=== PATIENT | female | born 1955 | race Caucasian/White ===

== ENCOUNTER 2020-03-13 11:38 | Outpatient (REF) | payer MEDICARE, SELFPAY | END 2020-03-13 11:39 | disposition home or self-care (01) | LOC: HO.LAB 11:38 | PROVIDERS: Visit Provider Nurse Practitioner Family | DX: Z20.828 Contact with and (suspected) exposure to other viral communicable diseases (principal) | CPT/HCPCS: U0003 ==

== ENCOUNTER 2020-03-25 10:55 | Outpatient (REF) | payer MEDICARE, SELFPAY ==
--- NOTE | 2020-03-25 11:07 | MR_ITS ---
EXAMINATION: MR CERVICAL SPINE WITHOUT CONTRAST CLINICAL INFORMATION: Cervical disc disorder. Neck pain. COMPARISON: None available. TECHNIQUE: MRI of the cervical spine was performed using routine sequences without contrast. FINDINGS: The cervical vertebral bodies maintain normal heights. There is mild retrolisthesis of C3 on C4 with alignment otherwise preserved. There is moderate disc height loss at C3-C4 and C4-C5. Bone marrow edema is seen across the right-sided C4-C5 facets reflecting advanced arthropathy. The cervical cord signal appears normal. The imaged portions of the intracranial contents appear normal. The extraspinal soft tissues appear normal. SPINAL LEVELS: C2-C3: No posterior disc abnormality. No spinal canal or neural foraminal stenosis. C3-C4: Disc osteophyte complex with ligamentum flavum infolding causing mild to moderate spinal canal stenosis with some flattening of the ventral cord. Right foraminal protrusion results in severe right neural foraminal stenosis. C4-C5: Disc osteophyte complex with bilateral uncovertebral hypertrophy and severe right and mild to moderate left facet arthropathy results in mild spinal canal stenosis and moderate to severe right and moderate left neural foraminal stenosis. C5-C6: No posterior disc abnormality. Moderate right facet arthropathy. No spinal canal or neural foraminal stenosis. C6-C7: Mild disc bulging. Moderate right more than left facet arthropathy with uncovertebral hypertrophy. No spinal canal or neural foraminal stenosis. C7-T1: No posterior disc abnormality. No spinal canal or neural foraminal stenosis. MR/MR cervical spine wo con IMPRESSION: Multilevel degenerative spondylotic changes. At C3-C4 there is mild to moderate spinal canal stenosis with some cord flattening. Right foraminal protrusion results in severe right neural foraminal stenosis. At C4-C5 there is edema about the right-sided facet compatible with advanced arthropathy. Mild spinal canal stenosis and moderate to severe right and moderate left neural foraminal stenosis. Additional milder spondylosis is detailed above.
== END 2020-03-25 10:56 | disposition home or self-care (01) ==
LOC: HO.MRI 10:55
PROVIDERS: Visit Provider Nurse Practitioner Family
DX: M50.90 Cervical disc disorder, unspecified, unspecified cervical region (principal)
CPT/HCPCS: 72141

== ENCOUNTER 2020-09-15 06:21 | Outpatient (REF) | payer MEDICARE, SELFPAY ==
[2020-09-15 12:07] LABS: Alanine Aminotransferase 16 U/L (0-31); Albumin Level 4.6 g/dL (3.5-5.0); Alkaline Phosphatase 83 U/L (39-117); Anion Gap 14 (12-20); Aspartate Amino Transferase 18 U/L (5-31); Bilirubin Total 0.5 mg/dL (0.0-1.0); Blood Urea Nitrogen 12 mg/dL (9-16); Calcium 9.3 mg/dL (8.4-10.2); Carbon Dioxide 26 mmol/L (22-29); Chloride 107 mmol/L (96-108); Cholesterol 185 mg/dL; Estimated Glomerular Filt Rate > 60; Glucose Fasting 91 mg/dL (60-99); HDL Cholesterol 63 mg/dL; LDL Cholesterol Calculated 103 mg/dl; Potassium 3.9 mmol/L (3.3-5.1); Sodium 143 mmol/L (135-145); Total Protein 6.9 g/dL (6.5-8.0); Triglycerides 97 mg/dL
[2020-09-15 12:11] LABS: TSH reflex Free T4 1.69 uIU/mL (0.32-4.0); Vitamin D 25-OH Total 52.8 ng/mL (>30)
== END 2020-09-15 06:22 | disposition home or self-care (01) ==
LOC: HO.HMGCLDS 06:21
PROVIDERS: PCP Nurse Practitioner Family; Visit Provider Nurse Practitioner Family
DX: E78.5 Hyperlipidemia, unspecified (principal); Z78.0 Asymptomatic menopausal state
CPT/HCPCS: 36415; 80053; 80061; 82306; 84443

== ENCOUNTER 2020-09-23 08:00 | Outpatient (RCR) | payer MEDICARE, SELFPAY | END 2020-09-26 09:44 | disposition home or self-care (01) | LOC: HO.PTCHIC 08:00 | PROVIDERS: PCP Nurse Practitioner Family | DX: M22.41 Chondromalacia patellae, right knee (principal); M22.42 Chondromalacia patellae, left knee; M25.561 Pain in right knee; M25.562 Pain in left knee | CPT/HCPCS: 97110; 97163 ==

== ENCOUNTER → 2021-06-08 14:10 | Outpatient (REF) | payer MEDICARE, SELFPAY ==
--- NOTE | 2021-06-08 14:13 | HM_ITS ---
Conclusion: 1. Patient was monitored for total period of 3 days and 9 hours 2. Baseline rhythm is normal sinus rhythm with average heart of 85 beats per minute 3. No significant pauses or bradycardia noted 4. Total of 114 PVCs accounting for 0.03% of total burden accounting for very rare PVCs 5. Patient reported 6 events correlated with sinus rhythm MTDD
== END ==
LOC: HO.CARD 14:10
PROVIDERS: PCP Nurse Practitioner Family; Visit Provider Nurse Practitioner Family
DX: R00.2 Palpitations (principal)
CPT/HCPCS: 93242

== ENCOUNTER 2021-08-13 06:37 | Outpatient (REF) | payer MEDICARE, SELFPAY ==
[2021-08-13 11:41] LABS: Appearance Urine CLEAR; Color Urine YELLOW; Glucose Urine UA NEG (NEG); Leukocyte Esterase Urine NEG (NEG); Nitrite Urine NEG (NEG); Specific Gravity - Urine 1.015 (1.005-1.025); UACC Culture Trigger NO; Urine Blood 1+ (NEG); Urine Ketones NEG (NEG); Urine Protein NEG (NEG-TRACE)
[2021-08-13 11:43] LABS: MANUAL DIFF FLAG NO
[2021-08-13 11:49] LABS: Basophils Absolute Auto 0.1 X10*3/uL (0.0-0.2); Basophils Percent Auto 0.7 % (0-2); Eosinophils Absolute Auto 0.1 X10*3/uL (0.0-0.4); Eosinophils Percent Auto 1.7 % (0-4); Hematocrit 39.1 % (37.0-47.0); Imm Gran Abs Auto 0.04 X10*3/uL (0.00-0.03); Imm Gran Pct Auto 0.5 % (0.0-0.4); Lymphocytes Percent Auto 25.7 % (20-40); Mean Corpuscular HGB Conc 33.2 g/dl (31.0-35.0); Mean Corpuscular Hemoglobin 32.7 pg (27.0-33.0); Mean Corpuscular Volume 98.5 fL (80.0-98.0); Mean Platelet Volume 9.5 fL (9.4-12.3); Monocytes Absolute Auto 0.6 X10*3/uL (0.1-1.2); Monocytes Percent Auto 8.1 % (2-11); Neutrophils Absolute Auto 4.8 x10*3/uL (2.0-8.3); Neutrophils Percent Auto 63.3 % (45-73); Platelet Count 319 X10*3/uL (160-400); Red Blood Count 3.97 X10*6/uL (4.20-5.50); Red Cell Distribution Width 12.8 % (11.0-16.0); White Blood Count 7.6 X10*3/uL (4.8-10.8)
[2021-08-13 12:14] LABS: Alanine Aminotransferase 22 U/L (0-31); Albumin Level 4.5 g/dL (3.5-5.0); Alkaline Phosphatase 79 U/L (39-117); Anion Gap 12 (12-20); Aspartate Amino Transferase 22 U/L (5-31); Bilirubin Total 0.5 mg/dL (0.0-1.0); Blood Urea Nitrogen 11 mg/dL (9-16); Carbon Dioxide 26 mmol/L (22-29); Chloride 107 mmol/L (96-108); Cholesterol 177 mg/dL; Estimated Glomerular Filt Rate > 60; Glucose Fasting 94 mg/dL (60-99); HDL Cholesterol 57 mg/dL; Iron 58 mcg/dL (30-160); LDL Cholesterol Calculated 98 mg/dl; Percent Iron Saturation 15 % (15-50); Potassium 4.1 mmol/L (3.3-5.1); Sodium 141 mmol/L (135-145); Squamous Epithelial Cell Urine 1+ /LPF; Total Iron Binding Capacity 385 mcg/dL (228-428); Total Protein 6.9 g/dL (6.5-8.0); Triglycerides 113 mg/dL; Unsaturated Iron Binding 327 ug/dL; WBC Urine 0 /HPF (0-4)
[2021-08-13 12:24] LABS: Ferritin 120 ng/mL (10-250); TSH reflex Free T4 2.13 uIU/mL (0.32-4.0)
[2021-08-13 12:35] LABS: Folate > 20.0 ng/mL (> or = 4.0); Vitamin B12 400 pg/mL (200-900)
[2021-08-16 15:41] LABS: Anti Nuclear Antibody Screen NEGATIVE (NEGATIVE)
[2021-08-16 16:32] LABS: Lyme Abs Screen <0.90 index
== END 2021-08-13 06:38 | disposition home or self-care (01) ==
LOC: HO.HMGCLDS 06:37
PROVIDERS: PCP Nurse Practitioner Family; Visit Provider Nurse Practitioner Family
DX: R53.83 Other fatigue (principal)
CPT/HCPCS: 36415; 80053; 80061; 81001; 82607; 82728; 82746; 83540; 84443; 85025; 86038; 86039; 86617; 86618

== ENCOUNTER 2021-11-19 11:45 | Outpatient (REF) | payer MEDICARE, SELFPAY ==
[2021-11-19 13:58] LABS: MANUAL DIFF FLAG NO
[2021-11-19 14:00] LABS: Urine Cytology See Pathology rpt
[2021-11-19 14:14] LABS: Appearance Urine CLEAR; Color Urine STRAW; Glucose Urine UA NEG (NEG); Leukocyte Esterase Urine NEG (NEG); Nitrite Urine NEG (NEG); Specific Gravity - Urine <= 1.005 (1.005-1.025); Urine Blood 1+ (NEG); Urine Ketones NEG (NEG); Urine Protein NEG (NEG-TRACE)
[2021-11-19 14:23] LABS: Basophils Percent Auto 0.3 % (0-2); Eosinophils Absolute Auto 0.1 X10*3/uL (0.0-0.4); Eosinophils Percent Auto 1.8 % (0-4); Hematocrit 37.8 % (37.0-47.0); Hemoglobin 12.9 g/dl (12.0-16.0); Imm Gran Abs Auto 0.04 X10*3/uL (0.00-0.03); Imm Gran Pct Auto 0.5 % (0.0-0.4); Lymphocytes Percent Auto 25.8 % (20-40); Mean Corpuscular HGB Conc 34.1 g/dl (31.0-35.0); Mean Corpuscular Hemoglobin 32.7 pg (27.0-33.0); Mean Corpuscular Volume 95.7 fL (80.0-98.0); Mean Platelet Volume 9.5 fL (9.4-12.3); Monocytes Absolute Auto 0.6 X10*3/uL (0.1-1.2); Monocytes Percent Auto 7.9 % (2-11); Neutrophils Percent Auto 63.7 % (45-73); Platelet Count 283 X10*3/uL (160-400); Red Blood Count 3.95 X10*6/uL (4.20-5.50); Red Cell Distribution Width 12.3 % (11.0-16.0); White Blood Count 7.8 X10*3/uL (4.8-10.8)
[2021-11-19 14:31] LABS: RBC Urine 0-2 /HPF (0); Squamous Epithelial Cell Urine TRACE /LPF; WBC Urine 0 /HPF (0-4)
[2021-11-19 14:32] LABS: Alanine Aminotransferase 19 U/L (0-31); Albumin Level 4.6 g/dL (3.5-5.0); Alkaline Phosphatase 94 U/L (39-117); Anion Gap 11 (12-20); Aspartate Amino Transferase 20 U/L (5-31); Bilirubin Total 0.4 mg/dL (0.0-1.0); Blood Urea Nitrogen 15 mg/dL (9-16); C Reactive Protein 0.09 mg/dL (< or = 0.50); Calcium 9.5 mg/dL (8.4-10.2); Carbon Dioxide 26 mmol/L (22-29); Chloride 103 mmol/L (96-108); Estimated Glomerular Filt Rate > 60; Glucose Random 105 mg/dL (60-115); Potassium 4.2 mmol/L (3.3-5.1); Sodium 136 mmol/L (135-145); Total Protein 7.2 g/dL (6.5-8.0)
[2021-11-19 15:06] LABS: Erythrocyte Sedimentation Rate 9 MM/HR (0-20)
== END 2021-11-19 11:46 | disposition home or self-care (01) ==
LOC: HO.HMGCLDS 11:45
PROVIDERS: Absent Provider Internal Medicine Rheumatology; PCP Nurse Practitioner Family; Visit Provider Nurse Practitioner Family
DX: R31.29 Other microscopic hematuria (principal); M15.9 Polyosteoarthritis, unspecified; Z79.1 Long term (current) use of non-steroidal anti-inflammatories (NSAID)
CPT/HCPCS: 36415; 80053; 81001; 85025; 85652; 86140; 87086; 88112

== ENCOUNTER 2022-03-22 14:25 | Outpatient (REF) | payer MEDICARE, SELFPAY ==
--- NOTE | ~2022-03-22 | XR_ITS ---
EXAMINATION: XR CHEST CLINICAL INFORMATION: Palpitations COMPARISON: Chest x-ray 07/17/2018 TECHNIQUE: 2 views of the chest were obtained. FINDINGS: No airspace consolidation. No pleural effusion or pneumothorax. Unchanged small sub-5 mm probable calcified granuloma in the posterior left lower lobe. Normal cardiomediastinal silhouette and pulmonary vascularity. No acute osseous injury. Mild multilevel degenerative disc disease in the thoracic spine. XR/XR chest 2V IMPRESSION: No acute pulmonary process.
== END 2022-03-22 14:26 | disposition home or self-care (01) ==
LOC: HO.HMGCX 14:25
PROVIDERS: PCP Nurse Practitioner Family; Visit Provider Nurse Practitioner Family
DX: R00.2 Palpitations (principal); R09.89 Other specified symptoms and signs involving the circulatory and respiratory systems
CPT/HCPCS: 71046

== ENCOUNTER → 2022-04-13 10:51 | Outpatient (REF) | payer MEDICARE, SELFPAY ==
--- NOTE | 2022-04-13 10:57 | ECG_ITS ---
Test Reason : palpitations Blood Pressure : / mmHG Vent. Rate : 073 BPM Atrial Rate : 073 BPM P-R Int : 174 ms QRS Dur : 090 ms QT Int : 392 ms P-R-T Axes : 046 014 053 degrees QTc Int : 431 ms Normal sinus rhythm Normal ECG No previous ECGs available Referred By: Vinh Tesfaye Electronically Signed By:POONAM TAVERA MD
--- NOTE | 2022-04-13 10:57 | HM_ITS ---
Conclusion: 1. Patient was monitored for total period of 2 days and 23 hours 2. Baseline was normal sinus rhythm with average heart rate of 84 beats per minute 3. No significant pauses or bradycardia noted 4. Rare PACs and PVCs noted 5. Patient reported 11 times of symptoms waiting from fluttering or chest tightness, 1 of those symptoms correlated with isolated PVCs otherwise correlated with sinus rhythm and/or sinus tachycardia. MTDD
== END ==
LOC: HO.CARD 10:51
PROVIDERS: PCP Nurse Practitioner Family; Visit Provider Nurse Practitioner Family
DX: R00.2 Palpitations (principal)
CPT/HCPCS: 93005; 93242

== ENCOUNTER 2022-07-12 06:17 | Outpatient (REF) | payer MEDICARE, SELFPAY ==
[2022-07-12 11:31] LABS: MANUAL DIFF FLAG NO
[2022-07-12 11:37] LABS: Basophils Absolute Auto 0.1 X10*3/uL (0.0-0.2); Basophils Percent Auto 0.6 % (0-2); Eosinophils Absolute Auto 0.2 X10*3/uL (0.0-0.4); Eosinophils Percent Auto 2.9 % (0-4); Hematocrit 37.3 % (37.0-47.0); Hemoglobin 12.4 g/dl (12.0-16.0); Imm Gran Abs Auto 0.03 X10*3/uL (0.00-0.03); Imm Gran Pct Auto 0.4 % (0.0-0.4); Lymphocytes Percent Auto 24.4 % (20-40); Mean Corpuscular HGB Conc 33.2 g/dl (31.0-35.0); Mean Corpuscular Hemoglobin 32.1 pg (27.0-33.0); Mean Corpuscular Volume 96.6 fL (80.0-98.0); Mean Platelet Volume 9.6 fL (9.4-12.3); Monocytes Absolute Auto 0.6 X10*3/uL (0.1-1.2); Monocytes Percent Auto 7.4 % (2-11); Neutrophils Absolute Auto 5.1 x10*3/uL (2.0-8.3); Neutrophils Percent Auto 64.3 % (45-73); Platelet Count 275 X10*3/uL (160-400); Red Blood Count 3.86 X10*6/uL (4.20-5.50); Red Cell Distribution Width 12.3 % (11.0-16.0)
[2022-07-12 12:27] LABS: Alanine Aminotransferase 16 U/L (0-31); Albumin Level 4.1 g/dL (3.5-5.0); Alkaline Phosphatase 80 U/L (39-117); Anion Gap 11 (12-20); Aspartate Amino Transferase 19 U/L (5-31); Bilirubin Total 0.4 mg/dL (0.0-1.0); Blood Urea Nitrogen 13 mg/dL (9-16); Calcium 8.8 mg/dL (8.4-10.2); Carbon Dioxide 28 mmol/L (22-29); Chloride 107 mmol/L (96-108); Cholesterol 166 mg/dL; Estimated Glomerular Filt Rate > 60; Glucose Fasting 90 mg/dL (60-99); Glucose Random 90 mg/dL (60-115); HDL Cholesterol 54 mg/dL; LDL Cholesterol Calculated 94 mg/dl; Potassium 4.2 mmol/L (3.3-5.1); Sodium 142 mmol/L (135-145); Total Protein 6.2 g/dL (6.5-8.0); Triglycerides 93 mg/dL
[2022-07-12 12:41] LABS: Appearance Urine Hazy; Color Urine Yellow; Glucose Urine UA Negative (Negative); Leukocyte Esterase Urine Negative (Negative); Nitrite Urine Negative (Negative); UMIC TRIGGER UACC YES; Urine Blood Moderate (2+) (Negative); Urine Ketones Negative (Negative); Urine Protein Negative (Neg-Trace)
[2022-07-12 12:43] LABS: TSH reflex Free T4 2.07 uIU/mL (0.32-4.0)
[2022-07-12 12:57] LABS: WBC Urine 0-5 /HPF (0-5)
[2022-07-12 12:58] LABS: Bacteria Urine None Seen (None Seen); Hyaline Casts Urine 0-2 /LPF (0-2); Other Crystals Urine Present; Squamous Epithelial Cell Urine 0-2 /HPF (0-2)
== END 2022-07-12 06:18 | disposition home or self-care (01) ==
LOC: HO.HMGCLDS 06:17
PROVIDERS: PCP Nurse Practitioner Family; Visit Provider Nurse Practitioner Family
DX: F41.1 Generalized anxiety disorder (principal); F43.0 Acute stress reaction; F43.10 Post-traumatic stress disorder, unspecified; J98.4 Other disorders of lung; R31.29 Other microscopic hematuria; Z56.6 Other physical and mental strain related to work; F17.200 Nicotine dependence, unspecified, uncomplicated
CPT/HCPCS: 36415; 80053; 80061; 81001; 81003; 84443; 85025

== ENCOUNTER 2022-07-14 12:01 | Outpatient (REF) | payer MEDICARE, SELFPAY ==
[2022-07-14 14:03] LABS: Urine Cytology See Pathology rpt
[2022-07-14 14:11] LABS: Appearance Urine Clear; Color Urine Yellow; Glucose Urine UA Negative (Negative); Leukocyte Esterase Urine Negative (Negative); Nitrite Urine Negative (Negative); PH 5.5 (5.0-9.0); Urine Blood Negative (Negative); Urine Ketones Negative (Negative); Urine Protein Negative (Neg-Trace)
== END 2022-07-14 12:02 | disposition home or self-care (01) ==
LOC: HO.HMGCLDS 12:01
PROVIDERS: PCP Nurse Practitioner Family; Visit Provider Nurse Practitioner Family
DX: F41.1 Generalized anxiety disorder (principal); F43.0 Acute stress reaction; F43.10 Post-traumatic stress disorder, unspecified; R31.29 Other microscopic hematuria; Z56.6 Other physical and mental strain related to work
CPT/HCPCS: 81003; 87086; 88112

== ENCOUNTER 2022-07-15 08:46 | Outpatient (REF) | payer MEDICARE, SELFPAY ==
--- NOTE | ~2022-07-15 | CT_ITS ---
Indication: Hematuria EXAMINATION: Noncontrast CT of the abdomen pelvis, postcontrast CT of the chest. 85 mL Omnipaque 350. This CT examination was performed using dose optimization techniques as appropriate, variously including the following: *Automated exposure control *Adjustment of mA and/or kV according to patient size (this includes techniques or standardized protocols for targeted exams where dose is matched to indication/reason for exam; i.e. extremities or head) *Use of iterative reconstruction technique. Radiation dose 514 Comparison previous abdomen pelvis dated 09/11/2017. CT chest; The thoracic inlet is felt to be within normal limits. The axillary regions are unremarkable. Centrally there is no evidence for bulky adenopathy. Imaging of the lung buck. Right lung; There is no infiltrate or effusion. Some well calcified granulomas are noted. Apical scarring is noted. Left lung; No infiltrate or effusion. Calcified granulomas noted 2 mm nodule on image 105 of series 5 posterior pleural-based Another 2 mm nodule on image 93 posterior. Small 2 mm nodule on image 61 left upper lung. Centrally coronary calcifications are noted. Mild aneurysmal change of the ascending aorta 3.7 x 3.8 cm. Upper abdomen; Liver is grossly unremarkable. Spleen within normal limits. Region of the adrenal glands is unremarkable. Region the pancreas within normal limits. Calcification centrally nonobstructing right kidney. Measures 7 mm. Small low-density lesion emanating off the lower pole right kidney laterally could represent an evolving cyst. Small low-density lesion lower pole left kidney could represent an evolving cyst. There is no hydronephrosis. Gallbladder fossa are unremarkable. The bladder is unremarkable. The bowel pattern is nonobstructing. There is diverticular disease in the sigmoid but no evidence for diverticulitis. Appendix within normal limits. There is no free fluid. The abdominal wall is felt to be unremarkable. There is no bulky adenopathy here. Vascular calcifications are noted. No aneurysmal change. Review of the bone windows does not demonstrate a suspicious finding. Hardware in the lower lumbar sacral spine. Cystic area seen previously in the right adnexa is not well evaluated. There is unopacified bowel in the region. CT/CT abdomen pelvis wo/w IV con IMPRESSION: In the chest there is no acute finding. No infiltrate or effusion. Other findings as noted. Coronary calcifications. There are calcified granulomas in a few small noncalcified nodules. If there are risk factors for lung malignancy recommend low-dose scan in one year. Noncontrast abdomen pelvis demonstrates nonobstructing calculus associated with the right kidney. There are a few low-density lesions associated with the kidneys which may well represent evolving cystic change. Consider ultrasound to confirm. Other findings are as noted above
[2022-07-15] MEDS: iohexoL 350 MG/ML 100 ML INFUS..BTL IV (11:10)
== END 2022-07-15 08:47 | disposition home or self-care (01) ==
LOC: HO.CT 08:46
PROVIDERS: Visit Provider Nurse Practitioner Family
DX: R31.9 Hematuria, unspecified (principal); R93.89 Abnormal findings on diagnostic imaging of other specified body structures; Z78.0 Asymptomatic menopausal state
CPT/HCPCS: 71260; 74178; Q9967

== ENCOUNTER 2022-07-18 13:38 | Outpatient (REF) | payer MEDICARE, SELFPAY ==
--- NOTE | ~2022-07-18 | US_ITS ---
EXAMINATION: US RETROPERITONEAL COMPLETE (RENAL) CLINICAL INFORMATION: Cyst of kidney, acquired. COMPARISON: CT abdomen and pelvis 07/15/2022. Ultrasound abdomen complete 02/23/2018. TECHNIQUE: Real-time imaging of the kidneys and bladder. FINDINGS: RIGHT KIDNEY: 10.5 x 5.4 x 5.6 cm (SAG x AP x TRV). The kidney is normal in size, contour, and echogenicity. Renal cortical thickness is normal. No renal calculi or hydronephrosis. Simple cyst measuring 1.4 cm for which no imaging follow-up is recommended. LEFT KIDNEY: 10.8 x 6.2 x 5.1 cm (SAG x AP x TRV). The kidney is normal in size, contour, and echogenicity. Renal cortical thickness is normal. No renal calculi or hydronephrosis. Simple cyst measuring 1.5 cm for which no imaging follow-up is recommended. BLADDER: Well distended and normal. Bilateral ureteral jets are demonstrated. Prevoid bladder volume is 193 mL. Postvoid bladder volume is 7.8 mL. US/US retroperitoneal comp IMPRESSION: No nephrolithiasis or hydronephrosis.
== END 2022-07-18 13:39 | disposition home or self-care (01) ==
LOC: HO.HMGCX 13:38
PROVIDERS: PCP Nurse Practitioner Family; Visit Provider Nurse Practitioner Family
DX: N28.1 Cyst of kidney, acquired (principal); R31.29 Other microscopic hematuria
CPT/HCPCS: 76770

== ENCOUNTER 2022-08-03 10:45 | Outpatient (REF) | payer MEDICARE, SELFPAY ==
--- NOTE | ~2022-08-03 | MM_ITS ---
EXAMINATION: BONE DENSITOMETRY CLINICAL INDICATION: Asymptomatic menopausal state. COMPARISON: This is the patient's baseline examination. TECHNIQUE: Using a Re[employer]og DXA System (software version: 13.1) manufactured by [employer], dual-energy x-ray absorptiometry was performed of the lumbar spine and left hip. The images are of good technical quality. Summary results are attached. FINDINGS: AP SPINE L1-L3 (excluding L4): The data of L1-L4 has been changed to exclude the L4 vertebral body, because metallic hardware at this level may cause overestimation of lumbar spine density. BMD 1.099 g/cm2, Z-score 1.3, T-score -0.6, normal. LEFT FEMUR, NECK: BMD 0.854 g/cm2, Z-score 0.4, T-score -1.3, osteopenia. LEFT FEMUR, TOTAL: BMD 0.874 g/cm2, Z-score 0.4, T-score -1.1, osteopenia. IDENTIFIED RISK FACTORS: Current smoker. Recurrent falls. Low body weight for height. Secondary osteoporosis (early menopause). Bilateral oophorectomy. HISTORY OF FRACTURE: None listed. MEDICATIONS: Calcium supplement or multivitamin. Vitamin D. MM/XR DEXA axial skeleton IMPRESSION: 1. DIAGNOSIS: Osteopenia based on the lowest T-score value of -1.3 in the femoral neck applying World Health Organization criteria. 2. 10-YEAR FRACTURE RISK PREDICTION, FRAX: Major osteoporotic fracture (clinical spine, forearm, hip or shoulder) 8.1%. Hip fracture 1.5%. 3. Treatment Recommendations: NOF guidelines recommend consideration for treatment in postmenopausal women and men age 50 and older presenting with the following: -A hip or vertebral (clinical or morphometric) fracture. -T-score less than or equal to -2.5 at the femoral neck or spine after appropriate evaluation to exclude secondary causes. -Low bone mass at the hip or spine and a 10-year fracture probability by FRAX of greater than or equal to 3% for hip fracture or greater than or equal to 20% for major osteoporotic fracture based on the [place] adapted WHO algorithm. 4. Other Recommendations: All treatment decisions require clinical judgment and consideration of individual patient factors, including patient preferences, comorbidities, previous drug use, risk factors not captured in the FRAX model (e.g. frailty, falls, vitamin D deficiency, increased bone turnover, interval significant decline in bone density) and possible under or overestimation of fracture risk by FRAX. Additional medical evaluation for secondary cause of low bone mineral density may be appropriate. FUTURE SCAN RECOMMENDATION: People with diagnosed cases of osteoporosis or at high risk for fracture should have regular bone mineral density tests. For patients eligible for Medicare, routine testing is allowed once every 2 years. The testing frequency can be increased to one year for patients who have rapidly progressing disease, those who are receiving or discontinuing medical therapy to restore bone mass, or have additional risk factors.
== END 2022-08-03 10:46 | disposition home or self-care (01) ==
LOC: HO.MAMMO 10:45
PROVIDERS: Visit Provider Nurse Practitioner Family
DX: Z13.820 Encounter for screening for osteoporosis (principal); Z78.0 Asymptomatic menopausal state
CPT/HCPCS: 77080

== ENCOUNTER 2022-12-12 06:20 | Outpatient (REF) | payer MEDICARE, SELFPAY ==
[2022-12-12 11:24] LABS: MANUAL DIFF FLAG NO
[2022-12-12 11:25] LABS: Appearance Urine Clear; Color Urine Yellow; Glucose Urine UA Negative (Negative); Leukocyte Esterase Urine Trace (Negative); Nitrite Urine Negative (Negative); PH 6.5 (5.0-9.0); UMIC TRIGGER UACC YES; Urine Blood Trace (Negative); Urine Ketones Negative (Negative); Urine Protein Negative (Neg-Trace)
[2022-12-12 11:29] LABS: Bacteria Urine None Seen (None Seen); Hyaline Casts Urine 0-2 /LPF (0-2); Squamous Epithelial Cell Urine 0-2 /HPF (0-2); WBC Urine 0-5 /HPF (0-5)
[2022-12-12 11:42] LABS: Basophils Percent Auto 0.7 % (0-2); Eosinophils Percent Auto 1.8 % (0-4); Hemoglobin 12.7 g/dl (12.0-16.0); Imm Gran Pct Auto 0.7 % (0.0-0.4); Lymphocytes Percent Auto 28.6 % (20-40); Mean Corpuscular HGB Conc 32.6 g/dl (31.0-35.0); Mean Corpuscular Hemoglobin 32.2 pg (27.0-33.0); Mean Platelet Volume 9.4 fL (9.4-12.3); Monocytes Percent Auto 7.9 % (2-11); Neutrophils Percent Auto 60.3 % (45-73); Platelet Count 315 X10*3/uL (160-400); Red Blood Count 3.94 X10*6/uL (4.20-5.50); White Blood Count 7.6 X10*3/uL (4.8-10.8)
[2022-12-12 11:43] LABS: Basophils Absolute Auto 0.1 X10*3/uL (0.0-0.2); Eosinophils Absolute Auto 0.1 X10*3/uL (0.0-0.4); Imm Gran Abs Auto 0.05 X10*3/uL (0.00-0.03); Lymphocytes Absolute Auto 2.2 X10*3/uL (1.2-4.9); Monocytes Absolute Auto 0.6 X10*3/uL (0.1-1.2); Neutrophils Absolute Auto 4.6 x10*3/uL (2.0-8.3)
[2022-12-12 12:42] LABS: Alanine Aminotransferase 17 U/L (0-31); Albumin Level 4.1 g/dL (3.5-5.0); Alkaline Phosphatase 78 U/L (39-117); Anion Gap 14 (12-20); Aspartate Amino Transferase 20 U/L (5-31); Bilirubin Total 0.3 mg/dL (0.0-1.0); Blood Urea Nitrogen 12 mg/dL (9-16); Calcium 9.4 mg/dL (8.4-10.2); Carbon Dioxide 23 mmol/L (22-29); Chloride 108 mmol/L (96-108); Cholesterol 168 mg/dL; Estimated Glomerular Filt Rate > 60; Glucose Fasting 90 mg/dL (60-99); HDL Cholesterol 65 mg/dL; LDL Cholesterol Calculated 90 mg/dl; Potassium 4.5 mmol/L (3.3-5.1); Sodium 140 mmol/L (135-145); Total Protein 6.7 g/dL (6.5-8.0); Triglycerides 68 mg/dL
[2022-12-12 12:43] LABS: TSH reflex Free T4 1.41 uIU/mL (0.32-4.0); Vitamin D 25-OH Total 69.3 ng/mL (>30)
== END 2022-12-12 06:21 | disposition home or self-care (01) ==
LOC: HO.HMGCLDS 06:20
PROVIDERS: PCP Nurse Practitioner Family; Visit Provider Nurse Practitioner Family
DX: E78.5 Hyperlipidemia, unspecified (principal); F17.200 Nicotine dependence, unspecified, uncomplicated; R53.83 Other fatigue; E55.9 Vitamin D deficiency, unspecified; R31.29 Other microscopic hematuria; Z78.0 Asymptomatic menopausal state
CPT/HCPCS: 36415; 80053; 80061; 81001; 82306; 84443; 85025

== ENCOUNTER 2022-12-15 08:46 | Outpatient (AMB) | payer MEDICARE, SELFPAY ==
[2022-12-15 08:50] VITALS: BP 124/70; PULSE 74; O2SAT 100; BMI 19.9
--- NOTE | 2022-12-15 08:50 | MHC.PC.OV ---
Vital Signs 12/15/22 08:50 Height 5 ft 6 in Weight 123 lb BMI 19.9 BP 124/70 Blood Pressure Location Lt brachial Position Sitting Pulse 74 Pulse Source Pulse Oximeter Pulse Oximetry (%) 100 Oxygen Delivery Method Room Air Intake Visit Reasons: 3m follow up Allergies naproxen [Aleve] Adverse Reaction (Unknown, Verified 12/15/22 08:52) swelling Medication List - Last Reconciled 12/15/22 by ISMA Nieto ascorbate calcium (vitamin C) 500 mg PO DAILY atorvastatin 20 mg PO DAILY calcium carbonate 600 mg PO BID 90 days celecoxib mg PO BID cholecalciferol (vitamin D3) 50 mcg PO DAILY coenzyme Q10 75 mg PO DAILY oxycodone-acetaminophen 5-325 mg 1 tab PO Q12H PRN plant stanol lukas (Cholest Off Plus) mg PO Tobacco use date assessed: 12/15/22 Fall risk assessment: 2 + Falls in past year Last assessed Fall Risk: 12/15/22 Dental Screening Dental Screen Date: 12/15/22 Did you have a dental visit in the last 12 months?: Yes Did you have a dental problem in the last 6 months where you did not have access to dental care?: No Was dental information given to patient?: Patient has dentist HPI 3m follow up HPI Details PTSD/anxiety/depression: Pt reports doing better. She does occasionally have anxiety when being approached from behind (right side mainly). Pt did report some type of settlement from her previous place of employment. Pt sees a psychiatrist but she does not want to take meds so she is going to stop this. Denies any SI and HI. Hx of micro hem. Imaging was performed and was benign. She would rather not see a urologist right now for possible cysto. Denies fever, chills, and visual hematuria, flank pains. PFSH Medical History Adnexal cyst Atherosclerosis of abdominal aorta Chronic SI joint pain Failed back syndrome Osteoarthritis Osteoarthritis of both knees Right shoulder pain Spongiotic dermatitis Urinary incontinence, mixed Surgical History H/O bilateral breast implants History of elbow surgery History of lumbar fusion History of thumb surgery Family History Father No problems noted. Mother CVD (cardiovascular disease) CHF (congestive heart failure) Son No problems noted. Daughter No problems noted. Social History Housing: House Patient Tobacco Use Status: Current everyday Tobacco user Cigarette Packs Per Day: 1 Cigarettes Per Day: 20 e-Cigarette/Vaping Use: Never Used Second Hand Smoke Exposure: Yes Current occupational status: employed Current occupation: [employer] Current occupational exposures/hazards: No Cognitive needs: No Hearing needs: No Vision needs: No Questionnaire Thrive Questionnaire Date Thrive assessed: 05/19/21 EBER-7 AMB Questionnaire EBER-7 Date EBER - 7 assessed: 05/19/21 Source: Developed by Drs. [place] Unger, Kylah oK, Ricardo Vergara and colleagues, with an educational ila from [employer]. Review of Systems Const Reports as per HPI Physical exam (Primary Care) Vital Signs: Last Vital Signs Pulse 74 12/15/22 08:50 BP 124/70 12/15/22 08:50 Pulse Ox 100 12/15/22 08:50 Oxygen Delivery Method Room Air 12/15/22 08:50 BMI result Body Mass Index 19.9 Tobacco/Smoking Status: Tobacco use Status Tobacco use date assessed 12/15/22 12/15/22 08:56 Patient Tobacco Use Status Current everyday Tobacco 12/15/22 08:56 e-Cigarette/Vaping Use Never Used 12/15/22 08:56 Thrive Assessment: Date of Thrive Assessment Date Thrive assessed 05/19/21 12/15/22 08:56 Const General: cooperative Orientation/consciousness: patient oriented x3 Resp Effort & Inspection: normal respiratory effort Auscultation: clear to auscultation bilaterally Cardio Rate: regular rate Rhythm: regular rhythm Heart sounds: S1 normal heart sound present and S2 normal heart sound present Neuro General: patient oriented x3 Psych Appearance: grossly normal Mental Status: mental status grossly normal Speech and movement: Normal speech and movement present Affect: normal affect Attitude: cooperative Thought process: Normal thought process present Thought content: Normal thought content present Insight: Good insight present (Psych) Judgement: Good judgement present (Psych) Assessment and Plan Assessment & Plan (1) Microscopic hematuria: Code(s): R31.29 - Other microscopic hematuria (2) Anxiety as acute reaction to exceptional stress: Code(s): F41.1 - Generalized anxiety disorder; F43.0 - Acute stress reaction (3) PTSD (post-traumatic stress disorder): Code(s): F43.10 - Post-traumatic stress disorder, unspecified Plan The patient agreed to the use of a center medical specialist for this encounter. Scribed for ISMA Lujan by Neetu Schneider center medical specialist, on 12/15/2022 at 09:15 EST. Coding Level of Care Code Est Pt Level 3 (25240) Diagnoses Microscopic hematuria R31.29 Anxiety as acute reaction to exceptional stress F41.1; F43.0 PTSD (post-traumatic stress disorder) F43.10
== END 2022-12-15 10:00 | disposition home or self-care (01) ==
PROVIDERS: PCP Nurse Practitioner Family; Visit Provider Nurse Practitioner Family
DX: R31.29 Other microscopic hematuria (principal); F41.1 Generalized anxiety disorder; F43.0 Acute stress reaction; F43.10 Post-traumatic stress disorder, unspecified
CPT/HCPCS: 99213

== ENCOUNTER 2023-01-31 08:16 | Outpatient (AMB) | payer MEDICARE, SELFPAY ==
[2023-01-31 08:17] VITALS: BP 126/72; PULSE 64; O2SAT 100; BMI 20.2
--- NOTE | 2023-01-31 08:17 | AM.OFFWIN_ITS ---
Intake Vital Signs 01/31/23 08:17 Height 5 ft 6 in Weight 56.756 kg BMI 20.2 BP 126/72 Blood Pressure Location Rt brachial Position Sitting Pulse 64 Pulse Source Pulse Oximeter Pulse Oximetry (%) 100 Oxygen Delivery Method Room Air Intake Visit Reasons: EP LT side stomach pain/Nausea Intake Note: Patient is here today for LT side stomach pain and also nausea. Patient states started 4 days ago Patient Tobacco Use Status: Current everyday Tobacco user Allergies naproxen [Aleve] Adverse Reaction (Unknown, Verified 01/31/23 08:19) swelling Do you need a note to return to daycare/school/sports/work: No HPI HPI Comments History of Present Illness Details 0826 this is a 67-year-old female history of diverticulosis, PTSD, anxiety, current daily smoker, palpitations, arthritis, presenting to the clinic for evaluation of left lower quadrant abdominal pain, Left sided flank pain with associated fatigue, malaise, nausea x4 days worsening. Patient does not have a history of diverticulitis. Patient reports poor p.o. intake / anorexia. Denies fevers, chills, chest pain, shortness of breath, diarrhea, changes in urination, vomiting, melena, hematochezia, headache, vision changes. Last colonoscopy was < 5 years ago patient states wnl Physical exam lower quadrant tenderness to palpation. Vital signs stable patient nontoxic appearing concerns for diverticulitis versus viral illness vs kidney stone vs pylo. Unlikely obstruction, appendicitis, cholecystitis, cholangitis, choledocholithiasis, pancreatitis, acute abdomen. No signs of dissection. Plan at this time will send patient to the emergency department for further evaluation likely needs [facility] Medical History Spongiotic dermatitis Urinary incontinence, mixed Osteoarthritis of both knees Failed back syndrome Adnexal cyst Atherosclerosis of abdominal aorta Chronic SI joint pain Right shoulder pain Osteoarthritis Surgical History History of elbow surgery History of thumb surgery History of lumbar fusion H/O bilateral breast implants Family History Father No problems noted. Mother CVD (cardiovascular disease) CHF (congestive heart failure) Son No problems noted. Daughter No problems noted. Social History Housing: House Patient Tobacco Use Status: Current everyday Tobacco user Cigarette Packs Per Day: 1 Cigarettes Per Day: 20 e-Cigarette/Vaping Use: Never Used Second Hand Smoke Exposure: Yes Current occupational status: employed Current occupation: [employer] Current occupational exposures/hazards: No Cognitive needs: No Hearing needs: No Vision needs: No Review of Systems Const Details: Constitutional : No Weight loss, No Fever, No Chills, No Fatigue, No Malaise ENT/Mouth : No sore throat, No Rhinorrhea Eyes: No Eye Pain, No Swelling, No Redness Cardiovascular : No Chest Pain, No SOB, No Dyspnea on Exertion, No Orthopnea, No Edema, No Palpitations Respiratory : No Cough, No Sputum, No Wheezing Gastrointestinal : No Nausea, No Vomiting, No Diarrhea, No Constipation, + abdominal Pain, No Hematochezia, No Melena Genitourinary : No Dysuria, No Urinary Frequency, No Hematuria, Musculoskeletal : No joint pain, No Myalgias, No Joint Swelling Skin : No Skin Lesions, No rash Neuro : No Weakness, No Numbness, No Dizziness, No Headache Psych : No Anxiety/Panic, No Depression All other systems reviewed and are negative All systems reviewed & are unremarkable except as noted in HPI and below Physical Exam Vital Signs: Last Vital Signs Pulse 64 01/31/23 08:17 BP 126/72 01/31/23 08:17 Pulse Ox 100 01/31/23 08:17 Oxygen Delivery Method Room Air 01/31/23 08:17 BMI result Body Mass Index 20.2 vss Appearance: Alert.? Oriented X3.? No acute distress.? Head: Normocephalic, atraumatic, no step-offs or deformities Eyes: Pupils equal, round and reactive to light.? CVS: Normal heart rate and rhythm.? Pulses normal.? Respiratory: No respiratory distress.? Breath sounds normal.? Abdomen: Soft and + LLQ tenderness .? Skin: Skin warm and dry.? Normal skin color.? Normal skin turgor.? Extremities: No lower extremity edema.? No calf ttp. 5/5 strength to bilateral upper and lower extremities Back: No midline tenderness, no C-spine tenderness, full range of motion, no CVA tenderness bilaterally Neuro: Oriented X 3.? No motor deficit.? No sensory deficit. CN 2-12 intact Assessment & Plan Assessment & Plan (1) LLQ abdominal pain: Code(s): R10.32 - Left lower quadrant pain Plan patient to go to the emergency department at [place] Coding Level of Care Code Est Pt Level 3 (87220) Diagnoses LLQ abdominal pain R10.32
== END 2023-01-31 09:28 | disposition home or self-care (01) ==
PROVIDERS: PCP Nurse Practitioner Family; Visit Provider Physician Assistant
DX: R10.32 Left lower quadrant pain (principal)
CPT/HCPCS: 99213

== ENCOUNTER 2023-01-31 08:52 | Emergency (ER) | payer MEDICARE, SELFPAY ==
--- NOTE | ~2023-01-31 | CT_ITS ---
EXAMINATION: CT ABDOMEN AND PELVIS WITH CONTRAST CLINICAL INFORMATION: Lower abdominal pain, left flank pain, nausea and diarrhea COMPARISON: Abdominal and pelvic CT of 07/15/2022 TECHNIQUE: Multidetector volumetric images were obtained from the superior aspect of the liver through the pubic symphysis following administration 85 mL of Omnipaque 350 intravenous contrast. Sagittal and coronal reformatted images were obtained on the technologist's workstation. Oral contrast: No This CT examination was performed using dose optimization techniques as appropriate, variously including the following: *Automated exposure control *Adjustment of mA and/or kV according to patient size (this includes techniques or standardized protocols for targeted exams where dose is matched to indication/reason for exam; i.e. extremities or head) *Use of iterative reconstruction technique DLP: 359 mGy-cm FINDINGS: LUNG BASES: The visualized lung bases are unremarkable. Coronary artery calcifications are noted though incompletely imaged. LIVER, GALLBLADDER, AND BILIARY TREE: The liver is normal in size, shape, and attenuation. No focal hepatic lesion or biliary ductal dilatation is present. The gallbladder is unremarkable with no evidence of radiopaque gallstones, gallbladder wall thickening, or obvious pericholecystic inflammatory changes. PANCREAS: Unremarkable. SPLEEN: Unremarkable. ADRENAL GLANDS: Unremarkable. KIDNEYS AND URETERS: An ovoid 6 x 3 mm calculus in the midpole collecting system of the right kidney is unchanged. An exophytic 11 mm cyst extends from the lower pole of the right kidney, for which no imaging follow-up is needed. The left kidney is unremarkable. The kidneys are normal in size, shape, and attenuation. No hydronephrosis or hydroureter. No perinephric stranding. BLADDER: Unremarkable. GASTROINTESTINAL TRACT: The stomach and small bowel are unremarkable. Considerable sigmoid diverticulosis is present without diverticulitis. The appendix is unremarkable. ABDOMINAL WALL: No significant hernia is appreciated. LYMPH NODES: Normal. VASCULAR: Aortoiliac atherosclerosis is present with dense calcifications in the lower aorta and both proximal common iliac arteries. No aneurysm is detected. PELVIC VISCERA: The uterus is lobulated and enlarged, with prominent round masses in the fundus measuring 4.3 cm on the left and 4 cm on the right, presumably fibroids. There are no adnexal masses. OSSEOUS STRUCTURES: Surgical fusion is evident at L5-S1. There is mild loss of height at T12. CT/CT abdomen pelvis w IV con IMPRESSION: 1. No change in nonobstructing right renal by 3 mm calculus. 2. No acute findings otherwise in the abdomen or pelvis. 3. Prior L5-S1 spinal fusion with mild loss of height at T12, unchanged. 4. Incidental findings include coronary artery calcifications; fibroid uterus; sigmoid diverticulosis without diverticulitis. Fleischner guidelines were followed.
[2023-01-31 08:59] VITALS: BP 159/80; PULSE 74; RESP 18; TEMP 36.7; O2SAT 99; BMI 20.8
--- NOTE | 2023-01-31 09:47 | ED_ITS ---
HPI - Abdominal Pain General Chief Complaint: Abdominal Pain Stated Complaint: Diverticulitis sent by PCP Time Seen by Provider: 01/31/23 09:47 Source: patient, RN notes reviewed and old records reviewed Mode of arrival: ambulatory History of Present Illness HPI narrative: 67-year-old female with a past medical history PTSD, anxiety, insomnia, arthritis, HLD, presenting to the ED complaining of lower abdominal pain, nausea, diarrhea, chills and subjective fever x 4 days. Also reports left flank pain. Patient was seen at [facility] and sent to the ED for further evaluation. Denies vomiting, hematuria/dysuria, suspicious food intake, recent travel MD elicited complaint: abdominal pain Related Data Home Medications Medication Instructions Recorded Confirmed ascorbate calcium (vitamin C) 500 500 mg PO DAILY 12/22/20 12/15/22 mg tablet cholecalciferol (vitamin D3) 50 50 mcg PO DAILY 12/22/20 12/15/22 mcg (2,000 unit) capsule coenzyme Q10 75 mg capsule 75 mg PO DAILY 12/22/20 12/15/22 oxycodone-acetaminophen 5 mg-325 1 tab PO Q12H PRN pain 12/22/20 12/15/22 mg tablet plant stanol lukas 450 mg capsule mg PO 12/22/20 12/15/22 (Cholest Off Plus) celecoxib 200 mg capsule mg PO BID 11/03/21 12/15/22 Previous Rx's Medication Instructions Recorded calcium carbonate 600 mg calcium 600 mg PO BID 90 days #180 tabs 06/29/20 (1,500 mg) tablet atorvastatin 20 mg tablet 20 mg PO DAILY #90 tabs 07/08/22 Allergies Allergy/AdvReac Type Severity Reaction Status Date / Time naproxen [Aleve] AdvReac Unknown swelling Verified 01/31/23 08:19 Review of Systems Review of Systems Constitutional: No Fever, No Chills, No Fatigue, No Malaise ENT/Mouth: No Ear Pain, No Nasal Congestion, No sore throat, No Rhinorrhea, No Swallowing Difficulty Eyes: No Eye Pain, No Swelling, No Redness, No Vision Changes Cardiovascular: No Chest Pain, No SOB Respiratory: No Cough, No Sputum, No Dyspnea Gastrointestinal: + Nausea, No Vomiting, No Diarrhea, No Constipation, +Abdominal pain, No Hematochezia, No Melena Genitourinary: No irregular bleeding, No Dysuria, No Urinary Frequency, No Hematuria, + Flank Pain Musculoskeletal: No joint pain, No Myalgias, No Joint Swelling Skin: No Skin Lesions, No rash Neuro: No Weakness, No Numbness, No Dizziness, No Headache Yes all other systems are reviewed and are negative Constitutional: Reports as per [facility] Past Medical History Attestation statement: The following information was validated with the patient. Source: old records reviewed Medical History Spongiotic dermatitis Urinary incontinence, mixed Osteoarthritis of both knees Failed back syndrome Adnexal cyst Atherosclerosis of abdominal aorta Chronic SI joint pain Right shoulder pain Osteoarthritis Surgical History History of elbow surgery History of thumb surgery History of lumbar fusion H/O bilateral breast implants Family History Family History Father No problems noted. Mother CVD (cardiovascular disease) CHF (congestive heart failure) Son No problems noted. Daughter No problems noted. Social History Social History Housing: House Alcohol intake: never Patient Tobacco Use Status: Current everyday Tobacco user Cigarette Packs Per Day: 1 Cigarettes Per Day: 20 Smoked in Last 30 Days: Yes e-Cigarette/Vaping Use: Never Used Second Hand Smoke Exposure: Yes Use of substances other than those prescribed or required for medical reasons: No Advance Directives: No Advance Directives Information Provided: Yes Current occupational status: employed Current occupation: [employer] Current occupational exposures/hazards: No Cognitive needs: No Hearing needs: No Vision needs: No Physical Exam ED Vital Signs: Vital Signs - 24 hr 01/31/23 08:59 01/31/23 10:08 01/31/23 11:07 Temperature 98.1 F 97.8 F 98.0 F Pulse Rate 74 63 57 Respiratory Rate 18 16 14 Blood Pressure 159/80 H 137/80 122/65 Pulse Oximetry 99 98 99 Oxygen Delivery Method Room Air Room Air Room Air BMI result Body Mass Index 20.8 Const General: cooperative, healthy appearing and no acute distress Orientation/consciousness: patient oriented x3 Limitations: no limitations HENMT Head: Yes normal to inspection and Yes atraumatic Ears: hearing grossly normal bilaterally General nose exam: Normal external nose present Face and sinus: Yes normal facial exam Eyes General: appearance normal, both eyes and all related structures EOM: EOMs intact bilaterally Neck Neck: Yes normal visual inspection and Yes no meningeal signs Resp Effort & Inspection: normal respiratory effort and no respiratory distress Auscultation: clear to auscultation bilaterally Cardio Rate: regular rate Heart sounds: S1 normal heart sound present and S2 normal heart sound present GI Inspection: Yes normal to inspection Palpation (GI): Soft to palpation, Tenderness to palpation present (GI) in the LLQ, in the RLQ and suprapubicly; with no rebound tenderness, no guarding and not rigid General: Yes CVA tenderness on the left Back/Spine/Pelvis Back: CVA tenderness Skin Rashes: no rashes Wounds: no wounds Neuro General: patient oriented x3, tone normal and no meningeal signs Cranial nerves: Yes CN's II-XII intact bilaterally Gait exam (Neuro): Normal gait present Extrem General: Yes normal to inspection Course Course Course Narrative: -mild leukocytosis of 12.0. Labs otherwise reassuring. Urine negative. CT abdomen pelvis w IV con IMPRESSION: 1. No change in nonobstructing right renal by 3 mm calculus. 2. No acute findings otherwise in the abdomen or pelvis. 3. Prior L5-S1 spinal fusion with mild loss of height at T12, unchanged. 4. Incidental findings include coronary artery calcifications; fibroid uterus; sigmoid diverticulosis without diverticulitis. Fleischner guidelines were followed. > on re-evaluation patient reports symptomatic improvement, tolerating p.o. in the ED without abdominal pain nausea or vomiting. Discussed needed close follow-up with PCP Results discussed with patient including worrisome signs and symptoms and strict return precautions, and when to return to the emergency department. They verbalized understanding and feel safe for discharge at this time. Medical Decision Making Medical Decision Making MDM Narrative: 67-year-old female with a past medical history PTSD, anxiety, insomnia, arthritis, HLD, presenting to the ED complaining of lower abdominal pain, nausea, diarrhea, chills and subjective fever x 4 days. Also reports left flank pain. On exam vital signs stable, NAD, nontoxic appearing, abdomen soft with lower tenderness, no rebound or guarding, left CVAT also noted. Concern for diverticulitis/colitis vs appendicitis vs viral syndrome vs UTI/pyelo. Unlikely SBO, cholecystitis/lithiasis, pancreatitis, ischemic bowel Plan: Labs, UA, CT AP, IVF, pain control, re-evaluate Please refer to course for remaining clinical decision making, interpretation of labs/imaging results, and discussions with consultants and/or family members. Differential Diagnosis Differential Diagnoses: The differential diagnosis associated with the presentation includes As above Admission/Observation Consideration of admission/observation: Escalation of care including admission/observation considered Consult Healthcare Provider Urgent care provider Lab Data MDM Lab Attestation statement: I reviewed the patient's lab results. 01/31/23 09:41 01/31/23 09:41 Labs: Lab Results 01/31/23 01/31/23 Range/Units 09:41 09:45 WBC 12.0 H (4.8-10.8) X10*3/uL RBC 4.09 L (4.20-5.50) X10*6/uL Hgb 13.1 (12.0-16.0) g/dl Hct 38.4 (37.0-47.0) % MCV 93.9 (80.0-98.0) fL MCH 32.0 (27.0-33.0) pg MCHC 34.1 (31.0-35.0) g/dl RDW 12.5 (11.0-16.0) % Plt Count 321 (160-400) X10*3/uL MPV 8.8 L (9.4-12.3) fL Immature Gran % (Auto) 1.5 H (0.0-0.4) % Neut % (Auto) 62.1 (45-73) % Lymph % (Auto) 23.3 (20-40) % Giles % (Auto) 7.9 (2-11) % Eos % (Auto) 5.0 H (0-4) % Baso % (Auto) 0.2 (0-2) % Lymph # (Auto) 2.8 (1.2-4.9) X10*3/uL Giles # (Auto) 1.0 (0.1-1.2) X10*3/uL Eos # (Auto) 0.6 H (0.0-0.4) X10*3/uL Baso # (Auto) 0.0 (0.0-0.2) X10*3/uL Abs Immat Gran (auto) 0.18 H (0.00-0.03) X10*3/uL Absolute Neuts (auto) 7.5 (2.0-8.3) x10*3/uL Absolute Nucleated RBC 0.000 (0.0-0.012) X10*3/uL Nucleated RBC % (auto) 0.0 (0.0-0.2) /100WBC Sodium 137 (135-145) mmol/L Potassium 4.6 (3.3-5.1) mmol/L Chloride 107 (96-108) mmol/L Carbon Dioxide 24 (22-29) mmol/L Anion Gap 11 L (12-20) BUN 13 (9-16) mg/dL Creatinine 0.63 (0.5-1.4) mg/dL Estim Creat Clear Calc 77.5 Estimated GFR > 60 Random Glucose 103 (60-115) mg/dL Calcium 9.6 (8.4-10.2) mg/dL Magnesium 2.3 (1.6-2.6) mg/dL Total Bilirubin 0.4 (0.0-1.0) mg/dL AST 20 (5-31) U/L ALT 29 (0-31) U/L Alkaline Phosphatase 83 (39-117) U/L Total Protein 6.9 (6.5-8.0) g/dL Albumin 4.4 (3.5-5.0) g/dL Lipase 63 (8-78) U/L Urine Color Yellow Urine Appearance Clear Urine pH 5.5 (5.0-9.0) Ur Specific [place] 1.010 (1.005-1.025) Urine Protein Negative (Neg-Trace) mg/dL Urine Glucose (UA) Negative (Negative) mg/dL Urine Ketones Negative (Negative) mg/dL Urine Blood Trace H (Negative) Urine Nitrite Negative (Negative) Ur Leukocyte Esterase Negative (Negative) Urine RBC 0-2 (0-2) /HPF Urine WBC 0-5 (0-5) /HPF Ur Squamous Epith Cells 0-2 (0-2) /HPF Urine Bacteria None Seen (None Seen) Hyaline Casts 0-2 (0-2) /LPF Radiology Impression Discussion of test interpretation with radiology: I have reviewed the radiologist's reading. External Record Review External record reviewed: Inpatient record, Office record, Outpatient record, Prior outpatient labs, Prior outpatient radiology, Primary care record and Outside ED record Tests considered The following testing was considered but not selected: As above Prescription Management I considered prescription management with: Pain Medication and Antibiotic Medications Administered Discontinued Medications Generic Name Dose Route Start Last Admin Trade Name Freq PRN Reason Stop Dose Admin Sodium Chloride 1,000 mls @ 999 mls/hr 01/31/23 10:00 01/31/23 12:10 Ns IV 01/31/23 11:00 Infused .Q1H1M YOSVANY Infusion Iohexol 100 ml 01/31/23 10:54 01/31/23 10:55 Iohexol 350 Mg/Ml 100 Ml Infus..Btl IV 01/31/23 10:55 85 ml ONCE ONE Administration Ketorolac Tromethamine 15 mg 01/31/23 09:59 01/31/23 10:20 Ketorolac Tromethamine 15 Mg/Ml Vial IVPUSH 01/31/23 10:00 15 mg ONCE ONE Administration Ondansetron HCl 4 mg 01/31/23 09:59 01/31/23 10:20 Ondansetron Hcl 4 Mg/2 Ml Vial IVPUSH 01/31/23 10:00 4 mg ONCE ONE Administration Discharge Plan Discharge Clinical Impression: Abdominal pain Patient Disposition: Home, Self-Care Instructions: Abdominal Pain (ED) Additional Instructions: Your blood work and CT scan are reassuring Please of close follow-up with her doctor If symptoms persist or worsen, pain becomes constant or unbearable, he develops fever, persistent nausea/vomiting or diarrhea please return to the emergency department Prescriptions: No Action calcium carbonate 600 mg calcium (1,500 mg) tablet 600 mg PO BID 90 Days Qty: 180 3RF atorvastatin 20 mg tablet 20 mg PO DAILY Qty: 90 2RF oxycodone-acetaminophen 5-325 mg tablet 1 tab PO Q12H PRN (Reason: pain) Cholest Off Plus 450 mg capsule PO cholecalciferol (vitamin D3) 50 mcg (2,000 unit) capsule 50 mcg PO DAILY ascorbate calcium (vitamin C) 500 mg tablet 500 mg PO DAILY coenzyme Q10 75 mg capsule 75 mg PO DAILY celecoxib 200 mg capsule PO BID Referrals: [facility] [place] [facility] [Provider Group] - 1 week Vinh Tesfaye FNP-BC [Primary Care Provider] - 5 days Interventions: ED Discharge Assessment Last Done: 01/31/23 12:08 Discharge Date/Time: 01/31/23 12:13
[2023-01-31 09:48] LABS: MANUAL DIFF FLAG NO
[2023-01-31 09:55] LABS: Basophils Percent Auto 0.2 % (0-2); Eosinophils Absolute Auto 0.6 X10*3/uL (0.0-0.4); Hematocrit 38.4 % (37.0-47.0); Hemoglobin 13.1 g/dl (12.0-16.0); Imm Gran Abs Auto 0.18 X10*3/uL (0.00-0.03); Imm Gran Pct Auto 1.5 % (0.0-0.4); Lymphocytes Absolute Auto 2.8 X10*3/uL (1.2-4.9); Lymphocytes Percent Auto 23.3 % (20-40); Mean Corpuscular HGB Conc 34.1 g/dl (31.0-35.0); Mean Corpuscular Volume 93.9 fL (80.0-98.0); Mean Platelet Volume 8.8 fL (9.4-12.3); Monocytes Percent Auto 7.9 % (2-11); Neutrophils Absolute Auto 7.5 x10*3/uL (2.0-8.3); Neutrophils Percent Auto 62.1 % (45-73); Platelet Count 321 X10*3/uL (160-400); Red Blood Count 4.09 X10*6/uL (4.20-5.50); Red Cell Distribution Width 12.5 % (11.0-16.0)
[2023-01-31 10:04] LABS: Appearance Urine Clear; Color Urine Yellow; Glucose Urine UA Negative (Negative); Leukocyte Esterase Urine Negative (Negative); Nitrite Urine Negative (Negative); PH 5.5 (5.0-9.0); UMIC TRIGGER UACC YES; Urine Blood Trace (Negative); Urine Ketones Negative (Negative); Urine Protein Negative (Neg-Trace)
[2023-01-31 10:05] LABS: Alanine Aminotransferase 29 U/L (0-31); Albumin Level 4.4 g/dL (3.5-5.0); Alkaline Phosphatase 83 U/L (39-117); Anion Gap 11 (12-20); Aspartate Amino Transferase 20 U/L (5-31); Bilirubin Total 0.4 mg/dL (0.0-1.0); Blood Urea Nitrogen 13 mg/dL (9-16); Calcium 9.6 mg/dL (8.4-10.2); Carbon Dioxide 24 mmol/L (22-29); Chloride 107 mmol/L (96-108); Creatinine Clr Calc Pharmacy 77.5; Estimated Glomerular Filt Rate > 60; Glucose Random 103 mg/dL (60-115); Potassium 4.6 mmol/L (3.3-5.1); Sodium 137 mmol/L (135-145); Total Protein 6.9 g/dL (6.5-8.0)
[2023-01-31 10:08] VITALS: BP 137/80; PULSE 63; RESP 16; TEMP 36.6; O2SAT 98
[2023-01-31] MEDS: 0.9 % Sodium Chloride 1,000 ML 999 ML IV (10:18)
[2023-01-31] MEDS: Ketorolac Tromethamine 15 MG/ML VIAL IVPUSH (10:20)
[2023-01-31] MEDS: ondansetron HCL 4 MG/2 ML VIAL IVPUSH (10:20)
[2023-01-31 10:22] LABS: Bacteria Urine None Seen (None Seen); Hyaline Casts Urine 0-2 /LPF (0-2); RBC Urine 0-2 /HPF (0-2); Squamous Epithelial Cell Urine 0-2 /HPF (0-2); WBC Urine 0-5 /HPF (0-5)
--- NOTE | 2023-01-31 10:24 | PC.NURSE ---
a&ox3, vss and up to date, nsr on the registered nurse cardiac. pt comes in today d/t l flank pain that radiates to lower abdomen bilaterally. pain started 4 days ago. pt describes pain at stabbing sensation. pt denies hx of kidney stones. pt denies urinary symptoms aside from hematuria which she states is normal for her. pt has hx of diverticulosis but has never had a flare up. pt denies n/v/d/chills at this time. pt currently afebrile. 20g IV placed in the right AC w/o complications. IVF hung and medications administered per provider order. pt resting comfortably in no apparent distress. respirations even and unlabored. lung sounds clear throughout. call nichols placed within reach.
[2023-01-31] MEDS: iohexoL 350 MG/ML 100 ML INFUS..BTL IV (10:55)
[2023-01-31 11:02] LABS: Lipase 63 U/L (8-78); Magnesium 2.3 mg/dL (1.6-2.6)
[2023-01-31 11:07] VITALS: BP 122/65; PULSE 57; RESP 14; TEMP 36.7; O2SAT 99
--- NOTE | 2023-01-31 11:20 | PC.NURSE ---
pt remains a&ox3, vss, nsr on the groundwater monitoring technician. pt verbalizes pain decreased to 5/1-0 post medication administration. pt resting comfortably w/ the lights dimmed in no apparent distress. respirations even and unlabored. call nichols placed within reach.
== END 2023-01-31 12:13 | disposition home or self-care (01) ==
PROVIDERS: Physician Assistant; Emergency Provider Emergency Medicine; PCP Nurse Practitioner Family
DX: R10.9 Unspecified abdominal pain (principal); R11.2 Nausea with vomiting, unspecified; R50.9 Fever, unspecified; Z79.899 Other long term (current) drug therapy
CPT/HCPCS: 36415; 74177; 80053; 81001; 81003; 83690; 83735; 85025; 96361; 96374; 96375; 99284; 99285; J1885; J2405; Q9967

== ENCOUNTER 2023-04-19 09:15 | Outpatient (AMB) | payer MEDICARE, SELFPAY ==
--- NOTE | 2023-04-19 09:17 | A.OFFPC_ITS ---
Vital Signs 04/19/23 09:20 Height 5 ft 5 in Weight 125 lb 6 oz BMI 20.9 BP 102/60 Blood Pressure Location Rt brachial Position Sitting Pulse 64 Pulse Source Pulse Oximeter Pulse Oximetry (%) 97 Oxygen Delivery Method Room Air Intake Visit Reasons: 4 month fu Intake Note: Patient here for anxiety f/u. Allergies naproxen [Aleve] Adverse Reaction (Unknown, Verified 04/19/23 09:21) swelling Tobacco use date assessed: 12/15/22 HPI 4 month fu HPI Details Dyslipidemia: On atorvastatin 20mg. Will increase to 40mg. Denies chest pain, shortness of breath, and dizziness. Micro hem noted previously. Pt has seen urology in the past but not recently, and she had refused Cystos in the past as well. Will refer to urology for cysto. Denies fever, chills, and visible hematuria. Cytology in the past was neg for carcinoma. Pt c/o fatigue. Will order labs. (pt part of low dose CT scan program). Pt has smoked for years, now smoking 1/2 pack a day. PENDING SALE TO [facility] Medical History Spongiotic dermatitis Urinary incontinence, mixed Osteoarthritis of both knees Failed back syndrome Adnexal cyst Atherosclerosis of abdominal aorta Chronic SI joint pain Right shoulder pain Osteoarthritis Surgical History History of elbow surgery History of thumb surgery History of lumbar fusion H/O bilateral breast implants Family History Father No problems noted. Mother CVD (cardiovascular disease) CHF (congestive heart failure) Son No problems noted. Daughter No problems noted. Social History Housing: House Alcohol intake: never Patient Tobacco Use Status: Current everyday Tobacco user Cigarette Packs Per Day: 1 Cigarettes Per Day: 20 e-Cigarette/Vaping Use: Never Used Second Hand Smoke Exposure: Yes Current occupational status: employed Current occupation: [employer] Current occupational exposures/hazards: No Cognitive needs: No Hearing needs: No Vision needs: No Questionnaire Thrive Questionnaire Date Thrive assessed: 05/19/21 EBER-7 AMB Questionnaire EBER-7 Date EBER - 7 assessed: 05/19/21 Source: Developed by Drs. [place] Unger, Kylah Ko, Ricardo Vergara and colleagues, with an educational ila from [employer]. Review of Systems Const Reports as per HPI Physical exam (Primary Care) Vital Signs: Last Vital Signs Pulse 64 04/19/23 09:20 BP 102/60 04/19/23 09:20 Pulse Ox 97 04/19/23 09:20 Oxygen Delivery Method Room Air 04/19/23 09:20 BMI result Body Mass Index 20.9 Tobacco/Smoking Status: Tobacco use Status Tobacco use date assessed 12/15/22 04/19/23 09:19 Patient Tobacco Use Status Current everyday Tobacco 04/19/23 09:19 e-Cigarette/Vaping Use Never Used 04/19/23 09:19 Thrive Assessment: Date of Thrive Assessment Date Thrive assessed 05/19/21 04/19/23 09:19 Const General: cooperative Orientation/consciousness: patient oriented x3 Resp Effort & Inspection: normal respiratory effort Auscultation: clear to auscultation bilaterally Cardio Rate: regular rate Rhythm: regular rhythm Heart sounds: S1 normal heart sound present and S2 normal heart sound present Neuro General: patient oriented x3 Psych Appearance: grossly normal Mental Status: mental status grossly normal Speech and movement: Normal speech and movement present Affect: normal affect Attitude: cooperative Thought process: Normal thought process present Thought content: Normal thought content present Insight: Good insight present (Psych) Judgement: Good judgement present (Psych) Assessment and Plan Assessment & Plan (1) Microscopic hematuria: Code(s): R31.29 - Other microscopic hematuria Plan: Referred to urology (2) Fatigue: Code(s): R53.83 - Other fatigue Plan: Labs ordered (3) Smoker: Code(s): F17.200 - Nicotine dependence, unspecified, uncomplicated Plan: Labs ordered, referred to urology, gets LDCTs yearly Plan The patient agreed to the use of a medical case manager for this encounter. Scribed for MIGUEL A Lujan-BC by Neetu Schneider medical case manager, on 04/19/2023 at 09:35 EST. Orders: Orders Comprehensive Met. Panel Today R31.29 - Other microscopic hematuria, R53.83 - Other fatigue UA CC w/rflx Micro + Cult Today R31.29 - Other microscopic hematuria, R53.83 - Other fatigue Complete Blood Count Auto Diff Today R31.29 - Other microscopic hematuria, R53.83 - Other fatigue TSH reflex Free T4 Today R31.29 - Other microscopic hematuria, R53.83 - Other fatigue XR chest 2V Today F17.200 - Nicotine dependence, unspecified, uncomplicated Referrals Urology Referral F17.200 - Nicotine dependence, unspecified, uncomplicated, R31.29 - Other microscopic hematuria Medications: Changed From atorvastatin 20 mg PO DAILY 90 tabs 2RF To atorvastatin 40 mg PO DAILY 90 tabs 2RF 90 days Coding Level of Care Code Est Pt Level 3 (63497) Diagnoses Microscopic hematuria R31.29 Fatigue R53.83 Smoker F17.200
[2023-04-19 09:20] VITALS: BP 102/60; PULSE 64; O2SAT 97; BMI 20.9
== END 2023-04-19 10:08 | disposition home or self-care (01) ==
PROVIDERS: PCP Nurse Practitioner Family; Visit Provider Nurse Practitioner Family
DX: R31.29 Other microscopic hematuria (principal); R53.83 Other fatigue; F17.200 Nicotine dependence, unspecified, uncomplicated
CPT/HCPCS: 99213

== ENCOUNTER 2023-04-19 10:08 | Outpatient (REF) | payer OTHER, MEDICARE, SELFPAY ==
--- NOTE | ~2023-04-19 | XR_ITS ---
EXAMINATION: XR CHEST CLINICAL INFORMATION: Nicotine dependence. COMPARISON: CT chest 07/15/2022, radiograph chest 03/22/2022. TECHNIQUE: 2 views of the chest were obtained. FINDINGS: The lungs remain well-inflated. There is no gross pneumothorax. Heart size is normal. Redemonstration of small 5 mm or less nodules in the right mid to lower lung and left mid to lower lung. CT scan of 07/15/2022, demonstrated both calcified nodules characteristic of granulomata as well as noncalcified nodules. No gross pleural effusion. No new focal consolidation to suggest pneumonia. Degenerative changes in the thoracic spine. XR/XR chest 2V IMPRESSION: 1. No evidence of pneumonia. 2. Redemonstration of small 5 mm or less nodules in the right mid to lower lung and left mid to lower lung.
[2023-04-19 13:20] LABS: MANUAL DIFF FLAG NO
[2023-04-19 13:23] LABS: Appearance Urine Clear; Color Urine Yellow; Glucose Urine UA Negative (Negative); Leukocyte Esterase Urine Negative (Negative); Nitrite Urine Negative (Negative); PH 6.5 (5.0-9.0); UMIC TRIGGER UACC YES; Urine Blood Trace (Negative); Urine Ketones Negative (Negative); Urine Protein Negative (Neg-Trace)
[2023-04-19 13:26] LABS: Bacteria Urine None Seen (None Seen); Hyaline Casts Urine 0-2 /LPF (0-2); Squamous Epithelial Cell Urine 0-2 /HPF (0-2); WBC Urine 0-5 /HPF (0-5)
[2023-04-19 13:30] LABS: Basophils Absolute Auto 0.1 X10*3/uL (0.0-0.2); Basophils Percent Auto 0.4 % (0-2); Eosinophils Absolute Auto 0.2 X10*3/uL (0.0-0.4); Eosinophils Percent Auto 1.7 % (0-4); Hematocrit 37.1 % (37.0-47.0); Hemoglobin 12.5 g/dl (12.0-16.0); Imm Gran Abs Auto 0.12 X10*3/uL (0.00-0.03); Lymphocytes Absolute Auto 2.6 X10*3/uL (1.2-4.9); Lymphocytes Percent Auto 21.8 % (20-40); Mean Corpuscular HGB Conc 33.7 g/dl (31.0-35.0); Mean Corpuscular Hemoglobin 32.3 pg (27.0-33.0); Mean Corpuscular Volume 95.9 fL (80.0-98.0); Mean Platelet Volume 9.2 fL (9.4-12.3); Monocytes Absolute Auto 0.8 X10*3/uL (0.1-1.2); Neutrophils Absolute Auto 8.1 x10*3/uL (2.0-8.3); Neutrophils Percent Auto 68.1 % (45-73); Platelet Count 367 X10*3/uL (160-400); Red Blood Count 3.87 X10*6/uL (4.20-5.50); Red Cell Distribution Width 12.6 % (11.0-16.0); White Blood Count 11.9 X10*3/uL (4.8-10.8)
[2023-04-19 13:54] LABS: Alanine Aminotransferase 22 U/L (0-31); Albumin Level 4.2 g/dL (3.5-5.0); Alkaline Phosphatase 73 U/L (39-117); Anion Gap 12 (12-20); Aspartate Amino Transferase 19 U/L (5-31); Bilirubin Total 0.3 mg/dL (0.0-1.0); Blood Urea Nitrogen 17 mg/dL (9-16); Carbon Dioxide 28 mmol/L (22-29); Chloride 104 mmol/L (96-108); Estimated Glomerular Filt Rate > 60; Glucose Random 95 mg/dL (60-115); Potassium 4.5 mmol/L (3.3-5.1); Sodium 139 mmol/L (135-145); Total Protein 6.8 g/dL (6.5-8.0)
[2023-04-19 13:58] LABS: TSH reflex Free T4 1.13 uIU/mL (0.32-4.0)
== END 2023-04-19 10:09 | disposition home or self-care (01) ==
LOC: HO.HMGCX 10:08
PROVIDERS: PCP Nurse Practitioner Family; Visit Provider Nurse Practitioner Family
DX: R31.29 Other microscopic hematuria (principal); R53.83 Other fatigue; F17.200 Nicotine dependence, unspecified, uncomplicated
CPT/HCPCS: 36415; 71046; 80053; 81001; 84443; 85025

== ENCOUNTER 2023-05-10 11:16 | Outpatient (REF) | payer OTHER, MEDICARE, SELFPAY ==
[2023-05-10 13:20] LABS: MANUAL DIFF FLAG NO
[2023-05-10 13:36] LABS: Basophils Percent Auto 0.5 % (0-2); Eosinophils Absolute Auto 0.1 X10*3/uL (0.0-0.4); Eosinophils Percent Auto 1.8 % (0-4); Hematocrit 35.2 % (37.0-47.0); Hemoglobin 11.7 g/dl (12.0-16.0); Imm Gran Abs Auto 0.02 X10*3/uL (0.00-0.03); Imm Gran Pct Auto 0.3 % (0.0-0.4); Lymphocytes Absolute Auto 1.9 X10*3/uL (1.2-4.9); Lymphocytes Percent Auto 29.1 % (20-40); Mean Corpuscular HGB Conc 33.2 g/dl (31.0-35.0); Mean Corpuscular Hemoglobin 31.6 pg (27.0-33.0); Mean Corpuscular Volume 95.1 fL (80.0-98.0); Mean Platelet Volume 9.3 fL (9.4-12.3); Monocytes Absolute Auto 0.5 X10*3/uL (0.1-1.2); Monocytes Percent Auto 7.7 % (2-11); Neutrophils Percent Auto 60.6 % (45-73); Platelet Count 283 X10*3/uL (160-400); Red Cell Distribution Width 12.9 % (11.0-16.0); White Blood Count 6.6 X10*3/uL (4.8-10.8)
[2023-05-12 21:04] LABS: Prot Elec - Albumin 4.3 g/dL (3.8-4.8); Prot Elec - Alpha1 0.3 g/dL (0.2-0.3); Prot Elec - Alpha2 0.6 g/dL (0.5-0.9); Prot Elec - Beta 1 0.5 g/dL (0.4-0.6); Prot Elec - Beta 2 0.3 g/dL (0.2-0.5); Prot Elec - Gamma 0.6 g/dL (0.8-1.7); Prot Elec - Total Protein 6.7 g/dL (6.1-8.1)
[2023-05-16 00:59] LABS: IgA 145 mg/dL (70-320); IgG 679 mg/dL (600-1540); IgM 130 mg/dL (50-300)
== END 2023-05-10 11:17 | disposition home or self-care (01) ==
LOC: HO.HMGCLDS 11:16
PROVIDERS: PCP Nurse Practitioner Family; Visit Provider Nurse Practitioner Family
DX: D72.829 Elevated white blood cell count, unspecified (principal)
CPT/HCPCS: 36415; 81001; 82728; 82784; 83615; 84165; 85025; 85379; 85652; 86140; 86334

== ENCOUNTER → 2023-06-08 08:51 | Outpatient (BNVA) | payer MEDICARE, SELFPAY | PROVIDERS: PCP Nurse Practitioner Family; Visit Provider Urology | DX: R31.29 Other microscopic hematuria (principal); R35.0 Frequency of micturition; N20.0 Calculus of kidney; F17.210 Nicotine dependence, cigarettes, uncomplicated | CPT/HCPCS: 81003; 99202 ==

== ENCOUNTER 2023-06-08 09:02 | Outpatient (AMB) | payer MEDICARE, SELFPAY ==
--- NOTE | 2023-06-08 08:57 | A.OFFVIS_ITS ---
Intake Intake Visit Reasons: microscopic hematuria Intake Note: NEW Patient presents today to established treatment for Microscopic Hematuria: Meds- None Allergies to Antibiotic- No Known Allergies Blood Thinner- Aspirin Deck Mate Required: No Accompanied by: Self / Same As Patient Allergies naproxen [Aleve] Adverse Reaction (Unknown, Verified 06/08/23 09:06) swelling HPI HPI Comments History of Present Illness Details 67-year-old female with a past medical h istory PTSD, anxiety, insomnia, arthritis, HLD, is here for evaluation for microscopic hematuria. The patient states she has been told that there was microscopic blood in the urine in the past. The patient complains of daytime urinary frequency and ocassional urge urinary incontinence, She denies gross hematuria, or dysuria. CoMorbidity- nicotine use. I have reviewed chart, imaging CTAP - 01/31/23-- small 3 mm right renal stone. I have discussed avoiding dietary bladder irritants, including to cut back on caffeine usage I have discussed reasons for blood in the urine may include but are not limited to kidney stones, cancer in the urinary tract, kidney stone disease or inflammatory conditions of the urinary tract . I have discussed workup to include evaluation of the upper tracts and follow up for cystoscopy evaluation. 06/08/23--Plan:renal US. office cystos copy. Vesicare 5mg discussed SE - dry mouth, blurred vision. [facility] Medical History Spongiotic dermatitis Urinary incontinence, mixed Osteoarthritis of both knees Failed back syndrome Adnexal cyst Atherosclerosis of abdominal aorta Chronic SI joint pain Right shoulder pain Osteoarthritis Surgical History History of elbow surgery History of thumb surgery History of lumbar fusion H/O bilateral breast implants Family History Father No problems noted. Mother CVD (cardiovascular disease) CHF (congestive heart failure) Son No problems noted. Daughter No problems noted. Social History Housing: House Alcohol intake: never Patient Tobacco Use Status: Current everyday Tobacco user Cigarette Packs Per Day: 1 Cigarettes Per Day: 20 e-Cigarette/Vaping Use: Never Used Second Hand Smoke Exposure: Yes Current occupational status: employed Current occupation: [employer] Current occupational exposures/hazards: No Cognitive needs: No Hearing needs: No Vision needs: No Review of Systems Const All systems reviewed & are unremarkable except as noted in HPI and below Reports no additional complaints Eyes Reports no additional complaints ENT Reports no additional complaints Card Denies dyspnea Resp Denies cough and Denies dyspnea GI Reports no additional complaints Reports no additional complaints Musc Reports no additional complaints Skin/Breast Denies rash and Denies unusual bruising Neuro Reports no additional complaints Psych Reports no additional complaints Endo Reports no additional complaints Nomi/Lymph Reports no additional complaints Aller/Immun Reports no additional complaints Physical Exam Const General: cooperative, healthy appearing and no acute distress Orientation/consciousness: patient oriented x3 HEENT Head: Yes normal to inspection, Yes normocephalic and Yes atraumatic Eyes Conjunctivae: conjunctivae normal Neck Neck: Yes normal visual inspection and Yes trachea midline Chest Chest palpation & inspection: normal inspection of the chest Resp Effort & Inspection: normal respiratory effort Cardio Rate: regular rate GI Inspection: Yes normal to inspection Skin General skin exam: no rashes or lesions noted Neuro General: patient oriented x3 Extrem General: No edema Psych Appearance: grossly normal Results AMB Urinalysis, Automated UA Leukoctes 0 Huber/uL Last Edit by ARLINE Pedraza on 06/08/23 09:30 UA Nitrite Negative Last Edit by ARLINE Pedraza on 06/08/23 09:30 UA Urobilinogen 0.2 mg/dL Last Edit by ARLINE Pedraza on 06/08/23 09:3 0 UA Protein 0 mg/dL Last Edit by ARLINE Pedraza on 06/08/23 09:30 UA pH 6.0 Last Edit by ARLINE Pedraza on 06/08/23 09:30 UA Blood 80 Yrn/uL Last Edit by ARLINE Pedraza on 06/08/23 09:30 2+ Maia Pan 06/08/23 09:30 UA Specific [place] 1.015 Last Edit by ARLINE Pedraza on 06/08/23 09: 30 UA Ketone Negative Last Edit by ARLINE Pedraza on 06/08/23 09:30 UA Bilirubin 0 mg/dL Last Edit by ARLINE Pedraza on 06/08/23 09:30 UA Glucose 0 mg/dL Last Edit by ARLINE Pedraza on 06/08/23 09:30 Results Reviewed Results Reviewed: Laboratory Last Values Urine pH (Auto) 6.0 06/08/23 09:29 Specific [place] (Auto) 1.015 06/08/23 09:29 Urine Protein (Auto) 0 mg/dL 06/08/23 09:29 Glucose (UA)(Auto) 0 mg/dL 06/08/23 09:29 Urine Ketones (Auto) Negative 06/08/23 09:29 Urine Blood (Auto) 80 Yrn/uL 06/08/23 09:29 Urine Nitrite (Auto) Negative 06/08/23 09:29 Urine Bilirubin (Auto) 0 mg/dL 06/08/23 09:29 Urine Urobilinogen (Auto) 0.2 mg/dL 06/08/23 09:29 Leukocyte Esterase (Auto) 0 Huber/uL 06/08/23 09:29 Date of Service: 01/31/23 EXAMINATION: CT ABDOMEN AND PELVIS WITH CONTRAST CLINICAL INFORMATION: Lower abdominal pain, left flank pain, nausea and diarrhea COMPARISON: Abdominal and pelvic CT of 07/15/2022 FINDINGS: LUNG BASES: The visualized lung bases are unremarkable. Coronary artery calcifications are noted though incompletely imaged. LIVER, GALLBLADDER, AND BILIARY TREE: The liver is normal in size, shape, and attenuation. No focal hepatic lesion or biliary ductal dilatation is present. The gallbladder is unremarkable with no evidence of radiopaque gallstones, gallbladder wall thickening, or obvious pericholecystic inflammatory changes. PANCREAS: Unremarkable. SPLEEN: Unremarkable. ADRENAL GLANDS: Unremarkable. KIDNEYS AND URETERS: An ovoid 6 x 3 mm calculus in the midpole collecting system of the right kidney is unchanged. An exophytic 11 mm cyst extends from the lower pole of the right kidney, for which no imaging follow-up is needed. The left kidney is unremarkable. The kidneys are normal in size, shape, and attenuation. No hydronephrosis or hydroureter. No perinephric stranding. BLADDER: Unremarkable. GASTROINTESTINAL TRACT: The stomach and small bowel are unremarkable. Considerable sigmoid diverticulosis is present without diverticulitis. The appendix is unremarkable. ABDOMINAL WALL: No significant hernia is appreciated. LYMPH NODES: Normal. VASCULAR: Aortoiliac atherosclerosis is present with dense calcifications in the lower aorta and both proximal common iliac arteries. No aneurysm is detected. PELVIC VISCERA: The uterus is lobulated and enlarged, with prominent round masses in the fundus measuring 4.3 cm on the left and 4 cm on the right, presumably fibroids. There are no adnexal masses. OSSEOUS STRUCTURES: Surgical fusion is evident at L5-S1. There is mild loss of height at T12. IMPRESSION: 1. No change in nonobstructing right renal by 3 mm calculus. 2. No acute findings otherwise in the abdomen or pelvis. 3. Prior L5-S1 spinal fusion with mild loss of height at T12, unchanged. 4. Incidental findings include coronary artery calcifications; fibroid uterus; sigmoid diverticulosis without diverticulitis. Assessment & Plan Assessment & Plan (1) Microscopic hematuria: Code(s): R31.29 - Other microscopic hematuria (2) Nicotine dependence: Code(s): F17.200 - Nicotine dependence, unspecified, uncomplicated (3) Urinary frequency: Code(s): R35.0 - Frequency of micturition (4) Kidney stone: Code(s): N20.0 - Calculus of kidney Plan renal US. FU office cystoscopy. Vesicare 5mg discussed SE - dry mouth, blurred vision. Orders: Orders AMB Urinalysis Automated 06/08/23 Z13.9 - Encounter for screening, unspecified US retroperitoneal comp 06/08/23 R31.29 - Other microscopic hematuria Medications: New solifenacin (Vesicare) 5 mg PO DAILY 30 tabs 1RF Patient Instructions: The patient had an opportunity to ask questions regarding treatment plan. All questions were answered. Imaging, Laboratory studies and physical exam results were discussed and reviewed in detail. No major barriers to understanding were identified. The patient expressed understanding and agreement with the above treatment plan. The patient is aware they should contact our office by phone for worsening of their current condition or the appearance of new symptoms. Compliance is encouraged with any medications and followup testing that is ordered. It is a privilege to be allowed the opportunity to participate in the urologic care of your patient. If you have any questions or concerns regarding treatment for the above conditions please do not hesitate to contact me. The office telephone contact is [phone]. This note is constructed in part using voice recognition software. While every effort has been made to ensure accuracy moisture meter reader errors may have been included. Yours sincerely, Rossy Franco MD Coding Level of Care Code New Pt Level 4 (27461) Diagnoses Microscopic hematuria R31.29 Nicotine dependence F17.200 Urinary frequency R35.0 Kidney stone N20.0
== END 2023-06-08 10:01 | disposition home or self-care (01) ==
PROVIDERS: PCP Nurse Practitioner Family; Visit Provider Urology
DX: R31.29 Other microscopic hematuria (principal); F17.200 Nicotine dependence, unspecified, uncomplicated; R35.0 Frequency of micturition; N20.0 Calculus of kidney
CPT/HCPCS: 99204

== ENCOUNTER 2023-06-14 09:54 | Outpatient (REF) | payer MEDICARE, SELFPAY ==
--- NOTE | ~2023-06-14 | US_ITS ---
EXAMINATION: US RETROPERITONEAL COMPLETE (RENAL) CLINICAL INFORMATION: Other microscopic hematuria. COMPARISON: CT abdomen and pelvis 01/31/2023. Ultrasound kidneys and bladder 07/18/2022. Ultrasound abdomen 02/23/2018. TECHNIQUE: Real-time imaging of the kidneys and bladder. FINDINGS: RIGHT KIDNEY: 10.4 x 5.5 x 5.7 cm (SAG x AP x TRV). The kidney is normal in size, contour, and echogenicity. Renal cortical thickness is normal. No renal calculi or hydronephrosis. 1.8 cm lower pole cyst with some peripheral calcification (previously 1.4 cm). LEFT KIDNEY: 11.8 x 5.1 x 5.2 cm (SAG x AP x TRV). The kidney is normal in size, contour, and echogenicity. Renal cortical thickness is normal. 1.9 cm simple appearing lower pole cyst in addition to a 1 cm upper pole cyst which contains some subtle internal echogenicities, nonspecific. There is mild hydronephrosis of the left kidney. No renal calculi appreciated. BLADDER: Well distended and normal. Bilateral ureteral jets are demonstrated. Prevoid bladder volume is 317 mL. Postvoid bladder volume is 22 mL. US/US retroperitoneal comp IMPRESSION: 1. Mild hydronephrosis of the left kidney. No renal calculi identified. Bilateral ureteral jets were visualized. Further evaluation can be obtained with CT urogram as clinically indicated. 2. Small bilateral renal cysts.
== END 2023-06-14 09:55 | disposition home or self-care (01) ==
LOC: HO.HMGCX 09:54
PROVIDERS: PCP Nurse Practitioner Family; Visit Provider Urology
DX: R31.29 Other microscopic hematuria (principal)
CPT/HCPCS: 76770

== ENCOUNTER 2023-08-15 14:46 | Outpatient (AMB) | payer MEDICARE, SELFPAY ==
--- OUTSIDE RECORDS SUMMARY | 2023-08-15 14:48 | XMS_ITS | Continuity of Care Document ---
Author Organization [facility] [address] [place] [address]- Care Team Providers Care Pure Culture Operator Name Role Phone Brien CERVANTES, Vinh Rivas Primary Care Physician [phone] Encounter 10/07/22 - 10/14/22 [facility] [address], [facility] [address] [place] [address]- Attending Physician: Rosemarie Aguilera MD Admitting Physician: Rosemarie Aguilera MD Referring Physician: Rosemarie Aguilera MD Allergies, Adverse Reactions, Alerts No Known Allergies Immunizations Given and Recorded Vaccine Date Status Refusal Reason Influenza Virus Vaccine (oldterm) 02/10/15 Given influenza virus vaccine, inactivated 02/11/14 Give n influenza virus vaccine, inactivated 1 02/28/13 Gi garrett pneumococcal 23-valent vaccine 02/11/14 Given Pneumococcal Vacc (oldterm) 2 08/16/12 Given tetanus/diphtheria/pertussis, acel(Tdap) 3 06/08/12 Given 1Admin Note: [facility] 2Admin Note: VIS GIVEN 3Admin Note: [facility] Medications aspirin 325 mg oral delayed release tablet 325 mg, 1, tablet, By Mouth, Daily, # 30 tablet, Refills 0, Maintenance, 09/27/22 13:24:00 EDT, Partial fill upon patient request if the prescription is for a schedule II opioid drug. Start Date: 09/27/22 Status: Ordered atorvastatin 20 mg oral tablet 1 tablet = 20 mg, By Mouth, Daily in AM, 0 Refills, Maintenance Start Date: 09/08/15 Status: Ordered CoQ10 = 300 mg, By Mouth, Daily, 0 Refills, Maintenance, 02/04/20 11:05:00 EDT Start Date: 02/04/20 Status: Ordered oxyCODONE 5 mg oral tablet 5 mg, 1, tablet, By Mouth, Every 6 hours, PRN, Refills 0, Tot. Refills 0, Maintenance, as needed for pain, 09/27/22 13:24:00 EDT, Partial fill upon patient request if the prescription is for a schedule II opioid drug. Start Date: 09/27/22 Status: Ordered Percocet-5/325 325 mg-5 mg oral tablet See Instructions, Pt. states she takes 1/4 to 1/2 tablet as needed, up to 2 tablets a day., 0 Refills, Maintenance, 08/16/12 11:28:40 EDT Start Date: 08/16/12 Status: Ordered Vitamin C By Mouth, Daily, 0 Refills, Maintenance, 11/30/18 10:35:24 EDT Start Date: 11/30/18 Status: Ordered Problem List Condition Confirmation Course Effective Dates Status Health Status Informant History of cervical MARSHA 3, s/p LEEP 2000 Confirmed Active Alveolar hypoventilation Confirmed Active Chronic low back pain Confirmed Active Chronic pain disorder - low back pain, DJD, several surgeries work related injury 2002 Confirmed Active Depression Confirmed 06/04/13 Active Dyspepsia and disorder of function of stomach Confirmed Active Failed back syndrome Confirmed Active Family history of thyroid cancer 1 Confirmed Active Prediabetes Confirmed Active Glaucoma - open angle Confirmed Active Hand weakness Confirmed Active Hypercholesterolemia Confirmed Active Urinary incontinence, mixed Confirmed Active Numbness and tingling of left leg with weakness Confirmed Active KELLEY (obstructive sleep apnea) Confirmed Active Sigmoid diverticulosis Confirmed Active Spinal stenosis in cervical region Confirmed Active Tobacco user Confirmed Active 1mother Social History Social History Type Response Smoking Status 10 or more cigarette s (1/2 pack or more)/day in last 30 days; Other: 1/2 ppd x 40y; entered on: 11/30/18 Sex Patient Care team information Care Team Personnel Name: Vinh Tesfaye NP Position: Reference Physician Member Role: PCP Address: Address: [address] [place] [address]- Care Team Related Persons Name: GUSTABO MADISON Address: home [address] [place] [address]
--- OUTSIDE RECORDS SUMMARY | 2023-08-15 14:48 | XMS_ITS | Continuity of Care Document ---
Author Organization [facility] Address [address] [place], [place] [address]shaila hughes, [address] [place] [address]- Care Team Providers Care Cytology Supervisor Name Role Phone Brien CERVANTES, Vinh Rivas Primary Care Physician Encounter [facility] Date(s): 06/12/23 - 07/12/23 [facility] [address] [place] [address] Drive, [address] [place], [place] [address] Allergies, Adverse Reactions, Alerts No Known Allergies Immunizations Given and Recorded Vaccine Date Status Refusal Reason Influenza Virus Vaccine (oldterm) 02/10/15 Given influenza virus vaccine, inactivated 02/11/14 Give n influenza virus vaccine, inactivated 1 02/28/13 Gi garrett pneumococcal 23-valent vaccine 02/11/14 Given Pneumococcal Vacc (oldterm) 2 08/16/12 Given tetanus/diphtheria/pertussis, acel(Tdap) 3 06/08/12 Given 1Admin Note: [facility] 2Admin Note: VIS GIVEN 3Admin Note: [facility] Medications aspirin 325 mg oral delayed [...] Reference Physician Member Role: PCP Address: Address: [address] [place] [address]- Care Team Related Persons Name: GUSTABO MADISON Address: [address] [place] [address]
--- OUTSIDE RECORDS SUMMARY | 2023-08-15 14:49 | XMS_ITS | Continuity of Care Document ---
Author Organization [facility] Address [address] [place] [address]- Care Team Providers Care Test Bore Helper Name Role Phone Brien CERVANTES, Vinh Rivas Primary Care Physician [phone] Encounter [facility] Date(s): 10/14/22 - 11/13/22 [facility] [address] [place] [id number] Attending Physician: Kathy Christopher Admitting Physician: AdmKathy argueta Referring Physician: AdmtrKathy Allergies, Adverse Reactions, Alerts No Known Allergies [...] Reference Physician Member Role: PCP Address: Address: [address] [place] [address]- Care Team Related Persons Name: GUSTABO MADISON Address: home [address] [place] [address]
--- OUTSIDE RECORDS SUMMARY | 2023-08-15 14:49 | XMS_ITS | Continuity of Care Document ---
Author Organization [facility] Address [address] [place] [address]- Care Team Providers Care Regulatory Consultant Name Role Phone Brien CERVANTES, Vinh Rivas Primary Care Physician Encounter [facility] Date(s): 07/05/22 - 10/05/[address] [address]- Attending Physician: Rosemarie Aguilera MD Admitting Physician: [...] Reference Physician Member Role: PCP Address: Address: [address] [place] [address]- Care Team Related Persons Name: GUSTABO MADISON Address: home [address] [place] [address]
--- OUTSIDE RECORDS SUMMARY | 2023-08-15 14:49 | XMS_ITS | Continuity of Care Document ---
Author Organization [facility] Address [address] [place] [address]- Care Team Providers Care Touch Up Painter Hand Name Role Phone Brien CERVANTES, Vinh Rivas Primary Care Physician [phone] Encounter [facility] Date(s): 12/15/22 - 01/14/23 [facility] [address] [place] [id number] Allergies, Adverse Reactions, Alerts No [...] Reference Physician Member Role: PCP Address: Address: [address] [place] [address]- Care Team Related Persons Name: GUSTABO MADISON Address: home [address] [place] [address]
--- OUTSIDE RECORDS SUMMARY | 2023-08-15 14:49 | XMS_ITS | Continuity of Care Document ---
Author Organization [facility] Address [address] [place] [address]- Care Team Providers Care Poly Area Supervisor Name Role Phone Brien CERVANTES, Vinh Rivas Primary Care Physician Encounter [facility] [place] Date(s): 10/05/22 - 11/05/[address] [facility] [address] [place] [id number] Attending Physician: Luis Enrique Hall Admitting Physician: Luis Enrique Hall Referring Physician: Luis Enrique Hall Allergies, Adverse Reactions, Alerts No Known Allergies [...] Reference Physician Member Role: PCP Address: Address: [address] [place] [address]- Care Team Related Persons Name: GUSTABO MADISON Address: home [address] [place] [address]
--- OUTSIDE RECORDS SUMMARY | 2023-08-15 14:49 | XMS_ITS | Continuity of Care Document ---
Author Organization [facility] Address [address] [place] [address]- Care Team Providers Care Packaging Inspector Name Role Phone Brien CERVANTES, Vinh Rivas Primary Care Physician Encounter [facility] [place] Date(s): 10/06/22 - 11/05/22 [facility] [address] [place], [place] [address] Attending Physician: Kathy Christopher Admitting Physician: AdmtrKathy Referring Physician: AdmtrKathy Allergies, Adverse Reactions, Alerts [...] Reference Physician Member Role: PCP Address: Address: [address] [place] [address]- Care Team Related Persons Name: GUSTABO MADISON Address: home [address] [place] [address]
--- OUTSIDE RECORDS SUMMARY | 2023-08-15 14:49 | XMS_ITS | Continuity of Care Document ---
Author Organization [facility] Address [address] [place] [address]- Care Team Providers Care Project Systems Engineer Name Role Phone Brien CERVANTES, Vinh Rivas Primary Care Physician [phone] Encounter 09/20/22 - 09/27/22 [facility] [address], [facility] [address] [place] [address]- Attending Physician: Rosemarie Aguilera MD Admitting Physician: [...] Confirmed Active Tobacco user Confirmed Active 1mother Results Radiology Reports * Exam Date Time Procedure Performing Provider Status 09/20/22 2:41 PM US Breast Right Limited Chantel Matos ie; Auth (Verified) Notes: (US Breast Right Limited) Reason For Exam: N63.0 BREAST MASS RESULT: US Breast Right Limited PROCEDURE: MM Digital Mammo Unilat Right, US Breast Right Limited INDICATION: The patient has fullness and tenderness in the axilla and lateral right breast. The patient's physician notes a palpable abnormality lower outer quadrant of right breast. TECHNIQUE: Routine and implant excluded views of the right breast with 3-D tomography. Routine and implant excluded views. Targeted right breast ultrasound. FINDINGS: The breast tissue is heterogeneously dense, which may obscure masses. Implant contours are smooth and normal. There is no mass. There is no architectural distortion. There is no suspicious microcalcifications. Ultrasound examination performed over the 2 different areas in the right breast described in the INDICATION part of the report. No cyst or discrete solid abnormality is seen. IMPRESSION: 1. No mammographic evidence of malignancy. 2. No mammographic or ultrasound abnormality noted explaining the palpable abnormalities. 3. Further evaluation of the findings on physical examination should be on a clinical basis. RECOMMENDATION: Clinical follow-up and management BI-RADS: 1 (Negative) Lay letter mailed to patient WSN: [id number] Ordering Physician: Rosemarie Aguilera Dictated By: Yash Bernard MD Dictated Date/Time: 09/20/22 4:12 pm Reviewed By: Yash Bernard MD Signed By: Yash Bernard MD Signed Date/Time: 09/20/22 4:12 pm Transcribed By: CHING Transcribed Date/Time: 09/20/22 2:34 pm * Exam Date Time Procedure Performing Provider Status 09/20/22 2:30 PM MM Digital Mammo Unilat Right Cecilia Braga; Auth (Verified) Notes: (MM Digital Mammo Unilat Right) Reason For Exam: N63.0 BREAST MASS RESULT: MM Digital Mammo Unilat Right PROCEDURE: MM Digital Mammo Unilat Right, US Breast Right Limited INDICATION: The patient has fullness and tenderness in the axilla and lateral right breast. The patient's physician notes a palpable abnormality lower outer quadrant of right breast. TECHNIQUE: Routine and implant excluded views of the right breast with 3-D tomography. Routine and implant excluded views. Targeted right breast ultrasound. FINDINGS: The breast tissue is heterogeneously dense, which may obscure masses. Implant contours are smooth and normal. There is no mass. There is no architectural distortion. There is no suspicious microcalcifications. Ultrasound examination performed over the 2 different areas in the right breast described in the INDICATION part of the report. No cyst or discrete solid abnormality is seen. IMPRESSION: 1. No mammographic evidence of malignancy. 2. No mammographic or ultrasound abnormality noted explaining the palpable abnormalities. 3. Further evaluation of the findings on physical examination should be on a clinical basis. RECOMMENDATION: Clinical follow-up and management BI-RADS: 1 (Negative) Lay letter mailed to patient WSN: [id number] Ordering Physician: Rosemarie Aguilera Dictated By: Yash Bernard MD Dictated Date/Time: 09/20/22 4:12 pm Reviewed By: Yash Bernard MD Signed By: Yash Bernard MD Signed Date/Time: 09/20/22 4:12 pm Transcribed By: CHING [employer] L[employer] Date/Time: 09/20/22 2:34 pm Birads: Social History Social History Type Response Smoking Status 10 or more cigarette s (1/2 pack or more)/day in last 30 days; Other: 1/2 ppd x 40y; entered on: 11/30/18 Sex US Breast - right limited * [facility] , CIS S: TRANSCRIBE Yash Bernard MD: VERIFY Event Display: Result: Authored Date: [id number] PROCEDURE: MM Digital Mammo Unilat Right, US Breast Right Limited INDICATION: The patient has fullness and tenderness in the axilla and lateral right breast. The patient's physician notes a palpable abnormality lower outer quadrant of right breast. TECHNIQUE: Routine and implant excluded views of the right breast with 3-D tomography. Routine and implant excluded views. Targeted right breast ultrasound. FINDINGS: The breast tissue is heterogeneously dense, which may obscure masses. Implant contours are smooth and normal. There is no mass. There is no architectural distortion. There is no suspicious microcalcifications. Ultrasound examination performed over the 2 different areas in the right breast described in the INDICATION part of the report. No cyst or discrete solid abnormality is seen. IMPRESSION: 1. No mammographic evidence of malignancy. 2. No mammographic or ultrasound abnormality noted explaining the palpable abnormalities. 3. Further evaluation of the findings on physical examination should be on a clinical basis. RECOMMENDATION: Clinical follow-up and management BI-RADS: 1 (Negative) Lay letter mailed to patient WSN: [id number] Ordering Physician: Rosemarie Aguilera Dictated By: Yash Bernard MD Dictated Date/Time: 09/20/22 4:12 pm Reviewed By: Yash Bernard MD Signed By: Yash Bernard MD Signed Date/Time: 09/20/22 4:12 pm Transcribed By: CHING Transcribed Date/Time: 09/20/22 2:34 pm MG Breast - right Views * [facility] , CIS S: TRANSCRIBE Yash Bernard MD: VERIFY Event Display: Result: Authored Date: [id number] PROCEDURE: MM Digital Mammo Unilat Right, US Breast Right Limited INDICATION: The patient has fullness and tenderness in the axilla and lateral right breast. The patient's physician notes a palpable abnormality lower outer quadrant of right breast. TECHNIQUE: Routine and implant excluded views of the right breast with 3-D tomography. Routine and implant excluded views. Targeted right breast ultrasound. FINDINGS: The breast tissue is heterogeneously dense, which may obscure masses. Implant contours are smooth and normal. There is no mass. There is no architectural distortion. There is no suspicious microcalcifications. Ultrasound examination performed over the 2 different areas in the right breast described in the INDICATION part of the report. No cyst or discrete solid abnormality is seen. IMPRESSION: 1. No mammographic evidence of malignancy. 2. No mammographic or ultrasound abnormality noted explaining the palpable abnormalities. 3. Further evaluation of the findings on physical examination should be on a clinical basis. RECOMMENDATION: Clinical follow-up and management BI-RADS: 1 (Negative) Lay letter mailed to patient WSN: [id number] Ordering Physician: Rosemarie Aguilera Dictated By: Yash Bernard MD Dictated Date/Time: 09/20/22 4:12 pm Reviewed By: Yash Bernard MD Signed By: Yash Bernard MD Signed Date/Time: 09/20/22 4:12 pm Transcribed By: CHING [employer] Date/Time: 09/20/22 2:34 pm Birads: Patient Care team information Care Team Personnel Name: Vinh Tesfaye NP Position: Reference Physician Member Role: PCP Address: Address: [address] [place] [id number]- Care Team Related Persons Name: GUSTABO MADISON Address: home [address] [place] [id number]
[2023-08-15 15:23] VITALS: BP 100/60; PULSE 78; TEMP 37; O2SAT 97
--- NOTE | 2023-08-15 15:23 | AM.OFFWIN_ITS ---
Intake Vital Signs 08/15/23 15:23 Height 5 ft 5 in BP 100/60 Blood Pressure Location Lt brachial Position Sitting Pulse 78 Pulse Source Pulse Oximeter Temp 98.6 F Temp Source Oral Pulse Oximetry (%) 97 Intake Visit Reasons: EP Lft kidney nausea (lobby) Intake Note: pt is here for c/o left kidney pain Patient Tobacco Use Status: Current everyday Tobacco user Allergies naproxen [Aleve] Adverse Reaction (Unknown, Verified 08/15/23 16:04) swelling Medication List - Last Reconciled 08/15/23 by Shyam Maguire MD ascorbate calcium (vitamin C) 500 mg PO DAILY aspirin 81 mg PO DAILY atorvastatin 40 mg PO DAILY 90 days calcium carbonate 600 mg PO BID 90 days celecoxib mg PO BID cholecalciferol (vitamin D3) 50 mcg PO DAILY coenzyme Q10 75 mg PO DAILY oxycodone-acetaminophen 5-325 mg 1 tab PO Q12H PRN plant stanol lukas (Cholest Off Plus) mg PO solifenacin (Vesicare) 5 mg PO DAILY Do you need a note to return to daycare/school/sports/work: No HPI EP Lft kidney nausea (lobby) HPI Details 67 year old female presents to the offic e for a sick visit. Patient is reporting sx of abd pain, back pain. Sx started this morning. For the past week she had sx of abdominal fullness. No change in BM. Scheduled to see a urologist later this month for evaluation of hematuria. She has a cystoscopy scheduled. No nausea or vomiting. [facility] Medical History Spongiotic dermatitis Urinary incontinence, mixed Osteoarthritis of both knees Failed back syndrome Adnexal cyst Atherosclerosis of abdominal aorta Chronic SI joint pain Right shoulder pain Osteoarthritis Surgical History History of elbow surgery History of thumb surgery History of lumbar fusion H/O bilateral breast implants Family History Father No problems noted. Mother CVD (cardiovascular disease) CHF (congestive heart failure) Son No problems noted. Daughter No problems noted. Social History Housing: House Alcohol intake: never Patient Tobacco Use Status: Current everyday Tobacco user Cigarette Packs Per Day: 1 Cigarettes Per Day: 20 e-Cigarette/Vaping Use: Never Used Second Hand Smoke Exposure: Yes Current occupational status: employed Current occupation: [employer] Current occupational exposures/hazards: No Cognitive needs: No Hearing needs: No Vision needs: No Physical Exam Vital Signs: Last Vital Signs Temp 98.6 F 08/15/23 15:23 Pulse 78 08/15/23 15:23 BP 100/60 08/15/23 15:23 Pulse Ox 97 08/15/23 15:23 Const General: cooperative and healthy appearing Nutritional Appearance: well nourished Orientation/consciousness: patient oriented x3 Limitations: no limitations HEENT Head: Yes normal to inspection Eyes General: appearance normal, both eyes and all related structures Neck Neck: Yes normal visual inspection Chest Chest palpation & inspection: normal palpation of entire chest wall Resp Effort & Inspection: normal respiratory effort GI Other: Abd: BS well heard. X11 rib costal margin tenderness. Neuro General: patient oriented x3 Results AMB Urinalysis, Automated UA Leukoctes 0 Huber/uL Last Edit by Scooby Duong CMA on 08/15/23 15:41 UA Nitrite Negative Last Edit by Scooby Duong CMA on 08/15/23 15:41 UA Urobilinogen 0.2 mg/dL Last Edit by Scooby Duong CMA on 08/15/23 15 :41 UA Protein 0.2 mg/dL Last Edit by Scooby Duong CMA on 08/15/23 15:41 UA pH 5.0 Last Edit by Scooby Duong CMA on 08/15/23 15:41 UA Blood 25 Yrn/uL Last Edit by Scooby Duong CMA on 08/15/23 15:41 UA Specific Bonnyman 1.015 Last Edit by Scooby Duong CMA on 08/15/23 15:41 UA Ketone Negative Last Edit by Scooby Duong CMA on 08/15/23 15:41 UA Bilirubin 0 mg/dL Last Edit by Scooby Duong CMA on 08/15/23 15:41 UA Glucose 0 mg/dL Last Edit by Scooby Duong CMA on 08/15/23 15:41 Results Reviewed Results Reviewed: Laboratory Last Values Urine pH (Auto) 5.0 08/15/23 15:40 Specific Bonnyman (Auto) 1.015 08/15/23 15:40 Urine Protein (Auto) 0.2 mg/dL 08/15/23 15:40 Glucose (UA)(Auto) 0 mg/dL 08/15/23 15:40 Urine Ketones (Auto) Negative 08/15/23 15:40 Urine Blood (Auto) 25 Yrn/uL 08/15/23 15:40 Urine Nitrite (Auto) Negative 08/15/23 15:40 Urine Bilirubin (Auto) 0 mg/dL 08/15/23 15:40 Urine Urobilinogen (Auto) 0.2 mg/dL 08/15/23 15:40 Leukocyte Esterase (Auto) 0 Huber/uL 08/15/23 15:40 Assessment & Plan Assessment & Plan (1) Pain in abdomen on palpation: Code(s): R10.9 - Unspecified abdominal pain Plan: Costal margin is tender. Pt was advised to follow up with PCP and urologist. Urinalysis revd with patient. Reassured unlikely a kidney stone. Pt takes oxycodone on a prn basis. Advised her to take it for a few days and see if sx resolve. Cyclobenzaprine called in. Orders: Orders AMB Urinalysis Automated Today Z13.9 - Encounter for screening, unspecified Coding Level of Care Code Est Pt Level 4 (94600) Diagnoses Pain in abdomen on palpation R10.9
== END 2023-08-15 16:29 | disposition home or self-care (01) ==
PROVIDERS: PCP Nurse Practitioner Family; Visit Provider Internal Medicine
DX: Z13.9 Encounter for screening, unspecified (principal); R10.9 Unspecified abdominal pain
CPT/HCPCS: 81003; 99214

== ENCOUNTER 2023-08-23 08:32 | Outpatient (AMB) | payer MEDICARE, SELFPAY ==
--- NOTE | 2023-08-23 08:35 | MHC.PC.OV ---
Vital Signs 08/23/23 08:40 Weight 130 lb BP 104/60 Blood Pressure Location Rt brachial Position Sitting Intake Visit Reasons: 4 Month F/U Intake Note: patient here for med f/u Medication List - Last Reconciled 08/23/23 by ISMA Nieto ascorbate calcium (vitamin C) 500 mg PO DAILY aspirin 81 mg PO DAILY atorvastatin 40 mg PO DAILY 90 days calcium carbonate 600 mg PO BID 90 days cholecalciferol (vitamin D3) 50 mcg PO DAILY coenzyme Q10 75 mg PO DAILY oxycodone-acetaminophen 5-325 mg 1 tab PO Q12H PRN plant stanol lukas (Cholest Off Plus) mg PO Tobacco use date assessed: 08/23/23 Fall risk assessment: 2 + Falls in past year Last assessed Fall Risk: 08/23/23 Dental Screening Dental Screen Date: 08/23/23 Did you have a dental visit in the last 12 months?: Yes Did you have a dental problem in the last 6 months where you did not have access to dental care?: No Was dental information given to patient?: Patient has dentist HPI 4 Month F/U HPI Details Pt c/o left-sided sharp abdominal pain. She reports waking up with the pain approximately 2 weeks ago. Pt also reports left flank pain. Will order US of both areas (pain can radiate from anterior-lateral to posterior region). Denies fever, chills, and constipation. Pt reports some nausea. Was seen in the walk for this, reports given a muscle relaxor, which did not help. [facility] Medical History Spongiotic dermatitis Urinary incontinence, mixed Osteoarthritis of both knees Failed back syndrome Adnexal cyst Atherosclerosis of abdominal aorta Chronic SI joint pain Right shoulder pain Osteoarthritis Surgical History History of elbow surgery History of thumb surgery History of lumbar fusion H/O bilateral breast implants Family History Father No problems noted. Mother CVD (cardiovascular disease) CHF (congestive heart failure) Son No problems noted. Daughter No problems noted. Social History Housing: House Alcohol intake: never Patient Tobacco Use Status: Current everyday Tobacco user Cigarette Packs Per Day: 1 Cigarettes Per Day: 20 e-Cigarette/Vaping Use: Never Used Second Hand Smoke Exposure: Yes Current occupational status: employed Current occupation: [employer] Current occupational exposures/hazards: No Cognitive needs: No Hearing needs: No Vision needs: No Questionnaire Thrive Questionnaire Date Thrive assessed: 05/19/21 AUDIT C Alcohol Use Questionnaire (AUDIT-C) 1. How often do you have a drink containing alcohol?: 2-4 times a month 2. How many drinks containing alcohol do you have on a typical day when you are drinking?: 1 or 2 3. How often do you have six or more drinks on one occasion?: Never Total Score: 2 EBER-7 AMB Questionnaire EBER-7 Date EBER - 7 assessed: 05/19/21 Feeling nervous, anxious, or on edge: 1 = Several days Not being able to stop or control worryin = More than half the days Worrying too much about different things: 2 = More than half the days Trouble relaxin = Nearly every day Being so restless that it is hard to sit still: 0 = Not at all Becoming easily annoyed or irritable: 0 = Not at all Feeling afraid as if something awful might happen: 1 = Several days Total EBER-7 score (0-4 normal; 5-9 mild; 10-14 moderate; 15-21 severe): 9 Source: Developed by Drs. North Unger, Kylah Ko, Ricardo Vergara and colleagues, with an educational ila from [employer]. Review of Systems Const Reports as per HPI Physical exam (Primary Care) Vital Signs: Last Vital Signs BP 104/60 08/23/23 08:40 Tobacco/Smoking Status: Tobacco use Status Tobacco use date assessed 08/23/23 08/23/23 08:45 Patient Tobacco Use Status Current everyday Tobacco 08/23/23 08:35 e-Cigarette/Vaping Use Never Used 08/23/23 08:35 Thrive Assessment: Date of Thrive Assessment Date Thrive assessed 05/19/21 08/23/23 08:35 Const General: cooperative Orientation/consciousness: patient oriented x3 Resp Effort & Inspection: normal respiratory effort Auscultation: clear to auscultation bilaterally Cardio Rate: regular rate Rhythm: regular rhythm Heart sounds: S1 normal heart sound present and S2 normal heart sound present GI Other: tenderness noted with palpation of left abdomen just below ribs General: Yes CVA tenderness on the left Back/Spine/Pelvis Back: CVA tenderness Neuro General: patient oriented x3 Psych Appearance: grossly normal Mental Status: mental status grossly normal Speech and movement: Normal speech and movement present Affect: normal affect Attitude: cooperative Thought process: Normal thought process present Thought content: Normal thought content present Insight: Good insight present (Psych) Judgement: Good judgement present (Psych) Assessment and Plan Assessment & Plan (1) Left sided abdominal pain: Code(s): R10.9 - Unspecified abdominal pain Plan: US ordered, labs ordered (2) Left flank pain: Code(s): R10.9 - Unspecified abdominal pain (3) Left flank pain: Code(s): R10.9 - Unspecified abdominal pain (4) Left flank pain: Code(s): R10.9 - Unspecified abdominal pain Plan: US ordered, labs ordered Plan The patient agreed to the use of a medical driver for this encounter. Scribed for ISMA Lujan by Neetu Schneider medical driver, on 08/23/2023 at 09:00 EST. Orders: Orders Comprehensive Met. Panel Today R10.9 - Unspecified abdominal pain US renal LT Today R10.9 - Unspecified abdominal pain Complete Blood Count Auto Diff Today R10.9 - Unspecified abdominal pain TSH reflex Free T4 Today R10.9 - Unspecified abdominal pain UA CC w/rflx Micro + Cult Today R10.9 - Unspecified abdominal pain US abdomen complete Today R10.9 - Unspecified abdominal pain Coding Level of Care Code Est Pt Level 3 (95705) Diagnoses Left sided abdominal pain R10.9 Left flank pain R10.9
[2023-08-23 08:40] VITALS: BP 104/60
== END 2023-08-23 09:26 | disposition home or self-care (01) ==
PROVIDERS: PCP Nurse Practitioner Family; Visit Provider Nurse Practitioner Family
DX: R10.9 Unspecified abdominal pain (principal)
CPT/HCPCS: 99213

== ENCOUNTER 2023-08-23 09:47 | Outpatient (REF) | payer MEDICARE, SELFPAY ==
[2023-08-23 13:04] LABS: MANUAL DIFF FLAG NO
[2023-08-23 13:33] LABS: Basophils Percent Auto 0.4 % (0-2); Eosinophils Absolute Auto 0.2 X10*3/uL (0.0-0.4); Hematocrit 37.7 % (37.0-47.0); Hemoglobin 12.8 g/dl (12.0-16.0); Imm Gran Abs Auto 0.03 X10*3/uL (0.00-0.03); Imm Gran Pct Auto 0.3 % (0.0-0.4); Lymphocytes Absolute Auto 2.1 X10*3/uL (1.2-4.9); Mean Corpuscular Hemoglobin 31.9 pg (27.0-33.0); Mean Platelet Volume 9.5 fL (9.4-12.3); Monocytes Absolute Auto 0.7 X10*3/uL (0.1-1.2); Neutrophils Absolute Auto 6.5 x10*3/uL (2.0-8.3); Neutrophils Percent Auto 68.3 % (45-73); Platelet Count 302 X10*3/uL (160-400); Red Blood Count 4.01 X10*6/uL (4.20-5.50); White Blood Count 9.5 X10*3/uL (4.8-10.8)
[2023-08-23 13:41] LABS: Appearance Urine Clear; Color Urine Yellow; Glucose Urine UA Negative (Negative); Leukocyte Esterase Urine Negative (Negative); Nitrite Urine Negative (Negative); UMIC TRIGGER UACC YES; Urine Blood Small (1+) (Negative); Urine Ketones Negative (Negative); Urine Protein Negative (Neg-Trace)
[2023-08-23 14:01] LABS: Bacteria Urine None Seen (None Seen); Hyaline Casts Urine 0-2 /LPF (0-2); RBC Urine 0-2 /HPF (0-2); Squamous Epithelial Cell Urine 0-2 /HPF (0-2); WBC Urine 0-5 /HPF (0-5)
[2023-08-23 14:10] LABS: TSH reflex Free T4 1.31 uIU/mL (0.32-4.0)
[2023-08-23 14:12] LABS: Anion Gap 12 (12-20)
[2023-08-23 14:16] LABS: Alanine Aminotransferase 21 U/L (0-31); Albumin Level 4.4 g/dL (3.5-5.0); Alkaline Phosphatase 91 U/L (39-117); Aspartate Amino Transferase 25 U/L (5-31); Bilirubin Total 0.4 mg/dL (0.0-1.0); Blood Urea Nitrogen 15 mg/dL (9-16); Calcium 9.9 mg/dL (8.4-10.2); Carbon Dioxide 25 mmol/L (22-29); Chloride 106 mmol/L (96-108); Estimated Glomerular Filt Rate > 60; Glucose Random 96 mg/dL (60-115); Potassium 4.1 mmol/L (3.3-5.1); Sodium 139 mmol/L (135-145); Total Protein 7.2 g/dL (6.5-8.0)
== END 2023-08-23 09:48 | disposition home or self-care (01) ==
LOC: HO.HMGCLDS 09:47
PROVIDERS: PCP Nurse Practitioner Family; Visit Provider Nurse Practitioner Family
DX: R10.9 Unspecified abdominal pain (principal)
CPT/HCPCS: 36415; 80053; 81001; 84443; 85025

== ENCOUNTER 2023-08-24 09:05 | Outpatient (REF) | payer MEDICARE, SELFPAY ==
--- NOTE | ~2023-08-24 | US_ITS ---
EXAMINATION: US ABDOMEN COMPLETE CLINICAL INFORMATION: Left upper abdominal pain. COMPARISON: Renal ultrasound 06/14/2023, CT abdomen pelvis 01/31/2023 TECHNIQUE: Real-time imaging of the abdominal viscera. FINDINGS: PANCREAS: Normal. ABDOMINAL AORTA: The proximal, mid, and distal segments are normal in caliber. INFERIOR VENA CAVA: Visualized portions are normal. LIVER: The liver is normal in size. The liver contour is normal. There is minimally increased liver parenchymal echogenicity suggesting hepatic steatosis. No focal hepatic lesion. There is no intrahepatic biliary duct dilatation seen. GALLBLADDER: Normal. The gallbladder is physiologically distended without evidence of stones, sludge, polyps, wall thickening or pericholecystic fluid. COMMON BILE DUCT: Normal in caliber measuring 0.4 cm in diameter. RIGHT KIDNEY: A benign exophytic cortical 1.5 cm Bosniak class I renal cyst is noted which requires no additional imaging or follow up. No solid renal masses are seen. No hydronephrosis. No renal calculi. The kidney measures 9.4 cm in maximum dimension. LEFT KIDNEY: Two benign Bosniak class I renal cysts are noted, the largest measuring 1.5 cm which require no additional imaging or follow-up. No solid renal masses are seen. There is a mid renal slightly echogenic focus present measuring 3 mm consistent with a nonobstructing calculus. No hydronephrosis with resolution of the hydronephrosis seen at the time of the prior ultrasound. The kidney measures 11.8 cm in maximum dimension. SPLEEN: Normal. The spleen measures 10.0 cm in maximum dimension. FREE FLUID: None. US/US abdomen complete IMPRESSION: 1. A cause for the patient's left upper quadrant pain has not been found. 2. Incidental note made of a 3 mm nonobstructing left renal calculus and probable mild hepatic steatosis.
== END 2023-08-24 09:06 | disposition home or self-care (01) ==
LOC: HO.HMGCX 09:05
PROVIDERS: PCP Nurse Practitioner Family; Visit Provider Nurse Practitioner Family
DX: R10.9 Unspecified abdominal pain (principal); N20.0 Calculus of kidney; R31.29 Other microscopic hematuria; R35.0 Frequency of micturition
CPT/HCPCS: 52000; 76700; 81003; 99212

== ENCOUNTER 2023-08-24 13:06 | Outpatient (AMB) | payer MEDICARE, SELFPAY ==
--- NOTE | 2023-08-24 13:13 | A.OFFVIS_ITS ---
Intake Visit Reasons: cysto/US Intake Note: Patient presents today for a CYSTOSCOPY Procedure: Meds: None Allergies to Antibiotic: No Known Allergies Blood Thinner: None Urinalysis test clear for Cysto? YES Disposable Uro-G HD Cystoscope Cannula: Lot: [id number] Exp: 03/30/2026 Welcome Desk Agent Required: No Accompanied by: Self / Same As Patient Allergies No Known Allergies Allergy (Verified 08/24/23 13:13) Medication List - Last Reconciled 08/24/23 by Rossy Franco MD ascorbate calcium (vitamin C) 500 mg PO DAILY aspirin 81 mg PO DAILY atorvastatin 40 mg PO DAILY 90 days calcium carbonate 600 mg PO BID 90 days cholecalciferol (vitamin D3) 50 mcg PO DAILY coenzyme Q10 75 mg PO DAILY oxybutynin chloride ER 5 mg PO DAILY oxycodone-acetaminophen 5-325 mg 1 tab PO Q12H PRN plant stanol lukas (Cholest Off Plus) mg PO tamsulosin (Flomax) 0.4 mg PO BEDTIME HPI Comments Details: 08/24/2023--Maria Fernanda is here for office cystoscopy. Workup for persistent microscopic hematuria. Comorbidity nicotine dependence. She states she had an abdominal ultrasound this morning. She states she has been having left upper quadrant pain and her PCP ordered the ultrasound. I reviewed the results there is a 3 mm nonobstructing kidney stones noted which is likely unrelated to where she is complaining of having the pain. She states that she is still having voiding symptoms she did not take the VESIcare that was ordered she states sometimes she feels that she has a harder time emptying in sometimes she has urgency. She states she has been on Flomax in the past. Urinalysis 3+ blood. Cystoscopy findings: Mild erythematous changes left posterior wall no suspicious bladder lesions visualized, Plan urine for cytology. I will trial oxybutynin 5 mg q.a.m. with Flomax 0.6 mg at bedtime. Monitor kidneys due to kidney stone. Review of chart: 06/08/23--67-year-old female with a past medical history PTSD, anxiety, insomnia, arthritis, HLD, is here for evaluation for microscopic hematuria. The patient states she has been told that there was microscopic blood in the urine in the past. The patient complains of daytime urinary frequency and ocassional urge urinary incontinence, She denies gross hematuria, or dysuria. CoMorbidity- nicotine use. I have reviewed chart, imaging CTAP - 01/31/23-- small 3 x 6 mm right renal stone. I have discussed avoiding dietary bladder irritants, including to cut back on caffeine usage I have discussed reasons for blood in the urine may include but are not limited to kidney stones, cancer in the urinary tract, kidney stone disease or inflammatory conditions of the urinary tract . I have discussed workup to include evaluation of the upper tracts and follow up for cystoscopy evaluation. Plan:renal US. FU office cystoscopy. Vesicare 5mg discussed SE - dry mouth, blurred vision. 08/24/2023--Plan urine for cytology. I will trial oxybutynin 5 mg q.a.m. with Flomax 0.6 mg at bedtime. Monitor kidneys due to kidney stone. [facility] Medical History Spongiotic dermatitis Urinary incontinence, mixed Osteoarthritis of both knees Failed back syndrome Adnexal cyst Atherosclerosis of abdominal aorta Chronic SI joint pain Right shoulder pain Osteoarthritis Surgical History History of elbow surgery History of thumb surgery History of lumbar fusion H/O bilateral breast implants Family History Father No problems noted. Mother CVD (cardiovascular disease) CHF (congestive heart failure) Son No problems noted. Daughter No problems noted. Social History Housing: House Alcohol intake: never Patient Tobacco Use Status: Current everyday Tobacco user Cigarette Packs Per Day: 1 Cigarettes Per Day: 20 e-Cigarette/Vaping Use: Never Used Second Hand Smoke Exposure: Yes Current occupational status: employed Current occupation: [employer] / [employer] Current occupational exposures/hazards: No Cognitive needs: No Hearing needs: No Vision needs: No Review of Systems Const All systems reviewed & are unremarkable except as noted in HPI and below Reports no additional complaints Eyes Reports no additional complaints ENT Reports no additional complaints Card Reports no additional complaints Resp Reports no additional complaints GI Reports no additional complaints Reports as per HPI Musc Reports no additional complaints Skin/Breast Reports system reviewed and no additional complaints, except as documented Neuro Reports no additional complaints Psych Reports no additional complaints Endo Reports no additional complaints Nomi/Lymph Reports no additional complaints Aller/Immun Reports no additional complaints Office Procedures Cystoscopy Consent Discussed risk and benefit or proposed procedure with the patient. Information consent for procedure given to the patient. Discussed technical aspects, risks, benefits and alternatives in full. Addressed all of the patient's questions and concerns regarding the procedure. The patient demonstrated knowledge and understanding. They wish to proceed with this procedure. Preparation The patient was prepped in the usual manner. A manager business was present and in the room. Genitalia was prepped with betadine solution in a sterile manner. Lidocaine Jelly 2% was placed into the urethra and 16Fr flexible Olympus cystoscope was inserted into the meatus after adequate lubrication. Procedure Time out per protocol performed. Bladder Inspection Bladder Inspection: The bladder was inspected in its entirety with utilization retroflexion displaying: Tumor(s): No intrinsic bladder lesions visualized Trabeculation: Not applicable Mucosal Erthema: Present-mild Orifices: normal shape and position Urethra: normal Cystoscopy findings: Mild erythematous changes left posterior wall no suspicious bladder lesions visualized [id number] DISPOSABLE SCOPE URO-G FLEXIBLE SCOPE Procedure code (CPT) selection complete Office Meds lidocaine HCl 2 % mucosal jelly in applicator Performing Provider: Rossy Franco MD [place] [facility] [place] [facility] Administered by: Anderson Barrera LPN on 08/24/23 13:33 Dose Route Admin Location Dispensed Lot Number Expiration Date [facility] Junior Underwriter 10 mL intra-urethral 20 mL naproxen 500 mg tablet Performing Provider: Rossy Franco MD [place] [facility] [place] [facility] Administered by: Anderson Barrera LPN on 08/24/23 13:33 Dose Route Admin Location Dispensed Lot Number Expiration Date [facility] Junior Underwriter 500 mg PO 1 tab ciprofloxacin HCl 500 mg tablet Performing Provider: Rossy Franco MD [place] [facility] [place] [facility] Administered by: Anderson Barrera LPN on 08/24/23 13:33 Dose Route Admin Location Dispensed Lot Number Expiration Date [facility] Junior Underwriter 500 mg PO 1 tab Results AMB Urinalysis, Automated UA Leukoctes 0 Huber/uL Last Edit by ARLINE Pedraza on 08/24/23 13:24 UA Nitrite Negative Last Edit by ARLINE Pedraza on 08/24/23 13:24 UA Urobilinogen 0.2 mg/dL Last Edit by ARLINE Pedraza on 08/24/23 13:2 4 UA Protein 0 mg/dL Last Edit by ARLINE Pedraza on 08/24/23 13:24 UA pH 6.0 Last Edit by ARLINE Pedraza on 08/24/23 13:24 UA Blood 200 Yrn/uL Last Edit by ARLINE Pedraza on 08/24/23 13:24 3+ Maia Pan 08/24/23 13:24 UA Specific [place] 1.015 Last Edit by ARLINE Pedraza on 08/24/23 13: 24 UA Ketone Negative Last Edit by ARLINE Pedraza on 08/24/23 13:24 UA Bilirubin 0 mg/dL Last Edit by ARLINE Pedraza on 08/24/23 13:24 UA Glucose 0 mg/dL Last Edit by Maia Pan Jeffy on 08/24/23 13:24 Results Reviewed Results Reviewed: Laboratory Last Values Urine pH (Auto) 6.0 08/24/23 13:17 Specific [place] (Auto) 1.015 08/24/23 13:17 Urine Protein (Auto) 0 mg/dL 08/24/23 13:17 Glucose (UA)(Auto) 0 mg/dL 08/24/23 13:17 Urine Ketones (Auto) Negative 08/24/23 13:17 Urine Blood (Auto) 200 Yrn/uL 08/24/23 13:17 Urine Nitrite (Auto) Negative 08/24/23 13:17 Urine Bilirubin (Auto) 0 mg/dL 08/24/23 13:17 Urine Urobilinogen (Auto) 0.2 mg/dL 08/24/23 13:17 Leukocyte Esterase (Auto) 0 Huber/uL 08/24/23 13:17 Date of Service: 08/24/23 EXAMINATION: US ABDOMEN COMPLETE CLINICAL INFORMATION: Left upper abdominal pain. COMPARISON: Renal ultrasound 06/14/2023, CT abdomen pelvis 01/31/2023 TECHNIQUE: Real-time imaging of the abdominal viscera. FINDINGS: PANCREAS: Normal. ABDOMINAL AORTA: The proximal, mid, and distal segments are normal in caliber. INFERIOR VENA CAVA: Visualized portions are normal. LIVER: The liver is normal in size. The liver contour is normal. There is minimally increased liver parenchymal echogenicity suggesting hepatic steatosis. No focal hepatic lesion. There is no intrahepatic biliary duct dilatation seen. GALLBLADDER: Normal. The gallbladder is physiologically distended without evidence of stones, sludge, polyps, wall thickening or pericholecystic fluid. COMMON BILE DUCT: Normal in caliber measuring 0.4 cm in diameter. RIGHT KIDNEY: A benign exophytic cortical 1.5 cm Bosniak class I renal cyst is noted which requires no additional imaging or follow up. No solid renal masses are seen. No hydronephrosis. No renal calculi. The kidney measures 9.4 cm in maximum dimension. LEFT KIDNEY: Two benign Bosniak class I renal cysts are noted, the largest measuring 1.5 cm which require no additional imaging or follow-up. No solid renal masses are seen. There is a mid renal slightly echogenic focus present measuring 3 mm consistent with a nonobstructing calculus. No hydronephrosis with resolution of the hydronephrosis seen at the time of the prior ultrasound. The kidney measures 11.8 cm in maximum dimension. SPLEEN: Normal. The spleen measures 10.0 cm in maximum dimension. FREE FLUID: None. IMPRESSION: 1. A cause for the patient's left upper quadrant pain has not been found. 2. Incidental note made of a 3 mm nonobstructing left renal calculus and probable mild hepatic steatosis. Date of Service: 06/14/23 US RETROPERITONEAL COMPLETE (RENAL) CLINICAL INFORMATION: Other microscopic hematuria. COMPARISON: CT abdomen and pelvis 01/31/2023. Ultrasound kidneys and bladder 07/18/2022. Ultrasound abdomen 02/23/2018. TECHNIQUE: Real-time imaging of the kidneys and bladder. FINDINGS: RIGHT KIDNEY: 10.4 x 5.5 x 5.7 cm (SAG x AP x TRV). The kidney is normal in size, contour, and echogenicity. Renal cortical thickness is normal. No renal calculi or hydronephrosis. 1.8 cm lower pole cyst with some peripheral calcification (previously 1.4 cm). LEFT KIDNEY: 11.8 x 5.1 x 5.2 cm (SAG x AP x TRV). The kidney is normal in size, contour, and echogenicity. Renal cortical thickness is normal. 1.9 cm simple appearing lower pole cyst in addition to a 1 cm upper pole cyst which contains some subtle internal echogenicities, nonspecific. There is mild hydronephrosis of the left kidney. No renal calculi appreciated. BLADDER: Well distended and normal. Bilateral ureteral jets are demonstrated. Prevoid bladder volume is 317 mL. Postvoid bladder volume is 22 mL. IMPRESSION: 1. Mild hydronephrosis of the left kidney. No renal calculi identified. Bilateral ureteral jets were visualized. Further evaluation can be obtained with CT urogram as clinically indicated. 2. Small bilateral renal cysts. Date of Service: 01/31/23 EXAMINATION: CT ABDOMEN AND PELVIS WITH CONTRAST CLINICAL INFORMATION: Lower abdominal pain, left flank pain, nausea and diarrhea COMPARISON: Abdominal and pelvic CT of 07/15/2022 FINDINGS: LUNG BASES: The visualized lung bases are unremarkable. Coronary artery calcifications are noted though incompletely imaged. LIVER, GALLBLADDER, AND BILIARY TREE: The liver is normal in size, shape, and attenuation. No focal hepatic lesion or biliary ductal dilatation is present. The gallbladder is unremarkable with no evidence of radiopaque gallstones, gallbladder wall thickening, or obvious pericholecystic inflammatory changes. PANCREAS: Unremarkable. SPLEEN: Unremarkable. ADRENAL GLANDS: Unremarkable. KIDNEYS AND URETERS: An ovoid 6 x 3 mm calculus in the midpole collecting system of the right kidney is unchanged. An exophytic 11 mm cyst extends from the lower pole of the right kidney, for which no imaging follow-up is needed. The left kidney is unremarkable. The kidneys are normal in size, shape, and attenuation. No hydronephrosis or hydroureter. No perinephric stranding. BLADDER: Unremarkable. GASTROINTESTINAL TRACT: The stomach and small bowel are unremarkable. Considerable sigmoid diverticulosis is present without diverticulitis. The appendix is unremarkable. ABDOMINAL WALL: No significant hernia is appreciated. LYMPH NODES: Normal. VASCULAR: Aortoiliac atherosclerosis is present with dense calcifications in the lower aorta and both proximal common iliac arteries. No aneurysm is detected. PELVIC VISCERA: The uterus is lobulated and enlarged, with prominent round masses in the fundus measuring 4.3 cm on the left and 4 cm on the right, presumably fibroids. There are no adnexal masses. OSSEOUS STRUCTURES: Surgical fusion is evident at L5-S1. There is mild loss of height at T12. IMPRESSION: 1. No change in nonobstructing right renal by 3 mm calculus. 2. No acute findings otherwise in the abdomen or pelvis. 3. Prior L5-S1 spinal fusion with mild loss of height at T12, unchanged. 4. Incidental findings include coronary artery calcifications; fibroid uterus; sigmoid diverticulosis without diverticulitis. Assessment & Plan Assessment & Plan (1) Microscopic hematuria: Code(s): R31.29 - Other microscopic hematuria Category: Medical (2) Nicotine dependence: Code(s): F17.200 - Nicotine dependence, unspecified, uncomplicated Category: Medical (3) Urinary frequency: Code(s): R35.0 - Frequency of micturition Category: Medical (4) Kidney stone: Code(s): N20.0 - Calculus of kidney Category: Medical (5) Left sided abdominal pain: Code(s): R10.9 - Unspecified abdominal pain Category: Medical (6) Slowing of urinary stream: Code(s): R39.198 - Other difficulties with micturition Category: Medical Plan Plan urine for cytology. I will trial oxybutynin 5 mg q.a.m. with Flomax 0.6 mg at bedtime. Monitor kidneys due to kidney stone. Orders: Orders AMB Cystoscopy Today N20.0 - Calculus of kidney, R31.29 - Other microscopic hematuria, R35.0 - Frequency of micturition Urine Cytology Today R31.29 - Other microscopic hematuria AMB Urinalysis Automated Today Z13.9 - Encounter for screening, unspecified Medications: New oxybutynin chloride ER 5 mg PO DAILY 30 tabs 5RF tamsulosin (Flomax) 0.4 mg PO BEDTIME 30 caps 5RF Patient Instructions: The patient had an opportunity to ask questions regarding treatment plan. All questions were answered. Imaging, Laboratory studies and physical exam results were discussed and reviewed in detail. No major barriers to understanding were identified. The patient expressed understanding and agreement with the above treatment plan. The patient is aware they should contact our office by phone for worsening of their current condition or the appearance of new symptoms. Compliance is encouraged with any medications and followup testing that is ordered. It is a privilege to be allowed the opportunity to participate in the urologic care of your patient. If you have any questions or concerns regarding treatment for the above conditions please do not hesitate to contact me. The office telephone contact is [phone]. This note is constructed in part using voice recognition software. While every effort has been made to ensure accuracy reinforcing steel placer errors may have been included. Yours sincerely, Rossy Franco MD
== END 2023-08-24 14:12 | disposition home or self-care (01) ==
PROVIDERS: PCP Nurse Practitioner Family; Visit Provider Urology
DX: R31.29 Other microscopic hematuria (principal); F17.200 Nicotine dependence, unspecified, uncomplicated; R35.0 Frequency of micturition; N20.0 Calculus of kidney; R10.9 Unspecified abdominal pain; R39.198 Other difficulties with micturition; Z13.9 Encounter for screening, unspecified
CPT/HCPCS: 52000; 99214

== ENCOUNTER 2023-08-24 14:04 | Outpatient (REF) | payer MEDICARE, SELFPAY | END 2023-08-24 14:05 | disposition home or self-care (01) | LOC: HO.LAB 14:04 | PROVIDERS: Visit Provider Urology | DX: Z13.89 Encounter for screening for other disorder (principal) ==

== ENCOUNTER 2023-08-25 10:04 | Outpatient (REF) | payer MEDICARE, SELFPAY ==
[2023-08-25 17:47] LABS: Urine Cytology See Pathology rpt
== END 2023-08-25 10:05 | disposition home or self-care (01) ==
LOC: HO.LAB 10:04
PROVIDERS: Visit Provider Urology
DX: R31.29 Other microscopic hematuria (principal)
CPT/HCPCS: 88112

== ENCOUNTER 2023-09-06 13:23 | Outpatient (AMB) | payer MEDICARE, SELFPAY ==
--- NOTE | 2023-09-06 13:36 | HO.SPINEOV ---
Intake Visit Reasons: worsening lower back pain Intake Note: Ms. Hunt is here today c/o back pain. Cloud Subject Matter Expert Required: No Allergies No Known Allergies Allergy (Verified 09/06/23 13:36) Assessment & Plan Assessment & Plan (1) Failed back syndrome: Code(s): M96.1 - Postlaminectomy syndrome, not elsewhere classified Category: Medical Plan: Dear colleague Thank you for referring Maria Fernanda Hunt to the office today with a chief complaint of chronic neck and back pain. HPI: This 67-year-old female underwent a L4-S1 lumbar fusion in the early 1999 and never responded favorable. In fact, her back pain was worse and has further increased over time. She also mentioned that her lower back is very painful to the touch in the area where the instrumentation is located. Besides the back pain she has intermittent, unpredictable radiating pain down her left leg to the outside of her knee and pedicles down her right leg to the outside of the knee and ankle. She also feels a pressure in the tailbone. Another complaint is neck pain. Her neck locks when she rotates to the left side. She also feels radiation down her right arm into her hand. The neck pain is associated with frequent headaches on the right side into her right eye. The following conservative treatment options were tried without success antiinflammatories, tylenol, physician guided home exercise plan, cortisone shots PMH: Hypercholesterolemia, bilateral carpal tunnel syndrome release, bilateral knee meniscus surgery, right elbow debridement right thumb joint replacement Medications: Atorvastatin, Motrin, aspirin, Tylenol Allergies: NKDA Social history: Smokes half a pack a day Physical Exam: Pleasant female. There is pain on palpation over the paramedian incisions and significant amount of scar tissues felt in that area. Otherwise there are no objective neurological deficits. Radiological Studies: MRI of the cervical spine done at [facility] on 01/11/2023 shows severe facet arthritis at C4-5 and C5-C6 on the right side. An MRI of the lumbar spine at [facility] show status post L4-S1 lumbar fusion. [id number] adjacent degenerative disc disease L3-4. No nerve compression. Impression/Plan: This 67-year-old female is suffering from neck pain related to severe arthritis of the right C4-5 and C5-C6 facet joints. These abnormalities can explain the radiation into her right arm and may also be responsible for the headaches. She was offered facet blocks and possible denervations, which I think is a appropriate approach. There is no role for surgery. The same is true for the lower spine. She never responded well to the initial fusion surgery and the adjacent degenerative disc disease is not of such a degree that I think that extension of the fusion is going to alleviate some of her back pain. I did however offer her removal of her posterior instrumentation in an attempt to relieve the local pain over the paramedian incisions. She is scheduled for November 22. She will get preoperative clearance. She will stop her aspirin 1 week prior to surgery and anti-inflammatory is 3 days prior to surgery. Thank you for allowing me to participate in your patients care. total time spent was 50 minutes in counseling ,coordination of plan, personal review of imaging, surgical decision making and subsequent plan Ty Oliver MD, PhD Spine Fellowship Trained Neurosurgeon Director, [facility] (2) Cervical facet joint syndrome: Code(s): M47.812 - Spondylosis without myelopathy or radiculopathy, cervical region Category: Medical Plan: s (3) Painful orthopaedic hardware: Code(s): T84.84XA - Pain due to internal orthopedic prosthetic devices, implants and grafts, initial encounter Category: Medical Plan s Orders: Orders XR lumbar spine 2-3V Today M96.1 - Postlaminectomy syndrome, not elsewhere classified Coding Level of Care Code New Pt Level 4 (03028) Diagnoses Failed back syndrome M96.1 Cervical facet joint syndrome M47.812 Painful orthopaedic hardware T84.84XA
== END 2023-09-06 14:27 | disposition home or self-care (01) ==
PROVIDERS: PCP Nurse Practitioner Family; Referring Provider Physical Medicine & Rehabilitation; Visit Provider Neurological Surgery
DX: M96.1 Postlaminectomy syndrome, not elsewhere classified (principal); M47.812 Spondylosis without myelopathy or radiculopathy, cervical region; T84.84XA Pain due to internal orthopedic prosthetic devices, implants and grafts, initial encounter
CPT/HCPCS: 99204

== ENCOUNTER 2023-09-06 13:23 | Outpatient (REF) | payer MEDICARE, SELFPAY ==
--- NOTE | ~2023-09-06 | XR_ITS ---
EXAMINATION: XR LUMBOSACRAL SPINE CLINICAL INFORMATION: Postlaminectomy syndrome, not elsewhere classified. COMPARISON: The scan of the abdomen and pelvis dated 01/31/2023. TECHNIQUE: Two upright views of the lumbosacral spine. FINDINGS: The patient is status post posterior spinal decompression and instrumented fusion at L5-S1 with transpedicular screws and interlocking rods seen in place and appearing intact. Disc spaces are seen at L4-5 and L5-S1 with fusion across the disc space seen. A anteriorly placed L5 vertebral body screw is also seen. No evidence of hardware failure or malalignment. Mild disc space narrowing seen at L3-4 with associated facet arthropathy. Disc space height otherwise relatively well-maintained. Sacroiliac joints intact rounded density is seen projected over the midline of the lower pelvis on the AP view, incompletely included and additional metallic snap is seen projected over the upper pelvis on the lateral view, presumably caused extrinsic to the patient. Clinical correlation needed. Atherosclerotic dense calcifications of the mid and distal abdominal aorta is seen. Osteopenia noted. XR/XR lumbar spine 2-3V IMPRESSION: * Status post posterior spinal decompression and instrumented fusion at L5-S1 with no evidence of hardware failure or malalignment. * Mild degenerative disc disease at L3-4 with associated facet arthropathy. * Osteopenia. * Atherosclerotic calcifications in the mid and distal abdominal aorta.
== END 2023-09-06 13:24 | disposition home or self-care (01) ==
LOC: HO.HOSX 13:23
PROVIDERS: PCP Nurse Practitioner Family; Visit Provider Neurological Surgery
DX: M96.1 Postlaminectomy syndrome, not elsewhere classified (principal); M47.812 Spondylosis without myelopathy or radiculopathy, cervical region; T84.84XA Pain due to internal orthopedic prosthetic devices, implants and grafts, initial encounter
CPT/HCPCS: 72100; 99202

== ENCOUNTER 2023-11-13 06:40 | Outpatient (REF) | payer MEDICARE, SELFPAY ==
[2023-11-13 10:16] LABS: MANUAL DIFF FLAG NO
[2023-11-13 10:23] LABS: Basophils Percent Auto 0.4 % (0-2); Eosinophils Absolute Auto 0.1 X10*3/uL (0.0-0.4); Eosinophils Percent Auto 2.1 % (0-4); Hematocrit 35.9 % (37.0-47.0); Hemoglobin 12.1 g/dl (12.0-16.0); Imm Gran Abs Auto 0.04 X10*3/uL (0.00-0.03); Imm Gran Pct Auto 0.6 % (0.0-0.4); Lymphocytes Absolute Auto 1.7 X10*3/uL (1.2-4.9); Lymphocytes Percent Auto 25.6 % (20-40); Mean Corpuscular HGB Conc 33.7 g/dl (31.0-35.0); Mean Corpuscular Hemoglobin 33.1 pg (27.0-33.0); Mean Corpuscular Volume 98.1 fL (80.0-98.0); Mean Platelet Volume 9.3 fL (9.4-12.3); Monocytes Absolute Auto 0.6 X10*3/uL (0.1-1.2); Monocytes Percent Auto 9.2 % (2-11); Neutrophils Absolute Auto 4.2 x10*3/uL (2.0-8.3); Neutrophils Percent Auto 62.1 % (45-73); Platelet Count 258 X10*3/uL (160-400); Red Blood Count 3.66 X10*6/uL (4.20-5.50); Red Cell Distribution Width 13.5 % (11.0-16.0); White Blood Count 6.8 X10*3/uL (4.8-10.8)
[2023-11-13 10:57] LABS: Alanine Aminotransferase 20 U/L (0-31); Alkaline Phosphatase 85 U/L (39-117); Anion Gap 11 (12-20); Aspartate Amino Transferase 22 U/L (5-31); Bilirubin Total 0.3 mg/dL (0.0-1.0); Blood Urea Nitrogen 12 mg/dL (9-16); Calcium 8.8 mg/dL (8.4-10.2); Carbon Dioxide 23 mmol/L (22-29); Chloride 106 mmol/L (96-108); Cholesterol 147 mg/dL (<200); Estimated Glomerular Filt Rate > 60; Glucose Fasting 96 mg/dL (60-99); HDL Cholesterol 62 mg/dL (>40); LDL Cholesterol Calculated 68 mg/dL (<100); Potassium 4.1 mmol/L (3.3-5.1); Sodium 136 mmol/L (135-145); TSH reflex Free T4 1.19 uIU/mL (0.32-4.0); Total Protein 6.5 g/dL (6.5-8.0); Triglycerides 85 mg/dL (<150)
[2023-11-13 14:01] LABS: Appearance Urine Clear; Color Urine Yellow; Glucose Urine UA Negative (Negative); Leukocyte Esterase Urine Negative (Negative); Nitrite Urine Negative (Negative); PH 6.5 (5.0-9.0); UMIC TRIGGER UACC YES; Urine Blood Trace (Negative); Urine Ketones Negative (Negative); Urine Protein Negative (Neg-Trace)
[2023-11-13 14:06] LABS: Bacteria Urine None Seen (None Seen); Hyaline Casts Urine 0-2 /LPF (0-2); RBC Urine 0-2 /HPF (0-2); Squamous Epithelial Cell Urine 0-2 /HPF (0-2); WBC Urine 0-5 /HPF (0-5)
== END 2023-11-13 06:41 | disposition home or self-care (01) ==
LOC: HO.HMGCLDS 06:40
PROVIDERS: PCP Nurse Practitioner Family; Visit Provider Nurse Practitioner Family
DX: R53.83 Other fatigue (principal)
CPT/HCPCS: 36415; 80053; 80061; 81001; 81003; 84443; 85025

== ENCOUNTER 2023-11-22 08:01 | Outpatient (AMB) | payer MEDICARE, SELFPAY ==
--- NOTE | 2023-11-22 08:03 | MHC.PC.OV ---
Vital Signs 11/22/23 08:08 Height 5 ft 5 in Weight 129 lb BMI 21.5 BP 108/62 Blood Pressure Location Rt brachial Position Sitting Pulse 74 Pulse Source Pulse Oximeter Pulse Oximetry (%) 98 Oxygen Delivery Method Room Air Intake Visit Reasons: 3 Month F/U Intake Note: Patient here to follow up on left flank pain. Allergies No Known Allergies Allergy (Verified 11/22/23 08:10) Medication List - Last Reconciled 11/22/23 by ISMA Nieto aspirin 81 mg PO DAILY atorvastatin 40 mg PO DAILY 90 days calcium carbonate 600 mg PO BID 90 days cholecalciferol (vitamin D3) 50 mcg PO DAILY coenzyme Q10 75 mg PO DAILY oxybutynin chloride ER 5 mg PO DAILY oxycodone-acetaminophen 5-325 mg 1 tab PO Q12H PRN pantoprazole 20 mg PO DAILY plant stanol lukas (Cholest Off Plus) mg PO Tobacco use date assessed: 08/23/23 Dental Screening Dental Screen Date: 08/23/23 HPI 3 Month F/U HPI Details Pt c/o ongoing left flank pain. US showed a 3 mm nonobstructing left renal calculus/micro hem. Pt saw urology for this and had a cystoscopy. Cytology was also ordered. Pt was started on oxybutynin and flomax. Will order repeat UA and culture. Pt also c/o increased GERD symptoms. Will send pantoprazole. Pt is having a lot of diarrhea. She has tried citrucel with no relief. Will send cholestyramine-aspartame. Denies fever, chills, and N/V. NOTE: pt will be moving to [facility] tomorrow. She plans to find all new providers. [facility] Medical History Spongiotic dermatitis Urinary incontinence, mixed Osteoarthritis of both knees Failed back syndrome Adnexal cyst Atherosclerosis of abdominal aorta Chronic SI joint pain Right shoulder pain Osteoarthritis Surgical History History of elbow surgery History of thumb surgery History of lumbar fusion H/O bilateral breast implants Family History Father No problems noted. Mother CVD (cardiovascular disease) CHF (congestive heart failure) Son No problems noted. Daughter No problems noted. Social History Housing: House Alcohol intake: never Patient Tobacco Use Status: Current everyday Tobacco user Cigarette Packs Per Day: 1 Cigarettes Per Day: 20 e-Cigarette/Vaping Use: Never Used Second Hand Smoke Exposure: Yes Current occupational status: employed Current occupation: [employer] Current occupational exposures/hazards: No Cognitive needs: No Hearing needs: No Vision needs: No Questionnaire Thrive Questionnaire Date Thrive assessed: 11/19/23 I am a: Patient What is your living situation today?: I have a steady place to live Within the past 12 months, did the food you bought not last and you didn't have the money to get more?: Never true Within the past 12 months, did you worry whether your food would run out before you got money to buy more?: Never true Do you have trouble paying for medicines?: No Do you have trouble getting transportation to medical appointments?: No Do you have trouble paying your heating and electricity bill?: No Do you have trouble taking care of your child, family member or friend?: No Do you have trouble with day-to-day activities such as bathing, preparing meals, shopping, managing finances, etc.?: I choose not to answer this question Are you currently unemployed and looking for a job?: I choose not to answer this question Are you interested in more education?: No Please select the resources that you would like help with: Housing/Group Home Currently or been in a relationship where the following occur: I choose not to answer THRIVE Score: 0 AUDIT C Alcohol Use Questionnaire (AUDIT-C) 1. How often do you have a drink containing alcohol?: Monthly or less 2. How many drinks containing alcohol do you have on a typical day when you are drinking?: 1 or 2 3. How often do you have six or more drinks on one occasion?: Never Total Score: 1 EBER-7 AMB Questionnaire EBER-7 Date EBER - 7 assessed: 11/22/23 Feeling nervous, anxious, or on edge: 1 = Several days Not being able to stop or control worryin = Not at all Worrying too much about different things: 0 = Not at all Trouble relaxin = Several days Being so restless that it is hard to sit still: 0 = Not at all Becoming easily annoyed or irritable: 0 = Not at all Feeling afraid as if something awful might happen: 0 = Not at all Total EBER-7 score (0-4 normal; 5-9 mild; 10-14 moderate; 15-21 severe): 2 Source: Developed by Drs. North Unger, Kylah Ko, Ricardo Vergara and colleagues, with an educational ila from [employer]. EBER-7 Assessment Billing EBER-7 Assessment Tool: EBER-7 Assessment 43134 Review of Systems Const Reports as per HPI Physical exam (Primary Care) Vital Signs: Last Vital Signs Pulse 74 11/22/23 08:08 BP 108/62 11/22/23 08:08 Pulse Ox 98 11/22/23 08:08 Oxygen Delivery Method Room Air 11/22/23 08:08 BMI result Body Mass Index 21.5 Tobacco/Smoking Status: Tobacco use Status Tobacco use date assessed 08/23/23 11/22/23 08:08 Patient Tobacco Use Status Current everyday Tobacco 11/22/23 08:08 e-Cigarette/Vaping Use Never Used 11/22/23 08:08 Thrive Assessment: Date of Thrive Assessment Date Thrive assessed 11/19/23 11/22/23 08:08 Currently or been in a relationship where the following occur: I choose not to answer Const General: cooperative Orientation/consciousness: patient oriented x3 Resp Effort & Inspection: normal respiratory effort Cardio Rate: regular rate Rhythm: regular rhythm Heart sounds: S1 normal heart sound present, S2 normal heart sound present and no murmurs Other: no cva tenderness noted bilat Neuro General: patient oriented x3 Psych Appearance: grossly normal Mental Status: mental status grossly normal Speech and movement: Normal speech and movement present Affect: normal affect Attitude: cooperative Thought process: Normal thought process present Thought content: Normal thought content present Insight: Good insight present (Psych) Judgement: Good judgement present (Psych) Assessment and Plan Assessment & Plan (1) Left flank pain: Code(s): R10.9 - Unspecified abdominal pain Plan: UA and culture ordered (2) GERD (gastroesophageal reflux disease): Code(s): K21.9 - Gastro-esophageal reflux disease without esophagitis Plan: pantoprazole started Plan The patient agreed to the use of a medical front desk coordinator for this encounter. Scribed for ISMA Lujan by Neetu Schneider medical front desk coordinator, on 11/22/2023 at 08:15 EST. Orders: Orders UA CC w/rflx Micro + Cult Today R10.9 - Unspecified abdominal pain Urine Culture Today R10.9 - Unspecified abdominal pain Medications: New pantoprazole 20 mg PO DAILY 90 tabs 0RF cholestyramine-aspartame 4 gram (Cholestyramine Light) administer w/meal; avoid other meds within 1hr before or 4-6hr after dose 4 grams PO BID 60 ea 0RF Coding Level of Care Code Est Pt Level 3 (22603) Diagnoses Left flank pain R10.9 GERD (gastroesophageal reflux disease) K21.9 Additional Codes EBER-7 Assessment Billing - EBER-7 Assessment Tool: EBER-7 Assessment 30100 ([id number])
[2023-11-22 08:08] VITALS: BP 108/62; PULSE 74; O2SAT 98; BMI 21.5
== END 2023-11-22 08:35 | disposition home or self-care (01) ==
PROVIDERS: PCP Nurse Practitioner Family; Visit Provider Nurse Practitioner Family
DX: R10.9 Unspecified abdominal pain (principal); K21.9 Gastro-esophageal reflux disease without esophagitis
CPT/HCPCS: 99213

== ENCOUNTER 2023-11-22 08:37 | Outpatient (REF) | payer MEDICARE, SELFPAY ==
[2023-11-22 10:58] LABS: Appearance Urine Clear; Color Urine Yellow; Glucose Urine UA Negative (Negative); Leukocyte Esterase Urine Negative (Negative); Nitrite Urine Negative (Negative); Specific Gravity - Urine 1.015 (1.005-1.025); UMIC TRIGGER UACC YES; Urine Blood Small (1+) (Negative); Urine Ketones Negative (Negative); Urine Protein Negative (Neg-Trace)
[2023-11-22 11:46] LABS: Bacteria Urine None Seen (None Seen); Hyaline Casts Urine 0-2 /LPF (0-2); Squamous Epithelial Cell Urine 0-2 /HPF (0-2); WBC Urine 0-5 /HPF (0-5)
== END 2023-11-22 08:38 | disposition home or self-care (01) ==
LOC: HO.HMGCLDS 08:37
PROVIDERS: PCP Nurse Practitioner Family; Visit Provider Nurse Practitioner Family
DX: R10.9 Unspecified abdominal pain (principal)
CPT/HCPCS: 81001; 81003; 87086

== ENCOUNTER 2024-02-01 06:39 | Day surgery (SDC) | payer MEDICARE, SELFPAY ==
--- NOTE | 2024-01-18 | ECG_ITS ---
Test Reason : pre op Blood Pressure : / mmHG Vent. Rate : 063 BPM Atrial Rate : 063 BPM P-R Int : 168 ms QRS Dur : 088 ms QT Int : 408 ms P-R-T Axes : 010 011 041 degrees QTc Int : 417 ms Normal sinus rhythm Normal ECG When compared with ECG of 13-APR-2022 11:04, No significant change was found Referred By: Carolina Winn Electronically Signed By:ROBINSON MCCLENDON
[2024-01-18 10:03] VITALS: BP 132/68; PULSE 71; RESP 18; O2SAT 98; BMI 20.3
--- NOTE | 2024-01-18 10:14 | HO.ANESPROP2 ---
Documented by User: Carolina Winn NP 01/30/24 14:00 HPI - Anesthesia Eval Consult details Narrative: 68yo F for L5-S1 Spinal hardware Removal (Posterior Instrumentation), 02/01/24 GERD: ppi controlls Chronic low dose opioids PMFSH Active Problems Active Problems: All Active Problems Pre-op evaluation (Acute) Abnormal CBC (Acute) GERD (gastroesophageal reflux disease) (Acute) Painful orthopaedic hardware (Acute) Cervical facet joint syndrome (Acute) Slowing of urinary stream (Acute) Left flank pain (Acute) Left sided abdominal pain (Acute) Kidney stone (Acute) Urinary frequency (Acute) Nicotine dependence (Acute) Leukocytosis (Acute) Hearing loss (Acute) Vitamin D deficiency (Acute) Kidney cysts (Acute) Lung abnormality (Acute) Encounter for annual wellness visit (AWV) in Medicare patient (Acute) Postmenopausal (Acute) PTSD (post-traumatic stress disorder) (Acute) Chest congestion (Acute) Anxiety as acute reaction to exceptional stress (Acute) Stressful workplace (Acute) Smoker (Acute) Microscopic hematuria (Acute) Fatigue (Acute) Palpitations (Acute) Insomnia (Acute) Arthritis (Acute) Incontinence (Acute) Burning chest pain (Acute) Cellulitis of foot (Acute) Postmenopausal (Acute) Dyslipidemia (Acute) Cervical neck pain with evidence of disc disease (Acute) Encounter for laboratory testing for COVID-19 virus (Acute) Failed back syndrome (Acute) Past Medical History Medical History Anesthesia complication PONV (postoperative nausea and vomiting) PTSD (post-traumatic stress disorder) Palpitations Elevated cholesterol GERD (gastroesophageal reflux disease) Spongiotic dermatitis Urinary incontinence, mixed Osteoarthritis of both knees Failed back syndrome Atherosclerosis of abdominal aorta Chronic SI joint pain Right shoulder pain Family History Family History Father No problems noted. Mother CVD (cardiovascular disease) CHF (congestive heart failure) Son No problems noted. Daughter No problems noted. Family history of problems with anesthesia: No Surgical History Surgical History History of esophagogastroduodenoscopy (EGD) H/O colonoscopy History of elbow surgery History of thumb surgery History of lumbar fusion H/O bilateral breast implants History of Problems with Anesthesia: Yes (PONV, long to wake) Social History Social History Housing: House Are you a primary vp care management to a significant other at home: No Do you presently have visiting nurse or other home services: No Alcohol intake: never Comment: uses cane occasionally Patient Tobacco Use Status: Current someday Tobacco user Tobacco use type: Cigarette Cigarette Packs Per Day: 1 Cigarettes Per Day: 6 Years Smoked: 40 Smoked in Last 30 Days: Yes e-Cigarette/Vaping Use: Never Used Patient Interested in Nicotine Replacement: Yes Second Hand Smoke Exposure: Yes Use of substances other than those prescribed or required for medical reasons: No Have you been hit, kicked, punched, or otherwise hurt by someone within the past year? If so, by whom?: No Are you DNR?: No Advance Directives Information Provided: Yes (as above noted) Advance Directives on File: No Recently lost weight without trying: No Eating poorly because of decreased appetite: No Nutrition Risks: No Nutritional Risk Poor oral hygiene: No Current occupational status: employed Current occupation: [employer] / [employer] Current occupational exposures/hazards: No Cognitive needs: No Hearing needs: No Vision needs: No Meds Allergies Allergy/AdvReac Type Severity Reaction Status Date / Time No Known Allergies Allergy Verified 11/22/23 08:10 Home Medications ?Medication ?Instructions ?Recorded ?Confirmed ?Last Taken ?Type cholecalciferol (vitamin D3) 50 50 mcg PO QAM 12/22/20 01/18/24 01/31/24 History mcg (2,000 unit) capsule oxycodone-acetaminophen 5 mg-325 1 tab PO Q12H PRN pain 12/22/20 02/01/24 Unknown History mg tablet aspirin 81 mg tablet,delayed 81 mg PO QAM 06/08/23 01/18/24 01/22/24 History release atorvastatin 40 mg tablet 40 mg PO QAM 01/18/24 01/18/24 01/31/24 History calcium carbonate 600 mg PO QAM 01/18/24 01/18/24 01/31/24 History Exam Height,Weight and Vital Signs: Height 5 ft 5 in Weight 55.338 kg Last Vital Signs Pulse 71 01/18/24 10:03 Resp 18 01/18/24 10:03 BP 132/68 01/18/24 10:03 Pulse Ox 98 01/18/24 10:03 O2 Del Method Room Air 01/18/24 10:03 Pertinent Lab Results Pertinent Lab Results: Laboratory Tests 11/13/23 07:03 WBC 6.8 Hgb 12.1 Hct 35.9 L Plt Count 258 Sodium 136 Potassium 4.1 Chloride 106 Carbon Dioxide 23 BUN 12 Creatinine 0.62 Narrative Narrative: EKG 01/2024 Vent. Rate : 063 BPM Atrial Rate : 063 BPM P-R Int : 168 ms QRS Dur : 088 ms QT Int : 408 ms P-R-T Axes : 010 011 041 degrees QTc Int : 417 ms Normal sinus rhythm Normal ECG When compared with ECG of 13-APR-2022 11:04, No significant change was found Airway Mallampati Class: II Neck ROM: Limited (severe OA) Loose/Missing/Broken Teeth: Yes (molars extracted) Heart: RRR Lungs: CTAB Assessment and Plan Assessment Anesthesia Assessment: Anesthesia Plan Discussed, Smoking Cess. Discussed and PAT Visit Final Anesthetic Review Family History of Problems with Anesthesia: No History of Problems with Anesthesia: Yes (PONV, long to wake) Documented by User: Marlyn Edward MD 02/01/24 08:26 [facility] Past Medical History Medical History Anesthesia complication PONV (postoperative nausea and vomiting) PTSD (post-traumatic stress disorder) Palpitations Elevated cholesterol GERD (gastroesophageal reflux disease) Spongiotic dermatitis Urinary incontinence, mixed Osteoarthritis of both knees Failed back syndrome Atherosclerosis of abdominal aorta Chronic SI joint pain Right shoulder pain Family History Family History Father No problems noted. Mother CVD (cardiovascular disease) CHF (congestive heart failure) Son No problems noted. Daughter No problems noted. Surgical History Surgical History History of esophagogastroduodenoscopy (EGD) H/O colonoscopy History of elbow surgery History of thumb surgery History of lumbar fusion H/O bilateral breast implants Social History Social History Housing: House Are you a primary vp care management to a significant other at home: No Do you presently have visiting nurse or other home services: No Alcohol intake: never Comment: uses cane occasionally Patient Tobacco Use Status: Current someday Tobacco user Tobacco use type: Cigarette Cigarette Packs Per Day: 1 Cigarettes Per Day: 6 Years Smoked: 40 Smoked in Last 30 Days: Yes e-Cigarette/Vaping Use: Never Used Patient Interested in Nicotine Replacement: Yes Second Hand Smoke Exposure: Yes Use of substances other than those prescribed or required for medical reasons: No Have you been hit, kicked, punched, or otherwise hurt by someone within the past year? If so, by whom?: No Are you DNR?: No Advance Directives Information Provided: Yes (as above noted) Advance Directives on File: No Recently lost weight without trying: No Eating poorly because of decreased appetite: No Nutrition Risks: No Nutritional Risk Poor oral hygiene: No Current occupational status: employed Current occupation: [employer] / [employer] Current occupational exposures/hazards: No Cognitive needs: No Hearing needs: No Vision needs: No Meds Allergies Allergy/AdvReac Type Severity Reaction Status Date / Time No Known Allergies Allergy Verified 11/22/23 08:10 Home Medications ?Medication ?Instructions ?Recorded ?Confirmed ?Last Taken ?Type cholecalciferol (vitamin D3) 50 50 mcg PO QAM 12/22/20 01/18/24 01/31/24 History mcg (2,000 unit) capsule oxycodone-acetaminophen 5 mg-325 1 tab PO Q12H PRN pain 12/22/20 02/01/24 Unknown History mg tablet aspirin 81 mg tablet,delayed 81 mg PO QAM 06/08/23 01/18/24 01/22/24 History release atorvastatin 40 mg tablet 40 mg PO QAM 01/18/24 01/18/24 01/31/24 History calcium carbonate 600 mg PO QAM 01/18/24 01/18/24 01/31/24 History Assessment and Plan Final Anesthetic Review NPO: Yes ASA Class: II Final Preanesthetic Review: Meds/Allgs Chart Reviewed, Consent Obtained/Reviewed and Anes Risks/Benef Reviewed Patient Risk: Low Procedure Risk: Intermediate Anesthetic Plan Anesthetic Plan: GA Disposition: Standard PACU
[2024-02-01] VITALS (18 sets, daily range): BP systolic 130–165; BP diastolic 57–99; PULSE 56–77; RESP 16–18; TEMP 36.2–36.7; O2SAT 96–100; BMI 20.3
--- OUTSIDE RECORDS SUMMARY | 2024-02-01 06:42 | XMS_ITS | Continuity of Care Document ---
Author Organization [facility] Address [address] [place] [id number]- Care Team Providers Care Television Operator Name Role Phone Brien CERVANTES, Vinh Rivas Primary Care Physician Encounter [facility] Date(s): 08/25/23 - 09/24/[address] [address] Attending Physician: Kathy Christopher Admitting Physician: AdmtrKathy [...] Care team information Care Team Personnel Name: Brien CERVANTES , Vinh Rivas Position: Reference Physician Member Role: PCP Address: Address: [address] [place] [id number]- Care Team Related Persons Name: GUSTABO MADISON Address: [address] [place] [address]
--- OUTSIDE RECORDS SUMMARY | 2024-02-01 06:42 | XMS_ITS | Continuity of Care Document ---
Author Organization [facility] Address [address] [place] [id number]- Care Team Providers Care Maintenance And Custodian Supervisor Name Role Phone Brien CERVANTES, Vinh Rivas Primary Care Physician [phone] Encounter [facility] [place] Date(s): 08/03/23 - 09/08/[address] [address]- Attending Physician: Vinh Tesfaye NP Admitting Physician: Vinh Tesfaye NP Referring Physician: Vinh Tesfaye NP Allergies, Adverse Reactions, Alerts No Known Allergies [...] Reference Physician Member Role: PCP Address: Address: [address] [place] [id number]- Care Team Related Persons Name: GUSTABO MADISON Address: home [address] [place] [address]
--- OUTSIDE RECORDS SUMMARY | 2024-02-01 06:42 | XMS_ITS | Continuity of Care Document ---
Author Organization [facility] Address [address] [place] [address]- Care Team Providers Care Stitcher Around Name Role Phone Brien CERVANTES, Vinh Rivas Primary Care Physician [place] [facility] [place]/21/23 - 08/24/[address] [address] Attending Physician: Vinh Tesfaye NP Admitting Physician: [...] Reference Physician Member Role: PCP Address: Address: [address] [place] [id number]- Care Team Related Persons Name: GUSTABO MADISON Address: home [address] [place] [address]
--- NOTE | 2024-02-01 07:18 | P.HPSUR_ITS ---
Pre-Procedural Eval Section A - 24 Hr Update-Section A only Date of Service: 02/01/24 The patient is an INPATIENT: No Changes since office visit: No Cold of Flu in the past 2 weeks, No New Medical Problems, No Changes in Medication and No Patient answered all questions The patient has been examined within 24 hours of the surgical procedure. The History & Physical has been completed within 30 days and I have reviewed it.: No Section B - Complete if H&P > 30 days Chief Complaint: Postlaminectomy syndrome,internal prosthetic devic Allergies: Allergies Allergy/AdvReac Type Severity Reaction Status Date / Time No Known Allergies Allergy Verified 11/22/23 08:10 Review of Systems Sugical H&P ROS: Negative: Constitution, Cardiovascular, Respiratory, Neurological, Psychiatric, Hem-Onc, Allergic/Immunologic, Gastrointestinal, Genitourinary, Musculoskeletal, Integumentary, Endocrine and Eyes/Ears/Nose/Thr oat Exam Surgical H&P Exam: Normal: HEENT, Normal: Heart, Normal: Lungs, Normal: Extremities, Normal: Abdomen, Normal: Skin and Normal: Neurological (Awake alert oriented x3) Plan Diagnosis/Plan: Unchanged L5-S1 pedicle screw and instrumentation removal Time Spent With Patient Time: Total time managing care of this patient today _7___ minutes.
[2024-02-01] MEDS: methocarbamoL 750 MG TABLET PO (07:37)
[2024-02-01] MEDS: Gabapentin 300 MG CAPSULE PO (07:37)
[2024-02-01] MEDS: Scopolamine 1.5 MG PATCH.TD.3 TRANSDERMA (07:37)
[2024-02-01] MEDS: Lactated Ringers 1,000 ML 100 ML IVCONT (07:37)
--- NOTE | 2024-02-01 07:41 | PM.DS ---
DS: Providers Provider Date of Service: 02/01/24 Date of discharge: 02/01/24 Primary care physician: ISMA Cronin Admitting clinician: Ty Oliver DS: Diagnosis Discharge Diagnosis (1) Painful orthopaedic hardware: Status: Acute DS: Summary Time Attestation Discharge Coordination Time (in mins): 6 Quality: Safe Use of Opioids Does Pt have an Active Cancer Diagnosis on the Problem List?: No Quality: Stroke Does the patient have a stroke diagnosis?: No Physical Exam Vital Signs: Vital Signs: Last Vital Signs Temp 98.0 F 02/01/24 07:05 Pulse 65 02/01/24 07:05 Resp 16 02/01/24 07:05 BP 149/69 H 02/01/24 07:05 Pulse Ox 100 02/01/24 07:05 O2 Del Method Room Air 02/01/24 07:05 BMI result Body Mass Index 20.3 Discharge Plan Discharge Patient Disposition: Home, Self-Care Referrals: Vinh Tesfaye FNP-BC [Primary Care Provider] - 1 Week Discharge Medications: New tramadol 50 mg tablet 50 mg PO Q6H PRN (Reason: pain) Qty: 30 0RF Continued pantoprazole 20 mg tablet,delayed release (DR/EC) 20 mg PO QAM Qty: 90 0RF atorvastatin 40 mg tablet 40 mg PO QAM calcium carbonate 600 mg calcium (1,500 mg) tablet 600 mg PO QAM oxycodone-acetaminophen 5-325 mg tablet 1 tab PO Q12H PRN (Reason: pain) cholecalciferol (vitamin D3) 50 mcg (2,000 unit) capsule 50 mcg PO QAM Held aspirin 81 mg tablet,delayed release (DR/EC) 81 mg PO QAM Hold Instructions: Resume on 02/08/24. You may resume aspirin 1 week after surgery Discharge Orders: Discharge Order (Routine); Ordered 02/01/24 Ordered By: Gabe Graff Diet: Advance to usual diet Activity on Discharge: As tolerated Activity Restrictions/Additional Instructions: After your spinal surgery we ask you to observe the following restrictions/guidelines: Activity: It is normal to feel some discomfort as you increase your activity, but that will improve with time. We ask you avoid heavy lifting or acitivities that cause pain. As a general rule, 8lbs is a safe limit for lifting right after surgery. Walk as much as you feel comfortable but not to exhaustion. You will feel extra tired the first few days after surgery. Stay well hydrated. It is OK to walk up and down stairs You may return to driving when you are off narcotics (such as vicodin, oxycodone, dilaudid, etc), and you are back to normal functional capacity. If you have any concerns please check with office before driving. Return to work is specific to each patient and each surgery, so please speak with your doctor/PA at first follow up. Please bring paperwork such as FMLA at that time if you need it filled out. Medications: You may resume aspirin 1 week after surgery For optimum pain control, it is best to start with a combination of 500 mg of Tylenol every 4 hours with 600 mg of Motrin every 8 hours, and use narcotics as needed in between for breakthrough pain. We will give you a short supply of narcotics after surgery (usually one weeks worth). If you need more please call the office but do not use more than prescribed. You will need to give our office 48 hours notice if you need narcotics refilled and we do not fill narcotics on weekends or evenings. If you are on a narcotic, it is a good idea to take a stool softener such as colace or senna to avoid constipation If you take blood thinner such as aspirin, Plavix, Coumadin, Effient, Eliquis etc for conditions such as Afib, DVT, Pulmonary embolus, coronary disease, stents etc please speak with your surgeon about specific details as to when you can resume these medications. You can resume NSAIDs on post op day 1 (eg: Motrin, Naproxen, etc). Follow up: Please call the office, , after surgery to arrange a 3 week follow up for wound check. Wound Care: You may remove your dressing on the first day after surgery. ?You may ?leave open to air. Please do not remove the steri strips underneath. they will fall off on their own in one week. IT IS NORMAL FOR THE WOUND TO OOZE OR BE BLOODY FOR A FEW DAYS AFTER SURGERY. ?IF THIS HAPPENS JUST PLACE NEW DRESSING OVER IT TO AVOID STAINING CLOTHES. You may shower on post op day # 1 We ask that you do not let the water soak the wound. If it does get wet, just towel dry lightly. Please do not scrub your incision or place any type of chemical/ointment on the wound. No tub baths, pools or jacuzzis for one month. If you have any leaking or redness from your wound, or fevers, please call office Print Language: Upper Sorbian
--- NOTE | 2024-02-01 10:10 | W.PM.OPN ---
Operative Note Operative Note Date of Service: 02/01/24 Narrative: Preoperative diagnosis: Painful posterior hardware Postoperative diagnosis: Same Procedure: Inspection L5-S1 lumbar fusion followed by removal of L5-S1 pedicle screws Surgeon: Ty Oliver MD, PhD Coat Operator Insulator: abraham Gilman This patient had a fusion done at another institution. She presented with right more than left back pain. She states that she can feel her instrumentation. She was offered an inspection of the fusion and possible removal of the instrumentation. The procedure complications were explained. The patient was consented. The patient was brought to the operating room and endotracheally intubated. The patient was turned in a prone position on the Alfonso frame. Prepping and draping was done followed by time-out. An AP x-rays taken to annabelle the position of the instrumentation. Two paramedian incisions were made for the opening of the muscle fascia and immediately below there we were able to find the L5-S1 pedicle screws. They were placed very superficially and a good cause for her pain. The remainder of the fusion was inspected and no other abnormalities were seen. The locking caps were removed followed by removal of the rods. The screws were removed from L5 and S1. A total 4 screws were removed. Marcaine was injected intramuscularly.The incisions were closed in two layers. Steri-Strips used to approximate the incision. An op-site were taken there was used to cover the incision. All sponge and needle counts were correct. Patient was extubated and transported in stable condition to recovery room. Anesthesia: General Blood loss: 10 mL Complications: None Specimen: None Surgical time: 30 minutes Disposition: Discharge home
[2024-02-01] MEDS: fentaNYL citrate/PF 100 MCG/2 ML VIAL 25 MCG IVPUSH ×4 (10:38→11:16)
[2024-02-01] MEDS: oxyCODONE HCl Immed Release 5 MG TABLET PO (10:40)
== END 2024-02-01 13:38 | disposition home or self-care (01) ==
PROVIDERS: PCP Nurse Practitioner Family; Visit Provider Neurological Surgery
PROC: (CPT 22850; principal; 2024-02-01 09:00)
DX: T85.840A Pain due to nervous system prosthetic devices, implants and grafts, initial encounter (principal); M96.1 Postlaminectomy syndrome, not elsewhere classified; Y75.2 Prosthetic and other implants, materials and neurological devices associated with adverse incidents
CPT/HCPCS: 22850; 22830; 93005; J0131; J0690; J1100; J1885; J2250; J2405; J2704; J3010

== ENCOUNTER → 2024-02-01 06:39 | Outpatient (BNV) | payer MEDICARE, SELFPAY | PROVIDERS: PCP Nurse Practitioner Family; Visit Provider Neurological Surgery | DX: T84.84XA Pain due to internal orthopedic prosthetic devices, implants and grafts, initial encounter (principal) | CPT/HCPCS: 22852; 99499 ==

== ENCOUNTER 2024-03-08 10:54 | Outpatient (AMB) | payer MEDICARE, SELFPAY ==
--- NOTE | 2024-03-08 12:04 | HO.SPINEOV ---
Intake Visit Reasons: 1st post op Intake Note: Ms. Hunt is here today for her 1st post-op appointment. Leases And Land Supervisor Required: No Allergies No Known Allergies Allergy (Verified 11/22/23 08:10) Assessment & Plan Assessment & Plan (1) Painful orthopaedic hardware: Code(s): T84.84XA - Pain due to internal orthopedic prosthetic devices, implants and grafts, initial encounter Category: Medical Plan Dear colleague, On 03/08/2024, I saw for postoperative visit Maria Fernanda Hunt. She underwent posterior instrumentation removal 3 weeks ago for longstanding pain. She states that 15-year-old pain is gone. The incisions are healed. I discharged her from further follow-up. She will follow-up as needed. Thank you for allowing me take care of your patient. Ty Oliver MD, PhD Spine Fellowship Trained Neurosurgeon Director, [facility] [place] [facility] Coding Level of Care Code Global (16668) Diagnoses Painful orthopaedic hardware T84.84XA
== END 2024-03-08 12:31 | disposition home or self-care (01) ==
LOC: HO.HNS 10:55
PROVIDERS: PCP Nurse Practitioner Family; Visit Provider Neurological Surgery
DX: T84.84XA Pain due to internal orthopedic prosthetic devices, implants and grafts, initial encounter (principal)
CPT/HCPCS: 99024

== ENCOUNTER → 2024-03-08 10:54 | Outpatient (BNVA) | payer MEDICARE, SELFPAY | PROVIDERS: PCP Nurse Practitioner Family; Visit Provider Neurological Surgery | DX: T84.84XD Pain due to internal orthopedic prosthetic devices, implants and grafts, subsequent encounter (principal) | CPT/HCPCS: 99212 ==

== ENCOUNTER 2024-05-24 09:41 | Outpatient (AMB) | payer MEDICARE, SELFPAY ==
--- NOTE | 2024-05-24 09:56 | HO.SPINEOV ---
Intake Visit Reasons: Neck pain Intake Note: Ms. Hunt is here today c/o back and neck pain. Research Agricultural Engineer Required: No Allergies No Known Allergies Allergy (Verified 05/24/24 09:57) Assessment & Plan Assessment & Plan (1) Painful orthopaedic hardware: Code(s): T84.84XA - Pain due to internal orthopedic prosthetic devices, implants and grafts, initial encounter Category: Medical Plan Dear colleague, On 05/24/2024, I saw Maria Fernanda Hunt. As you know, I removed painful hardware of the left side that relieved those symptoms. The side effect is that she is now feeling her neck more and recently the right side of the back started to hurt. No radiation down her legs or arms. On inspection, there are well-healed scars. The severe pain on palpation on the right side over the hardware. No neurological abnormalities for motor or sensory. My suspicion is that the right sided hardware was painful as well but is more pronounced now that her severe pain source of the left side was removed. I suspect she needs hardware removal on the right side as well. I will order an MRI of the lumbar spine 1st to exclude other pathology. I will see her back as soon as the MRI is done. Ty Oliver MD, PhD Spine Fellowship Trained Neurosurgeon Director, [facility] [place] [facility] Orders: Orders MR lumbar spine wo con Today M96.1 - Postlaminectomy syndrome, not elsewhere classified Coding Level of Care Code Est Pt Level 3 (04504) Diagnoses Painful orthopaedic hardware T84.84XA
--- OUTSIDE RECORDS SUMMARY | 2024-05-24 10:51 | XMS_ITS ---
Author Name [facility] Organization Unknown History of Medication Use Medication Directions Dispensed Refills Start Date End Date Stat ketorolac (Toradol) injection 15 mg 15 mg, intravenous, Once, On Mon04/08/24 at 1838, For 1 dose 04/10/2024 9 completed HYDROmorphone (PF) (Dilaudid) injection 0.5 mg 0.5 mg, intravenous, Once, On Mon04/08/24 at 1932, For 1 dose 04/10/2024 9 completed sodium chloride 0.9 % flush 60 mL 60 mL, intravenous, Administer over 1 Minutes, Once in imaging, imaging study, Starting on Mon04/08/24 at 1935, For 1 dose 04/10/2024 9 completed ibuprofen (Advil,Motrin) 600 mg tablet Take 1 tablet (600 mg total) by mouth every 6 (six) hours if needed for mild pain for up to 7 days. 04/10/2024 9 active iohexoL (Omnipaque) 350 mg iodine/mL injection 100 mL 100 mL, intravenous, Once in imaging, contrast, Starting on Mon04/08/24 at 1935, For 1 dose 04/10/2024 9 completed pantoprazole (PROTONIX) 20 mg EC tablet Take 1 tablet (20 mg total) by mouth every morning. 03/18/2024 9 active cholecalciferol (Vitamin D3) 10 mcg (400 unit) tablet 5 tablets (2,000 Units total). 03/18/2024 9 active ADULT LOW DOSE ASPIRIN ORAL 1 (one) time each day. 03/18/2024 9 active oxyCODONE-acetaminop hen (Percocet) 5-325 mg tablet if needed. 03/18/2024 9 active atorvastatin (Lipitor) 40 mg tablet Take 1 tablet (40 mg total) by mouth 1 (one) time each day. 03/18/2024 9 active coenzyme Q-10 (CoQ-10) 100 mg capsule 1 (one) time each day. 03/18/2024 9 active calcium carbonate 160 mg calcium (400 mg) tablet,chewable 600 mg 1 (one) time each day. 03/18/2024 9 active Calcium Carbonate Antacid 400 MG Chew Tab 600 mg. 03/04/2024 9 active traMADol (ULTRAM) 50 MG tablet 03/04/2024 9 active betamethasone acetate-betamethason e sodium phosphate (CELESTONE) injection 6 mg 6 mg, Intra-articular, Once PRN Procedure, Starting on Mon02/23/24 at 1100, For 1 dose 02/25/2024 9 completed coenzyme Q10 (CO Q 10) 100 MG capsule daily. 03/04/2024 9 active atorvastatin (LIPITOR) 40 MG tablet Take 40 mg by mouth. 12/24/2023 active amoxicillin-clavulan ate (AUGMENTIN) 875-125 MG per tablet TAKE 1 TABLET ORALLY 2 TIMES A DAY FOR 10 DAYS 12/24/2023 active PANTOprazole (PROTONIX) 20 MG tablet Take 20 mg by mouth. 12/24/2023 active oxyCODONE-acetaminop hen (PERCOCET) 5-325 mg per tablet TAKE 1 TABLET EVERY 12 HOURS FOR PAIN NEEDED 12/24/2023 active ALPRAZolam (XANAX) 0.5 MG tablet TAKE 1 TABLET BY MOUTH APPROXIMATELY 1 HOUR PRIOR TO PROCEDURE FOR PREPROCEDURAL ANXIETY 12/24/2023 active cholestyramine light (QUESTRAN LIGHT) 4 g packet 4 G ORALLY 2 TIMES A DAY ADMINISTER W/MEAL AVOID OTHER MEDS WITHIN 1HR BEFORE OR 4-6HR AFTER DOSE 12/24/2023 active Problems Problem Status Onset Date Problem Type Date of Resolution Source Ingrown toenail active EncounterDiagnosisAct HHCCT Heart palpitations active 2024-04-26 ProblemAct HHCCT High cholesterol active 2024-02-09 ProblemAct C TMDSXH History of lumbar spinal fusion active 2024-02-09 ProblemAct CTMDSXH Osteoporosis active ProblemAct CTMDSX H 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
== END 2024-05-24 11:22 | disposition home or self-care (01) ==
PROVIDERS: PCP Nurse Practitioner Family; Visit Provider Neurological Surgery
DX: T84.84XA Pain due to internal orthopedic prosthetic devices, implants and grafts, initial encounter (principal)
CPT/HCPCS: 99213

== ENCOUNTER → 2024-05-24 09:41 | Outpatient (BNVA) | payer MEDICARE, SELFPAY | PROVIDERS: PCP Nurse Practitioner Family; Visit Provider Neurological Surgery | DX: T84.84XA Pain due to internal orthopedic prosthetic devices, implants and grafts, initial encounter (principal) | CPT/HCPCS: 99212 ==

== ENCOUNTER 2024-06-26 09:58 | Outpatient (AMB) | payer MEDICARE, SELFPAY ==
--- NOTE | 2024-06-26 10:01 | HO.SPINEOV ---
Vital Signs 06/26/24 10:06 Height 5 ft 4.5 in Weight 125 lb BMI 21.1 Intake Visit Reasons: F/u MRI Intake Note: Mrs. Hunt is here today to F/u on the results to her MRI. Oracle Iam Consultant Required: No Allergies No Known Allergies Allergy (Verified 06/26/24 10:07) Physical Exam Vital Signs: BMI result Body Mass Index 21.1 Assessment & Plan Assessment & Plan (1) Cervical neck pain with evidence of disc disease: Code(s): M50.90 - Cervical disc disorder, unspecified, unspecified cervical region Category: Medical Plan Dear colleague, On June 26, 2024, I saw for follow-up Maria Fernanda Hunt. She underwent a lumbar MRI which is negative for nerve compression. We discuss removal of the right-sided instrumentation. Currently is not as bad and the pain is more with movement. Therefore I am not convinced that removal of the right-sided instrumentation is going to have as good results as the left side, where the pain was localized over the left side instrumentation. A 2nd complaint is correcting stiffness and pain in her neck with headaches. She would like to have an MRI of the neck to see if there is a single cause explaining those symptoms. She will return after the MRI of the cervical spine is done. I spent 15 minutes in his consult to review imaging and discussing plan of care. Ty Oliver MD, PhD Spine Fellowship Trained Neurosurgeon Director, [facility] [place] [facility] Orders: Orders MR cervical spine wo con Today M50.90 - Cervical disc disorder, unspecified, unspecified cervical region Coding Level of Care Code Est Pt Level 2 (57805) Diagnoses Cervical neck pain with evidence of disc disease M50.90
[2024-06-26 10:06] VITALS: BMI 21.1
--- OUTSIDE RECORDS SUMMARY | 2024-06-26 10:27 | XMS_ITS | Encounter Summary ---
Author Organization [facility] Address [address] [place] [address] Care Team Providers Care Contribution Solicitor Name Role Phone [employer] Primary Care Provider Gabe Hernández MD Unavailable Encounter Details Date Type Department Care Team (Late st Contact Info) Description 02/23/2024 Scanned Document [facility] [address] [place] [phone] Provider, Generic Social History Tobacco Use Types Packs/Day Years Used Date Smoking Tobacco: Every Day Cigarettes Sex and Gender Information Value Date Recorded Sex Assigned at Female 12/19/2023 1:16 PM EDT Gender Identity Female 12/19/2023 1:16 PM EDT Sexual Orientation Heterosexual (straight) 12/18 1:16 PM EDT documented as of this encounter Plan of Treatment Upcoming Encounters Date Type Department Care Team (Late st Contact Info) Description 07/09/2024 9:30 AM EST Office Visit [facility] [address] [place] [phone] Celi Jimenez MD [address] [place], [place] [id number] 07/16/2024 10:00 AM EDT Ancillary Procedure [facility] [place] [address] [place] [phone] Gabe Baumann MD [address] [place] [phone] 08/09/2024 10:00 AM EDT Office Visit [facility] [address] [place] [phone] Arya Galser DPM [address] [place] [phone] 09/20/2024 9:30 AM EDT Office Visit [facility] [phone] Celi Jimenez MD [address] [place] [address] [phone] 12/30/2024 10:00 AM EDT Office Visit [facility] [address] [phone] Gabe Baumann MD [address] [place] [address] documented as of this encounter Visit Diagnoses Not on filedocumented in this encounter Care Teams Contribution Solicitor Relationship Specialty Start Date End Date Health System PCP - General 04/15/24 Gabe Baumann MD [address] [place] [phone] Cardiovascular Disease 06/24/24 documented as of this encounter
--- OUTSIDE RECORDS SUMMARY | 2024-06-26 10:27 | XMS_ITS | Encounter Summary ---
Author Organization [facility] Address [address] [place] [address] Care Team Providers Care Assembly Inspector Helper Name Role Phone Alan Sheikh MD Primary Care Provider [phone] Reason for Referral * Imaging (Routine) - Authorized Specialty Diagnoses / Procedures Referred By Contac t Referred To Contact Radiology Diagnoses Postlaminectomy syndrome, not elsewhere classified Procedures MRI LUMBAR SPINE WO IV CONTRAST Ty Oliver MD [address] [place] [address] Dr Daniels [address] [place] [phone] Phone: tel: fax: [facility] - [facility] [place] Phone: tel: fax: Referral ID Status Reason Start Date Expiration Date Visits Requested Visits Authorized [id number] Authorized Perform Procedure 05/29/2024 05/29/2025 1 1 Reason for Visit * Imaging (Routine) - Authorized Specialty Diagnoses / Procedures Referred By Contac t Referred To Contact Radiology Diagnoses Postlaminectomy syndrome, not elsewhere classified Procedures MRI LUMBAR SPINE WO IV CONTRAST Ty Oliver MD [address] [place] [address] Dr Daniels [address] [place], [place] [address] [address] Phone: tel: fax: [facility] - [facility] [place] Phone: tel: fax: Referral ID Status Reason Start Date Expiration Date Visits Requested Visits Authorized [id number] Authorized Perform Procedure 05/29/2024 05/29/2025 1 1 Encounter Details Date Type Department Care Team (Latest Contact Info) Description 06/12/2024 1:53 PM EST - 06/12/2024 11:59 PM EST Hospital Encounter [facility], [facility] [address] [place] [address] Postlaminectomy syndrome, not elsewhere classified Discharge Disposition: Home or Self Care Social History Tobacco Use Types Packs/Day Years Used Date Smoking Tobacco: Every Day Cigarettes 0.5 50 Smokeless Tobacco: Never Comments:quit many times Alcohol Use Standard Drinks/Week Comments Yes 2 (1 standard drink = 0.6 oz pur e alcohol) socially when out for dinner Exercise Vital Sign Answer Date Recorde d On average, how many days pe r week do you engage in moderate to strenuous exercise (like a brisk walk)? 2 days 04/08/2024 On average, how many minutes do you engage in exercise at this level? 60 min 04/08/2024 Comments No Sex and Gender Information Value Date Recorded Sex Assigned at Female 02/12/2024 3:23 PM EDT Legal Sex Female 12:04 PM EDT Gender Identity Female 02/12/2024 3:23 PM EDT Sexual Orientation Straight 02/12/2024 3: 23 PM EDT documented as of this encounter Medications at Time of Discharge ADULT LOW DOSE ASPIRIN ORAL 1 (one) time each day. 05/08/2019 atorvastatin (Lipitor) 40 mg tablet Take 1 tablet (40 mg total) by mouth 1 (one) time each day. 08/07/2023 calcium carbonate 160 mg calcium (400 mg) tablet,chewable 600 mg 1 (one) time each day. coenzyme Q-10 (CoQ-10) 100 mg capsule 1 (one) time each day. 08/07/2023 oxyCODONE-acetami nophen (Percocet) 5-325 mg tablet if needed. traMADoL (Ultram) 50 mg tablet 02/01/2024 documented as of this encounter Plan of Treatment Upcoming Encounters Date Type Department Care Team (Late st Contact Info) Description 06/20/2024 Procedure Pass [facility] (Ultrasound) [address] [place] [address] 07/02/2024 12:40 PM EST Appointment [facility] (Breast Imaging) [address] [place] [address] Bkd w/ pt 06/20. Time ok per Samira. Given exam prep and arr time of 1230pm [facility] 07/02/2024 1:30 PM EST Appointment [facility] (Ultrasound) [address] [place] [address] Bkd w/ pt 06/20. Time ok per Samira. Given exam prep and arr time of 1230pm [facility] 11/12/2024 10:00 AM EDT Office Visit [facility] [address] [phone] Alan Sheikh MD [address] [address] Follow up in about 6 months (around 11/11/2024), or Wellness exam.. documented as of this encounter Procedures Procedure Name Priority Date/Time Associated Diagnosis Comments MRI LUMBAR SPINE WO IV CONTRAST Routine 06/12/2024 3:05 PM EST Postlaminectomy syndrome, not elsewhere classified documented in this encounter Results * MRI LUMBAR SPINE WO IV CONTRAST (06/12/2024 3:05 PM EST) Anatomical Region Laterality Modality Magnetic Resonan ce 06/12/2024 4:43 PM EST Impressions 06/12/2024 4:55 PM EST L3-L4 mild to moderate central canal and bilateral lateral recess narrowing. Remaining findings described above. Narrative 06/12/2024 4:55 PM EST EXAM TYPE: MRI LUMBAR SPINE WO IV CONTRAST PROTOCOL: ??Multiplanar T1, T2, and STIR imaging. CONTRAST: CLINICAL INDICATION: Postlaminectomy syndrome, not elsewhere classified, postlaminectomy syndrome COMPARISON: None Findings: Bone: There are intervertebral disc spacers at L4-L5 and L5-S1 and anterior fusion of L5, left L5 laminectomy. Preserved vertebral body heights. Normal vertebral body alignment. No spondylolisthesis. No spondylolysis. Normal marrow signal. Cord/conus: Normal signal and caliber. Conus terminates at a normal level. Discs: Moderate disc space narrowing at L3-L4. ?? Disc levels: T12-L1: No axial imaging performed. No central canal narrowing. No neural foraminal narrowing. L1-2: Mild diffuse disc bulge and small right subarticular disc protrusion. No central canal narrowing. No neural foraminal narrowing. L2-3: No disc bulge or herniation. No central canal narrowing. No neural foraminal narrowing. L3-4: There is moderate diffuse disc bulge and mild ligamentum flavum hypertrophy causing mild to moderate central canal and bilateral lateral recess narrowing. Mild bilateral neural foraminal narrowing. L4-5: No disc bulge or herniation. No central canal narrowing. No neural foraminal narrowing. L5-S1: Small right paracentral disc extrusion. No central canal narrowing. No neural foraminal narrowing. Procedure Note Vahid Soto MD - 06/12/2024 EXAM TYPE: MRI LUMBAR SPINE WO IV CONTRAST PROTOCOL: Multiplanar T1, T2, and STIR imaging. CONTRAST: CLINICAL INDICATION: Postlaminectomy syndrome, not elsewhere classified,postlaminectomy syndrome COMPARISON: None Findings: Bone: There are intervertebral disc spacers at L4-L5 and L5-S1 andanterior fusion of L5, left L5 laminectomy. Preserved vertebral bodyheights. Normal vertebral body alignment. No spondylolisthesis. Nospondylolysis. Normal marrow signal. Cord/conus: Normal signal and caliber. Conus terminates at a normallevel. Discs: Moderate disc space narrowing at L3-L4. Disc levels: T12-L1: No axial imaging performed. No central canal narrowing. No neuralforaminal narrowing. L1-2: Mild diffuse disc bulge and small right subarticular discprotrusion. No central canal narrowing. No neural foraminal narrowing. L2-3: No disc bulge or herniation. No central canal narrowing. No neuralforaminal narrowing. L3-4: There is moderate diffuse disc bulge and mild ligamentum flavumhypertrophy causing mild to moderate central canal and bilateral lateralrecess narrowing. Mild bilateral neural foraminal narrowing. L4-5: No disc bulge or herniation. No central canal narrowing. No neuralforaminal narrowing. L5-S1: Small right paracentral disc extrusion. No central canal narrowing.No neural foraminal narrowing. IMPRESSION: L3-L4 mild to moderate central canal and bilateral lateral recessnarrowing. Remaining findings described above. Ty Oliver MD IMG MRI PROCEDURES Final Result documented in this encounter Visit Diagnoses Diagnosis Postlaminectomy syndrome, not elsewhere classified documented in this encounter Care Teams Assembly Inspector Helper Relationship Specialty Start Date End Date Alan Sheikh MD [address] [place] [phone] PCP - General 05/08/24 documented as of this encounter
--- OUTSIDE RECORDS SUMMARY | 2024-06-26 10:27 | XMS_ITS | Encounter Summary ---
Author Organization [facility] Address [address] [place] [address] Care Team Providers Care Criminal Justice Professor Name Role Phone Alan Sheikh MD Primary Care Provider [phone] Reason for Visit * Imaging (Emergency) - Authorized Specialty Diagnoses / Procedures Referred By Contac t Referred To Contact Radiology Diagnoses Acute pain of right knee Procedures XR knee 3 views right Malachi Peters PA-C [address] [place] [address] Phone: tel: fax: [facility] - [place] Phone: tel: fax: Referral ID Status Reason Start Date Expiration Date Visits Requested Visits Authorized [id number] Authorized Perform Procedure 06/22/2024 06/22/2025 1 1 Encounter Details Date Type Department Care Team (Latest Contact Info) Description 06/22/2024 12:46 PM EST - 06/22/2024 11:59 PM EST Hospital Encounter [facility] [address] [place] [address] Discharge Disposition: Home or Self Care Social [...] st Contact Info) Description 06/20/2024 Procedure Pass [facility] (Ultrasound) [address] [place] [phone] 07/02/2024 12:40 PM EST Appointment [facility] (Breast Imaging) [address] [place] [phone] Bkd w/ pt 06/20. Time ok per Samira. Given exam prep and arr time of 1230pm [facility] 07/02/2024 1:30 PM EST Appointment [facility] (Ultrasound) [address] [place] [phone] Bkd w/ pt 06/20. Time ok per Samira. Given exam prep and arr time of 1230pm [facility] 11/12/2024 10:00 AM EDT Office Visit [facility] [address] [place] [address] Alan Sheikh MD [address] [place] [address] Follow up in about 6 months (around 11/11/2024), or Wellness exam.. 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 Narrative 06/22/2024 1:19 PM EST PROCEDURE: ??XR KNEE 3 VIEWS RIGHT CLINICAL HISTORY: ??Acute pain of right knee, medial knee pain s/p twisting injury yesterday COMPARISON: None. FINDINGS: Joint alignment is anatomic. There are tiny osteophytes in the medial tibiofemoral compartment and minimal narrowing of the medial compartment. No fracture. No suprapatellar effusion. Procedure Note Patria Barker MD - 06/22/2024 PROCEDURE: XR KNEE 3 VIEWS RIGHT CLINICAL HISTORY: Acute pain of right knee, medial knee pain s/p twistinginjury yesterday COMPARISON: None. FINDINGS: Joint alignment is anatomic. There are tiny osteophytes in the medialtibiofemoral compartment and minimal narrowing of the medial compartment.No fracture. No suprapatellar effusion. 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 Malachi Peters PA-C IMG XR PROCEDURES Final Re sult documented in this encounter Visit Diagnoses Not on filedocumented in this encounter Care Teams Criminal Justice Professor Relationship Specialty Start Date End Date Alan Sheikh MD [address] [place] [address] PCP - General 05/08/24 documented as of this encounter
--- OUTSIDE RECORDS SUMMARY | 2024-06-26 10:27 | XMS_ITS | Encounter Summary ---
Author Organization [employer] Address [address] [place] [address] Care Team Providers Care Digital Media Intern Name Role Phone Alan Sheikh MD Primary Care Provider [phone] Reason for Referral * Imaging (Routine) - Authorized Specialty Diagnoses / Procedures Referred By Girish honeycutt Referred To Contact Radiology Diagnoses Mastalgia in female Procedures MG BREAST DIAGNOSTIC IMPLANT TOMOSYNTHESIS BILATERAL MG BREAST DIAGNOSTIC TOMOSYNTHESIS BILATERAL Sophia Clay APRN [address] [place] [address] Phone: tel: fax: [facility] [place] Phone: tel: fax: Referral ID Status Reason Start Date Expiration Date Visits Requested Visits Authorized [id number] Authorized Perform Procedure 06/20/2024 12/20/2025 1 1 * Imaging (Routine) - Authorized Specialty Diagnoses / Procedures Referred By Girish honeycutt Referred To Contact Radiology Diagnoses Mastalgia in female Procedures US BREAST RIGHT LIMITED Sophia Clay APRN [address] [address] Phone: tel: fax: [facility] [place] Phone: tel: fax: Referral ID Status Reason Start Date Expiration Date Visits Requested Visits Authorized [id number] Authorized Perform Procedure 06/20/2024 06/20/2025 1 1 Reason for Visit * Reason Comments Breast Problem Encounter Details Date Type Department Care Team ([facility] st Contact Info) Description 06/20/2024 11:20 AM EST Office Visit [facility] [employer] [address] [address] Sophia Clay APRN [address] [place] [address] [phone] Mastalgia in female (Primary Dx) Social History Tobacco Use Types Packs/Day Years [...] PM EDT documented as of this encounter Last Filed Vital Signs Vital Sign Reading Time Taken Comments Blood Pressure 122/74 06/20/2024 11:48 AM EST Pulse - - Temperature - - Respiratory Rate - - Oxygen Saturation - - Inhaled Oxygen Concentration - - Weight 57.2 kg (126 lb) 06/20/2024 11:48 AM EST Height 165.1 cm (5' 5 ) 06/20/2024 11:48 AM EST Body Mass Index 20.97 06/20/2024 11:48 AM EST documented in this encounter Progress Notes * Sophia Clay APRN - 06/20/2024 11:20 AM EST ELECTRIC DISTRIBUTION CHECKER EXAM Maria Fernanda Hunt is a 68 y.o. year old female Chief Complaint Patient presents with Breast Problem She presents with complaints of tenderness in the right breast for the past week. Overall the breast feels swollen. She denies skin changes or nipple discharge. She has bilateral breast implants which have never bothered her. She denies change in activity or medications. She cannot remember a recent injury to the area. Reviewed Mammogram from 09/2022 done at an outside facility =[facility]. The following portions of the patient's history were reviewed and updated as appropriate: Tobacco Allergies Meds Problems Med Hx Surg Hx Fam Hx Review of Systems Constitutional: Negative for fever. Skin: Negative for color change, rash and wound. Hematological: Negative for adenopathy. Visit Vitals BP 122/74 (BP Location: Left arm, Patient Position: Sitting) Ht 5' 5 Wt 57.2 kg (126 lb) BMI 20.97 kg/m?? OB Status Postmenopausal Smoking Status Every Day BSA 1.62 m?? Physical Exam Constitutional: Appearance: Normal appearance. Chest: Breasts: Right: Tenderness (generalized) present. No swelling, inverted nipple, mass, nipple discharge or skin change. Left: No swelling, inverted nipple, mass, nipple discharge, skin change or tenderness. Comments: Bilateral breast implants present Lymphadenopathy: Upper Body: Right upper body: No supraclavicular, axillary or pectoral adenopathy. Left upper body: No supraclavicular, axillary or pectoral adenopathy. Neurological: Mental Status: She is alert. Diagnoses and all orders for this visit: Mastalgia in female - MG BREAST DIAGNOSTIC TOMOSYNTHESIS BILATERAL; Future - US BREAST RIGHT LIMITED; Future Wear supportive bra. Ibuprofen or heating pad prn. Await imaging results. Follow up for Appointment as Needed. Sophia Clay APRN documented in this encounter Plan of Treatment Upcoming Encounters Date Type Department Care Team (Late st Contact Info) Description 06/20/2024 Procedure Pass [facility]ound[facility] [address] [facility] [place] [address] 07/02/2024 12:40 PM EST Appointment [facility] (Breast Imaging) [address] [place] [address] Bkd w/ pt 06/20. Time ok per Samira. Given exam prep and arr time of 1230pm [facility] 07/02/2024 1:30 PM EST Appointment [facility] (Ultrasound) [address] [place] [address] Bkd w/ pt 06/20. Time ok per Samira. Given exam prep and arr time of 1230pm [facility] 11/12/2024 10:00 AM EDT Office Visit [facility] [address] [place] [address] Alan Sheikh MD [address] [address] Follow up in about 6 months (around 11/11/2024), or Wellness exam.. Scheduled Orders Name Type Priority Associated Diagnoses Orde r Schedule US BREAST RIGHT LIMITED Imaging Routine Mastalgia in female Expected: 06/20/2024 (Approximate), Expires: 06/20/2025 MG BREAST DIAGNOSTIC IMPLANT TOMOSYNTHESIS BILATERAL Imaging Routine Mastalgia in female Expected: 06/20/2024 (Approximate), Expires: 08/18/2025 documented as of this encounter Visit Diagnoses Diagnosis Mastalgia in female- Primary documented in this encounter Care Teams Digital Media Intern Relationship Specialty Start Date End Date Alan Sheikh MD [address] [place] [address] PCP - General 05/08/24 documented as of this encounter
--- OUTSIDE RECORDS SUMMARY | 2024-06-26 10:27 | XMS_ITS | Encounter Summary ---
Author Organization [facility] Address [address] [place] [address] Care Team Providers Care Certified Dietary Manager Name Role Phone [facility] Primary Care Provider Unavaila ble Reason for Visit * Reason Comments Pain Injection lasted up until recentlyLeft worse than right Pain Injection lasted up until recentlyLeft worse than right Encounter Details Date Type Department Care Team (Late st Contact Info) Description 06/11/2024 9:30 AM EST Office Visit [facility] [address] [place] [phone] Celi Jimenez MD [address], [place] [phone] Primary osteoarthritis of left knee (Primary Dx); Primary osteoarthritis of right knee Social History Tobacco Use Types Packs/Day Years Used Date Smoking Tobacco: Every Day Cigarettes Sex and Gender Information Value Date Recorded Sex Assigned at Female 12/19/2023 1:16 PM EDT Gender Identity Female 12/19/2023 1:16 PM EDT Sexual Orientation Heterosexual (straight) 12/18 1:16 PM EDT documented as of this encounter Progress Notes * Celi Jimenez MD - 06/11/2024 9:30 AM ESTAssociated Order(s): Large Joint Arthrocentesis (CC): R knee; Large Joint Arthrocentesis (CC): L knee Post-Procedure Diagnose(s): Primary osteoarthritis of right knee; Primary osteoarthritis of left knee Images from the original note were not included. [address] [facility] [phone] Encounter Date: 06/11/2024 Chief Complaint: Maria Fernanda Hunt is a 68 y.o. female who presents today for Chief Complaint Patient presents with Left Knee - Pain Injection lasted up until recently Left worse than right Right Knee - Pain Injection lasted up until recently Left worse than right History of Present Illness: Maria Fernanda returns regarding bilateral knee pain due to known osteoarthritis. Previous injection gave her several months of relief. She is interested in repeating this. Physical Exam On examination of the right knee she has tenderness palpation medial joint line. Range of motion is0 to 130 degrees. Stable to varus and valgus stress with firm endpoints of both. On examination of the left knee she has tenderness palpation medial joint line. Range of motion is 0 to 130 degrees. Stable to varus and valgus stress with firm endpoints of both. Results No new imaging today Procedure Large Joint Arthrocentesis (CC): R knee on 06/11/2024 9:30 AM Indications: pain Details: 22 G needle, anterolateral approach Medications: 6 mg betamethasone acetate-betamethasone sodium phosphate 6 (3-3) MG/ML (Lidocaine 1% 3cc, Bupivacaine 0.5% 3cc) Outcome: tolerated well, no immediate complications Procedure, treatment alternatives, risks and benefits explained, specific risks discussed. Consent was given by the patient. Immediately prior to procedure a time out was called to verify the correctpatient, procedure, equipment, client support professional and site/side marked as required. Patient was prepped and draped in the usual sterile fashion. Large Joint Arthrocentesis (CC): L knee on 06/11/2024 9:30 AM Indications: pain Details: 22 G needle, anterolateral approach Medications: 6 mg betamethasone acetate-betamethasone sodium phosphate 6 (3-3) MG/ML (Lidocaine 1% 3cc, Bupivacaine 0.5% 3cc) Outcome: tolerated well, no immediate complications Procedure, treatment alternatives, risks and benefits explained, specific risks discussed. Consent was given by the patient. Immediately prior to procedure a time out was called to verify the correctpatient, procedure, equipment, client support professional and site/side marked as required. Patient was prepped and draped in the usual sterile fashion. Assessment & Plan 68-year-old female with bilateral knee osteoarthritis Previous bilateral knee injections gave considerable relief for several months. She is interested in repeating this which I think is reasonable. See above for details. Follow-up 3 to 4 months. Celi Jimenez M.D. documented in this encounter Plan of Treatment Upcoming Encounters Date Type Department Care Team (Late st Contact Info) Description 07/09/2024 9:30 AM EST Office Visit [facility] [address] [place], [place] [phone] Celi Jimenez MD [address] [place] [address] 07/16/2024 10:00 AM EDT Ancillary Procedure [facility] [address] [phone] Gabe Baumann MD [address] [place] [phone] 08/09/2024 10:00 AM EDT Office Visit [place] [phone] Arya Glaser DPM [address] [place] [address] 09/20/2024 9:30 AM EDT Office Visit [facility] [address] [place], [place] [phone] Celi Jimenez MD [address] [place] [address] 12/30/2024 10:00 AM EDT Office Visit [facility] [address] [phone] Gabe Baumann MD [address] [place] [phone] documented as of this encounter Procedures Procedure Name Priority Date/Time Associated Diagnosis Comments MI ARTHROCENTESIS ASPIR&/INJ MAJOR JT/BURSA W/O US Routine 06/11/2024 9:30 AM EST Primary osteoarthritis of left knee MI ARTHROCENTESIS ASPIR&/INJ MAJOR JT/BURSA W/O US Routine 06/11/2024 9:30 AM EST Primary osteoarthritis of right knee documented in this encounter Results * MI ARTHROCENTESIS ASPIR&/INJ MAJOR JT/BURSA W/O US (06/11/2024 9:30 AM EST) Narrative Celi Jimenez MD - 06/11/2024 9:30 AM EST Celi Jimenez MD ? 06/12/2024 ??8:17 AM Large Joint Arthrocentesis (CC): L knee on 06/11/2024 9:30 AM Indications: pain Details: 22 G needle, anterolateral approach Medications: 6 mg betamethasone acetate-betamethasone sodium phosphate 6 (3-3) MG/ML (Lidocaine 1% 3cc, Bupivacaine 0.5% 3cc) Outcome: tolerated well, no immediate complications Procedure, treatment alternatives, risks and benefits explained, specific risks discussed. Consent was given by the patient. Immediately prior to procedure a time out was called to verify the correct patient, procedure, equipment, client support professional and site/side marked as required. Patient was prepped and draped in the usual sterile fashion. Celi Jimenez MD PROCEDURE/MINOR SURG ICAL ORDERABLES * MI ARTHROCENTESIS ASPIR&/INJ MAJOR JT/BURSA W/O US (06/11/2024 9:30 AM EST) Narrative Celi Jimenez MD - 06/11/2024 9:30 AM EST Celi Jimenez MD ? 06/12/2024 ??8:17 AM Large Joint Arthrocentesis (CC): R knee on 06/11/2024 9:30 AM Indications: pain Details: 22 G needle, anterolateral approach Medications: 6 mg betamethasone acetate-betamethasone sodium phosphate 6 (3-3) MG/ML (Lidocaine 1% 3cc, Bupivacaine 0.5% 3cc) Outcome: tolerated well, no immediate complications Procedure, treatment alternatives, risks and benefits explained, specific risks discussed. Consent was given by the patient. Immediately prior to procedure a time out was called to verify the correct patient, procedure, equipment, client support professional and site/side marked as required. Patient was prepped and draped in the usual sterile fashion. Celi Jimenez MD PROCEDURE/MINOR SURG ICAL ORDERABLES documented in this encounter Visit Diagnoses Diagnosis Primary osteoarthritis of left knee- Primary Primary osteoarthritis of right knee documented in this encounter Administered Medications Inactive Administered Medications - up to 1 most recent administrations Medication Order MAR Action Action Date Dose Rate Site betamethasone acetate-betamethasone sodium phosphate (CELESTONE) injection 6 mg 6 mg, Intra-articular, Once PRN Procedure, Starting on Mon06/11/24 at 0930, For 1 dose Given 06/11/2024 9:30 AM EST 6 mg betamethasone acetate-betamethasone sodium phosphate (CELESTONE) injection 6 mg 6 mg, Intra-articular, Once PRN Procedure, Starting on Mon06/11/24 at 0930, For 1 dose Given 06/11/2024 9:30 AM EST 6 mg documented in this encounter Care Teams Certified Dietary Manager Relationship Specialty Start Date End Date [facility] PCP - General 04/15/24 documented as of this encounter
--- OUTSIDE RECORDS SUMMARY | 2024-06-26 10:27 | XMS_ITS | Encounter Summary ---
Author Organization [facility] Address [address] [place] [address] Care Team Providers Care Plastic Mixer Name Role Phone [facility] Primary Care Provider Unavaila ble Encounter Details Date Type Department Care Team (Late st Contact Info) Description 06/07/2024 9:30 AM EST Office Visit [facility] [address] [place] [phone] Arya Glaser DPM [address] [place] [address] Ingrown toenail (Primary Dx); Pain in left foot; Pain in right foot Social History Tobacco Use Types Packs/Day Years Used Date Smoking Tobacco: Every Day Cigarettes Sex and Gender Information Value Date Recorded Sex Assigned at Female 12/19/2023 1:16 PM EDT Gender Identity Female 12/19/2023 1:16 PM EDT Sexual Orientation Heterosexual (straight) 12/18 1:16 PM EDT documented as of this encounter Progress Notes * Arya Glaser DPM - 06/07/2024 9:30 AM EST Images from the original note were not included. [address] [place] [phone] Encounter Date: 06/07/2024 History of Present Illness: Maria Fernanda Hunt is a 68 y.o. female who presents today with incurvated toenails. There are incurvated toenails present with discomfort, redness and swelling to the sides of the toenails. No history of trauma to the region is related. Wearing enclosed shoes is uncomfortable along the nail borders. Personal treatments including trimming and soaking have been attempted unsuccessfully. Physical Exam Dorsalis pedis and posterior tibial pulses are palpable bilaterally with a capillary return of three seconds to all digits and no focal or global skin temperature changes; pedal hair present; there is no edema. Sensation appears to be intact Normal metatarsal phalangeal joint, ankle, and subtalar joint range of motion. Muscle power is 5 out of 5 all groups. Reflexes are normal. There is an increased curvature of the toenails. The nail borders are incurvated into the nail labia with localized discomfort, edema, and erythema. There is pain to palpation along the sides of the toenails. There is no proximal extending erythema or purulence which can be expressed from the region. Past Medical History No past medical history on file. No past surgical history on file. No family history on file. Social History Tobacco Use Smoking status: Every Day Current packs/day: 0.50 Types: Cigarettes Medication List Current Outpatient Medications: atorvastatin (LIPITOR) 40 MG tablet, Take 40 mg by mouth., Disp: , Rfl: Calcium Carbonate Antacid 400 MG Chew Tab, 600 mg., Disp: , Rfl: coenzyme Q10 (CO Q 10) 100 MG capsule, daily., Disp: , Rfl: oxyCODONE-acetaminophen (PERCOCET) 5-325 mg per tablet, TAKE 1 TABLET EVERY 12 HOURS FOR PAIN NEEDED, Disp: , Rfl: Allergies No Known Allergies Assessment & Plan I explained an ingrown toenail is a common condition in which the corner or side of the toenail grows into the soft flesh of the toe. The result is discomfort, redness, swelling, and sometimes an infection. The incurvated toenails were properly trimmed. Instructions were given with respect to continued care and the appropriate treatment protocols. I explained the context of the diagnosis and plan. There was a clear understanding of the context of the discussion and plan. More than 50% of the time spent during the visit was dedicated to counseling with respect to the diagnosis, treatment plan,and expectations. The nature of the pathology was discussed in length and detail. The complex nature of the condition was explained including both the nonsurgical management and any potential surgical implications associated with the diagnosis. Adequate time was provided to satisfactorily answer all questions. I discussed issues regarding exercise regimen with various tips regarding injury prevention. A thorough evaluation of all information was performed including but not limited to age, comorbidities, and the current medications which were taken into account. The discussion was understood and plan was agreed upon. We had a comprehensive discussion regarding the diagnosis and treatment plan moving forward. A follow- up appointment was scheduled. Arya Glaser DPM Ingrown Toenail An ingrown toenail occurs when the corner or sides of a toenail grow into the surrounding skin. This causes discomfort and pain. The big toe is most commonly affected, but any of the toes can be affected. If an ingrown toenail is not treated, it can become infected. What are the causes? This condition may be caused by: Wearing shoes that are too small or tight. An injury, such as stubbing your toe or having your toe stepped on. Improper cutting or care of your toenails. Having nail or foot abnormalities that were present from (congenital abnormalities), such as having a nail that is too big for your toe. What increases the risk? The following factors may make you more likely to develop ingrown toenails: Age. Nails tend to get thicker with age, so ingrown nails are more common among older people. Cutting your toenails incorrectly, such as cutting them very short or cutting them unevenly. An ingrown toenail is more likely to get infected if you have: Diabetes. Blood flow (circulation) problems. What are the signs or symptoms? Symptoms of an ingrown toenail may include: Pain, soreness, or tenderness. Redness. Swelling. Hardening of the skin that surrounds the toenail. Signs that an ingrown toenail may be infected include: Fluid or pus. Symptoms that get worse. How is this diagnosed? Ingrown toenails may be diagnosed based on: Your symptoms and medical history. A physical exam. How is this treated? Treatment depends on the severity of your symptoms. You may be able to care for your toenail at home. If you have an infection, you may be prescribed antibiotic medicines. If you have fluid or pus draining from your toenail, your health care provider may drain it. If you have a severe or infected ingrown toenail, you may need a procedure to remove part or all ofthe nail. Follow these instructions at home: Foot care Check your wound every day for signs of infection, or as often as told by your health care provider. Check for: More redness, swelling, or pain. More fluid or blood. Warmth. Pus or a bad smell. Do not pick at your toenail or try to remove it yourself. Soak your foot in warm water with Epsom salt. Do this for 15 minutes, once per day, for 3 days. This helps to keep your toe clean and your skin soft. Wear shoes that fit well and are not too tight. Keep your feet clean and dry to help prevent infection. General instructions Take knao-gha-gvwslvq and prescription medicines only as told by your health care provider. If you were prescribed an antibiotic, take it as told by your health care provider. Do not stop taking the antibiotic even if you start to feel better. If your health care provider told you to use crutches to help you move around, use them as instructed. Return to your normal activities as told by your health care provider. Ask your health care provider what activities are safe for you. Keep all follow-up visits. This is important. Contact a health care provider if: You have more redness, swelling, pain, or other symptoms that do not improve with treatment. You have fluid, blood, or pus coming from your toenail. You have a red streak on your skin that starts at your foot and spreads up your leg. You have a fever. Summary An ingrown toenail occurs when the corner or sides of a toenail grow into the surrounding skin. This causes discomfort and pain. The big toe is most commonly affected, but any of the toes can be affected. If an ingrown toenail is not treated, it can become infected. Fluid or pus draining from your toenail is a sign of infection. Your health care provider may need to drain it. You may be given antibiotics to treat the infection. Trimming your toenails regularly and properly can help you prevent an ingrown toenail. documented in this encounter Plan of Treatment Upcoming Encounters Date Type Department Care Team (Late st Contact Info) Description 07/09/2024 9:30 AM EST Office Visit [facility] [address] [place] [phone] Celi Jimenez MD [address] [place] [address] 07/16/2024 10:00 AM EDT Ancillary Procedure [facility] [address] [phone] Gabe Baumann MD [address] [place] [phone] 08/09/2024 10:00 AM EDT Office Visit [facility] [address] [place] [phone] Arya Glaser DPM [address] [place] [address] 09/20/2024 9:30 AM EDT [facility] [phone] Celi Jimenez MD [address] [place], [place] [phone] 12/30/2024 10:00 AM EDT Office Visit [facility] [address] [phone] Gabe Baumann MD [address] [place] [phone] documented as of this encounter Visit Diagnoses Diagnosis Ingrown toenail- Primary Ingrowing nail Pain in left foot Pain in soft tissues of limb Pain in right foot Pain in soft tissues of limb documented in this encounter Care Teams Plastic Mixer Relationship Specialty Start Date End Date [facility] PCP - General 04/15/24 documented as of this encounter
--- OUTSIDE RECORDS SUMMARY | 2024-06-26 10:27 | XMS_ITS | Encounter Summary ---
Author Organization [facility] Address [address] [place] [address] Care Team Providers Care Engraver Picture Name Role [facility], [place] Primary Care Provider Gabe Hernández MD Unavailable Reason for Referral * Diagnostic Imaging (Routine) - Authorized Specialty Diagnoses / Procedures Referred By Ashleyac t Referred To Contact Diagnoses Bilateral carotid bruits Procedures US Arterial duplex carotid extracranial-Bilateral Gabe Baumann MD [address] [phone] Referral ID Status Reason Start Date Expiration Date V isits Requested Visits Authorized [id number] Authorized 06/24/2024 06/25/2025 1 1 * Diagnostic Imaging (Routine) - Authorized Specialty Diagnoses / Procedures Referred By Girish t Referred To Contact Diagnoses Aorto-iliac atherosclerosis Procedures US AAA-Screening Gabe Baumann MD [address] [place] [address] Referral ID Status Reason Start Date Expiration Date V isits Requested Visits Authorized [id number] Authorized 06/24/2024 06/25/2025 1 1 * Cardiovascular Test (Routine) - Authorized Specialty Diagnoses / Procedures Referred By Contac t Referred To Contact Diagnoses Heart palpitations Procedures CAM Patch Monitor 3-7 Days, Medium Term Pastor, Gabe, MD [address] [place] [address] Referral ID Status Reason Start Date Expiration Date V isits Requested Visits Authorized [id number] Authorized 06/24/2024 06/25/2025 1 1 Reason for Visit * Reason Comments Consult Encounter Details Date Type Department Care Team (Late st Contact Info) Description 06/24/2024 9:30 AM EST Consult [facility] [place] [address] [phone] Gabe Baumann MD [address], [place] [phone] Chest pain, unspecified type (Primary Dx); Heart palpitations; Aorto-iliac atherosclerosis; Mixed hyperlipidemia; Bilateral carotid bruits; Smoking Social History Tobacco Use Types Packs/Day Years Used Date Smoking Tobacco: Every Day Cigarettes Tobacco Cessation:Ready to Q uit: Not Asked; Counseling Given: Not Answered Sex and Gender Information Value Date Recorded Sex Assigned at Female 12/19/2023 1:16 PM EDT Gender Identity Female 12/19/2023 1:16 PM EDT Sexual Orientation Heterosexual (straight) 12/18 1:16 PM EDT documented as of this encounter Last Filed Vital Signs Vital Sign Reading Time Taken Comments Blood Pressure 130/70 06/24/2024 9:08 AM EST Pulse 61 06/24/2024 9:08 AM EST Temperature - - Respiratory Rate - - Oxygen Saturation 99% 06/24/2024 9:08 AM EST Inhaled Oxygen Concentration - - Weight 58.5 kg (129 lb) 06/24/2024 9:08 AM EST Height 163.8 cm (5' 4.5 ) 06/24/2024 9:08 AM EST Body Mass Index 21.8 06/24/2024 9:08 AM EST documented in this encounter Patient Instructions * Patient Instructions* Gabe Baumann MD - 06/24/2024 9:15 AM EST Abdominal ultrasound and carotid ultrasound at [place] 7 week days monitor Bloodwork (fasting) in 1 month Start Zetia (cholesterol pill) Consider talking with your PCP about smoking cessation documented in this encounter Progress Notes * Gabe Baumann MD - 06/24/2024 9:30 AM EST Patient: Maria Fernanda Hunt Date of : 1955 Age: 68 y.o. Gender: female Encounter Provider: Gabe Baumann MD Primary: [facility] Referring Provider: [facility] Subjective Reason For Visit: Chest Pain History of Present Illness: 68 y.o. female with PMH of HLD and aortic atherosclerosis p/f eval of chest pain. Chest Pain HLD Aortic Atherosclerosis -Pt reports that she had onset of severe chest pain in 04/2024. She was not doing anything strenuous at that time and reports her symptoms persisted for 10 hours so she presented to the ED in the evening for further eval. ED workup was unremarkable, trops negative x2. She was discharged and subsequently understand EKG stress test as an outpatient 04/2024 which was negative. -Atherosclerosis was seen on CT 04/2024 -Stress test negative 04/2024 -She is on atorvastatin 40mg daily -LDL was 84 on 03/2024 -We will start zetia 10mg daily -We discussed risks/benefits of continuing baby aspirin, given extensive aortic atherosclerosis, she would prefer to continue for now -Repeat bloodwork in 1 month to eval additional lipid optimization -Encouraged pt to increase physical activities Abdominal Aortic Atherosclerosis Smoking -Seen on CT imaging, she reports that she has continued to smoke cigarettes and also reports that she recently moved from [place] to [place] and was told by her PCP there that there was some concernabout her abdominal aorta and whether she has an aneurysm -No aneurysm was seen on CT abdomen recently in the ED, however we will obtain AAA screening u/s toconfirm -Discussed extensively about smoking cessation, pt is precontemplative at this time Carotid Bruit -Noted on exam today, she has no neurological symptoms -Obtain screening carotid ultrasound ECG Stress Test 04/2024: Clinically and electrocardiographically negative Exercise Stress Test, using a Devonte protocol. Medications: Current Outpatient Medications Medication Sig Dispense Refill atorvastatin (LIPITOR) 40 MG tablet Take 1 tablet (40 mg total) by mouth. Calcium Carbonate Antacid 400 MG Chew Tab 600 mg. coenzyme Q10 (CO Q 10) 100 MG capsule daily. oxyCODONE-acetaminophen (PERCOCET) 5-325 mg per tablet TAKE 1 TABLET EVERY 12 HOURS FOR PAIN NEEDED ezetimibe (ZeTIA) 10 MG tablet Take 1 tablet (10 mg total) by mouth daily. 90 tablet 3 Past Medical/Surgical History: No past medical history on file. No past surgical history on file. Detailed history: Problem List: 2024-06: Smoking 2024-06: Chest pain 2024-06: Mixed hyperlipidemia 2024-06: Bilateral carotid bruits 2024-05: Aorto-iliac atherosclerosis present with dense SEVERE calcifications in lower aorta & both proximal lilic arteries 2024-04: Heart palpitations Palpation getting worse, chest pain getting worse 2024-02: Hypercholesterolemia 2005-01: History of lumbar spinal fusion Revision in 2008 Social History: Social History Tobacco Use Smoking status: Every Day Current packs/day: 0.50 Types: Cigarettes Marital Status: Family History: No family history on file. Review of Systems: 14 point ROS negative except as above per HPI Objective Vitals: 06/24/24 0908 BP: 130/70 BP Location: Left arm Patient Position: Sitting Cuff Size: Medium (Standard) Pulse: 61 SpO2: 99% Weight: 58.5 kg (129 lb) Height: 1.638 m (5' 4.5 ) Constitutional: Appearance: Normal appearance. HENT: Head: Normocephalic and atraumatic. Left carotid bruit. Eyes: Conjunctiva/sclera: Conjunctivae normal. Cardiovascular: Rate and Rhythm: Normal rate and regular rhythm. Pulmonary: Effort: Pulmonary effort is normal. Breath sounds: Normal breath sounds. Abdominal: Palpations: Abdomen is soft. Musculoskeletal: General: Normal range of motion. Cervical back: Neck supple. Skin: General: Skin is warm. Neurological: Mental Status: Mental status is at baseline. Psychiatric: Mood and Affect: Mood normal. Behavior: Behavior normal. Results: Ancillary Procedure on 04/26/2024 Component Date Value Target HR 04/26/2024 152 Target HR 04/26/2024 152 Resting HR 04/26/2024 71 Baseline Systolic BP 04/26/2024 122 Baseline Diastolic BP 04/26/2024 70 Rendon Treadmill Score 04/26/2024 7 Exercise duration (min) 04/26/2024 6 Exercise duration (sec) 04/26/2024 45 Angina Index 04/26/2024 0 Estimated workload 04/26/2024 9.3 Peak HR 04/26/2024 139 Stress peak systolic BP 04/26/2024 156 Stress peak diastolic BP 04/26/2024 74 Percent HR 04/26/2024 91 Rate Pressure Product 04/26/2024 21,[address].0 ST Depression (mm) 04/26/2024 0 STRESS RECOVERY TIME 04/26/2024 5 Stress Recovery Time (se* 04/26/2024 31 Recovery HR 04/26/2024 80 Stress recovery systolic* 04/26/2024 138 Stress recovery diastoli* 04/26/2024 76 Tests: Echo: No results found for this or any previous visit. Assessment & Plan 1. Chest pain, unspecified type 2. Heart palpitations CAM Patch Monitor 3-7 Days, Medium Term 3. Aorto-iliac atherosclerosis US AAA-Screening US AAA-Screening 4. Mixed hyperlipidemia ezetimibe (ZeTIA) 10 MG tablet LIPID PANEL WITH RATIOS LIPOPROTEIN (A) Comprehensive Metabolic Panel LIPID PANEL WITH RATIOS LIPOPROTEIN (A) Comprehensive Metabolic Panel 5. Bilateral carotid bruits US Arterial duplex carotid extracranial-Bilateral 6. Smoking Chest Pain HLD Aortic Atherosclerosis -Continue atorvastatin 40mg daily -We will start zetia 10mg daily -We discussed risks/benefits of continuing baby aspirin, given extensive aortic atherosclerosis, she would prefer to continue for now -Repeat bloodwork in 1 month to eval additional lipid optimization -Encouraged pt to increase physical activities Abdominal Aortic Atherosclerosis Smoking -Seen on CT imaging, she reports that she has continued to smoke cigarettes and also reports that she recently moved from [place] to [place] and was told by her PCP there that there was some concernabout her abdominal aorta and whether she has an aneurysm -No aneurysm was seen on CT abdomen recently in the ED, however we will obtain AAA screening u/s toconfirm -Discussed extensively about smoking cessation, pt is precontemplative at this time Carotid Bruit -Obtain screening carotid ultrasound RTC: 6 months Counseling/Education: Patient Instructions Abdominal ultrasound and carotid ultrasound at [place] 7 week days monitor Bloodwork (fasting) in 1 month Start Zetia (cholesterol pill) Consider talking with your PCP about smoking cessation documented in this encounter Plan of Treatment Upcoming Encounters Date Type Department Care Team (Late st Contact Info) Description 07/09/2024 9:30 AM EST Office Visit [place] [phone] Celi Jimenez MD [address] [phone] 07/16/2024 10:00 AM EDT Ancillary Procedure [facility] [address] [phone] Gabe Baumann MD [address] [place] [phone] 08/09/2024 10:00 AM EDT Office Visit [place] [phone] Arya Glaser DPM [address] [place] [address] 09/20/2024 9:30 AM EDT Office Visit [place] [phone] Celi Jimenez MD [address] [place] [phone] 12/30/2024 10:00 AM EDT Office Visit [facility] [address] [phone] Gabe Baumann MD [address] [place] [phone] Scheduled Orders Name Type Priority Associated Diagnoses Orde r Schedule CAM Patch Monitor 3-7 Days, Medium Term Cardiac Services Routine Heart palpitations Expected: 07/01/2024, Expires: 06/24/2025 AAA-Screening Imaging Routine Aorto-iliac atherosclerosis Expected: 06/24/2024, Expires: 06/24/2025 LIPID PANEL WITH RATIOS Lab Routine Mixed hyperlipidemia Expected: 07/22/2024, Expires: 06/24/2025 LIPOPROTEIN (A) Lab Routine Mixed hyperlipidemia Expected: 07/22/2024, Expires: 06/24/2025 Comprehensive Metabolic Panel Lab Routine Mixed hyperlipidemia Expected: 07/22/2024, Expires: 06/24/2025 Arterial duplex carotid extracranial-Bilatera l Imaging Routine Bilateral carotid bruits Ordered: 06/24/2024 documented as of this encounter Visit Diagnoses Diagnosis Chest pain, unspecified type- Primary Heart palpitations Palpitations Aorto-iliac atherosclerosis Atherosclerosis of aorta Mixed hyperlipidemia Bilateral carotid bruits Smoking Tobacco use disorder documented in this encounter Care Teams Engraver Picture Relationship Specialty Start Date End Date [facility] PCP - General 04/15/24 Gabe Baumann MD [address] [place] [phone] Cardiovascular Disease 06/24/24 documented as of this encounter
--- OUTSIDE RECORDS SUMMARY | 2024-06-26 10:27 | XMS_ITS | Encounter Summary ---
Author Organization [facility] Address [address] [place] [address] Care Team Providers Care Automatic Silk Screen Printer Name Role Phone [facility] [place] Primary Care Provider Gabe Hernández MD Unavailable Encounter Details Date Type Department Care Team (Latest Contact Info) Description 06/24/2024 Travel Social History Tobacco Use Types Packs/Day Years [...] AM EST Office Visit [facility] [address] [place] [phone] Celi Jimenez MD [address] [place], [place] [phone] 07/16/2024 10:00 AM EDT Ancillary Procedure [facility] [place] [address] [place] [phone] Gabe Baumann MD [address] [place] [phone] 08/09/2024 10:00 AM EDT Office Visit [facility] [phone] Arya Glaser DPM [address] [place] [address] 09/20/2024 9:30 AM EDT Office Visit [facility] [phone] Celi Jimenez MD [address] [place] [phone] 12/30/2024 10:00 AM EDT Office Visit [facility] [place] [address] [phone] Gabe Baumann MD [address] [place] [address] documented as of this encounter Visit Diagnoses Not on filedocumented in this encounter Care Teams Automatic Silk Screen Printer Relationship Specialty Start Date End Date [facility] PCP - General 04/15/24 Gabe Baumann MD [address] [place] [phone] Cardiovascular Disease 06/24/24 documented as of this encounter
--- OUTSIDE RECORDS SUMMARY | 2024-06-26 10:27 | XMS_ITS | Encounter Summary ---
Author Organization [facility] Address [address] [place] [address] Care Team Providers Care Resistor Winder Name Role Phone Alan Sheikh MD Primary Care Provider [phone] [phone] Reason for Referral * Imaging (Emergency) - Authorized Specialty Diagnoses / Procedures Referred By Contac t Referred To Contact Radiology Diagnoses Acute pain of right knee Procedures XR knee 3 views right Malachi Peters PA-C [address] [place] [address] Phone: tel: fax: [facility] Radiology - [place] Phone: tel: fax: Referral ID Status Reason Start Date Expiration Date Visits Requested Visits Authorized [id number] Authorized Perform Procedure 06/22/2024 06/22/2025 1 1 Reason for Visit * Reason Comments Knee Injury Pt c/ R knee pain af ter twisting knee while walking up stairs Encounter Details Date Type Department Care Team (Late st Contact Info) Description 06/22/2024 12:10 PM EST Office Visit [facility] [address] [place], [place] [id number] Malachi Peters PA-C [address] [place], [place] [phone] Acute pain of right knee (Primary Dx) Social History Tobacco Use Types [...] Sign Reading Time Taken Comments Blood Pressure 129/80 06/22/2024 12:13 PM EST Pulse 93 06/22/2024 12:13 PM EST Temperature 36.6 ??C (97.8 ??F) 06/22/2024 12:[address] Respiratory Rate - - Oxygen Saturation 97% 06/22/2024 12:13 PM EST Inhaled Oxygen Concentration - - Weight - - Height - - Body Mass Index - - documented in this encounter Patient Instructions * Patient Instructions* Malachi Peters PA-C - 06/22/2024 12:10 PM EST Please rest, elevate and ice the injury. Please use tylenol or ibuprofen as needed for pain. Please follow up closely with orthopedics in 2-3 days. Please go to the ED if symptoms are worsening. documented in this encounter Progress Notes * Malachi Peters PA-C - 06/22/2024 12:10 PM EST Images from the original note were not included. Chief Complaint Knee Injury (Pt c/ R knee pain after twisting knee while walking up stairs) HPI: Maria Fernanda Hunt is a 68 y.o. female With pmhx of arthritis, hx of meniscus repairs in bilateral knees, recent steroid injections Arrives with R knee pain, along the medial aspect, after twisting injury while trying to move her dog. No significant swelling or redness. Decreased extension. No numbness or paresthesias. No fall. Taken some ibrofen. Pain worse with bearing weight. Denies fevers, N/V, chest pain or SOB. Past Medical History: Diagnosis Date Abnormal Pap smear of cervix 2000 Anemia Arthritis Chronic back pain Chronic pain disorder CTS (carpal tunnel syndrome) Fibrocystic breast disease (FCBD) in female 05/14/2024 Fibroid GERD (gastroesophageal reflux disease) Glaucoma Headache Hemorrhoids History of being hospitalized HL (hearing loss) Hyperlipidemia Impaired physical mobility Osteoporosis Palpitation Polycystic ovary syndrome Reduced mobility Urinary incontinence Varicella Current Outpatient Medications Medication Sig Dispense Refill ADULT LOW DOSE ASPIRIN ORAL 1 (one) time each day. atorvastatin (Lipitor) 40 mg tablet Take 1 tablet (40 mg total) by mouth 1 (one) time each day. calcium carbonate 160 mg calcium (400 mg) tablet,chewable 600 mg 1 (one) time each day. coenzyme Q-10 (CoQ-10) 100 mg capsule 1 (one) time each day. oxyCODONE-acetaminophen (Percocet) 5-325 mg tablet if needed. traMADoL (Ultram) 50 mg tablet No current facility-administered medications for this visit. No Known Allergies Social History Tobacco Use Smoking Status Every Day Current packs/day: 0.50 Average packs/day: 0.5 packs/day for 50.0 years (25.0 ttl pk-yrs) Types: Cigarettes Smokeless Tobacco Never Tobacco Comments quit many times Family History Problem Relation Name Age of Onset Heart disease Mother Luci Hunt Arthritis Mother Luci Hunt Accidental Father Christian Hunt COPD Sister Lia Leonard Heart disease Sister Lia Leonard Arthritis Sister Lia Leonard Hearing loss Sister Lia Leonard Learning disabilities Daughter Bhumika Bullock Mental illness Daughter Bhumika Lapmerline Heart disease Son Gamaliel Lapmerline Hypertension Son Gamaliel Lapmerline Arthritis Sister Arabella Wilhelm Hearing loss Sister Arabella Wilhelm Heart disease Sister Arabella Wilhelm Review of Systems Review of Systems All other systems are reviewed and negative. Vital Signs Visit Vitals BP 129/80 (BP Location: Right arm, Patient Position: Sitting, BP Cuff Size: Adult) Pulse 93 Temp 97.8 ??F SpO2 97% OB Status Postmenopausal Smoking Status Every Day Physical Exam Physical Exam General: Alert, no acute distress, pleasant, not ill-appearing Skin: Warm, dry, pink, intact, no rash Head: Normocephalic, atraumatic Ears, nose, mouth and throat: Moist mucous membranes Respiratory: respirations are non-labored Musculoskeletal: decreased extension to R knee, no R knee swelling or redness, normal strength, + tenderness along medial aspect of R knee, knee appears stable with ACL, PCL, MCL or LCL instability, no deformity to all 4 extremities, no RLE swelling Neurological: AAOx3, motor 5/5 bilateral upper and lower extremities Procedures None Assessment and Plan: Diagnoses and all orders for this visit: Acute pain of right knee - XR knee 3 views right Vitals stable. Afebrile. Reviewed pts chart. Reviewed MA documentation. Neurovascularly intact in right knee and right lower extremity. Patient has no significant knee redness or swelling. Patient does state having underlying meniscal injuries to her right knee. No signsof septic joint. Low concern for an acute osseous normality however did obtain x-ray to rule out. Patient recently obtained steroid injections in this knee. Most likely musculoskeletal at this time. Possibly a tendon injury. Advised patient to follow-up closely with orthopedics in 2 to 3 days for reevaluation. Patient already has an orthopedist and states she will be following up with him. XR knee 3 views right Result Date: 06/22/2024 Narrative: PROCEDURE: XR KNEE 3 VIEWS RIGHT CLINICAL HISTORY: Acute pain of right knee, medial kneepain s/p twisting injury yesterday COMPARISON: None. FINDINGS: Joint alignment is anatomic. There are tiny osteophytes in the medial tibiofemoral compartment and minimal narrowing of the medial compartment. No fracture. No suprapatellar effusion. 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 Advised to RICE the injury and follow-up closely with orthopedics. Advised to use Tylenol and ibuprofen as needed for symptoms. The diagnosis and treatment plan was discussed with the patient in layman terms for appropriate understanding. Advised to f/u closely with their primary care provider Advised to go directly to the ED if any new, persistent or worsening symptoms or develops CP, SOB or abd pain. Strict return precautions discussed. Patient verbalizes understanding with and agreement to this treatment plan and all questions were answered. Patient Instructions Please rest, elevate and ice the injury. Please use tylenol or ibuprofen as needed for pain. Please follow up closely with orthopedics in 2-3 days. Please go to the ED if symptoms are worsening. Follow Up: Follow up in about 3 days (around 06/25/2024) for with orthopedics. documented in this encounter Miscellaneous Notes * Discharge Instr - Patient Education - Malachi Peters PA-C - 06/22/2024 1:28 PM EST Images from the original note were not included. [id number] Knee Pain with Possible Torn Meniscus The meniscus is a tough cartilage pad that cushions the inside of the knee joint. It helps absorb the shock from movement. It also spreads the weight of your body evenly across the knee joint. This prevents excess wear and tear to the bones of that joint. The most common causes of meniscal tears are injuries, especially related to sports and degenerative disease that happens with aging. A meniscus tear often happens during a twisting injury when the knee is bent. This causes pain, swelling, reduced movement of the knee, and trouble walking. There may be popping, clicking, joint locking, or not being able to fully straighten the knee. Ligaments of the knee may also be injured. A torn meniscus is diagnosed by physical exam and X-rays. In the case of a severe injury, the knee may be too painful to examine fully. A more accurate exam can be done after the initial swelling goes down. An MRI may be done to make a final diagnosis. If your health care provider suspects a meniscal injury, your knee may be treated with ice and rest. You may also need to limit movement of the knee. A splint or knee brace that keeps your leg straight may be put on to protect the joint. Depending on the severity of the injury, surgery may be needed. A cartilage injury may take 4 to 12 weeks to heal depending on how bad it is. Home care ?? Stay off the injured leg as much as possible until you can walk on it without pain. If you have a lot of pain when walking, crutches or a walker may be prescribed. (These can be rented or bought at many pharmacies and surgical or orthopedic supply stores). Follow your health care provider's advice about when to begin putting weight on that leg. ?? Keep your leg elevated to reduce pain and swelling. When sleeping, place a pillow under the injured leg. When sitting, support the injured leg so it's above heart level. This is very important during the first 48 hours. ?? Put an ice pack over the injured area for 15 to 20 minutes every 3 to 6 hours. You should do this for the first 24 to 48 hours. To make an ice pack, put ice cubes in a plastic bag that seals at the top. Wrap the bag with a thin towel before using it. Keep using ice packs to ease pain and swelling as needed. As the ice melts, be careful not to get your wrap, splint, or cast wet. After 48 hours,put heat (warm shower or warm bath) for 15 to 20 minutes several times a day, or alternate ice and heat. You can place the ice pack directly over the splint. If you have to wear a jqvd-brp-drzy knee brace, you can open it to apply the ice pack, or heat, directly to the knee. Never put ice directly on the skin. Always wrap the ice in a towel or other type of cloth. ?? You may use vqnt-vlf-dundaeh pain medicine to control pain, unless another pain medicine was prescribed. A nonsteroidal anti-inflammatory drug like ibuprofen or naproxen would work better than acetaminophen. Talk with your provider before using these medicines if you have chronic liver or kidney disease, ever had a stomach ulcer or gastrointestinal bleeding, or take a blood thinner. ?? If you were given a splint, keep it dry at all times. Bathe with your splint out of the water. Protect it with a large plastic bag that is rubber-banded or taped at the top end. If a fiberglass splint gets wet, you can dry it with a family medicine chair set on cool. If you have a bxyf-aqy-qkwh knee brace,you can remove this to bathe, unless told otherwise. ?? Check with your provider before returning to sports or full work duties. Follow-up care Follow up with your health care provider as advised. This is often within 1 to 2 weeks. You may need more testing to check the extent of your injury. If X-rays were taken, you'll be told of any new findings that may affect your care. Call 911 Call 911 if you have: ?? Shortness of breath. ?? Chest pain. When to get medical advice Contact your health care provider right away if: ?? Your toes or foot gets swollen, cold, blue, numb, or tingly. ?? Pain or swelling spreads over the knee or calf. ?? Warmth or redness appears over the knee or calf. ?? You have a fever of 100.4??F (38??C) or higher, or as directed by your provider. ?? You have chills. Last Reviewed Date: 2024 00:00:00 ?? [id number] [employer]. All rights reserved. This information is not intended as a substitute for professional medical care. Always follow your healthcare professional's instructions. documented in this encounter Plan of Treatment Upcoming Encounters Date Type Department Care Team (Late st Contact Info) Description 06/20/2024 Procedure Pass [facility] (Ultrasound) [address] [place] [address] 07/02/2024 12:40 PM EST Appointment [facility] (Breast Imaging) [address] [place] [address] Josed w/ pt 06/20. Time ok per Samira. Given exam prep and arr time of 1230pm [facility] 07/02/2024 1:30 PM EST Appointment [facility] (Ultrasound) [address] [place] [address] Bkd w/ pt 06/20. Time ok per Samira. Given exam prep and arr time of 1230pm [facility] 11/12/2024 10:00 AM EDT Office Visit [address] [phone] Alan Sheikh MD [address] [place] [address] Follow up in about 6 months (around [...] Minimal osteoarthritis of the medial tibiofemoral compartment. us Malachi Peters PA-C IMG XR PROCEDURES Final Re sult documented in this encounter Visit Diagnoses Diagnosis Acute pain of right knee- Primary documented in this encounter Care Teams Resistor Winder Relationship Specialty Start Date End Date Alan Sheikh MD [address] [place] [address] PCP - General 05/08/24 documented as of this encounter
--- OUTSIDE RECORDS SUMMARY | 2024-06-26 10:27 | XMS_ITS | Encounter Summary ---
Author Organization [facility] Address [address] [place] [address] Care Team Providers Care Well Puller Name Role Phone [facility] Primary Care Provider Gabe Hernández MD Unavailable Reason for Visit * Reason Comments Follow-up Injection from 025 still working Pain Recent injury after injection on 06/11/2024, patient stated she twisted wrong on the right side.Went to [facility] and had imagesMedial knee pain Encounter Details Date Type Department Care Team (Late st Contact Info) Description 06/25/2024 1:45 PM EST Office Visit [address] [phone] Celi Jimenez MD [address] [place], [place] [phone] Primary osteoarthritis of right knee (Primary Dx); Primary osteoarthritis of left knee Social History Tobacco Use Types Packs/Day [...] Description 07/09/2024 9:30 AM EST Office Visit [place] [phone] Celi Jimenez MD [address] [place], [place] [phone] 07/16/2024 10:00 AM EDT Ancillary Procedure [facility] [address] [phone] Gabe Baumann MD [address] [place] [address] 08/09/2024 10:00 AM EDT [facility] [phone] Arya Glaser DPM [address] [place] [address] 09/20/2024 9:30 AM EDT Office Visit [place] [phone] Celi Jimenez MD [address] [place], [place] [address] 12/30/2024 10:00 AM EDT Office Visit [facility] [address] [phone] Gabe Baumann MD [address] [place], [place] [address] documented as of this encounter Visit Diagnoses Diagnosis Primary osteoarthritis of right knee- Primary Primary osteoarthritis of left knee documented in this encounter Care Teams Well Puller Relationship Specialty Start Date End Date [facility] PCP - General 04/15/24 Gabe Baumann MD [address] [place] [phone] Cardiovascular Disease 06/24/24 documented as of this encounter
--- OUTSIDE RECORDS SUMMARY | 2024-06-26 10:27 | XMS_ITS | Encounter Summary ---
Author Organization [facility] Address [address] [place] [address] Care Team Providers Care Foot Miter Operator Name Role Phone Joe Devlin NP Primary Care Provi jeyson Alan Sheikh MD Primary Care Provider [phone] [phone] Encounter Details Date Type Department Care Team (Late st Contact Info) Description 02/09/2024 Procedure Pass [facility] ([place] Scan) [address] [place] [phone] Social History Tobacco Use Types Packs/Day Years Used Date Smoking Tobacco: Every Day Cigarettes 0.5 50 Smokeless Tobacco: Never Comments:quit many times Alcohol Use Standard Drinks/Week Comments Yes 2 (1 standard drink = 0.6 oz pur e alcohol) socially when out for dinner Comments Unknown Sex and Gender Information Value Date Recorded Sex Assigned at Female 02/12/2024 3:23 PM EDT Legal Sex Female 12:04 PM EDT Gender Identity Female 02/12/2024 3:23 PM EDT Sexual Orientation Straight 02/12/2024 3: 23 PM EDT documented as of this encounter Plan of Treatment Upcoming Encounters Date Type Department Care Team (Late st Contact Info) Description 06/20/2024 Procedure Pass [facility] (Ultrasound) [address] [place] [address] 07/02/2024 12:40 PM EST Appointment [facility] (Breast Imaging) [address] [place] [address] Bkd w/ pt 06/20. Time ok per Samira. Given exam prep and arr time of 1230pm [facility] 07/02/2024 1:30 PM EST Appointment [facility] (Ultrasound) [address] [place] [address] Bkd w/ pt 06/20. Time ok per Samira. Given exam prep and arr time of 1230pm [facility] 11/12/2024 10:00 AM EDT Office Visit [facility] [address] [address] Alan Sheikh MD [address] [place] [address] Follow up in about 6 months (around 11/11/2024), or Wellness exam.. documented as of this encounter Visit Diagnoses Not on filedocumented in this encounter Care Teams Foot Miter Operator Relationship Specialty Start Date End Date Joe Devlin NP [address] [place] [address] PCP - General 02/09/24 05/07/24 Alan Sheikh MD [address] [place] [address] PCP - General 05/08/24 documented as of this encounter
--- OUTSIDE RECORDS SUMMARY | 2024-06-26 10:27 | XMS_ITS | Encounter Summary ---
Author Organization [facility] Address [address] [place] [address] Care Team Providers Care Women Nurse Name Role Phone Alan Sheihk MD Primary Care Provider [phone] [phone] Encounter Details Date Type Department Care Team (Late st Contact Info) Description 05/29/2024 Procedure Pass [facility] (MRI) [address] [place] [address] Social History Tobacco Use Types Packs/Day [...] st Contact Info) Description 06/20/2024 Procedure Pass [facility] (Ultrasound) [address] [place] [address] 07/02/2024 12:40 PM EST Appointment [facility] (Breast Imaging) [address] [place] [address] Bkd w/ pt 06/20. Time ok per Samira. Given exam prep and arr time of 1230pm [facility] 07/02/2024 1:30 PM EST Appointment [facility] (Ultrasound) [address] [place] [address] Bkd w/ pt 06/20. Time ok per Samira. Given exam prep and arr time of 1230pm [facility] 11/12/2024 10:00 AM EDT Office Visit [address] [address] Alan Sheikh MD [address] [place] [address] Follow up in about 6 months (around 11/11/2024), or Wellness exam.. documented as of this encounter Visit Diagnoses Not on filedocumented in this encounter Care Teams Women Nurse Relationship Specialty Start Date End Date Alan Sheikh MD [address] [place] [address] PCP - General 05/08/24 documented as of this encounter
--- OUTSIDE RECORDS SUMMARY | 2024-06-26 10:27 | XMS_ITS | Encounter Summary ---
Author Organization [facility] Address [address] [place] [address] Care Team Providers Care Manager Of Distribution Name Role Phone Joe Devlin NP Primary Care Provi jeyson Alan Sheikh MD Primary Care Provider [phone] Encounter Details Date Type Department Care Team (Late st Contact Info) Description 04/08/2024 Procedure Pass [facility] Radiology, [facility] ([place] Scan) [address] [place] [phone] Social History Tobacco Use Types Packs/Day Years [...] Info) Description 06/20/2024 Procedure Pass [facility] (Ultrasound) [address] [place] [address] 07/02/2024 12:40 PM EST Appointment [facility] (Breast Imaging) [address] [place] [address] Bkd w/ pt 06/20. Time ok per Samira. Given exam prep and arr time of 1230pm [facility] 07/02/2024 1:30 PM EST Appointment [facility] (Ultrasound) [address] [place] [address] Bkd w/ pt 06/20. Time ok per Samira. Given exam prep and arr time of 1230pm [facility] 11/12/2024 10:00 AM EDT Office Visit [address] [address] Alan Sheikh MD [address] [place] [address] Follow up in about 6 months (around 11/11/2024), or Wellness exam.. documented as of this encounter Visit Diagnoses Not on filedocumented in this encounter Care Teams Manager Of Distribution Relationship Specialty Start Date End Date Joe Devlin NP [address] [place] [address] PCP - General 02/09/24 05/07/24 Alan Sheikh MD [address] [place] [address] PCP - General 05/08/24 documented as of this encounter
--- OUTSIDE RECORDS SUMMARY | 2024-06-26 10:27 | XMS_ITS | Clinical Summary ---
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 05/08/2019 Active atorvastatin (Lipitor) 40 mg tablet Take 1 tablet (40 mg total) by mouth 1 (one) time each day. 08/07/2023 Active calcium carbonate 160 mg calcium (400 mg) tablet,chewable 600 mg 1 (one) time each day. Active oxyCODONE-acetam inophen (Percocet) 5-325 mg tablet if needed. Active coenzyme Q-10 (CoQ-10) 100 mg capsule 1 (one) time each day. 08/07/2023 Active traMADoL (Ultram) 50 mg tablet 02/01/2024 Active Active Problems Problem Noted Date Diagnosed Date Presbycusis 05/19/2024 Actinic keratoses 05/19/2024 Aorto-iliac atherosclerosis 05/14/2024 Overview (05/14/2024): present with dense SEVERE calcifications in lower aorta & both proximal lilic arteries Cardiomegaly 05/14/2024 Overview (05/14/2024): low attenuation of the blood pool, suggesting anemia Anemia 05/14/2024 Arthritis of facet joint of cervical spine 02/08 High cholesterol 02/09/2024 History of lumbar spinal fusion 02/09/2024 Other specified glaucoma 02/09/2024 Osteoporosis Resolved Problems Problem Noted Date Diagnosed Date Resolved Date Fibrocystic breast disease (FCBD) in female 05/14/2024 05/14/2024 Encounters Date Type Department Care Team Description 06/22/2024 12:46 PM EST - 06/22/2024 11:59 PM EST Hospital Encounter [facility] [address] [place] [address] Discharge Disposition: Home or Self Care 06/22/2024 12:10 PM EST Office Visit [facility] [address] [place] [address] Malachi Peters PA-C Acute pain of right knee (Primary Dx) 06/20/2024 11:20 AM EST Office Visit [facility] CUSTOMS COMPLIANCE DIRECTOR [place] [address] [address] Sophia Clay APRN Mastalgia in female (Primary Dx) 06/12/2024 1:53 PM EST - 06/12/2024 11:59 PM EST Hospital Encounter [facility] ([facility]) [address] [place] [address] Postlaminectomy syndrome, not elsewhere classified Discharge Disposition: Home or Self Care 05/29/2024 Procedure Pass [facility] ([facility]) [address] [place] [address] 05/29/2024 Ancillary Orders [facility] Rad[facility] - [place] [phone] Ty Oliver MD Postlaminectomy syndrome, not elsewhere classified (Primary Dx) 05/14/2024 3:00 PM EST Office Visit [facility] [address] [address] Alan Sheikh MD Anemia, unspecified type (Primary Dx); Presbycusis, unspecified laterality; Actinic keratoses 05/07/2024 Orders Only [facility] [address] [place] [address] Transcribe, External Ordering Provider 05/03/2024 Orders Only [facility] [place] [address] [place] [address] Joe Devlin NP Screen for colon cancer 04/08/2024 6:01 PM EST - 04/08/2024 9:42 PM EST Emergency [facility] Emergency Department - [place] [address] [place] [address] Lev Su MD Chest pain, unspecified type (Primary Dx) Discharge Disposition: Home or Self Care 04/08/2024 9:00 AM EST Office Visit [facility] CUSTOMS COMPLIANCE DIRECTOR [place] [address] [address] Sophia Clay APRN Women's annual routine gynecological examination (Primary Dx); Encounter for screening mammogram for malignant neoplasm of breast 04/08/2024 Procedure Pass [facility], [facility] (CT Scan) [address] [place] [address] from Last 3 Months Immunizations Immunization Administration Dates Next Due INFLUENZA, HIGH DOSE SEASONAL, PRESERVATIVE FREE 02/28/2024 Moderna Omicron 12+ Vaccination (Spikevax) 03/04 Family History Medical History Relation Name Comments Learning disabilities Daughter Bhumika Bullock Mental illness Daughter Bhumika Bullock Accidental Father Christian Hunt Arthritis Mother Luci Hunt Heart disease Mother Luci Hunt Arthritis Sister 1 Lia Leonard COPD Sister 1 Lia Aisha Hearing loss Sister 1 Lianichole Alonsoy Heart disease Sister 1 Lia Aisha Arthritis Sister 2 Arabella Gilbert-Argueta Hearing loss Sister 2 Arabella Gilbert-Argueta Heart disease Sister 2 Arabella Gilbert-Argueta Heart disease Son Gamaliel Lapinski Hypertension Son Gamaliel Lapinski Relation Name Status Comments Daughter Bhumika Bullock Alive Father Christian Hunt Mother Luci Hunt Sister 1 Lia Aisha Sister 2 Arabella Gilbert-Argueta Son Gamaliel Lapinski Alive Social History Tobacco Use Types Packs/Day Years Used Date Smoking Tobacco: Every Day Cigarettes 0.5 50 Smokeless Tobacco: Never Tobacco Cessation:Ready to Q uit: Yes Comments:quit many times Alcohol Use Standard Drinks/Week [...] Orientation Straight 02/12/2024 3: 23 PM EDT Last Filed Vital Signs Vital Sign Reading Time Taken Comments Blood Pressure 129/80 06/22/2024 12:13 PM EST Pulse 93 06/22/2024 12:13 PM EST Temperature 36.6 ??C (97.8 ??F) 06/22/2024 12:[address] Respiratory Rate 18 05/14/2024 2:53 PM EST Oxygen Saturation 97% 06/22/2024 12:13 PM EST Inhaled Oxygen Concentration - - Weight 57.2 kg (126 lb) 06/20/2024 11:48 AM EST Height 165.1 cm (5' 5 ) 06/20/2024 11:48 AM EST Body Mass Index 20.97 06/20/2024 11:48 AM EST Plan of Treatment Upcoming Encounters Date Type Department Care Team (Late st Contact Info) Description 06/20/2024 Procedure Pass [facility] (Ultrasound) [address] [place], [place] [id number] 07/02/2024 12:40 PM EST Appointment [facility] (Breast Imaging) [address] [place], [place] [id number] Bkd w/ pt 06/20. Time ok per Samira. Given exam prep and arr time of 1230pm [facility] BF 07/02/2024 1:30 PM EST Appointment [facility]iology, [facility] (Ultrasound) [address] [place] [address] Bkd w/ pt 06/20. Time ok per Samira. Given exam prep and arr time of 1230pm [facility] 11/12/2024 10:00 AM EDT Office Visit [facility] [place] [address] [address] Alan Sheikh MD [address] [place] [id number] Follow up in about 6 months (around 11/11/2024), or Wellness exam.. Scheduled Orders Name Type Priority Associated Diagnoses Orde r Schedule MG BREAST DIAGNOSTIC IMPLANT TOMOSYNTHESIS BILATERAL Imaging Routine Mastalgia in female Expected: 06/20/2024 (Approximate), Expires: 08/18/2025 US BREAST RIGHT LIMITED Imaging Routine Mastalgia in female Expected: 06/20/2024 (Approximate), Expires: 06/20/2025 US BREAST RIGHT LIMITED Imaging Routine Mastalgia in female Expected: 06/20/2024 (Approximate), Expires: 06/20/2025 MG BREAST DIAGNOSTIC IMPLANT TOMOSYNTHESIS BILATERAL Imaging Routine Mastalgia in female Expected: 06/20/2024 (Approximate), Expires: 08/18/2025 Cologuard?? colon cancer screening Lab Routine Screen for colon cancer Ordered: 05/03/2024 MG BREAST SCREENING IMPLANT TOMOSYNTHESIS BILATERAL Imaging Routine Encounter for screening mammogram for malignant neoplasm of breast Expected: 04/08/2024, Expires: 06/09/2025 Scheduled Referrals Name Type Priority Associated Diagnoses Orde r Schedule Ambulatory referral to ENT Outpatient Referral Routine Presbycusis, unspecified laterality Expected: 05/19/2024, Expires: 05/19/2025 Ambulatory referral to Dermatology Outpatient Referral Routine Actinic keratoses Expected: 05/19/2024, Expires: 05/19/2025 Ambulatory referral to Gynecology Outpatient Referral Routine Wellness examination Expected: 02/09/2024, Expires: 02/08/2025 Ambulatory referral to Dermatology Outpatient Referral Routine Skin cancer screening Expected: 02/09/2024, Expires: 02/08/2025 Health Maintenance Due Date Last Done Comments CT Colonography 1955 Colonoscopy 1955 Colorectal Cancer Screening 1955 FIT-DNA 1955 FIT 1955 FOBT 1955 Hepatitis C Screening 1955 Mammogram 1955 Sigmoidoscopy 1955 Pneumococcal Vaccine: 50+ Ye ars (1 of 2 - PCV) 09/11/1974 Tdap and Td Vaccines Adult 09/11/1974 Zoster Vaccines (1 of 2) 09/11/2005 Fall Risk Screening 09/11/2020 COVID-19 Vaccine (2 - 2023-2 5 season) 2024 03/04/2024 Medicare Annual Wellness Visit 04/08/2025 04/08/2024 RSV 60+ (1 - 1-dose 75+ series) 09/11/2030 Influenza Vaccine Completed 02/28/2024 Lipid Panel Discontinued 03/21/2024 HIB Vaccines Aged Out No longer eligi ble based on patient's age to complete this topic HPV Vaccines Aged Out No longer eligi ble based on patient's age to complete this topic Hepatitis A Vaccines Aged Out No long er eligible based on patient's age to complete this topic IPV Vaccines Aged Out No longer eligi ble based on patient's age to complete this topic Meningococcal Vaccine Aged Out No keturah ingrid eligible based on patient's age to complete this topic Osteoporosis Screening Discontinued RSV <20 Months Aged Out No longer hugo gible based on patient's age to complete this topic Procedures Procedure Name Priority Date/Time Associated Diagnosis Comments X-RAY KNEE 3 VIEWS RIGHT STAT 06/22/2024 12:55 PM EST Acute pain of right knee MRI LUMBAR SPINE WO IV CONTRAST Routine 06/12/2024 3:05 PM EST Postlaminectomy syndrome, not elsewhere classified CBC WITH AUTO DIFFERENTIAL Routine 05/14/2024 3:58 PM EST Anemia, unspecified type FOLATE Routine 05/14/2024 3:58 PM EST Anemia, unspecified type VITAMIN B12 Routine 05/14/2024 3:58 PM EST Anemia, unspecified type CBC AND DIFFERENTIAL Routine 05/14/2024 3:58 PM EST Anemia, unspecified type STRESS TEST ONLY, EXERCISE Routine 04/26/2024 12:33 PM EST HIGH SENSITIVITY TROPONIN I (REPEAT) Timed 04/08/2024 8:[address] ANGIO, CHEST/ABDOMEN, W/WO CONTRAST STAT 04/08/2024 8:06 PM EST X-RAY CHEST 2 VIEWS STAT 04/08/2024 7 :06 PM EST D-DIMER, QUANTITATIVE STAT Add-on 04/08/2024 6:20 PM EST PLACEHOLDER BLUE STAT 04/08/2024 6:20 PM EST PLACEHOLDER DARK GREEN STAT 04/08/2024 6:20 PM EST RAINBOW DRAW STAT 04/08/2024 6:20 PM EST LIVER FUNCTION PANEL STAT Add-on 04/08/2024 6:19 PM EST CBC WITH AUTO DIFFERENTIAL STAT 04/08/2024 6:19 PM EST BASIC METABOLIC PANEL. STAT 04/08/2024 6:19 PM EST HIGH SENSITIVITY TROPONIN I STAT 04/08/2024 6:19 PM EST CBC AND DIFFERENTIAL STAT 04/08/2024 6:19 PM EST BASIC METABOLIC PANEL. STAT 04/08/2024 6:19 PM EST ECG 12-LEAD STAT 04/08/2024 6:11 PM EST LIPID PANEL WITH RATIOS Routine 03/21/2024 7:56 AM EST Anemia, unspecified type Encounter for screening for cardiovascular disorders from Last 3 Months or Most Recently Relevant to Health Maintenance Results * XR knee 3 views right [...] PA-C IMG XR PROCEDURES Final Re sult * MRI LUMBAR SPINE WO IV CONTRAST [...] Remaining findings described above. Ty Oliver MD IM MRI PROCEDURES Final Result * (ABNORMAL) CBC auto differential (05/14/2024 3:58 PM EST) Only the most recent of2 resultswithin the time period is included. Auto WBC 7.4 4.5 - 11.5 cells X 10*3/uL 05/14/2024 5:46 PM EST [facility] RBC 3.68(L) 4.00 - 5.40 cells X 10*6/uL 05/14/2024 5:46 PM EST [facility] Hemoglobin 12.0 12.0 - 15.0 g/dL 05/14/2024 5:46 PM EST [facility] Hematocrit 35.6 35.0 - 49.0 % 05/14/2024 5:46 PM EST [facility] MCV 96.7(H) 80.0 - 94.0 fL 05/14/2024 5:46 PM EST [facility] MCH 32.6(H) 26.0 - 32.0 pg 05/14/2024 5:46 PM EST [facility] MCHC 33.7 32.0 - 37.0 g/dL 05/14/2024 5:46 PM EST [facility] RDW (CV) 12.5 11.5 - 14.5 % 05/14/2024 5:46 PM EST [facility] RDW (SD) 44.5 36.0 - 48.8 fL 05/14/2024 5:46 PM EST [facility] Platelets 271 150 - 450 cells X 10*3/uL 05/14/2024 5:46 PM EST [facility] MPV 9.4(L) 9.5 - 12.3 fL 05/14/2024 5:46 PM EST [facility] Granulocytes % 60.0 % 05/14/2024 5:46 PM EST [facility] Comment:Percent cell count r eference ranges have been removed. Per the [employer] recommendations, these ranges should not be reported when absolute cell count reference ranges are reported as this can lead to misinterpretation of CBC data. Immature Granulocytes % 0.3 % 05/14/2024 5:[address] [facility] Comment:Immature Granulocyte s (percent and absolute counts) include neutrophilic metamyelocytes, myelocytes, and promyelocytes. Lymphocytes % 28.8 % 05/14/2024 5:46 PM EST [facility] Monocytes % 8.1 % 05/14/2024 5:46 PM EST [facility] Eosinophils % 2.4 % 05/14/2024 5:46 PM EST [facility] Basophils % 0.4 % 05/14/2024 5:46 PM EST [facility] Gran # 4.5 2.3 - 8.6 cells X 10*3/uL 05/14/2024 5:46 PM EST [facility] Comment:Please Note: Gran # is equivalent to ANC. IMM GRAN # 0.02 0.00 - 0.05 cells X 10*3/uL 05/14/2024 5:46 PM EST [facility] Eosinophils # 0.2 0.0 - 0.4 cells X 10*3/uL 05/14/2024 5:46 PM EST [facility] Lymphocytes # 2.1 0.8 - 4.8 cells X 10*3/uL 05/14/2024 5:46 PM EST [facility] MONO # 0.6 0.1 - 1.3 cells X 10*3/uL 05/14/2024 5:46 PM EST [facility] BASOPHIL # 0.0 0.0 - 0.2 cells X 10*3/uL 05/14/2024 5:[address] [facility] Blood Venous blood / Unknown Venipuncture / Unknown 05/14/2024 3:58 PM EST 05/14/2024 3:58 PM EST Alan Sheikh MD LAB BLOOD ORDERABLES Leah mejia Result [facility] CT:[id number] [place] [address] * Folate (05/14/2024 3:58 PM EST) Folate Level >24.0 >5.4 ng/mL LAB CHEMISTRY METHOD 05/14/2024 9:26 PM EST [facility] Comment: This assay can be affected by patients taking high dose biotin supplements (>5mg/day). ??An eight hour wait time or washout period is necessary for accurate test results following high doses of biotin. Please note reference range changes effective 03/19/2024. Blood Venous blood / Unknown Venipuncture / Unknown 05/14/2024 3:58 PM EST 05/14/2024 3:58 PM EST Alan Sheikh MD LAB BLOOD ORDERABLES Leah l Result Performing Organization Address [facility]/ZIP Co de Phone Number LABORATORY SERVICES CT:[id number] [place] [address], * Vitamin B12 (05/14/2024 3:58 PM EST) Vitamin B12 Level 495 211 - 911 pg/mL LAB CHEMISTRY METHOD 05/14/2024 9:25 PM EST [facility] Blood Venous blood / Unknown Venipuncture / Unknown 05/14/2024 3:58 PM EST 05/14/2024 3:58 PM EST Alan Sheikh MD LAB BLOOD ORDERABLES Leah l Result Performing Organization Address City/[facility]/ZIP Co de Phone Number LAB[facility]ATORY SERVICES [id number] [place] [address] * STRESS TEST ONLY, EXERCISE (04/26/2024 12:33 PM EST) Anatomical Region Laterality Modality Other External Ordering Provider Transcribe CV STRESS PROCEDURES Final Result * High Sensitivity Troponin I (Repeat) (04/08/2024 8:34 PM EST) TROPONIN I, HIGH SENSITIVITY 5 <34 ng/L LAB CHEMISTRY METHOD 04/08/2024 8:57 PM EST [facility] Comment: The normal range for Troponin I is 0 to 34 ng/L in females and 0 to 53 ng/L in males. 35 ng/L is at the 99th percentile of a normal, healthy female population and 54 ng/L is at the 99th percentile of a normal, healthy male population. Values flagged as abnormal may indicate the possibility of an acute myocardial infarction. The Troponin I is a measure of myocardial injury. It is not specific for myocardial infarct, and can be elevated in a variety of non-ischemic conditions including strenuous physical activity, CHF, pulmonary embolism, renal failure, arrhythmias, myocarditis, pericarditis, chronic renal disease, sepsis and use of cardiotoxic anticancer treatments, among others. These causes must be excluded before considering a diagnosis of myocardial infarct. A single Troponin value never confirms an acute IA and should not be used as the sole criterion for admission or diagnosis. Please refer to the institutional algorithm for clinical guidance. In many cases, trending serial test results may be useful. The second test may be obtained as early as two hours after the first. An abnormal Troponin I is most useful when found in patients with a high pretest probability of having myocardial ischemia. A patient with typical ischemic chest pain and ischemic EKG abnormalities represents a high probability of Acute Coronary Syndrome. Troponin I drawn in patients with a low pretest probability will yield a high incidence of false positive test results. Clinicians are warned not to draw a Troponin I level in situations where the pretest probability is low and the clinical situation is not typical for ischemic heart disease. False positives abound in this situation. Please note reference range changes effective 03/19/2024. Blood Venous blood / Unknown Venipuncture / Unknown 04/08/2024 8:34 PM EST 04/08/2024 8:39 PM EST us Lev Su MD LAB BLOOD ORDERABLES Final R esult [facility] OF-[id number] [address] [place] [address], * CTA, CHEST/ABDOMEN, W/WO CONTRAST (04/08/2024 8:06 PM EST) Anatomical Region Laterality Modality Computed Tomogra phy 04/08/2024 8:10 PM EST Impressions 04/08/2024 8:14 PM EST No evidence of aortic dissection or aneurysm. Narrative 04/08/2024 8:14 PM EST PROCEDURE: ??CT ANGIO, CHEST/ABDOMEN, W/WO CONTRAST CLINICAL HISTORY: chest pain radiating to back. rule out aortic dissection COMPARISON: None. PROTOCOL: ??and/or post-contrast enhanced axial images with multiplanar, MIP and/or 3D reformations. CT DOSE: avg CTDIvol:11.98 mGy ??Total DLP:277.02 mGy-cm CONTRAST: ??IOHEXOL 350 MG IODINE/ML INTRAVENOUS SOLUTION 100 mL intravenous SODIUM CHLORIDE 0.9 % IV FLUSH (BAG) 60 mL intravenous FINDINGS: CHEST: The thoracic aorta is intact. There is no dissection. The ascending thoracic aorta is minimally ectatic. There is no significant aneurysm. There is atherosclerosis. Great vessels arising from the aortic arch are patent. The lungs are clear. There is no evidence of pneumonia. Few incidental calcified granulomas are noted. There are no pleural effusions. There is no significant pleural thickening. No evidence of a pneumothorax. There is no lymphadenopathy. ABDOMEN: The atherosclerosis without dissection or aneurysm. Liver, spleen, gallbladder, pancreas, adrenal glands and kidneys are unremarkable. Visualized bowel is unremarkable. The appendix is normal. No bowel obstruction. No ascites or lymphadenopathy. Bones are intact. There is no evidence of an acute osseous abnormality. Procedure Note Madhu Carrillo, DO - 04/08/2024 PROCEDURE: CT ANGIO, CHEST/ABDOMEN, W/WO CONTRAST CLINICAL HISTORY: chest pain radiating to back. rule out aorticdissection COMPARISON: None. PROTOCOL: and/or post-contrast enhanced axial images with multiplanar,MIP and/or 3D reformations. CT DOSE: avg CTDIvol:11.98 mGy Total DLP:277.02 mGy-cm CONTRAST: IOHEXOL 350 MG IODINE/ML INTRAVENOUS SOLUTION 100 mLintravenous SODIUM CHLORIDE 0.9 % IV FLUSH (BAG) 60 mL intravenous FINDINGS: CHEST: The thoracic aorta is intact. There is no dissection. The ascendingthoracic aorta is minimally ectatic. There is no significant aneurysm.There is atherosclerosis. Great vessels arising from the aortic arch arepatent. The lungs are clear. There is no evidence of pneumonia. Few incidentalcalcified granulomas are noted. There are no pleural effusions. There isno significant pleural thickening. No evidence of a pneumothorax. There isno lymphadenopathy. ABDOMEN: The atherosclerosis without dissection or aneurysm. Liver, spleen, gallbladder, pancreas, adrenal glands and kidneys areunremarkable. Visualized bowel is unremarkable. The appendix is normal. No bowelobstruction. No ascites or lymphadenopathy. Bones are intact. There is no evidence of an acute osseous abnormality. IMPRESSION: No evidence of aortic dissection or aneurysm. Lev Su MD IM CT PROCEDURES Final Resu lt * XR chest 2 views (04/08/2024 7:06 PM EST) Anatomical Region Laterality Modality Computed Radiogr aphy 04/08/2024 7:15 PM EST Impressions 04/08/2024 7:15 PM EST Unremarkable chest. The lungs are clear. Narrative 04/08/2024 7:15 PM EST PROCEDURE: ??XR CHEST 2 VIEWS CLINICAL INDICATION: ??chest pain, ///pt state chest pain since this morning COMPARISON: None. FINDINGS: The lungs are clear. There is no evidence of CHF or pneumonia. The cardiac silhouette is normal for size. Hilar shadows are unremarkable. There are no significant pleural effusions. There is no pneumothorax. Bones are intact. Procedure Note Madhu Carrillo, DO - 04/08/2024 PROCEDURE: XR CHEST 2 VIEWS CLINICAL INDICATION: chest pain, ///pt state chest pain since thismorning COMPARISON: None. FINDINGS: The lungs are clear. There is no evidence of CHF or pneumonia. The cardiac silhouette is normal for size. Hilar shadows areunremarkable. There are no significant pleural effusions. There is no pneumothorax. Bones are intact. IMPRESSION: Unremarkable chest. The lungs are clear. Lev Su MD [facility] XR PROCEDURES Final Resu lt * PLACEHOLDER BLUE (04/08/2024 6:20 PM EST) Extra Tube Yes 04/09/2024 3:01 AM EST [facility] Blood Venous blood / Unknown Venipuncture / Unknown 04/08/2024 6:20 PM EST 04/08/2024 6:27 PM EST Lev Su MD LAB BLOOD ORDERABLES Final R esult Performing Organization Address [facility] de Phone Number [facility] CL-[id number] [place] [address], * PLACEHOLDER DARK GREEN (04/08/2024 6:20 PM EST) Extra Tube Yes 04/09/2024 3:01 AM EST [facility] Blood Venous blood / Unknown Venipuncture / Unknown 04/08/2024 6:20 PM EST 04/08/2024 6:26 PM EST Lev Su MD LAB BLOOD ORDERABLES Final R esult Performing Organization Address [facility] Phone Number [facility] CL-[id number] [place] [address], [place] * D-dimer, quantitative (04/08/2024 6:20 PM EST) D-Dimer, Quant (FEU) 0.29 0.00 - 0.49 ??g/mL FEU 04/08/2024 6:44 PM EST [facility] Comment:The cut-off level re commended for exclusion of pulmonary embolism (PE) or deep vein thrombosis (DVT) using this methodology is 0.5 ??g/mL FEU. Blood Venous blood / Unknown Venipuncture / Unknown 04/08/2024 6:20 PM EST 04/08/2024 6:27 PM EST Lev Su MD LAB BLOOD ORDERABLES Final R esult Performing Organization Address [facility] Co de Phone Number [facility] CL-[id number] [place] [address], [place] * High Sensitivity Troponin I (04/08/2024 6:19 PM EST) TROPONIN I, HIGH SENSITIVITY 4 <34 ng/L LAB CHEMISTRY METHOD 04/08/2024 6:48 PM EST [facility] Comment: The normal range for Troponin I is 0 to 34 ng/L in females and 0 to 53 ng/L in males. 35 ng/L is at the 99th percentile of a normal, healthy female population and 54 ng/L is at the 99th percentile of a normal, healthy male population. Values flagged as abnormal may indicate the possibility of an acute myocardial infarction. The Troponin I is a measure of myocardial injury. It is not specific for myocardial infarct, and can be elevated in a variety of non-ischemic conditions including strenuous physical activity, CHF, pulmonary embolism, renal failure, arrhythmias, myocarditis, pericarditis, chronic renal disease, sepsis and use of cardiotoxic anticancer treatments, among others. These causes must be excluded before considering a diagnosis of myocardial infarct. A single Troponin value never confirms an acute IA and should not be used as the sole criterion for admission or diagnosis. Please refer to the institutional algorithm for clinical guidance. In many cases, trending serial test results may be useful. The second test may be obtained as early as two hours after the first. An abnormal Troponin I is most useful when found in patients with a high pretest probability of having myocardial ischemia. A patient with typical ischemic chest pain and ischemic EKG abnormalities represents a high probability of Acute Coronary Syndrome. Troponin I drawn in patients with a low pretest probability will yield a high incidence of false positive test results. Clinicians are warned not to draw a Troponin I level in situations where the pretest probability is low and the clinical situation is not typical for ischemic heart disease. False positives abound in this situation. Please note reference range changes effective 03/19/2024. Blood Venous blood / Unknown Venipuncture / Unknown 04/08/2024 6:19 PM EST 04/08/2024 6:27 PM EST us Lev Su MD LAB BLOOD ORDERABLES Final R esult [facility] [id number] [place] [address], * (ABNORMAL) Basic Metabolic Panel. (04/08/2024 6:19 PM EST) [facility] Sodium 140 136 - 145 mmol/L LAB CHEMISTRY METHOD 04/08/2024 7:00 PM EST [facility] Comment:Effective 03/19/2024 , please note methodology change from indirect potentiometric procedure using an ion selective electrode (ISE) to indirect Integrated Multisensor Technology (IMT). Please also note reference range changes. Potassium 3.7 3.5 - 5.1 mmol/L LAB CHEMISTRY METHOD 04/08/2024 7:00 PM EST [facility] Comment:Effective 03/19/2024 , please note methodology change from indirect potentiometric procedure using an ion selective electrode (ISE) to indirect Integrated Multisensor Technology (IMT). Please also note reference range changes Chloride 107 98 - 107 mmol/L LAB CHEMISTRY METHOD 04/08/2024 7:00 PM EST [facility] Comment:Effective 03/19/2024 , please note methodology change from indirect potentiometric procedure using an ion selective electrode (ISE) to indirect Integrated Multisensor Technology (IMT). Please also note reference range changes. CO2 24.5 20.0 - 31.0 mmol/L LAB CHEMISTRY METHOD 04/08/2024 7:00 PM EST [facility] Comment:Please note referenc e range changes effective 03/19/2024. Anion Gap 9 3 - 11 04/08/2024 7:00 PM EST [facility] Glucose Level 122(H) 70 - 99 mg/dL LAB CHEMISTRY METHOD 04/08/2024 7:00 PM EST [facility] BUN 16 9 - 23 mg/dL LAB CHEMISTRY METHOD 04/08/2024 7:00 PM EST [facility] Comment:Please note referenc e range changes effective 03/19/2024. Creatinine, Serum 0.6 0.6 - 1.0 mg/dL LAB CHEMISTRY METHOD 04/08/2024 7:00 PM EST [facility] Comment:Please note referenc e range changes effective 03/19/2024. Glomerular Filtration Rate >=60 >=60 mL/min/1. 73 m2 04/08/2024 7:00 PM EST [facility] Comment:Calculation based on the Chronic Kidney Disease Epidemiology Collaboration(CKD-EPI) equation refit without adjustment for race. Calcium, Total 10.2 8.7 - 10.4 mg/dL LAB CHEMISTRY METHOD 04/08/2024 7:00 PM EST [facility] Comment:Please note referenc e range changes effective 03/19/2024. Blood Venous blood / Unknown Venipuncture / Unknown 04/08/2024 6:19 PM EST 04/08/2024 6:28 PM EST us Lev Su MD LAB BLOOD ORDERABLES Final R esult [facility] [id number] [place] [address], * Liver Function Panel (04/08/2024 6:19 PM EST) Total Protein 6.5 5.7 - 8.2 g/dL LAB CHEMISTRY METHOD 04/08/2024 7:00 PM EST [facility] Comment:Please note referenc e range changes effective 03/19/2024. Albumin Level 4.5 3.2 - 4.8 g/dL LAB CHEMISTRY METHOD 04/08/2024 7:00 PM EST [facility] Comment:Please note referenc e range changes effective 03/19/2024. Total Bilirubin 0.4 0.1 - 1.2 mg/dL LAB CHEMISTRY METHOD 04/08/2024 7:00 PM EST [facility] Comment:The [employer] CH Tota l Bilirubin_2 (TBil_2) assay is based on a chemical oxidation method using vanadate as an oxidizing agent. Bilirubin, Direct 0.1 <=0.3 mg/dL LAB CHEMISTRY METHOD 04/08/2024 7:00 PM EST [facility] Comment: The [employer] Direct Bilirubin_2 (DBil_2) assay is based on a chemical oxidation method using vanadate as an oxidizing agent. Please note reference range changes effective 03/19/2024. ALT 18 10 - 49 U/L LAB CHEMISTRY METHOD 04/08/2024 7:00 PM EST [facility] Comment:Please note referenc e range changes effective 03/19/2024. AST 22 <34 U/L LAB CHEMISTRY METHOD 04/08/2024 7:00 PM EST [facility] Comment:Please note referenc e range changes effective 03/19/2024. Alkaline Phosphatase 99 28 - 130 U/L LAB CHEMISTRY METHOD 04/08/2024 7:00 PM EST [facility] Comment:Please note referenc e range changes effective 03/19/2024. Blood Venous blood / Unknown Venipuncture / Unknown 04/08/2024 6:19 PM EST 04/08/2024 6:28 PM EST Lev Su MD LAB BLOOD ORDERABLES Final R esult Performing Organization Address City/[facility]/ZIP Co de Phone Number [facility] [id number] [address] [place] [address], * ECG 12 lead (Now) (04/08/2024 6:11 PM EST) Heart Rate 76 bpm TRACEMASTER RR INTERVAL 792 ms TRACEMASTER ATRIAL RATE 76 ms TRACEMASTER DC Interval 182 ms TRACEMASTER P Duration 117 ms TRACEMASTER P Horizontal [place] -65 deg TRACEMASTER P Front [place] 49 deg TRACEMASTER Q Onset 503 ms TRACEMASTER QRSD Interval 91 ms TRACEMASTER QT Interval 381 ms TRACEMASTER QTcB 428 ms TRACEMASTER QTcF 412 ms TRACEMASTER QRS HORIZONTAL AXIS -46 deg TRACEMASTER QRS [place] -6 deg TRACEMASTER I-40 Horizontal [place] -24 deg TRACEMASTER I-40 Front [place] 41 deg TRACEMASTER T-40 Horizontal [place] -54 deg TRACEMASTER T-40 Front [place] -21 deg TRACEMASTER T Horizontal [place] 33 deg TRACEMASTER T Wave [place] 52 deg TRACEMASTER S-T Horizontal [place] 68 deg TRACEMASTER S-T Front [place] 40 deg TRACEMASTER ECG Impression - ABNORMAL ECG - TRACEMASTER ECG Impression Sinus rhythm TRACEMASTER ECG Impression Anterior infarct, old TRACEMASTER 04/08/2024 6:11 PM EST Lev Su MD ECG ORDERABLES Final Result TRACEMASTER * Lipid Panel with Ratios (03/21/2024 7:56 AM EST) Cholesterol 160 <200 mg/dL LAB CHEMISTRY METHOD 03/21/2024 12:09 PM EST [facility] Comment:Please note referenc e range changes effective 03/19/2024. Triglycerides 70 <150 mg/dL LAB CHEMISTRY METHOD 03/21/2024 12:09 PM EST [facility] HDL 62 >=40 mg/dL LAB CHEMISTRY METHOD 03/21/2024 12:09 PM EST [facility] Comment:Please note referenc e range changes effective 03/19/2024. % Total 39 03/21/2024 12:09 PM EST [facility] LDL Calculated 84 <100 mg/dL 03/21/2024 12:09 PM EST [facility] Cholesterol HDL Ratio 2.6 03/21/2024 12:09 PM EST [facility] LDL/HDL Ratio 1.4 03/21/2024 12:09 PM EST [facility] NON HDL CHOLESTEROL 98 <130 03/21/2024 12:09 PM EST [facility] Blood Venous blood / Unknown Venipuncture / Unknown 03/21/2024 7:56 AM EST 03/21/2024 7:56 AM EST us Joe Devlin MANAGER OF PLANNING LAB BLOOD ORDERABLE S Final Result [facility] [id number] [place] [address] from Last 3 Months or Most Recently Relevant to Health Maintenance Insurance MEDICARE [employer] Care Teams Asphalt Paving Superintendent Relationship Specialty Start Date End Date Alan Sheikh MD [address] [place] [address] PCP - General 05/08/24
--- OUTSIDE RECORDS SUMMARY | 2024-06-26 10:28 | XMS_ITS | Clinical Summary ---
Author Organization [facility] Address [address] [place] [address] Care Team Providers Care Director Visual Name Role Phone [facility] [place] Primary Care Provider Gabe Hernández MD Unavailable Allergies No known active allergies Medications Medication Sig Dispensed Refills Start Date End Date Status atorvastatin (LIPITOR) 40 MG tablet Take 1 tablet (40 mg total) by mouth. 12/18/2023 Active oxyCODONE-acetaminop hen (PERCOCET) 5-325 mg per tablet TAKE 1 TABLET EVERY 12 HOURS FOR PAIN NEEDED 11/14/2023 Active Calcium Carbonate Antacid 400 MG Chew Tab 600 mg. Active coenzyme Q10 (CO Q 10) 100 MG capsule daily. 08/07/2023 Active ezetimibe (ZeTIA) 10 MG tabletIndications:Mi xed hyperlipidemia Take 1 tablet (10 mg total) by mouth daily. 90 tablet 3 06/24/2024 Active PANTOprazole (PROTONIX) 20 MG tablet Take 20 mg by mouth. 11/22/2023 Discontinued Active Problems Problem Noted Date Diagnosed Date Smoking 06/24/2024 Chest pain 06/24/2024 Mixed hyperlipidemia 06/24/2024 Bilateral carotid bruits 06/24/2024 Aorto-iliac atherosclerosis 05/14/2024 Overview (06/17/2024): present with dense SEVERE calcifications in lower aorta & both proximal lilic arteries Heart palpitations 04/26/2024 Overview (04/26/2024): Palpation getting worse, chest pain getting worse Hypercholesterolemia 02/09/2024 History of lumbar spinal fusion 01/15/2005 Overview (06/17/2024): Revision in 2008 Encounters Date Type Department Care Team Description 06/25/2024 1:45 PM EST Office Visit [address] [phone] Celi Jimenez MD Primary osteoarthritis of right knee (Primary Dx); Primary osteoarthritis of left knee 06/24/2024 9:30 AM EST Consult [facility] [address] [phone] Gabe Baumann MD Chest pain, unspecified type (Primary Dx); Heart palpitations; Aorto-iliac atherosclerosis; Mixed hyperlipidemia; Bilateral carotid bruits; Smoking 06/24/2024 Travel 06/11/2024 9:30 AM EST Office Visit [address] [phone] Celi Jimenez MD Primary osteoarthritis of left knee (Primary Dx); Primary osteoarthritis of right knee 06/07/2024 9:30 AM EST Office Visit [address] [phone] Arya Glaser DPM Ingrown toenail (Primary Dx); Pain in left foot; Pain in right foot 04/26/2024 1:00 PM EST Ancillary Procedure [facility] [address] [phone] Keisha Tay APRN Chest pain, unspecified type 04/26/2024 9:15 AM EST Office Visit [address] [phone] Arya Glaser DPM Ingrown toenail (Primary Dx) 04/26/2024 Travel 04/16/2024 Orders Only [facility] [address] [place] [address] Emergency Medicine, Scan 04/11/2024 Transcribe Orders [facility] [address] [phone] Joe Devlin NP from Last 3 Months Social History Tobacco Use Types Packs/Day Years Used Date Smoking Tobacco: Every Day Cigarettes Tobacco Cessation:Ready to Q uit: Not Asked; Counseling Given: Not Answered Sex and Gender Information Value Date Recorded Sex Assigned at Female 12/19/2023 1:16 PM EDT Gender Identity Female 12/19/2023 1:16 PM EDT Sexual Orientation Heterosexual (straight) 12/18 1:16 PM EDT Last Filed Vital Signs Vital [...] Mass Index 21.8 06/24/2024 9:08 AM EST Plan of Treatment Upcoming Encounters Date Type Department Care Team (Late st Contact Info) Description 07/09/2024 9:30 AM EST Office Visit [facility] [address] [place] [phone] Celi Jimenez MD [address] [place] [address] 07/16/2024 10:00 AM EDT Ancillary Procedure [facility] [address] [phone] Gabe Baumann MD [address] [place] [address] 08/09/2024 10:00 AM EDT Office Visit [facility] [phone] Arya Glaser DPM [address] [place], [place] [phone] 09/20/2024 9:30 AM EDT Office Visit [address] [phone] Celi Jimenez MD [address] [place] [address] 12/30/2024 10:00 AM EDT Office Visit [facility] [place] [address] [place] [phone] Gabe Baumann MD [address] [place] [address] Health Maintenance Due Date Last Done Comments Hepatitis C Virus Screening 1955 DTaP/Tdap/Td Vaccines (1 - Tdap) 09/11/1974 Pneumococcal Vaccines 50+ (1 of 2 - PCV) 09/11/1974 Mammogram 1995 Colonoscopy 09/11/2000 Zoster (Shingles) Vaccine (1 of 2) 09/11/2005 DXA Bone Density (Females,Ag es 65 and older) 09/11/2020 RSV Vaccine 60 years and old er and Patients (1 - 1-dose 75+ series) 09/11/2030 Influenza Vaccine Completed 02/28/2024 COVID-19 Vaccine Completed 03/04/2024 Hepatitis B Vaccines Aged Out No long er eligible based on patient's age to complete this topic Procedures Procedure Name Priority Date/Time Associated Diagnosis Comments ND ARTHROCENTESIS ASPIR&/INJ MAJOR JT/BURSA W/O US Routine 06/11/2024 9:30 AM EST Primary osteoarthritis of left knee ND ARTHROCENTESIS ASPIR&/INJ MAJOR JT/BURSA W/O US Routine 06/11/2024 9:30 AM EST Primary osteoarthritis of right knee EXERCISE TREADMILL TEST (ETT) Routine 04/26/2024 1:32 PM EST Chest pain, unspecified type ECG 12-LEAD Routine 04/08/2024 11:03 AM EST from Last 3 Months Results * ND ARTHROCENTESIS ASPIR&/INJ MAJOR JT/BURSA W/O US (06/11/2024 [...] to verify the correct patient, procedure, equipment, data support analyst and site/side marked as required. Patient was prepped and draped in the usual sterile fashion. Celi Jimenez MD PROCEDURE/MINOR SURG ICAL ORDERABLES * ND ARTHROCENTESIS ASPIR&/INJ MAJOR JT/BURSA W/O US (06/11/2024 [...] to verify the correct patient, procedure, equipment, data support analyst and site/side marked as required. Patient was prepped and draped in the usual sterile fashion. Celi Jimenez MD PROCEDURE/MINOR SURG ICAL ORDERABLES * Exercise Treadmill Test (ETT) (04/26/2024 1:32 PM EST) Target HR 152 bpm Target HR 152 bpm Resting HR 71 bpm Baseline Systolic BP 122 mmHg Baseline Diastolic BP 70 mmHg Rendon Treadmill Score 7 Exercise duration (min) 6 mins Exercise duration (sec) 45 secs Angina Index 0 Estimated workload 9.3 METS Peak HR 139 bpm Stress peak systolic BP 156 mmHg Stress peak diastolic BP 74 mmHg Percent HR 91 % Rate Pressure Product 21,684.0 mmHg*bpm ST Depression (mm) 0 mm STRESS RECOVERY TIME 5 mins Stress Recovery Time (secs) 31 secs Recovery HR 80 bpm Stress recovery systolic BP 138 mmHg Stress recovery diastolic BP 76 mmHg Anatomical Region Laterality Modality Other 04/26/2024 1:29 PM EST Narrative 05/06/2024 8:56 AM EST EXERCISE STRESS TEST, without imaging Clinically and electrocardiographically negative Exercise Stress Test, using a Devonte protocol. No chest pain and no ischemic ECG changes. There were no significant arrhythmias noted Maria Fernanda was able to ambulate on a treadmill for a total of ??6 minutes 45 seconds, reaching a maximal heart rate of 139, which represents 91% of his/her maximal age predicted target heart rate, at 9.3 METS of activity. ECG tracings reviewed with Dr. Aldana. Stress Findings A Devonte protocol stress test was performed. The patient's exercise capacity was normal. The patient exercised for 6 minutes and 45 seconds (9.3 METS). The patient achieved a peak exercise heart rate of 139 bpm (91% of MPHR) with a rate pressure product of 21,684.0. The patient reported no symptoms during exercise stress. The patient experienced no angina during the test. The test was stopped because the protocol was completed. The patient requested the test to be stopped. Prior Study There is no prior study available for comparison. Complication The patient experienced no complications during stress. History Maria Fernanda Hunt is a 68 y.o. female who presents for cardiac testing. The indication for the exam is chest pain. The patient's symptoms include: ? ? atypical chest pain The patient's cardiac risk factors include: ? ? no diabetes mellitus ? ? hyperlipidemia ? ? no hypertension ? ? family history of CAD ? ? current nicotine user The patient's cardiac history include: ? ? no coronary artery disease (CAD) ? ? no myocardial infarction ? ? no PCI ? ? no CABG ? ? no CHF She had no prior cardiac testing. The patient's current medications include: lipid lowering drug Rest ECG ECG demonstrates normal sinus rhythm. ECG was interpretable. Recovery ECG There were no ECG changes noted during recovery. There were no arrhythmias during recovery. The patient experienced no anginal symptoms during recovery. Stress Conclusion ECG response to stress was negative maximal (peak HR > 85%). The patient's blood pressure demonstrated a normal response and their heart rate demonstrated a normal response to exercise stress. ECG quality was poor. Stress ECG No ischemic ST changes were noted during stress. There were no arrhythmias during stress. The ECG was uninterpretable due to an artifact. Lev Su MD CV STRESS ORDERABLES * ECG 12 lead (04/08/2024 11:03 AM EST) Scan Emergency Medicine ECG ORDERABLES from Last 3 Months Care Teams Director Visual Relationship Specialty Start Date End Date [facility] PCP - General 04/15/24 Gabe Baumann MD [address] [place] [address] Cardiovascular Disease 06/24/24
--- OUTSIDE RECORDS SUMMARY | 2024-06-26 10:28 | XMS_ITS | Encounter Summary ---
Author Organization [facility] Address [address] [place] [address] Care Team Providers Care Impregnating Tank Operator Name Role Phone Alan Sheikh MD Primary Care Provider [phone] Reason for Referral * Imaging (Routine) - Authorized Specialty Diagnoses / Procedures Referred By Contac t Referred To Contact Radiology Diagnoses Postlaminectomy syndrome, not elsewhere classified Procedures MRI LUMBAR SPINE WO IV CONTRAST Ty Oliver MD [address] [place] [address] [address] Phone: tel: fax: [facility] - Central Scheduling [place] Phone: tel: fax: Referral ID Status Reason Start Date Expiration Date Visits Requested Visits Authorized [id number] Authorized Perform Procedure 05/29/2024 05/29/2025 1 1 Encounter Details Date Type Department Care Team (Latest Contact Info) Description 05/29/2024 Ancillary Orders [facility] - Central Scheduling [place] [phone] Ty Oliver MD [address] [place] [address] Postlaminectomy syndrome, not elsewhere classified (Primary Dx) Social History Tobacco Use Types [...] Info) Description 06/20/2024 Procedure Pass [facility] (Ultrasound) [address] [place] [address] 07/02/2024 12:40 PM EST Appointment [facility] (Breast Imaging) [address] [place] [address] Bkd w/ pt 06/20. Time ok per Samira. Given exam prep and arr time of 1230pm [facility] 07/02/2024 1:30 PM EST Appointment [facility] (Ultrasound) [address] [place] [address] Bkd w/ pt 06/20. Time ok per Samira. Given exam prep and arr time of 1230pm [facility] 11/12/2024 10:00 AM EDT Office Visit [facility] [address] [address] Alan Sheikh MD [address] [place] [address] Follow up in about 6 months (around 11/11/2024), or Wellness exam.. documented as of this encounter Results * MRI LUMBAR SPINE [...] Visit Diagnoses Diagnosis Postlaminectomy syndrome, not elsewhere classified- Primary Postlaminectomy syndrome, not elsewhere classified documented in this encounter Care Teams Impregnating Tank Operator Relationship Specialty Start Date End Date Alan Sheikh MD [address] [place] [address] PCP - General 05/08/24 documented as of this encounter
== END 2024-06-26 10:23 | disposition home or self-care (01) ==
PROVIDERS: PCP Nurse Practitioner Family; Visit Provider Neurological Surgery
DX: M50.90 Cervical disc disorder, unspecified, unspecified cervical region (principal)
CPT/HCPCS: 99212

== ENCOUNTER → 2024-06-26 09:58 | Outpatient (BNVA) | payer MEDICARE, SELFPAY | PROVIDERS: PCP Nurse Practitioner Family; Visit Provider Neurological Surgery | DX: M50.90 Cervical disc disorder, unspecified, unspecified cervical region (principal) | CPT/HCPCS: 99212 ==

== ENCOUNTER 2024-08-23 08:59 | Outpatient (AMB) | payer MEDICARE, SELFPAY ==
--- NOTE | 2024-08-23 09:26 | A.SPINEOV_ITS ---
Intake Visit Reasons: Discuss MRI Results Intake Note: Ms. Hunt is here tod discuss the results of her MRI. Tool Keeper Required: No Allergies No Known Allergies Allergy (Verified 06/26/24 10:07) Assessment & Plan Assessment & Plan (1) Cervical spondylosis with radiculopathy: Code(s): M47.22 - Other spondylosis with radiculopathy, cervical region Category: Medical Plan: Dear colleague, On 08/23/2024 I saw for follow-up Maria Fernanda Hunt to review an MRI of the cervical and lumbar spine. First, need to correct an airway my previous documentation where I stated that her continue his right-sided back pain could be related to painful hardware. This is incorrect as I removed the spinal instrumentation bilaterally. This pain may be related to sacroiliitis. An injection would be the 1st step to confirm the diagnosis. Second complaint is severe neck pain that limits her rotation in all direction. The pain radiates predominantly to a right upper arm this is associated with numbness. She has tried all conservative management for this symptoms and physical therapy, injections and [id number]-[id number] medications are not helpful. On exam, she has significant restriction of neck motion in all directions but especially with rotation. An MRI of the cervical spine shows severe cervical degenerative disc disease C3- 4 and C4-5 with an anterolisthesis of the C4 vertebral body. Dynamic cervical x-rays show an anterolisthesis C3-C4 that increases with flexion. I reviewed the images with the patient and told her that the chronic neck pain could be related to the anterolisthesis C3-C4. I offered her a correction of the anterolisthesis through an anterior diskectomy and fusion C3-C4 in attempt to address her neck pain. I discussed the procedure, possible complications and expected outcome. She is aware that if this not result in improvement that I do not have any other surgical options. She wants to proceed. She was recently started on a beta tamie for tachycardia. She denies any cardiac complaints. We will obtain the records from her knock up assembler. I spent 35 minutes in his consult to review imaging and discussing plan of care. Ty Oliver MD, PhD Spine Fellowship Trained Neurosurgeon Director, [facility] [place] [facility] Orders: Orders XR cervical spine 4V Today M47.22 - Other spondylosis with radiculopathy, cervical region Coding Level of Care Code Est Pt Level 4 (91024) Diagnoses Cervical spondylosis with radiculopathy M47.22
--- OUTSIDE RECORDS SUMMARY | 2024-08-23 09:26 | XMS_ITS | Encounter Summary ---
Author Organization [facility] Address [address] [place] [address] Care Team Providers Care Diesel Locomotive Engineer Name Role Phone Alan Sheikh MD Primary Care Provider [phone] Encounter Details Date Type Department Care Team (Late st Contact Info) Description 07/02/2024 Procedure Pass [facility] Radiology, [facility] (Ultrasound) [address] [place], [place] [address] Social History Tobacco Use Types Packs/Day Years [...] Care Team (Late st Contact Info) Description 11/12/2024 10:00 AM EDT Office Visit [facility] [address] [place] [address] Alan Sheikh MD [address] [place] [address] Follow up in about 6 months (around 11/11/2024), or Wellness exam.. documented as of this encounter Visit Diagnoses Not on filedocumented in this encounter Care Teams Diesel Locomotive Engineer Relationship Specialty Start Date End Date Alan Sheikh MD [address] [place] [address] PCP - General 05/08/24 documented as of this encounter
--- OUTSIDE RECORDS SUMMARY | 2024-08-23 09:26 | XMS_ITS | Encounter Summary ---
Author Organization [facility] Address [address] [place] [address] Care Team Providers Care Web Administrator Name Role Phone Alan Sheikh MD Primary Care Provider [phone] Encounter Details Date Type Department Care Team (Late st Contact Info) Description 07/02/2024 Procedure Pass [facility] Radiology, [facility] (Ultrasound) [address] [place], [place] [address] Social History Tobacco Use Types Packs/Day Years [...] Description 11/12/2024 10:00 AM EDT Office Visit [facility] [address] [place] [address] Alan Sheikh MD [address] [place] [address] Follow up in about 6 months (around 11/11/2024), or Wellness exam.. documented as of this encounter Visit Diagnoses Not on filedocumented in this encounter Care Teams Web Administrator Relationship Specialty Start Date End Date Alan Sheikh MD [address] [place] [address] PCP - General 05/08/24 documented as of this encounter
--- OUTSIDE RECORDS SUMMARY | 2024-08-23 09:26 | XMS_ITS | Encounter Summary ---
Author Organization [facility] Address [address] [place] [address] Care Team Providers Care School Psychologist Name Role Phone Alan Sheikh MD Primary Care Provider [phone] Reason for Referral * Imaging (Routine) - Authorized Specialty Diagnoses / Procedures Referred By Contac t Referred To Contact Radiology Diagnoses Postlaminectomy syndrome, not elsewhere classified Procedures MRI LUMBAR SPINE WO IV CONTRAST Ty Oliver MD [address] [place] [address] [address] Phone: tel: fax: [facility] - Central Scheduling [place] Phone: tel: fax: Referral ID Status Reason Start Date Expiration Date Visits Requested Visits Authorized [id number] Authorized Perform Procedure 05/29/2024 05/29/2025 1 1 Encounter Details Date Type Department Care Team (Latest Contact Info) Description 05/29/2024 Ancillary Orders [facility] - Central Sched[place] [phone] Ty Oliver MD [address] [place] [address] Postlaminectomy syndrome, not elsewhere classified (Primary Dx) [...] Description 11/12/2024 10:00 AM EDT Office Visit [facility] [address] [address] Alan Sheikh MD [address] [address] Follow up in about 6 months (around [...] classified documented in this encounter Care Teams School Psychologist Relationship Specialty Start Date End Date Alan Sheikh MD [address] [place] [address] PCP - General 05/08/24 documented as of this encounter
--- OUTSIDE RECORDS SUMMARY | 2024-08-23 09:26 | XMS_ITS | Encounter Summary ---
Author Organization [facility] Address [address] [place] [address] Care Team Providers Care Pantomimist Name Role Phone MaurisioJoe phillip Ирина CERVANTES Primary Care Provi jeyson Alan Sheikh MD Primary Care Provider [phone] Encounter Details Date Type Department Care Team (Late Contact Info) Description 02/09/2024 Procedure Pass [facility] Radiology, [facility] ([place] Scan) [address] [place] [address] Social History Tobacco Use Types Packs/Day [...] Encounters Date Type Department Care Team (Late Contact Info) Description 11/12/2024 10:00 AM EDT Office Visit [facility] [place] [address] [address] Alan Sheikh MD [address] [address] Follow up in about 6 months (around 11/11/2024), or Wellness exam.. documented as of this encounter Visit Diagnoses Not on filedocumented in this encounter Care Teams Pantomimist Relationship Specialty Start Date End Date Joe Devlin NP [address] [place] [phone] PCP - General 02/09/24 05/07/24 Alan Sheikh MD [address] [phone] PCP - General 05/08/24 documented as of this encounter
--- OUTSIDE RECORDS SUMMARY | 2024-08-23 09:26 | XMS_ITS | Clinical Summary ---
Author Organization [employer] Address [address] [place] [address] Care Team Providers Care Jockey Room Custodian Name Role Phone Alan Sheikh MD Primary Care Provider [phone] Allergies No known active allergies Medications ADULT LOW DOSE ASPIRIN ORAL 1 (one) time each day. 05/08/2019 Active calcium carbonate 160 mg calcium (400 mg) tablet,chewable 600 mg 1 (one) time each day. Active oxyCODONE-acetam inophen (Percocet) 5-325 mg tablet if needed. Active coenzyme Q-10 (CoQ-10) 100 mg capsule 1 (one) time each day. 08/07/2023 Active traMADoL (Ultram) 50 mg tablet 02/01/2024 Active atorvastatin (Lipitor) 40 mg tablet Take 1 tablet (40 mg total) by mouth 1 (one) time each day. 90 tablet 1 07/19/2024 Active Active Problems Problem Noted Date Diagnosed [...] Encounters Date Type Department Care Team Description 08/05/2024 Ancillary Orders Formerly [facility] - [place] [phone] Gabe Huynh MD Unilateral primary osteoarthritis, right knee (Primary Dx) 07/29/2024 7:40 AM EDT Lab [facility] [address] [place] [address] 07/29/2024 7:35 AM EDT Lab [facility] [address] [place] [address] 18[address] Mixed hyperlipidemia (Primary Dx) 07/29/2024 7:32 AM EDT - 07/29/2024 11:59 PM EDT Hospital Encounter [facility] (Ultrasound) [address] [place] [address] Atherosclerosis of aorta (HCC); Atherosclerosis of other arteries Discharge Disposition: Home or Self Care 07/29/2024 7:32 AM EDT - 07/29/2024 11:59 PM EDT Hospital Encounter [facility] (Ultrasound) [address] [place] [address] Other specified symptoms and signs involving the circulatory and respiratory systems Discharge Disposition: Home or Self Care 07/19/2024 Refill [facility] [address] [address] Alan Sheikh MD 07/11/2024 8:44 AM EST - 07/11/2024 11:59 PM EST Hospital Encounter [facility] (MRI) [address] [place] [address] Cervical disc disorder, unspecified, unspecified cervical region Discharge Disposition: Home or Self Care 07/05/2024 Ancillary Orders [facility] (Diag Rad) [address] [place] [address], [place] [address] Renuka Cardona MD 07/05/2024 Ancillary Orders [facility] (Diag Rad) [address], [address] [place] [address], [place] [address] Renuka Cardona MD 07/05/2024 Ancillary Orders [facility] (Diag Rad) [address], [address] [place] [address], [place] [address] Renuka Cardona MD 07/05/2024 Ancillary Orders [facility] (Diag Rad) [address], [address] [place] [address], [place] [address] Renuka Cardona MD 07/05/2024 Ancillary Orders [facility] (Diag Rad) 534 [facility], [address] [place] [address], [place] [address] Renuka Cardona MD 07/04/2024 Results Follow-Up [facility] DIRECTOR OF GOVERNMENT SALES [address] [address] Sophia Clay APRN 07/02/2024 12:37 PM EST - 07/02/2024 11:59 PM EST Hospital Encounter [facility] (Breast Imaging) [address] [place] [address] Mastalgia in female Discharge Disposition: Home or Self Care 07/02/2024 12:37 PM EST - 07/02/2024 11:59 PM EST Hospital Encounter [facility] (Ultrasound) [address] [place] [address] Mastalgia in female Discharge Disposition: Home or Self Care 07/02/2024 Procedure Pass [facility] (Ultrasound) [address] [place] [address] 07/02/2024 Procedure Pass [facility] (Ultrasound) [address] [place] [address] 07/02/2024 Ancillary Orders [facility]ly [facility] - [place] [phone] Gabe Baumann MD Atherosclerosis of aorta (HCC) (Primary Dx); Atherosclerosis of other arteries; Other specified symptoms and signs involving the circulatory and respiratory systems 07/02/2024 Ancillary Orders Former[facility] - [place] [phone] Gabe Baumann MD Atherosclerosis of aorta (HCC) (Primary Dx); Atherosclerosis of other arteries 06/27/2024 Procedure Pass [facility] (MRI) [address] [place] [address] 06/27/2024 Ancillary Orders [facility] - [place] [phone] Ty Oliver MD Cervical disc disorder, unspecified, unspecified cervical region (Primary Dx) 06/22/2024 12:46 PM EST - 06/22/2024 11:59 PM EST Hospital Encounter [facility] [address] [place] [address] Discharge Disposition: Home or Self Care 06/22/2024 12:10 PM EST Office Visit [facility] [address] [place] [address] Malachi Peters PA-C Acute pain of right knee (Primary Dx) 06/20/2024 11:20 AM EST Office Visit [facility] DIRECTOR OF GOVERNMENT SALES [address] [address] Sophia Clay APRN Mastalgia in female (Primary Dx) 06/20/2024 Procedure Pass [facility] (Ultrasound) [address] [place] [address] 06/12/2024 1:53 PM EST - 06/12/2024 11:59 PM EST Hospital Encounter [facility] (MRI) [address] [place] [address] Postlaminectomy syndrome, not elsewhere classified Discharge Disposition: Home or Self Care 05/29/2024 Procedure Pass [facility] (MRI) [address] [place] [address] 05/29/2024 Ancillary Orders [facility] - [place] [phone] Ty Oliver MD Postlaminectomy syndrome, not elsewhere classified (Primary Dx) from Last 3 Months Immunizations Immunization Administration Dates Next Due INFLUENZA, HIGH DOSE SEASONAL, PRESERVATIVE FREE 02/28/2024 Moderna Omicron 12+ Vaccination (Spikevax) 03/04 Family History Medical History Relation Name Comments Learning disabilities Daughter Bhumika Bullock Mental illness Daughter Bhumika Bullock Accidental Father Christian Hunt Arthritis Mother Luci Hunt Heart disease Mother Luci Hunt Arthritis Sister 1 Lia Bruny COPD Sister 1 Lia Bruny Hearing loss Sister 1 Lia Bruny Heart disease Sister 1 Lia Leonard Arthritis Sister 2 Arabella Choco Hearing loss Sister 2 Arabella Choco Heart disease Sister 2 Arabella HuntFranke Heart disease Son Gamaliel Bullock Hypertension Son Gamaliel Bullock Relation Name Status Comments Daughter Bhumika Bullock Alive Father Christian Hunt Mother Luci Hunt Sister 1 Lia Leonard Sister 2 Arabella Wilhelm Son Gamaliel Bullock Alive Social History Tobacco Use Types Packs/Day [...] - - Weight 57.2 kg (126 lb) 07/11/2024 8:50 AM EST Height 165.1 cm (5' 5 ) 07/11/2024 8:50 AM EST Body Mass Index 20.97 07/11/2024 8:50 AM EST Plan of Treatment Upcoming Encounters Date Type Department Care Team (Late st Contact Info) Description 11/12/2024 10:00 AM EDT Office Visit [facility] [address] [address] Alan Sheikh MD [address] [address] Follow up in about 6 months (around 11/11/2024), or Wellness exam.. Scheduled Orders Name Type Priority Associated Diagnoses Orde r Schedule MRI KNEE RIGHT WO IV CONTRAST Imaging Urgent Unilateral primary osteoarthritis, right knee Expected: 08/05/2024, Expires: 08/05/2025 Cologuard?? colon cancer screening Lab Routine Screen [...] Mammogram 1955 Sigmoidoscopy 1955 Pneumococcal Vaccine: 50+ Years (1 of 2 - PCV) 09/11/1974 Tdap and Td Vaccines Adult 09/11/1974 Zoster Vaccines (1 of 2) 09/11/2005 Fall Risk Screening 09/11/2020 COVID-19 Vaccine (2 - 2023-2 5 season) 2024 03/04/2024 Medicare Annual Wellness Visit 04/08/2025 04/08/2024 RSV 60+ (1 - 1-dose 75+ series) 09/11/2030 Influenza Vaccine Completed 02/28/2024 Lipid Panel Discontinued 07/29/2024, 03/21/2024 HIB Vaccines Aged Out No longer [...] Procedure Name Priority Date/Time Associated Diagnosis Comments CMP. Routine 07/29/2024 8:26 AM EDT Mixed hyperlipidemia CMP. Routine 07/29/2024 8:26 AM EDT Mixed hyperlipidemia LIPOPROTEIN (A) Routine 07/29/2024 8:26 AM EDT Mixed hyperlipidemia LIPID PANEL WITH RATIOS Routine 07/29/2024 8:26 AM EDT Mixed hyperlipidemia US ABDOMEN AORTIC ANEURYSM SCREENING Routine 07/29/2024 8:19 AM EDT Atherosclerosis of aorta (HCC) Atherosclerosis of other arteries ULTRASOUND CAROTID DOPPLER BILATERAL Routine 07/29/2024 8:16 AM EDT Other specified symptoms and signs involving the circulatory and respiratory systems MRI CERVICAL SPINE WO IV CONTRAST Routine 07/11/2024 9:21 AM EST Cervical disc disorder, unspecified, unspecified cervical region US BREAST RIGHT LIMITED Routine 07/02/2024 1:24 PM EST Mastalgia in female MG BREAST DIAGNOSTIC IMPLANT TOMOSYNTHESIS BILATERAL Routine 07/02/2024 1:04 PM EST Mastalgia in female X-RAY KNEE 3 VIEWS RIGHT STAT 06/22/2024 12:55 PM EST Acute pain of right knee MRI LUMBAR SPINE WO IV CONTRAST Routine 06/12/2024 3:05 PM EST Postlaminectomy syndrome, not elsewhere classified from Last 3 Months Results * (ABNORMAL) Comprehensive Metabolic Panel. (07/29/2024 8:26 AM EDT) [facility] Sodium 142 136 - 145 mmol/L LAB CHEMISTRY METHOD 07/29/2024 11:47 AM EDT LABORATORY SERVICES Comment:Please note referenc e range changes effective 03/19/2024. Potassium 4.3 3.5 - 5.1 mmol/L LAB CHEMISTRY METHOD 07/29/2024 11:47 AM EDT LAB[facility]ATORY SERVICES Comment:Please note referenc e range changes effective 03/19/2024. Chloride 106 98 - 107 mmol/L LAB CHEMISTRY METHOD 07/29/2024 11:47 AM EDT LABORATORY SERVICES Comment:Please note referenc e range changes effective 03/19/2024. CO2 26.7 20.0 - 31.0 mmol/L LAB CHEMISTRY METHOD 07/29/2024 11:47 AM EDT LABORATORY SERVICES Comment:Please note referenc e range changes effective 03/19/2024. Anion Gap 9 3 - 11 07/29/2024 11:47 AM [facility] Glucose Level 95 70 - 99 mg/dL LAB CHEMISTRY METHOD 07/29[facility]2024 11:[facility] BUN 14 9 - 23 mg/dL LAB CHEMISTRY METHOD 07/29/2024 11:47 AM [facility] Comment:Please note referenc e range changes effective 03/19/2024. Creatinine, Serum 0.6 0.6 - 1.0 mg/dL LAB CHEMISTRY METHOD 07/29/2024 11:47 AM [facility] Comment:Please note referenc e range changes effective 03/19/2024. B/CR Ratio 23.3(H) 6.0 - 23.0 07/29/2024 11:47 AM [facility] Glomerular Filtration Rate >=60 >=60 mL/min/1. 73 m2 LAB CHEMISTRY METHOD 07/29/2024 11:47 AM [facility] Comment:Calculation based on the Chronic Kidney Disease Epidemiology Collaboration(CKD-EPI) equation refit without adjustment for race. Calcium, Total 9.6 8.7 - 10.4 mg/dL LAB CHEMISTRY METHOD 07/29/2024 11:47 AM [facility] Comment:Please note referenc e range changes effective 03/19/2024. Total Protein 6.5 5.7 - 8.2 g/dL LAB CHEMISTRY METHOD 07/29/2024 11:47 AM [facility] Comment:Please note referenc e range changes effective 03/19/2024. Albumin Level 4.5 3.2 - 4.8 g/dL LAB CHEMISTRY METHOD 07/29/2024 11:47 AM [facility] Comment:Please note referenc e range changes effective 03/19/2024. A/G Ratio 2.3 1.1 - 3.0 07/29/2024 11:47 AM [facility] Total Bilirubin 0.4 0.1 - 1.2 mg/dL LAB CHEMISTRY METHOD 07/29/2024 11:47 AM [facility] Comment:The [employer] CH Tota l Bilirubin_2 (TBil_2) assay is based on a chemical oxidation method using vanadate as an oxidizing agent. ALT 27 10 - 49 U/L LAB CHEMISTRY METHOD 07/29/2024 11:47 AM [facility] Comment:Please note referenc e range changes effective 03/19/2024. AST 29 <34 U/L LAB CHEMISTRY METHOD 07/29/2024 11:47 AM EDT LABORATORY SERVICES Comment:Please note referenc e range changes effective 03/19/2024. Alkaline Phosphatase 81 28 - 130 U/L LAB CHEMISTRY METHOD 07/29/2024 11:47 AM EDT LABORATORY SERVICES Comment:Please note referenc e range changes effective 03/19/2024. Blood Venous blood / Unknown Venipuncture / Unknown 07/29/2024 8:26 AM EDT 07/29/2024 8:26 AM EDT Gabe Baumann MD LAB BLOOD ORDERABLES Final Resul t LABORATORY SERVICES CT:[id number] [place] [address], * Lipoprotein (a) (07/29/2024 8:26 AM EDT) Pathologist [facility] Lipoprotein (A) <10 <75 nmol/L 7:42 AM EDT [facility] Comment: ? Risk Category ??Optimal ?< 75 nmol/L ??Moderate ?? 75 - 125 nmol/L ??High ?> 125 nmol/L Cardiovascular event risk category cut points (optimal, moderate, high) are based on Stefan Castano JACC 2017;69:692-711. ? Blood Venous blood / Unknown Venipuncture / Unknown 07/29/2024 8:26 AM EDT 07/29/2024 8:26 AM EDT Narrative [facility] - 08/01/2024 7:42 AM EDT Performing Organization Information: ?Site ID: AMD ?Name: [facility] ?Address: [address] [place] [address] [address] [place] ?Director: José Luis Nguyen M.D.,PhD Gabe Baumann MD LAB BLOOD ORDERABLES Final Resul t [facility] [address] [facility] [place] [address], * Lipid Panel with Ratios (07/29/2024 8:26 AM EDT) Cholesterol 139 <200 mg/dL LAB CHEMISTRY METHOD 07/29/2024 11:47 AM EDT LABORATORY SERVICES Comment:Please note referenc e range changes effective 03/19/2024. Triglycerides 103 <150 mg/dL LAB CHEMISTRY METHOD 07/29/2024 11:47 AM EDT LABORATORY SERVICES HDL 60 >=40 mg/dL LAB CHEMISTRY METHOD 07/29/2024 11:47 AM EDT LABOR[facility]ORY SERVICES Comment:Please note referenc e range changes effective 03/19/2024. % Total 43 07/29/2024 11:47 AM EDT LABORATORY SERVICES LDL Calculated 58 <100 mg/dL 07/29/2024 11:47 AM EDT LABORATORY SERVICES Cholesterol HDL Ratio 2.3 07/29/2024 11:47 AM EDT LABORATORY SERVICES LDL/HDL Ratio 1.0 07/29/2024 11:47 AM EDT LABORATORY SERVICES NON HDL CHOLESTEROL 79 <130 07/29/2024 11:47 AM EDT LABORATORY SERVICES Blood Venous blood / Unknown Venipuncture / Unknown 07/29/2024 8:26 AM EDT 07/29/2024 8:26 AM EDT Gabe Baumann MD LAB BLOOD ORDERABLES Final Resul t LABORATORY SERVICES CT:[id number] [place] [address], [place] * US ABDOMEN AORTIC ANEURYSM SCREENING (07/29/2024 8:19 AM EDT) Anatomical Region Laterality Modality Abdominal aorta Ultrasound 07/29/2024 9:38 AM EDT Impressions 07/29/2024 9:39 AM EDT Atherosclerotic appearing changes in the abdominal aorta without sonographic evidence of significant abdominal aortic aneurysm. Less than 2.6 cm - no follow-up necessary. Based on the Society of Vascular Surgery recommendations. JVasc 2018. Narrative 07/29/2024 9:39 AM EDT PROCEDURE: ??US ABDOMEN AORTIC ANEURYSM SCREENING CLINICAL INDICATION: Atherosclerosis of aorta (HCC), Atherosclerosis of other arteries, hx of abdominal aortic athersclerosis COMPARISON: 04/08/2024. PROTOCOL: Grayscale imaging ? FINDINGS: Abdominal Aorta: . Proximal: 2.2 cm ??x 1.9 cm. Mid: 1.6 cm x 1.9 cm. Distal: 1.5 cm x 1.7 cm. Right Common Iliac Artery: 1.0 cm x 1.0 cm. Left Common Iliac Artery: 0.8 cm x 0.9 cm. Procedure Note [place] MD - 07/29/2024 PROCEDURE: US ABDOMEN AORTIC ANEURYSM SCREENING CLINICAL INDICATION: Atherosclerosis of aorta (HCC), Atherosclerosis ofother arteries, hx of abdominal aortic athersclerosis COMPARISON: 04/08/2024. PROTOCOL: Grayscale imaging FINDINGS: Abdominal Aorta: . Proximal: 2.2 cm x 1.9 cm. Mid: 1.6 cm x 1.9 cm. Distal: 1.5 cm x 1.7 cm. Right Common Iliac Artery: 1.0 cm x 1.0 cm. Left Common Iliac Artery: 0.8 cm x 0.9 cm. IMPRESSION: Atherosclerotic appearing changes in the abdominal aorta withoutsonographic evidence of significant abdominal aortic aneurysm. Less than 2.6 cm - no follow-up necessary. Based on the Society of Vascular Surgery recommendations. JVasc 2018. us Gabe Baumann [place] [facility] [place]ED[place] Final Result * US CAROTID DOPPLER BILATERAL (07/29/2024 8:16 AM EDT) Anatomical Region Laterality Modality Head and Neck Bilateral Ultrasound 07/29/2024 9:30 AM EDT Impressions 07/29/2024 9:32 AM EDT Right Internal Carotid Artery: ??Less than 50% stenosis. Left Internal Carotid Artery ??:Less than 50% stenosis. Society of Radiologists in Ultrasound (SRU) consensus statement (Radiology 2003;229:340-346) was used to estimate internal carotid artery stenosis. Narrative 07/29/2024 9:32 AM EDT PROCEDURE: ??US CAROTID DOPPLER BILATERAL CLINICAL INDICATION: ??Other specified symptoms and signs involving the circulatory and respiratory systems, carotid bruit COMPARISON: None. PROTOCOL: ??Grayscale, color, and spectral Doppler imaging. ?? FINDINGS: RIGHT: Internal Carotid PSV: 140 cm/s Spectral Broadening: None Common Carotid PSV: 86 cm/s External Carotid :Patent ICA/CCA RATIO: 1.6 PLAQUE: ??Plaque causes <50% narrowing of lumen diameter. Vertebral Artery: ??Antegrade flow with normal waveform. LEFT: Internal Carotid PSV: 162 cm/s Spectral Broadening: ??None Common Carotid PSV: 111 cm/s External Carotid: Patent ICA/CCA RATIO: 1.5 PLAQUE: Plaque causes <50% narrowing of lumen diameter. Vertebral Artery: ??Antegrade flow with normal waveform. Procedure Note [place] MD - 07/29/2024 PROCEDURE: US CAROTID DOPPLER BILATERAL CLINICAL INDICATION: Other specified symptoms and signs involving thecirculatory and respiratory systems, carotid bruit COMPARISON: None. PROTOCOL: Grayscale, color, and spectral Doppler imaging. FINDINGS: RIGHT: Internal Carotid PSV: 140 cm/s Spectral Broadening: None Common Carotid PSV: 86 cm/s External Carotid :Patent ICA/CCA RATIO: 1.6 PLAQUE: Plaque causes <50% narrowing of lumen diameter. Vertebral Artery: Antegrade flow with normal waveform. LEFT: Internal Carotid PSV: 162 cm/s Spectral Broadening: None Common Carotid PSV: 111 cm/s External Carotid: Patent ICA/CCA RATIO: 1.5 PLAQUE: Plaque causes <50% narrowing of lumen diameter. Vertebral Artery: Antegrade flow with normal waveform. IMPRESSION: Right Internal Carotid Artery: Less than 50% stenosis. Left Internal Carotid Artery :Less than 50% stenosis. Society of Radiologists in Ultrasound (SRU) consensus statement ([id number];229:340-346) was used to estimate internal carotid artery stenosis. Gabe Baumann MD IMG US PROCEDURES Final Result * MRI CERVICAL SPINE WO IV CONTRAST (07/11/2024 9:21 AM EST) Anatomical Region Laterality Modality Magnetic Resonan ce 07/12/2024 8:15 AM EST Impressions 07/12/2024 8:18 AM EST Degenerative changes in the cervical spine, as described. At C3-4, there is moderate spinal stenosis and moderate to severe right foraminal narrowing. Narrative 07/12/2024 8:18 AM EST CLINICAL HISTORY: Cervical disc disorder, unspecified, unspecified cervical region, cevical disc disorder///Pt states neck pain along with popping/clicking/headaches x years. No trauma. PROTOCOL: Multiplanar T1, T2, and STIR imaging. COMPARISON: None. FINDINGS: Study quality: Mildly motion degraded Visualized brain: Normal Alignment: Normal Bones: ??Vertebral body heights are preserved. No suspicious focal lesions identified. Cord: The cord is normal in configuration. ??No signal abnormality identified. Degenerative changes: C2-C3: Normal disc. No significant spinal or neuroforaminal narrowing. C3-C4: Narrowing of the intervertebral disc height. Small disc osteophyte complex and bilateral uncovertebral joint hypertrophy. Moderate spinal stenosis. Moderate to severe right and moderate left foraminal narrowing C4-C5: Small broad posterior disc osteophyte complex and right greater than left uncovertebral and facet joint hypertrophy. There is mild to moderate spinal stenosis. Moderate right and mild left foraminal narrowing. C5-C6: Normal disc. Right facet joint hypertrophy. No significant spinal or neuroforaminal narrowing. C6-C7: Normal disc. Right facet joint hypertrophy. No significant spinal or neuroforaminal narrowing. C7-T1: Tiny disc osteophyte complex. No significant spinal or neuroforaminal narrowing. Procedure Note Carin Umaña MD - 07/12/2024 CLINICAL HISTORY: Cervical disc disorder, unspecified, unspecifiedcervical region, cevical disc disorder///Pt states neck pain along withpopping/clicking/headaches x years. No trauma. PROTOCOL: Multiplanar T1, T2, and STIR imaging. COMPARISON: None. FINDINGS: Study quality: Mildly motion degraded Visualized brain: Normal Alignment: Normal Bones: Vertebral body heights are preserved. No suspicious focal lesionsidentified. Cord: The cord is normal in configuration. No signal abnormalityidentified. Degenerative changes: C2-C3: Normal disc. No significant spinal or neuroforaminal narrowing. C3-C4: Narrowing of the intervertebral disc height. Small disc osteophytecomplex and bilateral uncovertebral joint hypertrophy. Moderate spinalstenosis. Moderate to severe right and moderate left foraminal narrowing C4-C5: Small broad posterior disc osteophyte complex and right greaterthan left uncovertebral and facet joint hypertrophy. There is mild tomoderate spinal stenosis. Moderate right and mild left foraminalnarrowing. C5-C6: Normal disc. Right facet joint hypertrophy. No significant spinalor neuroforaminal narrowing. C6-C7: Normal disc. Right facet joint hypertrophy. No significant spinalor neuroforaminal narrowing. C7-T1: Tiny disc osteophyte complex. No significant spinal orneuroforaminal narrowing. IMPRESSION: Degenerative changes in the cervical spine, as described. At C3-4, thereis moderate spinal stenosis and moderate to severe right foraminalnarrowing. Ty Oliver MD IMG MRI PROCEDURES Final Result * US BREAST RIGHT LIMITED (07/02/2024 1:24 PM EST) Anatomical Region Laterality Modality Breast Right Ultrasound 07/02/2024 1:07 PM EST Impressions 07/02/2024 1:28 PM EST No mammographic or sonographic abnormality. Clinical follow-up for tenderness is recommended. BREAST: ??Right ??RECOMMENDATION: ??Back to annual screening mammogram schedule BREAST: ??Left ??RECOMMENDATION: ??Back to annual screening mammogram schedule BI-RADS: ??2, Benign Narrative 07/02/2024 1:28 PM EST PROCEDURE: ??MG BREAST DIAGNOSTIC IMPLANT TOMOSYNTHESIS BILATERAL, US BREAST RIGHT LIMITED CLINICAL INFORMATION: ??Mastalgia in female, Pain in right breast and axilla. Patient has implants., COMPARISON: None. PROTOCOL: ??Diagnostic mammogram of augmented breast(s) with tomographic views, with Computer Aided Detection, monitored by the Radiologist. (accession [id number]), Grayscale imaging with focused imaging of one or more quadrants (accession [id number]) ?? FINDINGS: The breasts are heterogeneously dense, which may obscure small masses. No suspicious mass or architectural distortion bilaterally. A few scattered bilateral microcalcifications are noted. No suspicious clustering. Intact bilateral retropectoral silicone implants. Right-sided targeted breast ultrasound was performed. No sonographic abnormality in the lateral breast area of pain or axilla. No evidence of extracapsular silicone. Procedure Note Ernesto Maciel MD - 07/02/2024 PROCEDURE: MG BREAST DIAGNOSTIC IMPLANT TOMOSYNTHESIS BILATERAL, USBREAST RIGHT LIMITED CLINICAL INFORMATION: Mastalgia in female, Pain in right breast andaxilla. Patient has implants., COMPARISON: None. PROTOCOL: Diagnostic mammogram of augmented breast(s) with tomographicviews, with Computer Aided Detection, monitored by the Radiologist.(accession [id number]), Grayscale imaging with focused imaging of one ormore quadrants (accession [id number]) FINDINGS: The breasts are heterogeneously dense, which may obscure small masses. Nosuspicious mass or architectural distortion bilaterally. A few scatteredbilateral microcalcifications are noted. No suspicious clustering. Intactbilateral retropectoral silicone implants. Right-sided targeted breast ultrasound was performed. No sonographicabnormality in the lateral breast area of pain or axilla. No evidence ofextracapsular silicone. IMPRESSION: No mammographic or sonographic abnormality. Clinical follow-up fortenderness is recommended. BREAST: Right RECOMMENDATION: Back to annual screening mammogramschedule BREAST: Left RECOMMENDATION: Back to annual screening mammogramschedule BI-RADS: 2, Benign us Sophia Clay APRN IMG US PROCEDURES Final Result * MG BREAST DIAGNOSTIC IMPLANT TOMOSYNTHESIS BILATERAL (07/02/2024 1:04 PM EST) Anatomical Region Laterality Modality Breast Bilateral Mammography 07/02/2024 1:07 PM EST Impressions 07/02/2024 1:28 PM EST No mammographic or sonographic abnormality. Clinical follow-up for tenderness is recommended. BREAST: ??Right ??RECOMMENDATION: ??Back to annual screening mammogram schedule BREAST: ??Left ??RECOMMENDATION: ??Back to annual screening mammogram schedule BI-RADS: ??2, Benign Narrative 07/02/2024 1:28 PM EST PROCEDURE: ??MG BREAST DIAGNOSTIC IMPLANT TOMOSYNTHESIS BILATERAL, US BREAST RIGHT LIMITED CLINICAL INFORMATION: ??Mastalgia in female, Pain in right breast and axilla. Patient has implants., COMPARISON: None. PROTOCOL: ??Diagnostic mammogram of augmented breast(s) with tomographic views, with Computer Aided Detection, monitored by the Radiologist. (accession [id number]), Grayscale imaging with focused imaging of one or more quadrants (accession [id number]) ?? FINDINGS: The breasts are heterogeneously dense, which may obscure small masses. No suspicious mass or architectural distortion bilaterally. A few scattered bilateral microcalcifications are noted. No suspicious clustering. Intact bilateral retropectoral silicone implants. Right-sided targeted breast ultrasound was performed. No sonographic abnormality in the lateral breast area of pain or axilla. No evidence of extracapsular silicone. Procedure Note Ernesto Maciel MD - 07/02/2024 PROCEDURE: MG BREAST DIAGNOSTIC IMPLANT TOMOSYNTHESIS BILATERAL, USBREAST RIGHT LIMITED CLINICAL INFORMATION: Mastalgia in female, Pain in right breast andaxilla. Patient has implants., COMPARISON: None. PROTOCOL: Diagnostic mammogram of augmented breast(s) with tomographicviews, with Computer Aided Detection, monitored by the Radiologist.(accession [id number]), Grayscale imaging with focused imaging of one ormore quadrants (accession [id number]) FINDINGS: The breasts are heterogeneously dense, which may obscure small masses. Nosuspicious mass or architectural distortion bilaterally. A few scatteredbilateral microcalcifications are noted. No suspicious clustering. Intactbilateral retropectoral silicone implants. Right-sided targeted breast ultrasound was performed. No sonographicabnormality in the lateral breast area of pain or axilla. No evidence ofextracapsular silicone. IMPRESSION: No mammographic or sonographic abnormality. Clinical follow-up fortenderness is recommended. BREAST: Right RECOMMENDATION: Back to annual screening mammogramschedule BREAST: Left RECOMMENDATION: Back to annual screening mammogramschedule BI-RADS: 2, Benign Sophia Clay APRN IMG BI PROCEDURES Final Result * XR knee 3 views right (06/22/2024 [...] medial tibiofemoral compartment. us Malachi Peters PA-C IMAgustin XR PROCEDURES Final Re sult * MRI [...] Oliver MD IMG MRI PROCEDURES Final Result from Last 3 Months Insurance MEDICARE ANTHEM BLUE CROSS Care Teams Jockey Room Custodian Relationship Specialty Start Date End Date Alan Sheikh MD [address] [place] [address] [id number] PCP - General 05/08/24
--- OUTSIDE RECORDS SUMMARY | 2024-08-23 09:26 | XMS_ITS | Encounter Summary ---
Author Organization [facility] Address [address] [place] [address] Care Team Providers Care Fishing Rod Assembler Name Role Phone Alan Sheikh MD Primary Care Provider [phone] [phone] Encounter Details Date Type Department Care Team ([facility] Contact Info) Description 07/05/2024 Ancillary Orders [facility] Radiology, Outpatient Center (Diag Rad) [address] [facility], [address] [place], [place] [address] Provider, MD Renuka [address] [place] [address] Social History Tobacco Use Types Packs/Day Years [...] Description 11/12/2024 10:00 AM EDT Office Visit [facility] Primary [facility] [place] [address] [place] [address] Alan Sheikh MD [address] [place] [address] Follow up in about 6 months (around 11/11/2024), or Wellness exam.. documented as of this encounter Results * MG TRANSFER OF OUTSIDE FILMS (04/24/2019 12:00 AM EST) Narrative IMAGING - 07/05/2024 3:11 PM EST This order has been auto-finalized and does not contain a result. us Cutover Provider IMG BI PROCEDURES Final Resu lt IMAGING documented in this encounter Visit Diagnoses Not on filedocumented in this encounter Care Teams Fishing Rod Assembler Relationship Specialty Start Date End Date Alan Sheikh MD [address] [place] [address] PCP - General 05/08/24 documented as of this encounter
--- OUTSIDE RECORDS SUMMARY | 2024-08-23 09:26 | XMS_ITS | Encounter Summary ---
Author Organization Formerly [facility] Address [address] [place] [address] Care Team Providers Care Mechanical Unit Repairer Name Role Phone Mocavosex Primary Care Provider Gabe Hernández MD Unavailable Encounter Details Date Type Department Care Team (Late st Contact Info) Description 08/13/2024 Orders Only formerly [facility] [address] [phone] Vascular Surgery, Scan Social History Tobacco Use Types Packs/Day Years Used Date Smoking Tobacco: Every Day Cigarettes Comments Unknown Sex and Gender Information Value Date Recorded Sex Assigned at Female 12/19/2023 1:16 PM EDT Legal Sex Female 1:14 PM EDT Gender Identity Female 12/19/2023 1:16 PM EDT Sexual Orientation Heterosexual (straight) 12/18 1:16 PM EDT documented as of this encounter Plan of Treatment Upcoming Encounters Date Type Department Care Team (Late st Contact Info) Description 12/30/2024 10:00 AM EDT Office Visit [facility] [address] [phone] Gabe Baumann MD [address] [place] [address] documented as of this encounter Goals Goal Patient Goal Type Associated Problems Recent Progress Patient-Stated? Author PT STG 1 Physical Therapy No Maru Parks PT Note: Pt will be independent with HEP for self management of symptoms in 3 weeks documented as of this encounter Procedures Procedure Name Priority Date/Time Associated Diagnosis Comments VASCULAR TEST Routine 08/12/2024 4:31 PM EDT documented in this encounter Results * VASCULAR TEST (08/12/2024 4:31 PM EDT) us Scan Vascular Surgery HX AMB PROCEDURES Final Re sult documented in this encounter Visit Diagnoses Not on filedocumented in this encounter Care Teams Mechanical Unit Repairer Relationship Specialty Start Date End Date [facility] PCP - General 04/15/24 Gabe Baumann MD [address] [place] [address] Primary Seed Mill Superintendent Cardiovascular Disease 06/24/24 documented as of this encounter
--- OUTSIDE RECORDS SUMMARY | 2024-08-23 09:26 | XMS_ITS | Encounter Summary ---
Author Organization [facility] Address [address] [place] [address] Care Team Providers Care Import/Export Administrator Name Role Phone Alan Sheikh MD Primary Care Provider [phone] Encounter Details Date Type Department Care Team (Late st Contact Info) Description 05/29/2024 Procedure Pass [facility] Radiology, [facility] (MRI) [address] [place], [place] [address] Social History Tobacco Use Types Packs/Day Years [...] Description 11/12/2024 10:00 AM EDT Office Visit [facility] [address] [place] [address] Alan Sheikh MD [address] [place] [address] Follow up in about 6 months (around 11/11/2024), or Wellness exam.. documented as of this encounter Visit Diagnoses Not on filedocumented in this encounter Care Teams Import/Export Administrator Relationship Specialty Start Date End Date Alan Sheikh MD [address] [place] [address] PCP - General 05/08/24 documented as of this encounter
--- OUTSIDE RECORDS SUMMARY | 2024-08-23 09:26 | XMS_ITS | Encounter Summary ---
Author Organization [facility] Address [address] [place] [address] Care Team Providers Care Paperhanger Contractor Name Role Phone Alan Sheikh MD Primary Care Provider [phone] Encounter Details Date Type Department Care Team ([facility] Contact Info) Description 07/05/2024 Ancillary Orders [facility] Radiology, Outpatient Center (Diag Rad) 534 [facility], [address] [place], [place] [address] Provider, MD Renuka [address] [place] [address] Social History Tobacco Use Types Packs/Day Years [...] Description 11/12/2024 10:00 AM EDT Office Visit [facility] Primary Care [place] [address] [place] [address] Alan Sheikh MD [address] [place] [address] Follow up in about 6 months (around 11/11/2024), or Wellness exam.. documented as of this encounter Results * MG TRANSFER OF OUTSIDE FILMS (04/03/2018 12:00 AM EST) Narrative IMAGING - 07/05/2024 3:12 PM EST This order has been auto-finalized and does not contain a result. us Cutover Provider IMG BI PROCEDURES Final Resu lt IMAGING documented in this encounter Visit Diagnoses Not on filedocumented in this encounter Care Teams Paperhanger Contractor Relationship Specialty Start Date End Date Alan Sheikh MD [address] [place] [address] PCP - General 05/08/24 documented as of this encounter
--- OUTSIDE RECORDS SUMMARY | 2024-08-23 09:26 | XMS_ITS | Encounter Summary ---
Author Organization [facility] Address [address] [place] [address] Care Team Providers Care Solar Fabrication Technician Name Role Phone Alan Sheikh MD Primary Care Provider [phone] Reason for Referral * Imaging (Routine) - Authorized Specialty Diagnoses / Procedures Referred By Contac t Referred To Contact Radiology Diagnoses Atherosclerosis of aorta (HCC) Atherosclerosis of other arteries Procedures US ABDOMEN AORTIC ANEURYSM SCREENING Gabe Baumann MD [address] [place] [address] Phone: tel: fax: [facility] Phone: tel: fax: Referral ID Status Reason Start Date Expiration Date Visits Requested Visits Authorized [id number] Authorized Perform Procedure 07/02/2024 07/02/2025 1 1 Encounter Details Date Type Department Care Team (Latest Contact Info) Description 07/02/2024 Ancillary Orders [facility] Radiology - [place] [phone] Gabe Baumann MD [address] [place] [address] Atherosclerosis of aorta (HCC) (Primary Dx); Atherosclerosis of other arteries Social History Tobacco Use Types Packs/Day Years [...] Description 11/12/2024 10:00 AM EDT Office Visit [address] [address] Alan Sheikh MD [address] [place] [address] Follow up in about 6 months (around 11/11/2024), or Wellness exam.. documented as of this encounter Results * US ABDOMEN AORTIC ANEURYSM SCREENING (07/29/2024 [...] Society of Vascular Surgery recommendations. JVasc 2018. Gabe Baumann MD [facility] US PROCEDURES Final Result documented in this encounter Visit Diagnoses Diagnosis Atherosclerosis of aorta (HCC)- Primary Atherosclerosis of aorta Atherosclerosis of other arteries Atherosclerosis of aorta (HCC) Atherosclerosis of aorta Atherosclerosis of other arteries documented in this encounter Care Teams Solar Fabrication Technician Relationship Specialty Start Date End Date Alan Sheikh MD [address] [place] [address] PCP - General 05/08/24 documented as of this encounter
--- OUTSIDE RECORDS SUMMARY | 2024-08-23 09:26 | XMS_ITS | Encounter Summary ---
Author Organization [facility] Address [address] [place] [address] Care Team Providers Care Facepiece Line Supervisor Name Role Phone Alan Sheikh MD Primary Care Provider [phone] Encounter Details Date Type Department Care Team ([facility] [place] [facility] Contact Info) Description 07/05/2024 Ancillary Orders [facility] Radiology, Outpatient Center (Diag Rad) 534 [facility], [address] [place], [place] [address] Provider, MD Renuka [address] [place] [address] Social History Tobacco Use Types Packs/Day Years [...] 11/12/2024 10:00 AM EDT Office Visit [facility] [address] [place] [address] Alan Sheikh MD [address] [place] [address] Follow up in about 6 months (around 11/11/2024), or Wellness exam.. documented as of this encounter Results * MG TRANSFER OF OUTSIDE FILMS (05/18/2021 12:00 AM EST) Narrative IMAGING - 07/05/2024 3:10 PM EST This order has been auto-finalized and does not contain a result. us Cutover Provider IMG BI PROCEDURES Final Resu lt IMAGING documented in this encounter Visit Diagnoses Not on filedocumented in this encounter Care Teams Facepiece Line Supervisor Relationship Specialty Start Date End Date Alan Sheikh MD [address] [place] [address] PCP - General 05/08/24 documented as of this encounter
--- OUTSIDE RECORDS SUMMARY | 2024-08-23 09:26 | XMS_ITS | Encounter Summary ---
Author Organization [facility] Address [address] [place] [address] Care Team Providers Care Faucet Polisher Name Role Phone Alan Sheikh MD Primary Care Provider [phone] Encounter Details Date Type Department Care Team ([facility] Contact Info) Description 07/05/2024 Ancillary Orders [facility] Radiology, Outpatient Center (Diag Rad) 534 [facility], [address] [place], [place] [address] Provider, MD Renuka [address] [place] [address] Social History Tobacco Use Types Packs/Day Years [...] Office Visit [facility] Primary Care [place] [address] [place] [address] Alan Sheikh MD [address] [place] [address] Follow up in about 6 months (around 11/11/2024), or Wellness exam.. documented as of this encounter Results * MG TRANSFER OF OUTSIDE FILMS (05/12/2020 12:00 AM EST) Narrative IMAGING - 07/05/2024 3:11 PM EST This order has been auto-finalized and does not contain a result. us Cutover Provider IMG BI PROCEDURES Final Resu lt IMAGING documented in this encounter Visit Diagnoses Not on filedocumented in this encounter Care Teams Faucet Polisher Relationship Specialty Start Date End Date Alan Sheikh MD [address] [place] [address] PCP - General 05/08/24 documented as of this encounter
--- OUTSIDE RECORDS SUMMARY | 2024-08-23 09:26 | XMS_ITS | Encounter Summary ---
Author Organization [facility] Address [address] [place] [address] Care Team Providers Care Mat Man Name Role Phone Alan Sheikh MD Primary Care Provider [phone] Reason for Referral * Imaging (Routine) - Authorized Specialty Diagnoses / Procedures Referred By Contac t Referred To Contact Radiology Diagnoses Cervical disc disorder, unspecified, unspecified cervical region Procedures MRI CERVICAL SPINE WO IV CONTRAST Ty Oliver MD [address] [place] [address] [address] Phone: tel: fax: [facility] - [place] Phone: tel: fax: Referral ID Status Reason Start Date Expiration Date Visits Requested Visits Authorized [id number] Authorized Perform Procedure 06/27/2024 06/27/2025 1 1 Encounter Details Date Type Department Care Team (Late st Contact Info) Description 06/27/2024 Ancillary Orders [facility] - [place] [phone] Ty Oliver MD [address] [place] [address] Cervical disc disorder, unspecified, unspecified cervical region (Primary Dx) Social History Tobacco Use Types [...] Description 11/12/2024 10:00 AM EDT Office Visit [facility] [address] [address] Alan Sheikh MD [address] [address] Follow up in about 6 months (around 11/11/2024), or Wellness exam.. documented as of this encounter Results * MRI CERVICAL SPINE WO IV CONTRAST [...] documented in this encounter Visit Diagnoses Diagnosis Cervical disc disorder, unspecified, unspecified cervical region- Primary Cervical disc disorder, unspecified, unspecified cervical region documented in this encounter Care Teams Mat Man Relationship Specialty Start Date End Date Alan Sheikh MD [address] [place] [address] PCP - General 05/08/24 documented as of this encounter
--- OUTSIDE RECORDS SUMMARY | 2024-08-23 09:26 | XMS_ITS | Encounter Summary ---
Author Organization [facility] Address [address] [place] [address] Care Team Providers Care Nursing Home Assistant Administrator Name Role Phone [facility] Primary Care Provider Gabe Hernández MD Unavailable Encounter Details Date Type Department Care Team (Late st Contact Info) Description 02/23/2024 Scanned Document [facility] [address] [place] [phone] Provider, Generic Social History Tobacco Use [...] Description 12/30/2024 10:00 AM EDT Office Visit [facility] [place] [address] [place] [phone] Gabe Baumann MD [address] [place] [address] documented as of this encounter Visit Diagnoses Not on filedocumented in this encounter Care Teams Nursing Home Assistant Administrator Relationship Specialty Start Date End Date [facility] PCP - General 04/15/24 Gabe Baumann MD [address] [place] [address] Primary Leather Staker Cardiovascular Disease 06/24/24 documented as of this encounter
--- OUTSIDE RECORDS SUMMARY | 2024-08-23 09:26 | XMS_ITS | Encounter Summary ---
Author Organization [facility] Address [address] [place] [address] Care Team Providers Care Supervisor Salvage Name Role Phone [employer] Primary Care Provider Gabe Hernández MD Unavailable Encounter Details Date Type Department Care Team (Late st Contact Info) Description 07/16/2024 Scanned Document [facility] [address] [place] [phone] Provider, Generic Social History Tobacco Use [...] Description 12/30/2024 10:00 AM EDT Office Visit [facility] [place] [address] [phone] Gabe Baumann MD [address] [place] [address] documented as of this encounter Goals Goal Patient Goal Type Associated Problems Recent Progress Patient-Stated? Author PT STG 1 Physical Therapy No Dvorsky, Maru, PT Note: Pt will be independent with HEP for self management of symptoms in 3 weeks documented as of this encounter Visit Diagnoses Not on filedocumented in this encounter Care Teams Supervisor Salvage Relationship Specialty Start Date End Date [facility] PCP - General 04/15/24 Gabe Baumann MD [address] [place] [address] Primary Psychiatric Clinical Nurse Specialist Cardiovascular Disease 06/24/24 documented as of this encounter
--- OUTSIDE RECORDS SUMMARY | 2024-08-23 09:26 | XMS_ITS | Encounter Summary ---
Author Organization [facility] Address [address] [place] [address] Care Team Providers Care Clinical Rn Manager Name Role Phone Alan Sheikh MD Primary Care Provider [phone] [phone] Encounter Details Date Type Department Care Team (Late st Contact Info) Description 06/20/2024 Procedure Pass [facility] Radiology, [facility] (Ultrasound) [address] [place], [place] [address] Social History Tobacco Use Types Packs/Day Years [...] Description 11/12/2024 10:00 AM EDT Office Visit [facility] [address] [place] [address] Alan Sheikh MD [address] [place] [address] Follow up in about 6 months (around 11/11/2024), or Wellness exam.. documented as of this encounter Visit Diagnoses Not on filedocumented in this encounter Care Teams Clinical Rn Manager Relationship Specialty Start Date End Date Alan Sheikh MD [address] [place] [address] PCP - General 05/08/24 documented as of this encounter
--- OUTSIDE RECORDS SUMMARY | 2024-08-23 09:26 | XMS_ITS | Encounter Summary ---
Author Organization [facility] Address [address] [place] [address] Care Team Providers Care Metal Cut Off Saw Operator Name Role Phone Alan Sheikh MD Primary Care Provider [phone] Encounter Details Date Type Department Care Team ([facility] Contact Info) Description 07/04/2024 Results Follow-Up [facility] COMMUNICATION SPECIALIST [address] [address] Sophia Clay, COMMERCIAL DIVER [address] [place], [place] [phone] Social History Tobacco Use Types Packs/Day Years [...] Description 11/12/2024 10:00 AM EDT Office Visit [facility] [address] [place] [address] Alan Sheikh MD [address] [place] [address] Follow up in about 6 months (around 11/11/2024), or Wellness exam.. documented as of this encounter Visit Diagnoses Not on filedocumented in this encounter Care Teams Metal Cut Off Saw Operator Relationship Specialty Start Date End Date Alan Sheikh MD [address] [place] [address] PCP - General 05/08/24 documented as of this encounter
--- OUTSIDE RECORDS SUMMARY | 2024-08-23 09:26 | XMS_ITS | Encounter Summary ---
[facility] Organization [facility] Address [address] [place] [address] Care Team Providers Care Nursery Technician Name Role Phone Alan Sheikh MD Primary Care Provider [phone] [phone] Reason for Referral * Imaging (Routine) - Authorized Specialty Diagnoses / Procedures Referred By Contac t Referred To Contact Radiology Diagnoses Other specified symptoms and signs involving the circulatory and respiratory systems Procedures US CAROTID DOPPLER BILATERAL Gabe Baumann MD [address] [place] [address] Phone: tel: fax: [facility] - Central Scheduling [place] Phone: tel: fax: Referral ID Status Reason Start Date Expiration Date Visits Requested Visits Authorized [id number] Authorized Perform Procedure 07/02/2024 07/02/2025 1 1 Encounter Details Date Type Department Care Team (Latest Contact Info) Description 07/02/2024 Ancillary Orders [facility] Radiology - Central Scheduling [place] [phone] Gabe Baumann MD [address] [place] [address] Atherosclerosis of aorta (HCC) (Primary Dx); Atherosclerosis of other arteries; Other specified symptoms and signs involving the circulatory and respiratory systems Social History Tobacco Use Types Packs/Day Years [...] Description 11/12/2024 10:00 AM EDT Office Visit [facility] [address] [address] Alan Sheikh MD [address] [address] Follow up in about 6 months (around 11/11/2024), or Wellness exam.. documented as of this encounter Results * US CAROTID DOPPLER BILATERAL (07/29/2024 8:16 [...] of Radiologists in Ultrasound (SRU) consensus statement ([id number];229:[id number]) was used to estimate internal carotid artery stenosis. us Gabe Baumann MD IMG US PROCEDURES Final Result documented in this encounter Visit Diagnoses Diagnosis Atherosclerosis of aorta (HCC)- Primary Atherosclerosis of aorta Atherosclerosis of other arteries Other specified symptoms and signs involving the circulatory and respiratory systems Other specified symptoms and signs involving the circulatory and respiratory systems documented in this encounter Care Teams Nursery Technician Relationship Specialty Start Date End Date Alan Sheikh MD [address] [place] [address] PCP - General 05/08/24 documented as of this encounter
--- OUTSIDE RECORDS SUMMARY | 2024-08-23 09:26 | XMS_ITS | Clinical Summary ---
Author Organization [facility] Address [address] [place] [address] Care Team Providers Care Roller Leveler Name Role Phone [facility] Provider Gabe Hernández MD Unavailable Allergies No known active allergies Medications atorvastatin (LIPITOR) 40 MG tablet Take 1 tablet (40 mg total) by mouth. 4 Active oxyCODONE-acetamino phen (PERCOCET) 5-325 mg per tablet TAKE 1 TABLET EVERY 12 HOURS FOR PAIN NEEDED 4 Active Calcium Carbonate Antacid 400 MG Chew Tab 600 mg. Active coenzyme Q10 (CO Q 10) 100 MG capsule daily. 4 Active ezetimibe (ZeTIA) 10 MG tabletIndications:M ixed hyperlipidemia Take 1 tablet (10 mg total) by mouth daily. 90 tablet 3 5 Active meloxicam (MOBIC) 15 MG tabletIndications:T ear of medial meniscus of right knee, current, unspecified tear type, initial encounter Take 1 tablet (15 mg total) by mouth daily as needed for moderate pain or mild pain. Take with food. 30 tablet 2 5 Active metoPROLOL TARTRATE (LOPRESSOR) 25 MG tabletIndications:A trial tachycardia Take 1 tablet (25 mg total) by mouth 2 (two) times a day. 180 tablet 3 5 Active Active Problems Problem Noted Date Diagnosed Date Claudication 07/26/2024 Smoking 06/24/2024 Chest pain 06/24/2024 Mixed hyperlipidemia 06/24/2024 Bilateral carotid bruits 06/24/2024 Aorto-iliac atherosclerosis 05/14/2024 Overview (06/17/2024): present with dense SEVERE calcifications in lower aorta & both proximal lilic arteries Heart palpitations 04/26/2024 Overview (04/26/2024): Palpation getting worse, chest pain getting worse Hypercholesterolemia 02/09/2024 History of lumbar spinal fusion 01/15/2005 Overview (06/17/2024): Revision in 2008 Encounters Date Type Department Care Team Description 08/13/2024 Orders Only [facility] [address] [place] [address] Vascular Surgery, Scan 07/26/2024 Telephone [facility] [address] [phone] Gabe Baumann MD 07/16/2024 10:00 AM EDT Ancillary Procedure [facility] [address] [phone] Gabe Baumann MD Heart palpitations 07/16/2024 Travel 07/16/2024 Scanned Document [facility] [address] [place] [phone] Provider, Generic 07/15/2024 11:30 AM EDT Evaluation [facility] [address] [place] [phone] Maru Parks, PT Acute pain of right knee (Primary Dx) 07/09/2024 9:30 AM EST Office Visit [facility] [address] [place] [phone] Celi Jimenez MD Tear of medial meniscus of right knee, current, unspecified tear type, initial encounter (Primary Dx) 07/06/2024 9:00 AM EST Ancillary Procedure [address] [phone] Celi Jimenez MD 07/01/2024 Telephone [facility] [address] [phone] Celi Jimenez MD Other (July patient called you back. I tried to reach you but you were with a patient. Please call her on her cell phone.) 07/01/2024 Orders Only [address] [phone] Celi Jimenez MD Primary osteoarthritis of right knee (Primary Dx) 06/25/2024 1:45 PM EST Office Visit [address] [phone] Celi Jimenez MD Primary osteoarthritis of right knee (Primary Dx); Primary osteoarthritis of left knee 06/24/2024 9:30 AM EST Consult [facility] [place] [address] [phone] Gabe Baumann MD Chest pain, unspecified type (Primary Dx); Heart palpitations; Aorto-iliac atherosclerosis; Mixed hyperlipidemia; Bilateral carotid bruits; Smoking 06/24/2024 Travel 06/11/2024 9:30 AM EST Office Visit [address] [phone] Celi Jimenez MD Primary osteoarthritis of left knee (Primary Dx); Primary osteoarthritis of right knee 06/07/2024 9:30 AM EST Office Visit [address] [phone] Arya Glaser, ANA Ingrown toenail (Primary Dx); Pain in left foot; Pain in right foot from Last 3 Months Social History Tobacco Use Types Packs/Day Years Used Date Smoking Tobacco: Every Day Cigarettes Tobacco Cessation:Ready to Q uit: Not Asked; Counseling Given: Not Answered Comments Unknown Sex and Gender Information Value [...] Description 12/30/2024 10:00 AM EDT Office Visit [facility] [place] [address] [phone] Gabe Baumann MD [address] [place] [address] Health Maintenance Due Date Last Done Comments Hepatitis C Virus Screening 1955 DTaP/Tdap/Td Vaccines (1 - Tdap) 09/11/1974 Pneumococcal Vaccines 50+ (1 of 2 - PCV) 09/11/1974 Mammogram 1995 Colonoscopy 09/11/2000 Zoster (Shingles) Vaccine (1 of 2) 09/11/2005 DXA Bone Density (Females,Ag es 65 and older) 09/11/2020 COVID-19 Vaccine (2 - 2023-2 5 season) 2024 03/04/2024 RSV Vaccine 60 years and old er and Patients (1 - 1-dose 75+ series) 09/11/2030 Influenza Vaccine Completed 02/28/2024 Hepatitis B Vaccines Aged Out No long er eligible based on patient's age to complete this topic Goals Goal Patient Goal Type Associated Problems Recent Progress Patient-Stated? Author PT STG 1 Physical Therapy No Maru Parks PT Note: Pt will be independent with HEP for self management of symptoms in 3 weeks Procedures Procedure Name Priority Date/Time Associated Diagnosis Comments VASCULAR TEST Routine 08/12/2024 4:31 PM EDT COMPREHENSIVE METABOLIC PANEL Routine 07/29/2024 Mixed hyperlipidemia LIPID PANEL WITH RATIOS Routine 07/29/2024 Mixed hyperlipidemia US ARTERIAL DUPLEX CAROTID EXTRACRANIAL-BILATERA L Routine 07/29/2024 Bilateral carotid bruits US AAA SCREENING Routine 07/29/2024 Aorto-iliac atherosclerosis CAM PATCH 3-7 DAYS - OFFICE MAGNETIC TESTING TECHNICIAN Routine 07/22/2024 9:55 AM EDT Heart palpitations MRI KNEE W/O CONTRAST-RIGHT Routine 07/06/2024 9:31 AM EST Primary osteoarthritis of right knee MO ARTHROCENTESIS ASPIR&/INJ MAJOR JT/BURSA W/O US Routine 06/11/2024 9:30 AM EST Primary osteoarthritis of left knee MO ARTHROCENTESIS ASPIR&/INJ MAJOR JT/BURSA W/O US Routine 06/11/2024 9:30 AM EST Primary osteoarthritis of right knee from Last 3 Months Results * VASCULAR TEST (08/12/2024 4:31 PM EDT) us Scan Vascular Surgery HX AMB PROCEDURES Final Re sult * LIPID PANEL WITH RATIOS (07/29/2024) Blood 07/29/2024 Narrative Cynthia Padron - 07/29/2024 2:55 PM EDT RESULTS IN CARE EVERYWHERE, READY TO REVIEW. us Gabe Baumann MD LAB BLOOD ORDERABLES Final Resul t * US AAA-Screening (07/29/2024) Anatomical Region Laterality Modality Abdomen, Pelvis Ultrasound 07/29/2024 Narrative 07/29/2024 11:54 AM EDT RESULTS IN CARE EVERYWHERE, READY TO REVIEW. Result Trinity Baumann MD [facility] [place] ORDERABLES Final Result * US Arterial duplex carotid extracranial-Bilateral (07/29/2024) Anatomical Region Laterality Modality Vascular Bilateral Ultrasound 07/29/2024 Narrative 07/29/2024 9:41 AM EDT RESULTS IN CARE EVERYWHERE, READY TO REVIEW. Result Trinity Baumann MD [facility] [place] US ORDERABLES Final Result * Comprehensive Metabolic Panel (07/29/2024) Blood 07/29/2024 Narrative Cynthia Padron - 07/29/2024 2:55 PM EDT RESULTS IN CARE EVERYWHERE, READY TO REVIEW. Result Trinity Baumann MD LAB BLOOD ORDERABLES Final Resul t * CAM PATCH 3-7 DAYS - OFFICE MAGNETIC TESTING TECHNICIAN (07/22/2024 9:55 AM EDT) Anatomical Region Laterality Modality Enterprise Business Architect 07/26/2024 Narrative 07/26/2024 11:09 AM EDT 7 Day Holter Indications: Palpitations Dates Worn: 07/16/2024 - 07/22/2024 Total diagnostic time: 5 days, 20 hours The predominant rhythm during the monitoring period was normal sinus rhythm. The minimum heart rate was 61 bpm, the maximum heart rate was 86 bpm, the average heart rate was 141 bpm. ?? There were rare PVCs with <0.1% burden. There were rare PACs with <0.1% burden. There were 5 patient triggered recordings which correlated with ectopic atrial rhythm (2) and atrial tachycardia (3). There were 5 total episodes of atrial tachycardia, the longest and fasting lasting 2.4 minutes at 157 bpm (up to 180 bpm). In conclusion: Predominantly normal sinus rhythm, average heart rate 86 bpm, rare PACs and PVCs, 5 patient triggered recordings which correlated to EAR and episodes of AT. 5 total episodes of atrial tachycardia, the longest and fasting lasting 2.4 minutes at 157 bpm (up to 180 bpm). Gabe Baumann MD [facility] ORDERABLES F inal Result * MRI Knee w/o contrast-Right (07/06/2024 9:31 AM EST) Anatomical Region Laterality Modality Knee Right Magnetic Resonan ce 07/06/2024 10:0 4 AM EST Impressions 07/06/2024 10:10 AM EST 1. Small right knee joint effusion with medial and patellofemoral compartment degenerative joint disease as described above. 2. Tearing of the right medial meniscus. 3. 3.7 cm thinly septated cystic structure of the posteromedial aspect of the right knee joint may represent a ganglion cyst versus pes anserine bursitis. Narrative 07/06/2024 10:10 AM EST MRI of the right knee without contrast. INDICATION: Right knee pain. Evaluate for a medial meniscal tear. TECHNIQUE: A standard departmental protocol was used for this examination. Correlation with right knee radiographs dated 02/19/2024. FINDINGS: There is a right knee joint effusion with a 3.7 cm thinly septated cystic structure along the posteromedial aspect of the right knee joint. This is not consistent with a Hernández's cyst. As can help Ibrahima camacho via findings. Around the house aftercare limited by within the medial compartment, there is free margin and oblique undersurface tearing of the posterior horn of the medial meniscus. There is moderate partial-thickness articular cartilage loss overlying the medial femoral condyle with both partial-thickness and full-thickness articular cartilage loss overlying the medial tibial plateau associated with subchondral foci of signal abnormality. Mild subchondral marrow edema is seen within the medial weightbearing aspect of the medial femoral condyle. Within the lateral compartment, the meniscus appears within normal limits and there are no articular cartilage defects. Within the patellofemoral compartment, there is full-thickness articular cartilage loss and articular cartilage flap formation overlying the lateral patellar facet with moderate to severe patellar apex and medial patellar facet partial-thickness articular cartilage loss. The ACL, PCL, MCL and LCL are intact. The extensor mechanism is unremarkable. Procedure Note Beka Guidry MD - 07/06/2024 MRI of the right knee without contrast. INDICATION: Right knee pain. Evaluate for a medial meniscal tear. TECHNIQUE: A standard departmental protocol was used for thisexamination. Correlation with right knee radiographs dated 02/19/2024. FINDINGS: There is a right knee joint effusion with a 3.7 cm thinly septated cysticstructure along the posteromedial aspect of the right knee joint. This isnot consistent with a Hernández's cyst. As can help humeral ligament, Ibrahima via findings. Around the houseaftercare limited by within the medial compartment, there is free marginand oblique undersurface tearing of the posterior horn of the medialmeniscus. There is moderate partial-thickness articular cartilage loss overlying the medial femoralcondyle with both partial-thickness and full-thickness articular cartilageloss overlying the medial tibial plateau associated with subchondral fociof signal abnormality. Mild subchondral marrow edema is seen within the medial weightbearing aspect ofthe medial femoral condyle. Within the lateral compartment, the meniscus appears within normal limitsand there are no articular cartilage defects. Within the patellofemoral compartment, there is full-thickness articularcartilage loss and articular cartilage flap formation overlying thelateral patellar facet with moderate to severe patellar apex and medialpatellar facet partial-thickness articular cartilage loss. The ACL, PCL, MCL and LCL are intact. The extensor mechanism isunremarkable. IMPRESSION: 1. Small right knee joint effusion with medial and patellofemoralcompartment degenerative joint disease as described above. 2. Tearing of the right medial meniscus. 3. 3.7 cm thinly septated cystic structure of the posteromedial aspect ofthe right knee joint may represent a ganglion cyst versus pes anserinebursitis. us Celi Jimenez MD IMG MRI ORDERABLES Final Resu lt * MO ARTHROCENTESIS ASPIR&/INJ MAJOR JT/BURSA W/O US (06/11/2024 9:30 AM EST) Celi Dimas MD - 06/11/2024 9:30 AM EST Celi [...] to verify the correct patient, procedure, equipment, retail support associate and site/side marked as required. Patient was prepped and draped in the usual sterile fashion. Celi Jimenez MD PROCEDURE/MINOR SURGICAL [facility] [place] Edited Result - Final * MO ARTHROCENTESIS ASPIR&/INJ MAJOR JT/BURSA W/O US (06/11/2024 9:30 AM EST) Celi Dimas MD - 06/11/2024 9:30 AM EST Celi [...] to verify the correct patient, procedure, equipment, retail support associate and site/side marked as required. Patient was prepped and draped in the usual sterile fashion. Celi Jimenez MD PROCEDURE/MINOR SURGICAL [facility] [place] Edited Result - Final from Last 3 Months Insurance MEDICARE PART A & [place] [id number] MEDICARE PART A [place] [id number] Care Teams Roller Leveler Relationship Specialty Start Date End Date [facility] PCP - General 04/15/24 Gabe Baumann MD [address] [place] [id number] Primary Electronics Parts Sales Representative Cardiovascular Disease 06/24/24
--- OUTSIDE RECORDS SUMMARY | 2024-08-23 09:26 | XMS_ITS | Encounter Summary ---
Author Organization [facility] Address [address] [place] [address] Care Team Providers Care Academic Services Professional Name Role Phone Alan Sheikh MD Primary Care Provider [phone] Encounter Details Date Type Department Care Team ([facility] Contact Info) Description 07/05/2024 Ancillary Orders [facility] [address] [place], [place] [address] Provider, MD Renuka [address] [place] [address] Social History Tobacco Use Types Packs/Day Years [...] Description 11/12/2024 10:00 AM EDT Office Visit [facility] [address] [place] [address] Alan Sheikh MD [address] [place] [address] Follow up in about 6 months (around 11/11/2024), or Wellness exam.. documented as of this encounter Results * MG TRANSFER OF OUTSIDE FILMS (03/09/2017 12:00 AM EDT) Narrative IMAGING - 07/05/2024 7:28 PM EST This order has been auto-finalized and does not contain a result. us Cutover Provider MD CLEMENTE BI PROCEDURES Final Resu lt IMAGING documented in this encounter Visit Diagnoses Not on filedocumented in this encounter Care Teams Academic Services Professional Relationship Specialty Start Date End Date Alan Sheikh MD [address] [place] [address] PCP - General 05/08/24 documented as of this encounter
--- OUTSIDE RECORDS SUMMARY | 2024-08-23 09:26 | XMS_ITS | Encounter Summary ---
Author Organization [facility] Address [address] [place] [address] Care Team Providers Care Personal Fitness Trainer Name Role Phone Alan Sheikh MD Primary Care Provider [phone] [phone] Encounter Details Date Type Department Care Team (Late st Contact Info) Description 06/27/2024 Procedure Pass [facility] Radiology, [facility] (MRI) [address] [place], [place] [phone] Social History Tobacco Use Types Packs/Day Years [...] Description 11/12/2024 10:00 AM EDT Office Visit [facility] [address] [place] [address] Alan Sheikh MD [address] [place] [address] Follow up in about 6 months (around 11/11/2024), or Wellness exam.. documented as of this encounter Visit Diagnoses Not on filedocumented in this encounter Care Teams Personal Fitness Trainer Relationship Specialty Start Date End Date Alan Sheikh MD [address] [place] [address] PCP - General 05/08/24 documented as of this encounter
--- OUTSIDE RECORDS SUMMARY | 2024-08-23 09:26 | XMS_ITS | Encounter Summary ---
Author Organization [facility] Address [address] [place] [address] Care Team Providers Care Typecasting Machine Operator Name Role Phone Alan Sheikh MD Primary Care Provider [phone] Reason for Referral * Imaging (Urgent) - Authorized Specialty Diagnoses / Procedures Referred By Contac t Referred To Contact Radiology Diagnoses Unilateral primary osteoarthritis, right knee Procedures MRI KNEE RIGHT WO IV CONTRAST Gabe Huynh MD [address] [phone] Phone: tel: fax: [facility] Radiology - Central Scheduling [place] Phone: tel: fax: Referral ID Status Reason Start Date Expiration Date Visits Requested Visits Authorized [id number] Authorized Perform Procedure 08/05/2024 08/05/2025 1 1 Encounter Details Date Type Department Care Team (Late st Contact Info) Description 08/05/2024 Ancillary Orders [facility] Radiology - Central Scheduling [place] [phone] Gabe Huynh MD [address] [place] [address] Unilateral primary osteoarthritis, right knee (Primary Dx) Social History Tobacco [...] 10:00 AM EDT Office Visit [facility] [address] [address] Alan Sheikh MD [address] [address] Follow up in about 6 months (around 11/11/2024), or Wellness exam.. Scheduled Orders Name Type Priority Associated Diagnoses Orde r Schedule MRI KNEE RIGHT WO IV CONTRAST Imaging Urgent Unilateral primary osteoarthritis, right knee Expected: 08/05/2024, Expires: 08/05/2025 documented as of this encounter Visit Diagnoses Diagnosis Unilateral primary osteoarthritis, right knee- Primary documented in this encounter Care Teams Typecasting Machine Operator Relationship Specialty Start Date End Date Alan Sheikh MD [address] [address] PCP - General 05/08/24 documented as of this encounter
--- OUTSIDE RECORDS SUMMARY | 2024-08-23 09:26 | XMS_ITS | Encounter Summary ---
Author Organization [facility] Address [address] [place] [address] Care Team Providers Care Assembler Seat Name Role Phone Joe Devlin NP Primary Care Provi jeyson Alan Sheikh MD Primary Care Provider [phone] [phone] Encounter Details Date Type Department Care Team (Late st Contact Info) Description 04/08/[address] [facility] Radiology, [facility] ([place] Scan) [address] [place] [phone] Social History Tobacco Use Types Packs/Day Years [...] Description 11/12/2024 10:00 AM EDT Office Visit [facility] [address] [address] Alan Sheikh MD [address] [address] Follow up in about 6 months (around 11/11/2024), or Wellness exam.. documented as of this encounter Visit Diagnoses Not on filedocumented in this encounter Care Teams Assembler Seat Relationship Specialty Start Date End Date Joe Devlin NP [address] [place] [address] [phone] PCP - General 02/09/24 05/07/24 Alan Sheikh MD [address] [place] [address] PCP - General 05/08/24 documented as of this encounter
== END 2024-08-23 10:10 | disposition home or self-care (01) ==
LOC: HO.HNS 08:59
PROVIDERS: PCP Nurse Practitioner Family; Visit Provider Neurological Surgery
DX: M47.22 Other spondylosis with radiculopathy, cervical region (principal)
CPT/HCPCS: 99214

== ENCOUNTER 2024-08-23 08:59 | Outpatient (REF) | payer MEDICARE, SELFPAY ==
--- NOTE | ~2024-08-23 | XR_ITS ---
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 TECHNIQUE: 4 views including flexion and extension position. FINDINGS: Craniocervical junction is intact. Endplate sclerosis decreased intervertebral disc height at C3-4. Grade 1 retrolisthesis C3-4 which persists in flexion and extension position. Grade 1 anterolisthesis C6-7 which persists in flexion and extension position. Incomplete ankylosis of the posterior elements C2-3. No acute cortical disruption. No lytic or blastic lesions. Upper airway is patent. Complications within soft tissues both sides of the upper mid neck likely in the carotic arteries. XR/XR cervical spine 4V IMPRESSION: Multilevel cervical spondylosis more conspicuous at C3-4 and C6-7 resulting in grade 1 retrolisthesis C3-4 and grade 1 anterolisthesis C6-7 without gross instability. Probable calcified plaques, carotid bulb/ICAs. Electronically signed by: Chava Egan MD 08/23/2024 10:01 AM EDT
--- OUTSIDE RECORDS SUMMARY | 2024-08-23 10:20 | XMS_ITS | Encounter Summary ---
Author Organization [facility] Address [address] [place] [address] Care Team Providers Care Director Of Field Sales Name Role Phone Alan Sheikh MD Primary Care Provider [phone] Encounter Details Date Type Department Care Team (Late st Contact Info) Description 05/29/2024 Procedure Pass [facility] Radiology, [facility] (MRI) [address] [place], [place] [address] Social History Tobacco Use Types Packs/Day Years [...] Description 11/12/2024 10:00 AM EDT Office Visit [facility] [address] [place] [address] Alan Sheikh MD [address] [place] [address] Follow up in about 6 months (around 11/11/2024), or Wellness exam.. documented as of this encounter Visit Diagnoses Not on filedocumented in this encounter Care Teams Director Of Field Sales Relationship Specialty Start Date End Date Alan Sheikh MD [address] [place] [address] PCP - General 05/08/24 documented as of this encounter
--- OUTSIDE RECORDS SUMMARY | 2024-08-23 10:20 | XMS_ITS | Encounter Summary ---
Author Organization [facility] Address [address] [place] [address] Care Team Providers Care Furnace Repairer Name Role Phone Alan Sheikh MD Primary Care Provider [phone] Encounter Details Date Type Department Care Team ([facility] Contact Info) Description 07/05/2024 Ancillary Orders [facility] Rad[facility] (Diag Rad) [address] [facility], [address] [place], [place] [address] Provider, MD Renuka [address] [place] [address] Social History Tobacco Use Types Packs/Day Years [...] Description 11/12/2024 10:00 AM EDT Office Visit [facility] [place] [address] [place] [address] Alan Sheikh MD [address] [place] [address] Follow up in about 6 months (around [...] on filedocumented in this encounter Care Teams Furnace Repairer Relationship Specialty Start Date End Date Alan Sheikh MD [address] [place] [address] PCP - General 05/08/24 documented as of this encounter
--- OUTSIDE RECORDS SUMMARY | 2024-08-23 10:20 | XMS_ITS | Encounter Summary ---
Author Organization [facility] Address [address] [place] [address] Care Team Providers Care Coning Machine Operator Name Role Phone Alan Sheikh MD Primary Care Provider +1 [phone] Encounter Details Date Type Department Care Team ([facility] Contact Info) Description 07/05/2024 Ancillary Orders [facility] [address] [place], [place] [address] Provider, MD Renuka [address] [place] [address] Social History Tobacco Use Types Packs/Day Years [...] EDT Office Visit [facility] [address] [place] [address] Alan Sheikh MD [address] [place] [address] Follow up in about 6 months (around [...] on filedocumented in this encounter Care Teams Coning Machine Operator Relationship Specialty Start Date End Date Alan Sheikh MD [address] [place] [address] PCP - General 05/08/24 documented as of this encounter
--- OUTSIDE RECORDS SUMMARY | 2024-08-23 10:20 | XMS_ITS | Encounter Summary ---
Author Organization [facility] Address [address] [place] [address] Care Team Providers Care Computer Numerical Control Machinist Name Role Phone Joe Devlin NP Primary Care Provi jeyson Alan Sheikh MD Primary Care Provider [phone] [phone] Encounter Details Date Type Department Care Team (Late st Contact Info) Description 04/08/2024 Procedure Pass [facility] Radiology, [facility] ([place] Scan) [address] [place] [address] [id number] Social History Tobacco Use Types Packs/Day Years [...] 10:00 AM EDT Office Visit [facility] [address] [address] Alan Sheikh MD [address] [address] Follow up in about 6 months (around 11/11/2024), or Wellness exam.. documented as of this encounter Visit Diagnoses Not on filedocumented in this encounter Care Teams Computer Numerical Control Machinist Relationship Specialty Start Date End Date Joe Devlin NP [address] [place] [address] [id number] PCP - General 02/09/24 05/07/24 Alan Sheikh MD [address] [place] [address] PCP - General 05/08/24 documented as of this encounter
--- OUTSIDE RECORDS SUMMARY | 2024-08-23 10:20 | XMS_ITS | Encounter Summary ---
Author Organization [facility] Address [address] [place] [address] Care Team Providers Care Scaffold Worker Name Role Phone Alan Sheikh MD Primary Care Provider +1 [phone] Reason for Referral * Imaging (Routine) - Authorized Specialty Diagnoses / Procedures Referred By Contac t Referred To Contact Radiology Diagnoses Other specified symptoms and signs involving the circulatory and respiratory systems Procedures US CAROTID DOPPLER BILATERAL Gabe Baumann MD [address] [place] [address] Phone: tel: fax: [facility] - Central Scheduling [place] Phone: tel: fax: Referral ID Status Reason Start Date Expiration Date Visits Requested Visits Authorized [id number] Authorized Perform Procedure 07/02/2024 07/02/2025 1 1 Encounter Details Date Type Department Care Team (Latest Contact Info) Description 07/02/2024 Ancillary Orders [facility] Radiology - Central [place] [phone] Gabe Baumann MD [address] [place] [address] Atherosclerosis of aorta (HCC) (Primary Dx); Atherosclerosis [...] 11/12/2024 10:00 AM EDT Office Visit [facility] [address] [address] Alan Sheikh MD [address] [address] Follow up in about 6 months (around [...] of Radiologists in Ultrasound (SRU) consensus statement ([id number]) was used to estimate internal carotid artery [...] systems documented in this encounter Care Teams Scaffold Worker Relationship Specialty Start Date End Date Alan Sheikh MD [address] [place] [address] PCP - General 05/08/24 documented as of this encounter
--- OUTSIDE RECORDS SUMMARY | 2024-08-23 10:20 | XMS_ITS | Encounter Summary ---
Author Organization [facility] Address [address] [place] [address] Care Team Providers Care Cadmium Burner Name Role Phone Alan Sheikh MD Primary Care Provider [phone] [phone] Encounter Details Date Type Department Care Team ([facility] Contact Info) Description 07/05/2024 Ancillary Orders [facility] Radiology, [facility] (Diag Rad) [address] [facility], [address] [place], [place] [address] Provider, MD Renuka [address] [place] [address] Social History Tobacco Use Types Packs/Day Years [...] Description 11/12/2024 10:00 AM EDT Office Visit [facility] [place] [address] [place] [address] Alan Sheikh MD [address] [place] [address] Follow up in about 6 months (around [...] on filedocumented in this encounter Care Teams Cadmium Burner Relationship Specialty Start Date End Date Alan Sheikh MD [address] [place] [address] PCP - General 05/08/24 documented as of this encounter
--- OUTSIDE RECORDS SUMMARY | 2024-08-23 10:20 | XMS_ITS | Encounter Summary ---
Author Organization [facility] Address [address] [place] [address] Care Team Providers Care Rental Clerk Tool And Equipment Name Role Phone Alan Sheikh MD Primary Care Provider [phone] [phone] Encounter Details Date Type Department Care Team ([facility] Contact Info) Description 07/05/2024 Ancillary Orders [facility] Radiology, Outpatient Center (Diag Rad) 534 [facility], [address] [place], [place] [address] Provider, MD Renuka [address] [place] [address] Social History Tobacco Use Types Packs/Day Years [...] 11/12/2024 10:00 AM EDT Office Visit [facility] Primary [facility] [place] [address] [place] [address] Alan Sheikh MD [address] [place] [address] Follow up in about 6 months (around [...] on filedocumented in this encounter Care Teams Rental Clerk Tool And Equipment Relationship Specialty Start Date End Date Alan Sheikh MD [address] [place] [address] PCP - General 05/08/24 documented as of this encounter
--- OUTSIDE RECORDS SUMMARY | 2024-08-23 10:20 | XMS_ITS | Encounter Summary ---
Author Organization [facility] Address [address] [place] [address] Care Team Providers Care Field Test Engineer Name Role Phone Alan Sheikh MD Primary Care Provider [phone] [phone] Reason for Referral * Imaging (Routine) - Authorized Specialty Diagnoses / Procedures Referred By Contac t Referred To Contact Radiology Diagnoses Atherosclerosis of aorta (HCC) Atherosclerosis of other arteries Procedures US ABDOMEN AORTIC ANEURYSM SCREENING Gabe Baumann MD [address] [place] [address] Phone: tel: fax: [facility] [employer] Radiology - Central Scheduling [place] Phone: tel: fax: Referral ID Status Reason Start Date Expiration Date Visits Requested Visits Authorized [id number] Authorized Perform Procedure 07/02/2024 07/02/2025 1 1 Encounter Details Date Type Department Care Team (Latest Contact Info) Description 07/02/2024 Ancillary Orders [facility] Radiology - Central Sched[place] [phone] Gabe Baumann MD [address] [place] [address] Atherosclerosis of aorta (HCC) (Primary Dx); Atherosclerosis [...] Description 11/12/2024 10:00 AM EDT Office Visit [address] [address] Alan Sheikh MD [address] [place] [address] Follow up in about 6 months (around [...] Surgery recommendations. JVasc 2018. Gabe Baumann MD [facility] US PROCEDURES Final Result documented in this encounter Visit Diagnoses Diagnosis Atherosclerosis of aorta (HCC)- Primary Atherosclerosis of aorta Atherosclerosis of other arteries Atherosclerosis of aorta (HCC) Atherosclerosis of aorta Atherosclerosis of other arteries documented in this encounter Care Teams Field Test Engineer Relationship Specialty Start Date End Date Alan Sheikh MD [address] [place] [address] PCP - General 05/08/24 documented as of this encounter
--- OUTSIDE RECORDS SUMMARY | 2024-08-23 10:20 | XMS_ITS | Encounter Summary ---
Author Organization [facility] Address [address] [place] [address] Care Team Providers Care Client Administrator Name Role Phone Alan Sheikh MD Primary Care Provider [phone] [phone] Encounter Details Date Type Department Care Team (Late st Contact Info) Description 06/20/2024 Procedure Pass [facility] Radiology, [facility] (Ultrasound) 250 [place], [place] 127[address] Social History Tobacco Use Types Packs/Day Years [...] Description 11/12/2024 10:00 AM EDT Office Visit [facility] [address] [place] [address] Alan Sheikh MD [address] [place] [address] Follow up in about 6 months (around 11/11/2024), or Wellness exam.. documented as of this encounter Visit Diagnoses Not on filedocumented in this encounter Care Teams Client Administrator Relationship Specialty Start Date End Date Alan Sheikh MD [address] [place] [address] PCP - General 05/08/24 documented as of this encounter
--- OUTSIDE RECORDS SUMMARY | 2024-08-23 10:20 | XMS_ITS | Encounter Summary ---
Author Organization [facility] Address [address] [place] [address] Care Team Providers Care Asset Protection Representative Name Role Phone MaurisioJoe phillip Ирина CERVANTES Primary Care Provi jeyson Alan Sheikh MD Primary Care Provider [phone] -[phone] Encounter Details Date Type Department Care Team (Late Contact Info) Description 02/09/2024 Procedure Pass [facility] Radiology, [facility] (CT Scan) [address] [place] [address] Social History Tobacco Use Types [...] Description 11/12/2024 10:00 AM EDT Office Visit [facility] Primary [facility] [place] [address] [address] Alan Sheikh MD [address] [address] Follow up in about 6 months (around 11/11/2024), or Wellness exam.. documented as of this encounter Visit Diagnoses Not on filedocumented in this encounter Care Teams Asset Protection Representative Relationship Specialty Start Date End Date Joe Devlin NP [address] [place] [address] [phone] PCP - General 02/09/24 05/07/24 Alan Sheikh MD [address] [phone] PCP - General 05/08/24 documented as of this encounter
--- OUTSIDE RECORDS SUMMARY | 2024-08-23 10:20 | XMS_ITS | Encounter Summary ---
Author Organization [facility] Address [address] [place] [address] Care Team Providers Care Rail Grinder Name Role Phone Alan Sheikh MD Primary Care Provider [phone] [phone] Encounter Details Date Type Department Care Team (Late st Contact Info) Description 07/02/2024 Procedure Pass [facility] Radiology, [facility] (Ultrasound) [address] [place], [place] [address] Social History Tobacco Use Types Packs/Day Years [...] Description 11/12/2024 10:00 AM EDT Office Visit [facility] [address] [place] [address] Alan Sheikh MD [address] [place] [address] Follow up in about 6 months (around 11/11/2024), or Wellness exam.. documented as of this encounter Visit Diagnoses Not on filedocumented in this encounter Care Teams Rail Grinder Relationship Specialty Start Date End Date Alan Sheikh MD [address] [place] [address] PCP - General 05/08/24 documented as of this encounter
--- OUTSIDE RECORDS SUMMARY | 2024-08-23 10:20 | XMS_ITS | Encounter Summary ---
Author Organization [facility] Address [address] [place] [address] Care Team Providers Care Box Car Washer Name Role Phone Alan Sheikh MD Primary Care Provider +1 -[phone] Encounter Details Date Type Department Care Team (Late st Contact Info) Description 06/27/2024 Procedure Pass [facility] Radiology, [facility] (MRI) [address] [place], [place] [address]48[address] Social History Tobacco Use Types Packs/Day Years [...] Description 11/12/2024 10:00 AM EDT Office Visit [facility] [address] [place] [address] Alan Sheikh MD [address] [place] [address] Follow up in about 6 months (around 11/11/2024), or Wellness exam.. documented as of this encounter Visit Diagnoses Not on filedocumented in this encounter Care Teams Box Car Washer Relationship Specialty Start Date End Date Alan Sheikh MD [address] [place] [address] PCP - General 05/08/24 documented as of this encounter
--- OUTSIDE RECORDS SUMMARY | 2024-08-23 10:20 | XMS_ITS | Encounter Summary ---
Author Organization [facility] Address [address] [place] [address] Care Team Providers Care Clinical Implementation Specialist Name Role Phone Alan Sheikh MD Primary Care Provider [phone] [phone] Reason for Referral * Imaging (Routine) - Authorized Specialty Diagnoses / Procedures Referred By Contac t Referred To Contact Radiology Diagnoses Postlaminectomy syndrome, not elsewhere classified Procedures MRI LUMBAR SPINE WO IV CONTRAST Ty Oliver MD [address] [place] [address] [address] Phone: tel: fax: [facility] Radiology - Central Scheduling [place] Phone: tel: fax: Referral ID Status Reason Start Date Expiration Date Visits Requested Visits Authorized [id number] Authorized Perform Procedure 05/29/2024 05/29/2025 1 1 Encounter Details Date Type Department Care Team (Latest Contact Info) Description 05/29/2024 Ancillary Orders [facility] Radiology - Central Scheduling [place] [phone] Ty Oliver MD [address] [place] [address] Postlaminectomy syndrome, not elsewhere classified (Primary Dx) [...] 10:00 AM EDT Office Visit [facility] [address] [address] Alan Sheikh MD [address] [address] Follow up in about 6 months (around [...] classified documented in this encounter Care Teams Clinical Implementation Specialist Relationship Specialty Start Date End Date Alan Sheikh MD [address] [place] [address] PCP - General 05/08/24 documented as of this encounter
--- OUTSIDE RECORDS SUMMARY | 2024-08-23 10:20 | XMS_ITS | Encounter Summary ---
Author Organization [facility] Address [address] [place] [address] Care Team Providers Care Magnetic Tape Typewriter Operator Name Role Phone Alan Sheikh MD Primary Care Provider +1 -[phone] Reason for Referral * Imaging (Routine) - Authorized Specialty Diagnoses / Procedures Referred By Contac t Referred To Contact Radiology Diagnoses Cervical disc disorder, unspecified, unspecified cervical region Procedures MRI CERVICAL SPINE WO IV CONTRAST Ty Oliver MD [address] [place] [address] [address] Phone: tel: fax: [facility] Radiology - Central Scheduling [place] Phone: tel: fax: Referral ID Status Reason Start Date Expiration Date Visits Requested Visits Authorized [id number] Authorized Perform Procedure 06/27/2024 06/27/2025 1 1 Encounter Details Date Type Department Care Team (Late st Contact Info) Description 06/27/2024 Ancillary Orders [facility] Radiology - Central Scheduling [place] [phone] Ty Oliver MD [address] [place] [address] Cervical disc disorder, unspecified, unspecified cervical region [...] Description 11/12/2024 10:00 AM EDT Office Visit [facility] [address] [address] Alan Sheikh MD [address] [address] Follow up in about 6 months (around [...] region documented in this encounter Care Teams Magnetic Tape Typewriter Operator Relationship Specialty Start Date End Date Alan Sheikh MD [address] [place] [address] PCP - General 05/08/24 documented as of this encounter
--- OUTSIDE RECORDS SUMMARY | 2024-08-23 10:20 | XMS_ITS | Encounter Summary ---
Author Organization [facility] Address [address] [place] [address] Care Team Providers Care Vocational School Teacher Name Role Phone [employer] Primary Care Provider Gabe Hernández MD Unavailable Encounter Details Date Type Department Care Team (Late st Contact Info) Description 07/16/[address] [facility] [address] [place] [phone] Provider, Generic Social History Tobacco Use [...] 12/30/2024 10:00 AM EDT Office Visit [facility] [place] [address] [phone] Gabe Baumann MD [address] [place] [address] documented as of this encounter Goals Goal Patient Goal Type Associated Problems Recent Progress Patient-Stated? Author PT STG 1 Physical Therapy No Dvorsky, Maru, PT Note: Pt will be independent with HEP for self management of symptoms in 3 weeks documented as of this encounter Visit Diagnoses Not on filedocumented in this encounter Care Teams Vocational School Teacher Relationship Specialty Start Date End Date [facility] PCP - General 04/15/24 Gabe Baumann MD [address] [place] [address] Primary Media Analyst Cardiovascular Disease 06/24/24 documented as of this encounter
--- OUTSIDE RECORDS SUMMARY | 2024-08-23 10:20 | XMS_ITS | Encounter Summary ---
Author Organization [facility] Address [address] [place] [address] Care Team Providers Care Gauge Inspector Name Role Phone Alan Sheikh MD Primary Care Provider [phone] [phone] Reason for Referral * Imaging (Urgent) - Authorized Specialty Diagnoses / Procedures Referred By Contac t Referred To Contact Radiology Diagnoses Unilateral primary osteoarthritis, right knee Procedures MRI KNEE RIGHT WO IV CONTRAST Gabe Huynh MD [address] [place] [id number] Phone: tel: fax: [facility] Radiology - Central Scheduling [place] Phone: tel: fax: Referral ID Status Reason Start Date Expiration Date Visits Requested Visits Authorized [id number] Authorized Perform Procedure 08/05/2024 08/05/2025 1 1 Encounter Details Date Type Department Care Team (Late st Contact Info) Description 08/05/2024 Ancillary Orders [facility] Radiology - Central Scheduling [place] [phone] Gabe Huynh MD [address] [place] [address] Unilateral primary osteoarthritis, right knee (Primary Dx) [...] Description 11/12/2024 10:00 AM EDT Office Visit [facility] [address] [address] Alan Sheikh MD [address] [address] Follow up in about 6 months (around 11/11/2024), or Wellness exam.. Scheduled Orders Name Type Priority Associated Diagnoses Orde r Schedule MRI KNEE RIGHT WO IV CONTRAST Imaging Urgent Unilateral primary osteoarthritis, right knee Expected: 08/05/2024, Expires: 08/05/2025 documented as of this encounter Visit Diagnoses Diagnosis Unilateral primary osteoarthritis, right knee- Primary documented in this encounter Care Teams Gauge Inspector Relationship Specialty Start Date End Date Alan Sheikh MD [address] [address] PCP - General 05/08/24 documented as of this encounter
--- OUTSIDE RECORDS SUMMARY | 2024-08-23 10:20 | XMS_ITS | Clinical Summary ---
Author Organization [facility] Address [address] [place] [address] Care Team Providers Care Pool Coordinator Name Role Phone Alan Sheikh MD Primary Care Provider [phone] Allergies No known active allergies Medications ADULT [...] Department Care Team Description 08/05/2024 Ancillary Orders [facility] [place] [phone] Gabe Huynh MD Unilateral primary osteoarthritis, right knee (Primary Dx) 07/29/2024 7:40 AM EDT Lab [facility] [address] [place] [address] 07/29/2024 7:35 AM EDT Lab [facility] [address] [place] [address] Mixed hyperlipidemia (Primary Dx) 07/29/2024 7:32 AM EDT - 07/29/2024 11:59 PM EDT Hospital Encounter [facility] (Ultrasound) [address] [place] [address] Atherosclerosis of aorta (HCC); Atherosclerosis of other arteries Discharge Disposition: Home or Self Care 07/29/2024 7:32 AM EDT - 07/29/2024 11:59 PM EDT Hospital Encounter [facility] (Ultrasound) [address] [place] [address] Other specified symptoms and signs involving the circulatory and respiratory systems Discharge Disposition: Home or Self Care 07/19/2024 Refill [facility] [address] [address] Alan Sheikh MD 07/11/2024 8:44 AM EST - 07/11/2024 11:59 PM EST Hospital Encounter [facility] (MRI) [address] [place] [address] Cervical disc disorder, unspecified, unspecified cervical region Discharge Disposition: Home or Self Care 07/05/2024 Ancillary Orders [facility] (Diag Rad) [address] [place] [address], [place] [address] Renuka Cardona MD 07/05/2024 Ancillary Orders [facility] Radiology, Outpatient Center (Diag Rad) [address], [address] [place] [address], [place] [address] Renuka Cardona MD 07/05/2024 Ancillary Orders [facility] Radiology, Outpatient Center (Diag Rad) [address], [address] [place] [address], [place] [address] Renuka Cardona MD 07/05/2024 Ancillary Orders [facility] Radiology, Outpatient Center (Diag Rad) [address], [address] [place] [address], [place] [address] Renuka Cardona MD 07/05/2024 Ancillary Orders [facility] Radiology, Outpatient Center (Diag Rad) 534 [facility], [address] [place] [address], [place] [address] Renuka Cardona MD 07/04/2024 Results Follow-Up [facility] CHARGE MASTER ANALYST [address] [address] Sophia Clay APRN 07/02/2024 12:37 PM EST - 07/02/2024 11:59 PM EST Hospital Encounter [facility] (Breast Imaging) [address] [place] [address] Mastalgia in female Discharge Disposition: Home or Self Care 07/02/2024 12:37 PM EST - 07/02/2024 11:59 PM EST Hospital Encounter [facility] (Ultrasound) [address] [place] [address] Mastalgia in female Discharge Disposition: Home or Self Care 07/02/2024 Procedure Pass [facility] (Ultrasound) [address] [place] [address] 07/02/2024 Procedure Pass [facility] (Ultrasound) [address] [place] [address] 07/02/2024 Ancillary Orders [facility] [place] [phone] Gabe Baumann MD Atherosclerosis of aorta (HCC) (Primary Dx); Atherosclerosis of other arteries; Other specified symptoms and signs involving the circulatory and respiratory systems 07/02/2024 Ancillary Orders [facility] [place] [phone] Gabe Baumann MD Atherosclerosis of aorta (HCC) (Primary Dx); Atherosclerosis of other arteries 06/27/2024 Procedure Pass [facility] (MRI) [address] [place] [address] 06/27/2024 Ancillary Orders [facility] [place] [phone] Ty Oliver MD Cervical disc disorder, unspecified, unspecified cervical region (Primary Dx) 06/22/2024 12:46 PM EST - 06/22/2024 11:59 PM EST Hospital Encounter [facility] [address] [place] [address] Discharge Disposition: Home or Self Care 06/22/2024 12:10 PM EST Office Visit [facility] [address] [place] [address] Malachi Peters PA-C Acute pain of right knee (Primary Dx) 06/20/2024 11:20 AM EST Office Visit [facility] CHARGE MASTER ANALYST [address] [address] Sophia Clay APRN Mastalgia in female (Primary Dx) 06/20/2024 Procedure Pass [facility] (Ultrasound) [address] [place] [address] 06/12/2024 1:53 PM EST - 06/12/2024 11:59 PM EST Hospital Encounter [facility] (MRI) [address] [place] [address] Postlaminectomy syndrome, not elsewhere classified Discharge Disposition: Home or Self Care 05/29/2024 Procedure Pass [facility] Radiology, [facility] (MRI) [address] [place] [address] 05/29/2024 Ancillary Orders [facility] Radiology - [place] [phone] Ty Oliver MD Postlaminectomy syndrome, not elsewhere classified (Primary Dx) from Last 3 Months Immunizations Immunization Administration Dates Next Due INFLUENZA, HIGH DOSE SEASONAL, PRESERVATIVE FREE 02/28/2024 Moderna Omicron 12+ Vaccination (Spikevax) 03/04 Family History Medical History Relation Name Comments Learning disabilities Daughter Bhumika Bullock Mental illness Daughter Bhumika Bullock Accidental Father Christian Hunt Arthritis Mother Lcui Hunt Heart disease Mother Luci Hunt Arthritis [...] 11/12/2024 10:00 AM EDT [facility] [address] [address] Alan Sheikh MD [address] [address] Follow up in about 6 months (around [...] Comprehensive Metabolic Panel. (07/29/2024 8:26 AM EDT) [facility] Sodium 142 136 - 145 mmol/L [...] 9 3 - 11 07/29/2024 11:47 AM [facility] Glucose Level 95 70 - 99 mg/dL LAB CHEMISTRY METHOD 07/29/2024 11:47 [facility] BUN 14 9 - 23 mg/dL LAB CHEMISTRY METHOD 07/29/2024 11:47 AM [facility] Comment:Please note referenc e range changes effective 03/19/2024. Creatinine, Serum 0.6 0.6 - 1.0 mg/dL LAB CHEMISTRY METHOD 07/29/2024 11:47 AM [facility] Comment:Please note referenc e range changes effective 03/19/2024. B/CR Ratio 23.3(H) 6.0 - 23.0 07/29/2024 11:47 AM [facility] Glomerular Filtration Rate >=60 >=60 mL/min/1. 73 m2 LAB CHEMISTRY METHOD 07/29/2024 11:47 AM [facility] Comment:Calculation based on the Chronic Kidney Disease Epidemiology Collaboration(CKD-EPI) equation refit without adjustment for race. Calcium, Total 9.6 8.7 - 10.4 mg/dL LAB CHEMISTRY METHOD 07/29/2024 11:47 AM [facility] Comment:Please note referenc e range changes effective 03/19/2024. Total Protein 6.5 5.7 - 8.2 g/dL LAB CHEMISTRY METHOD 07/29/2024 11:47 AM [facility] Comment:Please note referenc e range changes effective 03/19/2024. Albumin Level 4.5 3.2 - 4.8 g/dL LAB CHEMISTRY METHOD 07/29/2024 11:47 AM [facility] Comment:Please note referenc e range changes effective 03/19/2024. A/G Ratio 2.3 1.1 - 3.0 07/29/2024 11:47 AM [facility] Total Bilirubin 0.4 0.1 - 1.2 mg/dL LAB CHEMISTRY METHOD 07/29/2024 11:47 AM [facility] Comment:The [employer] CH Tota l Bilirubin_2 (TBil_2) assay is based on a chemical oxidation method using vanadate as an oxidizing agent. ALT 27 10 - 49 U/L LAB CHEMISTRY METHOD 07/29/2024 11:47 AM [facility] Comment:Please note referenc e range [...] ORDERABLES Final Resul t LABORATORY SERVICES CT:[id number] [place] [address], * Lipoprotein (a) (07/29/2024 8:26 AM EDT) Pathologist [facility] Lipoprotein (A) <10 <75 nmol/L 7:42 AM [...] Performing Organization Information: ?Site ID: AMD ?Name: [facility] ?Address: [address] [place] [address] Dr Spangler [place] ?Director: José Luis Nguyen M.D.,PhD Gabe Baumann MD LAB BLOOD ORDERABLES Final Resul t [facility] [address], [place] [address], * Lipid Panel with Ratios (07/29/2024 8:26 [...] ORDERABLES Final Resul t LABORATORY SERVICES CT:[id number] [place] [address], [place] * US ABDOMEN AORTIC ANEURYSM SCREENING [...] recommendations. JVasc 2018. us Gabe Baumann MD [facility] US PROCEDURES Final Result * US CAROTID [...] of Radiologists in Ultrasound (SRU) consensus statement ([id number];229:340-346) was used to estimate internal carotid artery [...] Aided Detection, monitored by the Radiologist. (accession [id number]), Grayscale imaging with focused imaging of one or more quadrants (accession [id number]) ?? FINDINGS: The breasts are heterogeneously dense, [...] Computer Aided Detection, monitored by the Radiologist.(accession [id number]), Grayscale imaging with focused imaging of one ormore quadrants (accession [id number]) FINDINGS: The breasts are heterogeneously dense, which [...] Aided Detection, monitored by the Radiologist. (accession [id number]), Grayscale imaging with focused imaging of one or more quadrants (accession [id number]) ?? FINDINGS: The breasts are heterogeneously dense, [...] Computer Aided Detection, monitored by the Radiologist.(accession [id number]), Grayscale imaging with focused imaging of one ormore quadrants (accession [id number]) FINDINGS: The breasts are heterogeneously dense, which [...] Insurance MEDICARE ANTHEM BLUE CROSS Care Teams Pool Coordinator Relationship Specialty Start Date End Date Alan Sheikh MD [address] [place] [phone] PCP - General 05/08/24
--- OUTSIDE RECORDS SUMMARY | 2024-08-23 10:20 | XMS_ITS | Encounter Summary ---
Author Organization [facility]ly [facility] Address [address] [place] [address] Care Team Providers Care Snaker Driving Horses Name Role Phone [employer] Primary Care Provider Gabe Hernández MD Unavailable Encounter Details Date Type Department Care Team (Late st Contact Info) Description 08/13/2024 Orders Only [facility] Heart & Vascular [address] [phone] Vascular Surgery, Scan Social History Tobacco Use [...] AM EDT Office Visit [facility] [place] [facility] [address] [phone] Gabe Baumann MD [address] [place] [address] documented as of this encounter Goals Goal [...] on filedocumented in this encounter Care Teams Snaker Driving Horses Relationship Specialty Start Date End Date [facility] PCP - General 04/15/24 Gabe Baumann MD [address] [place] [address] Primary Lens Assistant Cardiovascular Disease 06/24/24 documented as of this encounter
--- OUTSIDE RECORDS SUMMARY | 2024-08-23 10:20 | XMS_ITS | Encounter Summary ---
Author Organization [facility] Address [address] [place] [address] Care Team Providers Care Publication Distributor Name Role Phone Alan Sheikh MD Primary Care Provider [phone] Encounter Details Date Type Department Care Team ([facility] Contact Info) Description 07/04/2024 Results Follow-Up [facility] APPLICATIONS SPECIALIST [address] [address] Sophia Clay, AIRFRAME AND POWERPLANT TECHNICIAN [address] [place], [place] [phone] Social History Tobacco Use Types Packs/Day Years [...] Description 11/12/2024 10:00 AM EDT Office Visit [facility] [address] [place] [address] Alan Sheikh MD [address] [place] [address] Follow up in about 6 months (around 11/11/2024), or Wellness exam.. documented as of this encounter Visit Diagnoses Not on filedocumented in this encounter Care Teams Publication Distributor Relationship Specialty Start Date End Date Alan Sheikh MD [address] [place] [address] PCP - General 05/08/24 documented as of this encounter
--- OUTSIDE RECORDS SUMMARY | 2024-08-23 10:20 | XMS_ITS | Clinical Summary ---
Author Organization [facility] Address [address] [place] [address] Care Team Providers Care Mission Commander Name Role Phone [facility] [place] Primary Care Provider Gabe Hernández MD Unavailable [...] Department Care Team Description 08/13/2024 Orders Only [facility] Heart & V[facility] [address] [place] [address] Vascular Surgery, Scan 07/26/2024 Telephone [facility] [address] [phone] Gabe Baumann MD 07/16/2024 10:00 AM EDT Ancillary Procedure [facility] Vascular [address] [phone] Gabe Baumann MD Heart palpitations 07/16/2024 Travel 07/16/2024 Scanned Document [facility] [address] [place] [phone] Provider, Generic 07/15/2024 11:30 AM EDT Evaluation [facility] [address] [place] [phone] Maru Parks, PT Acute pain of right knee (Primary Dx) 07/09/2024 9:30 AM EST Office Visit [facility] [address] [place] [phone] Celi Jimenez MD Tear of medial meniscus of right knee, current, unspecified tear type, initial encounter (Primary Dx) 07/06/2024 9:00 AM EST Ancillary Procedure [address] [phone] Celi Jimenez MD 07/01/2024 Telephone [facility] [address] [phone] Celi Jimenez MD Other (July patient called you back. I tried to reach you but you were with a patient. Please call her on her cell phone.) 07/01/2024 Orders Only [address] [phone] Celi Jimenez MD Primary osteoarthritis of right knee (Primary Dx) 06/25/2024 1:45 PM EST Office Visit [address] [phone] Celi Jimenez MD Primary osteoarthritis of right knee (Primary Dx); Primary osteoarthritis of left knee 06/24/2024 9:30 AM EST Consult [facility] Heart & V[facility] [place] [address] [phone] Gabe Baumann MD Chest pain, unspecified type (Primary Dx); Heart palpitations; Aorto-iliac atherosclerosis; Mixed hyperlipidemia; Bilateral carotid bruits; Smoking 06/24/2024 Travel 06/11/2024 9:30 AM EST Office Visit [address] [phone] Celi Jimenez MD Primary osteoarthritis of left knee (Primary Dx); Primary osteoarthritis of right knee 06/07/2024 9:30 AM EST Office Visit [address] [phone] Arya Glaser, ANA Ingrown toenail (Primary Dx); [...] Description 12/30/2024 10:00 AM EDT Office Visit [facility] [place] [address] [phone] Gabe Baumann MD [address] [place] [address] Health Maintenance Due Date Last Done Comments [...] atherosclerosis CAM PATCH 3-7 DAYS - OFFICE SALES REPRESENTATIVE WIRE ROPE Routine 07/22/2024 9:55 AM EDT Heart palpitations MRI KNEE W/O CONTRAST-RIGHT Routine 07/06/2024 9:31 AM EST Primary osteoarthritis of right knee [place] ARTHROCENTESIS ASPIR&/INJ MAJOR JT/BURSA W/O US Routine 06/11/2024 9:30 AM EST Primary osteoarthritis of left knee [place] ARTHROCENTESIS ASPIR&/INJ MAJOR JT/BURSA W/O US Routine [...] READY TO REVIEW. Result Trinity Baumann MD [facility] US ORDERABLES Final Result * US Arterial duplex carotid extracranial-Bilateral (07/29/2024) Anatomical Region Laterality Modality Vascular Bilateral Ultrasound 07/29/2024 Narrative 07/29/2024 9:41 AM EDT RESULTS IN CARE EVERYWHERE, READY TO REVIEW. Result Trinity Baumann MD [facility] US ORDERABLES Final Result * Comprehensive Metabolic Panel (07/29/2024) Blood 07/29/2024 Narrative Cynthia Padron - 07/29/2024 2:55 PM EDT RESULTS IN CARE EVERYWHERE, READY TO REVIEW. Result Trinity Baumann MD LAB BLOOD ORDERABLES Final Resul t * CAM PATCH 3-7 DAYS - OFFICE SALES REPRESENTATIVE WIRE ROPE (07/22/2024 9:55 AM EDT) Anatomical Region Laterality Modality Rattling Machine Tender 07/26/2024 Narrative 07/26/2024 11:09 AM EDT 7 [...] IMG MRI ORDERABLES Final Resu lt * [place] ARTHROCENTESIS ASPIR&/INJ MAJOR JT/BURSA W/O US (06/11/2024 [...] to verify the correct patient, procedure, equipment, academic support director and site/side marked as required. Patient was prepped and draped in the usual sterile fashion. Celi Jimenez MD PROCEDURE/MINOR SURGICAL JOSH [place] Edited Result - Final * [place] ARTHROCENTESIS ASPIR&/INJ MAJOR JT/BURSA W/O US (06/11/2024 [...] to verify the correct patient, procedure, equipment, academic support director and site/side marked as required. Patient was prepped and draped in the usual sterile fashion. Celi Jimenez MD PROCEDURE/MINOR SURGICAL JOSH [place] Edited Result - Final from Last 3 Months Insurance MEDICARE PART A & [place] [id number] MEDICARE PART A [place] [id number] Care Teams Mission Commander Relationship Specialty Start Date End Date [facility] PCP - General 04/15/24 Gabe Baumann MD [address] [place] [phone] Primary English Language Arts Teacher Cardiovascular Disease 06/24/24
--- OUTSIDE RECORDS SUMMARY | 2024-08-23 10:20 | XMS_ITS | Encounter Summary ---
Author Organization [facility] Address [address] [place] [address] Care Team Providers Care Senior Internal Auditor Name Role Phone [facility] [place] Primary Care Provider Gabe Hernández MD Unavailable Encounter Details Date Type Department Care Team (Late st Contact Info) Description 02/23/2024 Scanned Document [facility] [address] [place] [phone] Provider, Generic Social History Tobacco Use [...] Description 12/30/2024 10:00 AM EDT Office Visit [facility] [place] [address] [place] [phone] Gabe Baumann MD [address] [place] [phone] documented as of this encounter Visit Diagnoses Not on filedocumented in this encounter Care Teams Senior Internal Auditor Relationship Specialty Start Date End Date [facility] PCP - General 04/15/24 Gabe Baumann MD [address] [place] [phone] Primary Commanding Officer Garage Cardiovascular Disease 06/24/24 documented as of this encounter
--- OUTSIDE RECORDS SUMMARY | 2024-08-23 10:20 | XMS_ITS | Encounter Summary ---
Author Organization [facility] Address [address] [place] [address] Care Team Providers Care Chicken Handler Name Role Phone Alan Sheikh MD Primary Care Provider [phone] Encounter Details Date Type Department Care Team ([facility] Contact Info) Description 07/05/2024 Ancillary Orders [facility] Radiology, Outpatient Center (Diag Rad) [address] [facility], [address] [place], [place] [phone] Provider, MD Renuka [address] [place] [address] Social History Tobacco Use Types Packs/Day Years [...] Description 11/12/2024 10:00 AM EDT Office Visit [facility] [place] [address] [place] [address] Alan Sheikh MD [address] [place] [address] Follow up in about 6 months (around [...] on filedocumented in this encounter Care Teams Chicken Handler Relationship Specialty Start Date End Date Alan Sheikh MD [address] [place] [address] PCP - General 05/08/24 documented as of this encounter
--- OUTSIDE RECORDS SUMMARY | 2024-08-23 10:20 | XMS_ITS | Encounter Summary ---
Author Organization [facility] Address [address] [place] [address] Care Team Providers Care Fitness And Wellness Director Name Role Phone Alan Sheikh MD Primary Care Provider [phone] Encounter Details Date Type Department Care Team (Late st Contact Info) Description 07/02/2024 Procedure Pass [facility] Radiology, [facility] (Ultrasound) [address] [place], [place] [phone] Social History Tobacco Use Types Packs/Day Years [...] Description 11/12/2024 10:00 AM EDT Office Visit [facility] [address] [place] [address] Alan Sheikh MD [address] [place] [address] Follow up in about 6 months (around 11/11/2024), or Wellness exam.. documented as of this encounter Visit Diagnoses Not on filedocumented in this encounter Care Teams Fitness And Wellness Director Relationship Specialty Start Date End Date Alan Sheikh MD [address] [place] [address] PCP - General 05/08/24 documented as of this encounter
== END 2024-08-23 09:00 | disposition home or self-care (01) ==
LOC: HO.HOSX 08:59
PROVIDERS: PCP Nurse Practitioner Family; Visit Provider Neurological Surgery
DX: M47.22 Other spondylosis with radiculopathy, cervical region (principal)
CPT/HCPCS: 72050; 99212

== ENCOUNTER → 2024-08-23 09:44 | Outpatient (BNV) | payer MEDICARE, SELFPAY | PROVIDERS: PCP Nurse Practitioner Family; Visit Provider Radiology Diagnostic Radiology | DX: M47.812 Spondylosis without myelopathy or radiculopathy, cervical region (principal) | CPT/HCPCS: 72050 ==